=== PATIENT | male | born 1955 | race Caucasian/White ===

== ENCOUNTER 2021-04-20 12:21 | Inpatient (IN) | payer BC, SELFPAY ==
[2021-04-20] VITALS (11 sets, daily range): BP systolic 114–136; BP diastolic 67–78; PULSE 78–98; RESP 16–24; TEMP 36–37.7; O2SAT 80–95; BMI 28.8; BMI 28.3
--- NOTE | 2021-04-20 13:21 | RAD_ITS ---
STUDY: X-RAY CHEST REASON FOR EXAM: Male, 66 years old. Cough TECHNIQUE: Single frontal view of the chest. COMPARISON: None. FINDINGS: There are bilateral patchy opacities within the mid and lower lungs, more pronounced on the left. Normal size heart. Normal mediastinum and rah. Normal visualized pulmonary arteries. There is atherosclerotic calcification of the aortic arch with tortuosity. Normal visualized thoracic spine. Normal visualized ribs, clavicles, and shoulders. There is no demonstrated abnormality of the visualized soft tissue structures of the upper abdomen. RAD/Chest 1 View (Portable) IMPRESSION: Bilateral patchy opacities concerning for multifocal pneumonia. Electronically Signed: Mckayla Farris MD at 14:01 EST Tel , Service support ,
[2021-04-20 13:25] LABS: Absolute Lymphocyte Count 0.46 X10^3/uL (0.83-4.51); Absolute Neutrophil Count 3.9 X10^3/uL (2.0-7.7); Hematocrit 46.4 % (40-54); Hemoglobin 15.8 g/dL (13.0-16.5); Lymphocyte # 0.46 X10^3/ul (0.83-4.51); Lymphocyte % 9.8 % (19-41); Mean Corp Hgb Conc 34.1 g/dL (32-36); Mean Corpuscular Hgb 31.5 pg (27.0-32.0); Mean Corpuscular Volume 92.6 fL (80-94); Mean Platelet Vol. 9.6 fl (6.2-12.0); Monocyte# 0.36 X10^3/uL; Monocyte% 7.7 % (0-10); NRBC Flagged by Analyzer 0 % (0-5); Neutrophil # 3.85 X10^3/uL (2.7-7.7); Neutrophil % 82.1 % (47-70); POSITIVE DIFFERENTIAL YES; Platelet Count 167 K/mm3 (150-450); RBC Distribution Width CV 13.3 % (11.6-14.6); RBC Distribution Width SD 45.5 fl (35.1-43.9); Red Blood Count 5.01 M/mm3 (4.6-6.2); White Blood Count 4.7 K/mm3 (4.4-11.0)
[2021-04-20 13:27] LABS: Differential Indicated SCAN CRITERIA MET
[2021-04-20 13:39] LABS: Fibrinogen 606 mg/dl (203-444)
[2021-04-20 13:44] LABS: ALB/GLOB Ratio 0.8 RATIO (0.9-2.4); AST(SGOT) 41 U/L (15-37); Alanine Aminotransfer ALT/SGPT 32 U/L (16-61); Albumin, Serum 3.2 g/dL (3.2-5.0); Alkaline Phosphatase 80 U/L (45-117); Anion Gap 9 (5-15); BUN 16 mg/dL (7-18); CPK Total, Creatine Kinase 121 U/L (39-308); Calcium,Total 8.3 mg/dL (8.5-10.1); Chloride 101 mmol/L (98-107); Creatinine, Serum 0.89 mg/dL (0.70-1.30); EST Glomerular Filtration Rate 91 mL/min (>60); Est Glom Filt Rate - Afr Amer 110 mL/min (>60); Estimated Creatinine Clearance 80.06 ml/min; Glucose 104 mg/dL (74-106); LDH 428 U/L (87-241); Potassium 3.5 mmol/L (3.5-5.1); Protein, Total 7.2 g/dL (6.4-8.2); Sodium Level 136 mmol/L (136-145); Troponin-I HS 14 pg/mL (3.0-78.0)
[2021-04-20 13:47] LABS: Differential Comment SCANNED
[2021-04-20 13:51] LABS: Lactic Acid 0.9 mmol/L (0.4-1.9)
[2021-04-20 13:56] LABS: D-Dimer Quantitative (DVT/PE) 0.98 FEU/ug/m (0.27-0.49)
--- NOTE | 2021-04-20 13:56 | CT_ITS ---
STUDY: CTA CHEST REASON FOR EXAM: Male, 66 years old. Hypoxia, elevated dimer RADIATION DOSAGE (If Supplied By Facility): CTDIvol = ( 16.56 ) mGy, DLP = ( 396.34 ) mGycm TECHNIQUE: The examination was performed with the intravenous administration of IV 100mL Isovue-370. Post-processing of the angiographic images was performed, with multiplanar reformation and 3D reconstruction. Individualized dose optimization techniques were used for this CT. COMPARISON: None. FINDINGS: There are bilateral groundglass opacities throughout the lungs with a predominantly peripheral distribution. There are a few patchy opacities within the lower lobes. There are mild emphysematous changes. Normal enhancement of the main pulmonary artery and right and left pulmonary arteries. Normal enhancement of the bilateral peripheral pulmonary arteries. There is no demonstrated pulmonary embolism. There is atherosclerotic calcification of the aortic arch and descending thoracic aorta. There is no demonstrated aortic dissection. There are calcifications of the coronary arteries. Within the anterior mediastinum there is a peripherally calcified low-attenuation 3.0 x 3.0 x 2.8 cm peripherally calcified focus. Normal hilar regions. Normal visualized trachea and bronchi. Normal osseous structures. Normal visualized upper abdomen. CT/CTA Chest W/WO Contrast IMPRESSION: No demonstrated pulmonary embolism or arterial dissection. Bilateral groundglass opacities with an appearance which may be consistent with COVID 19 pneumonia. 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 Atherosclerosis. Electronically Signed: Mckayla Farris MD at 14:59 EST Tel , Service support ,
[2021-04-20 14:05] LABS: Procalcitonin 0.12 ng/mL (0.00-0.09)
--- NOTE | 2021-04-20 14:08 | ED.VIS.DYS ---
HPI History of Present Illness Chief Complaint: Shortness of Breath Informant: patient Narrative Narrative: Patient is a 66-year-old male that denies any past medical history but reports that he does not see a doctor, presenting with shortness of breath and cold-like symptoms. He started having symptoms 4 days ago (04/17/2021). He is presenting with his he was actually having the same symptoms but her symptoms started 10 days ago. states his symptoms started the same time as hers but patient is insistent that they started 4 days ago. He is complaining of loss of smell and taste, body aches, productive cough, dyspnea on exertion and shortness of breath. He is also had fever. Has not had his Covid vaccine. Denies any GI or symptoms. No other complaints at this time. Denies any tobacco use. 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 PFSH [facility] Home Medications NK 04/20/21 [History Last Taken Unknown] Allergy/AdvReac Type Severity Reaction Status Date / Time No Known Allergies Allergy Verified 04/20/21 12:24 Family History (Updated 04/20/21 @ 16:[address] Arturo Camacho MD) Mother No problems noted. Father CAD (coronary artery disease) Social History Smoking Status: Never smoker ROS ROS ED Constitutional Constitutional ED: Reports chills and fever(s) Eyes Eyes: Denies blurry vision or change in vision ENT ENT ED: Denies ear pain, rhinorrhea or sore throat Cardiovascular Cardiovascular: Denies chest pain or palpitations Respiratory/Chest Respiratory/Chest: Reports cough, dyspnea, dyspnea on exertion and sputum Gastrointestinal Gastrointestinal: Denies abdominal pain, diarrhea or vomiting Genitourinary Genitourinary ED: Denies dysuria or hematuria Musculoskeletal Musculoskeletal: Reports myalgias; Denies arthralgias or neck pain Integumentary Denies rash Neurologic Neurologic: Denies headache(s) or weakness EXAM Physical Exam Const Vital Signs: 04/20/21 12:24 04/20/21 12:26 04/20/21 13:00 Temperature 100 F H Temperature Source Temporal Pulse Rate 98 Respiratory Rate 24 H Respiratory Effort Short of Breath Respiratory Pattern Tachypnea Blood Pressure 136/67 H Blood Pressure Mean 90 Pulse Ox 80 90 Oxygen Delivery Method Room Air Nasal Cannula Nasal Cannula Oxygen Flow Rate (L/min) 4 04/20/21 14:34 04/20/21 15:16 04/20/21 15:20 Temperature 99.0 F Temperature Source Temporal Pulse Rate 90 79 Respiratory Rate Respiratory Effort Respiratory Pattern Blood Pressure 121/73 H Blood Pressure Mean 89 Pulse Ox 94 92 91 Oxygen Delivery Method Nasal Cannula Nasal Cannula Oxygen Flow Rate (L/min) 2 2 4 04/20/21 16:06 04/20/21 16:42 04/20/21 17:04 Temperature 99.1 F 96.8 F L Temperature Source Temporal Temporal Pulse Rate 78 85 Respiratory Rate 21 H 24 H Respiratory Effort Respiratory Pattern Blood Pressure 114/78 118/71 Blood Pressure Mean 90 86 Pulse Ox 95 93 Oxygen Delivery Method Nasal Cannula Nasal Cannula Oxygen Flow Rate (L/min) 4 4 Positive well nourished and well developed General Appearance ED: well developed HEENT Reports TM's clear and moist mucous membranes atraumatic Tympanic Membrane ED: Yes TM's clear Eyes PERRL and EOMs intact bilaterally Neck no lymphadenopathy, supple and no meningeal signs Resp Resp Narrative: Tachypneic, diminished breath sounds at the bases, diffuse scattered crackles appreciated Auscultation: Negative for rales or rhonchi Cardio regular rate, regular rhythm and no murmurs GI non-tender and non-distended Auscultation: normoactive bowel sounds Palpation: soft Back/Spine normal to inspection Extremity normal to inspection General Extremety ED: Negative for edema or tenderness General Extremity: Negative for edema Neuro oriented x3 Sensorium / Orientation: alert Motor Exam: Negative for general weakness Psych mental status grossly normal Skin no wounds Lesions: no lesions Rashes: no rashes MDM MDM MDM Narrative Medical decision making narrative: Patient evaluated for worsening of respiratory symptoms. Upon arrival he is 80% on room air. He is placed on 2 to 3 L of oxygen in the ER. He notes he feels better with supplemental oxygen. Does test positive for Covid. Chest x-ray is consistent with multifocal infiltrate. Elevated inflammatory markers. D-dimer is elevated so CTA is ordered. Patient is given Decadron and Tylenol in the ER. CTA does not show any acute PE. Is consistent with a multifocal pneumonia likely from COVID-19. I do not suspect a secondary bacterial pneumonia given no leukocytosis and procalcitonin of 1.2. Will defer antibiotics at this time. Patient is agreeable with admission. He remains hemodynamically stable in the emergency room. Lab Data Labs: Laboratory Results - last 24 hr 04/20/21 04/20/21 04/20/21 13:10 13:10 13:10 WBC 4.7 RBC 5.01 Hgb 15.8 Hct 46.4 MCV 92.6 MCH 31.5 MCHC 34.1 RDW Std Deviation 45.5 H RDW Coeff of Alyson 13.3 Plt Count 167 MPV 9.6 Immature Gran % (Auto) 0.400 Neut % (Auto) 82.1 H Lymph % (Auto) 9.8 L [place] % (Auto) 7.7 Eos % (Auto) 0.0 Baso % (Auto) 0.0 Absolute Neuts (auto) 3.9 Absolute Lymphs (auto) 0.46 L Nucleated RBC % 0 Differential Comment SCANNED Fibrinogen 606 H D-Dimer Quant (PE/DVT) 0.98 H* Sodium 136 Potassium 3.5 Chloride 101 Carbon Dioxide 26.0 Anion Gap 9 BUN 16 Creatinine 0.89 Estim Creat Clear Calc 80.06 Est GFR (MDRD) Af Amer 110 Est GFR (MDRD) Non-Af 91 BUN/Creatinine Ratio 18.0 Glucose 104 Lactic Acid Calcium 8.3 L Total Bilirubin 0.90 AST 41 H ALT 32 Alkaline Phosphatase 80 Lactate Dehydrogenase 428 H Total Creatine Kinase 121 Troponin I High Sens 14 C-React Prot Ext Range 56.40 H Total Protein 7.2 Albumin 3.2 Globulin 4.0 Albumin/Globulin Ratio 0.8 L Procalcitonin 04/20/21 04/20/21 04/20/21 13:10 13:10 13:10 WBC RBC Hgb Hct MCV MCH MCHC RDW Std Deviation RDW Coeff of Alyson Plt Count MPV Immature Gran % (Auto) Neut % (Auto) Lymph % (Auto) [place] % (Auto) Eos % (Auto) Baso % (Auto) Absolute Neuts (auto) Absolute Lymphs (auto) Nucleated RBC % Differential Comment Fibrinogen D-Dimer Quant (PE/DVT) Sodium Potassium Chloride Carbon Dioxide Anion Gap BUN Creatinine Estim Creat Clear Calc Est GFR (MDRD) Af Amer Est GFR (MDRD) Non-Af BUN/Creatinine Ratio Glucose Lactic Acid 0.9 Calcium Total Bilirubin AST ALT Alkaline Phosphatase Cancelled Lactate Dehydrogenase Total Creatine Kinase Troponin I High Sens C-React Prot Ext Range Total Protein Albumin Globulin Albumin/Globulin Ratio Procalcitonin 0.12 H Radiography Chest X-Ray - ED: 1 View, Read by ED Physician, Read by Radiologist, Right Infiltrate and Left Infiltrate Diagnostic Testing: Clinical Impression(s) from Imaging Studies Chest X-Ray 04/20/21 13:21 IMPRESSION: Bilateral patchy opacities concerning for multifocal pneumonia. Electronically Signed: Mckayla Farris MD at 14:01 EST Tel , Service support , Chest CTA 04/20/21 13:56 IMPRESSION: No demonstrated pulmonary embolism or arterial dissection. Bilateral groundglass opacities with an appearance which may be consistent with COVID 19 pneumonia. 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 Atherosclerosis. Electronically Signed: Mckayla Farris MD at 14:59 EST Tel , Service support , Discharge Plan Dx/Rx/DC Orders Clinical Impression: COVID-19, Acute respiratory failure with hypoxia, Pneumonia due to COVID-19 virus Disposition Disposition: Acute Care [facility] Discharge Date/Time: 04/20/21 17:20
[2021-04-20] MEDS: Acetaminophen 325 MG Tablet 650 MG PO (14:25)
[2021-04-20] MEDS: dexAMETHasone 4 MG Tablet 6 MG PO (14:25)
--- NOTE | 2021-04-20 15:54 | PCM.HP.STD ---
HPI - General HPI Narrative KATY WILSON, is a 66 M relatively healthy on no chronic medications, unvaccinated against COVID-19 who presented with shortness of breath. Per patient symptoms started 4 days prior to his admission. He did experience loss of taste as well as smell. He later developed shortness of breath which has since progressed. He also did experience cough. He presented to the emergency department due to worsening symptoms. An assessment of COVID-19 pneumonia made admitted to regular nursing floor for further management. [facility] Home Medications NK 04/20/21 [History Last Taken Unknown] Allergy/AdvReac Type Severity Reaction Status Date / Time No Known Allergies Allergy Verified 04/20/21 12:24 Family History (Updated 04/20/21 @ 16:[address] Arturo Camacho MD) Mother No problems noted. Father CAD (coronary artery disease) Social History Smoking Status: Never smoker ROS ROS Narrative GENERAL: denies fever, chills, HEENT: Loss of taste and smell RESPIRATORY: cough, shortness of breath, dyspnea on exertion CARDIAC: denies chest pain, palpitations, orthopnea, GASTROINTESTINAL: denies abdominal pain, nausea, GENITOURINARY: denies dysuria, urgency, frequency, EXTREMITY: denies swelling MUSCULOSKELETAL: denies current joint pain or tenderness NEUROLOGIC: denies focal numbness, weakness, tingling HEMATOLOGIC: denies easy bruising and/or hemorrhage INTEGUMENT: denies rashes PSYCHIATRIC: denies suicidal or homicidal ideation Vital Signs Vital Signs Vital Signs: 04/20/21 12:24 04/20/21 12:26 04/20/21 13:00 Temperature 100 F H Temperature Source Temporal Pulse Rate 98 Respiratory Rate 24 H Respiratory Effort Short of Breath Respiratory Pattern Tachypnea Blood Pressure 136/67 H Blood Pressure Mean 90 Pulse Ox 80 90 Oxygen Delivery Method Room Air Nasal Cannula Nasal Cannula Oxygen Flow Rate (L/min) 4 04/20/21 14:34 04/20/21 15:16 04/20/21 15:20 Temperature 99.0 F Temperature Source Temporal Pulse Rate 90 79 Respiratory Rate Respiratory Effort Respiratory Pattern Blood Pressure 121/73 H Blood Pressure Mean 89 Pulse Ox 94 92 91 Oxygen Delivery Method Nasal Cannula Nasal Cannula Oxygen Flow Rate (L/min) 2 2 4 Weight Weight: 86.183 kg Body Mass Index (BMI) 28.8 Physical Exam Narrative GENERAL: cooperative HEENT: Atraumatic; EYES; Anicteric, Normal Conjunctiva NECK; supple, normal thyroid, RESPIRATORY: Diminished to auscultation CARDIOVASCULAR: Regular S1 S2, GI: soft, normoactive bowel sounds, : No Renal angle tenderness; EXTREMITIES: No edema, no clubbing, MUSCULOSKELETAL: no muscle waisting NEURO: Awake; no lateralizing signs. SKIN: No Rash PSYCH; Flat affect Results Lab / Micro Data Result Diagrams: 04/20/21 13:10 04/20/21 13:10 Labs: Laboratory Results - last 24 hr 04/20/21 13:10: WBC 4.7, RBC 5.01, Hgb 15.8, Hct 46.4, MCV 92.6, MCH 31.5, MCHC 34.1, RDW Std Deviation 45.5 H, RDW Coeff of Alyson 13.3, Plt Count 167, MPV 9.6, Immature Gran % (Auto) 0.400, Neut % (Auto) 82.1 H, Lymph % (Auto) 9.8 L, [place] % (Auto) 7.7, Eos % (Auto) 0.0, Baso % (Auto) 0.0, Absolute Neuts (auto) 3.9, Absolute Lymphs (auto) 0.46 L, Nucleated RBC % 0, Differential Comment SCANNED 04/20/21 13:10: Fibrinogen 606 H, D-Dimer Quant (PE/DVT) 0.98 H* 04/20/21 13:10: Sodium 136, Potassium 3.5, Chloride 101, Carbon Dioxide 26.0, Anion Gap 9, BUN 16, Creatinine 0.89, Estim Creat Clear Calc 80.06, Est GFR (MDRD) Af Amer 110, Est GFR (MDRD) Non-Af 91, BUN/Creatinine Ratio 18.0, Glucose 104, Calcium 8.3 L, Total Bilirubin 0.90, AST 41 H, ALT 32, Alkaline Phosphatase 80, Lactate Dehydrogenase 428 H, Total Creatine Kinase 121, Troponin I High Sens 14, C-React Prot Ext Range 56.40 H, Total Protein 7.2, Albumin 3.2, Globulin 4.0, Albumin/Globulin Ratio 0.8 L 04/20/21 13:10: Lactic Acid 0.9 04/20/21 13:10: Procalcitonin 0.12 H Micro: Microbiology 04/20/21 12:10 Nasal Secretion SARS-CoV-2 Antigen (Rapid) - Final SARS-CoV-2 (COVID 19) Radiology Impression Chest X-Ray 04/20/21 13:21 IMPRESSION: Bilateral patchy opacities concerning for multifocal pneumonia. Electronically Signed: Mckayla Farris MD at 14:01 EST Tel , Service support , Chest CTA 04/20/21 13:56 IMPRESSION: No demonstrated pulmonary embolism or arterial dissection. Bilateral groundglass opacities with an appearance which may be consistent with COVID 19 pneumonia. 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 Atherosclerosis. Electronically Signed: Mckayla Farris MD at 14:59 EST Tel , Service support , Assessment & Plan Assessment/Plan (1) COVID-19: PLAN: Patient is a 66-year-old unvaccinated against COVID-19 gentleman presented with progressive shortness of breath 1. Acute hypoxic respiratory failure ?Secondary to COVID-19. Patient admitted to regular nursing floor placed on supplemental oxygen with treatment of underlying condition 2. COVID-19 pneumonia ?CT a obtained demonstrated bilateral ground glass opacities with predominantly peripheral distribution consistent with COVID-19 pneumonia. Admitted to regular nursing floor placed on supplemental oxygen Decadron as well as use of remdesivir 3. Elevated D-dimer ?Secondary to COVID-19 CTA was negative for PE 4. 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 Patient to undergo subsequent evaluation as outpatient once he recovers from his COVID-19 pneumonia 5. DVT prophylaxis ?Lovenox Advance planning; did discuss with the patient regarding advanced directives as well as CODE STATUS. Did explain the various scenarios involved ( FULL CODE, DNR CCA, DNR CCA with no intubation, and DNR CC and what each meant) patient elected to full code with CPR and intubation if warranted. Order was placed. Time spent on discussion 18 minutes. Charges/Coding Visit Charges Inpatient E&M: 71443 Init Hosp L3 Procedures Hospitalists Procedures: 58422 Advncd Care Plan 30 Min
--- NOTE | 2021-04-20 17:59 | PCS.PANDOC ---
PANDEMIC DOCUMENTATION INITIATED: Date: 04/20/2021 Time: 3832
[2021-04-20] MEDS: Enoxaparin 40 MG/0.4 ML Syringe SC (20:24)
[2021-04-21] VITALS (12 sets, daily range): BP systolic 105–128; BP diastolic 66–82; PULSE 68–98; RESP 16–34; TEMP 36.7–37.3; O2SAT 86–93
[2021-04-21 07:30] LABS: Absolute Lymphocyte Count 0.87 X10^3/uL (0.83-4.51); Absolute Neutrophil Count 4.8 X10^3/uL (2.0-7.7); Basophil# 0.01 X10^3/uL; Basophil% 0.2 % (0-1); Hematocrit 43.1 % (40-54); Hemoglobin 14.8 g/dL (13.0-16.5); Lymphocyte # 0.87 X10^3/ul (0.83-4.51); Lymphocyte % 14.1 % (19-41); Mean Corp Hgb Conc 34.3 g/dL (32-36); Mean Corpuscular Hgb 31.8 pg (27.0-32.0); Mean Corpuscular Volume 92.7 fL (80-94); Mean Platelet Vol. 9.9 fl (6.2-12.0); Monocyte# 0.46 X10^3/uL; Monocyte% 7.4 % (0-10); NRBC Flagged by Analyzer 0 % (0-5); Neutrophil # 4.81 X10^3/uL (2.7-7.7); Neutrophil % 77.7 % (47-70); Platelet Count 193 K/mm3 (150-450); RBC Distribution Width CV 13.2 % (11.6-14.6); RBC Distribution Width SD 45.4 fl (35.1-43.9); Red Blood Count 4.65 M/mm3 (4.6-6.2); White Blood Count 6.2 K/mm3 (4.4-11.0)
[2021-04-21 08:04] LABS: ALB/GLOB Ratio 0.7 RATIO (0.9-2.4); AST(SGOT) 37 U/L (15-37); Alanine Aminotransfer ALT/SGPT 32 U/L (16-61); Albumin, Serum 2.7 g/dL (3.2-5.0); Alkaline Phosphatase 69 U/L (45-117); Anion Gap 10 (5-15); BUN 18 mg/dL (7-18); BUN/Creat Ratio 22.9 RATIO (10-20); Bilirubin, Direct 0.24 mg/dL (0.00-0.30); Calcium,Total 8.1 mg/dL (8.5-10.1); Chloride 103 mmol/L (98-107); Creatinine, Serum 0.79 mg/dL (0.70-1.30); EST Glomerular Filtration Rate 105 mL/min (>60); Est Glom Filt Rate - Afr Amer 127 mL/min (>60); Estimated Creatinine Clearance 90.19 ml/min; Glucose 113 mg/dL (74-106); Magnesium 2.6 mg/dL (1.6-2.6); Phosphorus 3.2 mg/dL (2.5-4.9); Potassium 3.6 mmol/L (3.5-5.1); Protein, Total 6.7 g/dL (6.4-8.2); Sodium Level 137 mmol/L (136-145)
[2021-04-21] MEDS: dexAMETHasone 4 MG Tablet 6 MG PO (10:39)
[2021-04-21] MEDS: Enoxaparin 40 MG/0.4 ML Syringe SC ×2 (10:40→19:35)
--- NOTE | 2021-04-21 15:10 | CASEMGMT ---
SHELBIE JOHNSTON assessment: Initial transition planning/care coordination assessment. SHELBIE JOHNSTON introduced self and role at [facility], pt voices understanding and consents to assessment. Pt is on 10L nc and speaks in full sentences. Pt is A/Ox4 and answers all questions appropriately. Pt states is 'feeling a lot better.' Pt states is not vaccinated and states no concerns getting resources once home. Care providers, pharmacy, and demographics verified/updated. Presentation: COVID sx's since , SOB, cough, fever, lost of taste/smell-80% on room air Admitting dx: COVID PCP: Pt states does not have PCP but would like local PCP list. List provided. Specialists: Pt states no current specialists. Preferred Pharmacy: [facility] [place] Insurance: [place] Pres[place] Living Will/HPOA: Pt has LW/HPOA and is aware that they are not on file at [facility]. Pt states his , Armida Christensen, is HPOA. LNOK: Armida Christensen, Living Arrangements: Pt lives with in 1 story home with a flight of steps and states no concerns at home. Pt is independent with ADL's. Transportation: Pt drives self and states no transportation concerns. DME/HHC: Pt states no current DME or need for any further DME. Pt states no preference for DME company, if pt qualifies for home oxygen. Pt states no hx of HHC or SNF in the past. Pt states no concerns with going home at time of discharge. 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 Pt states does not smoke cigarettes or drink ETOH. Pt states no further concerns/needs. CM to follow for any further discharge planning/needs. Advised pt to ask for CM if any further questions/concerns/needs arise, voices understanding. Pt Goal: Home Plan[place] SHELBIE JOHNSTON
--- NOTE | 2021-04-21 15:55 | PN.HOSP_ITS ---
Subjective Subjective Follow-up on acute hypoxic respiratory failure/acute COVID-19 pneumonia: Patient was seen and examined. He feels improved. Denied any new complaints Objective Data Objective Data Vital Signs: Vital Signs Temp Pulse Resp BP Pulse Ox 99.1 F 98 20 H 127/82 H 86 04/21/21 10:00 04/21/21 13:07 04/21/21 10:00 04/21/21 10:00 04/21/21 10:00 Oxygen Flow Rate (L/min) 4 Oxygen Delivery Method Nasal Cannula Weight: 84.7 kg Body Mass Index (BMI) 28.3 Intake & Output: Intake and Output for Last 24 Hours 04/19/21 04/20/21 04/21/21 23:59 23:59 23:59 Intake Total 240 / 240 360 / 360 Output Total 800 / 800 Balance 240 / 40 -440 / -440 Medical Nutrition Assessment Dietitian: Malnutrition Criteria Met Start: 04/21/21 12:38 Freq: Status: Active Protocol: Document 04/21/21 12:43 AG (Rec: 04/21/21 12:43 AG [id number]) Nutrition Malnutrition Evidence of Malnutrition Exists Yes Malnutrition (severe): Acute Illness/Injury Evidenced By Suboptimal Energy Intake ( Moderate),Weight Loss (Severe) Clinical Problem Acute Disease or Injury Related Malnutrition Etiology severe, acute malnutrition r/t inadequate energy intake w/ COVID illness Signs/Symptoms as evidenced by reported decreased appetite, estimated PO intake meeting <50% of estimated nutritional needs x 4-5 days, unintentional wt loss of 8.3#/4% <1 week Status Active Problem Recommendation Dietitian Recommendations/Changes continue regular diet; will add 4oz ensure compact w/ meals d/t acute malnutrition. Lab / Micro Data Result Diagrams: 04/21/21 07:08 04/21/21 07:08 Labs: Laboratory Results - last 24 hr 04/20/21 13:10: Alkaline Phosphatase Cancelled 04/21/21 07:08: WBC 6.2, RBC 4.65, Hgb 14.8, Hct 43.1, MCV 92.7, MCH 31.8, MCHC 34.3, RDW Std Deviation 45.4 H, RDW Coeff of Alyson 13.2, Plt Count 193, MPV 9.9, Immature Gran % (Auto) 0.600, Neut % (Auto) 77.7 H, Lymph % (Auto) 14.1 L, [place] % (Auto) 7.4, Eos % (Auto) 0.0, Baso % (Auto) 0.2, Absolute Neuts (auto) 4.8, Absolute Lymphs (auto) 0.87, Nucleated RBC % 0 04/21/21 07:08: Sodium 137, Potassium 3.6, Chloride 103, Carbon Dioxide 24.0, Anion Gap 10, BUN 18, Creatinine 0.79, Estim Creat Clear Calc 90.19, Est GFR (MDRD) Af Amer 127, Est GFR (MDRD) Non-Af 105, BUN/Creatinine Ratio 22.9 H, Glucose 113 H, Calcium 8.1 L, Phosphorus 3.2, Magnesium 2.6, Total Bilirubin 0.60, Direct Bilirubin 0.24, AST 37, ALT 32, Alkaline Phosphatase 69, Total Protein 6.7, Albumin 2.7 L, Globulin 4.0, Albumin/Globulin Ratio 0.7 L Micro: Microbiology 04/20/21 12:10 Nasal Secretion SARS-CoV-2 Antigen (Rapid) - Final SARS-CoV-2 (COVID 19) Physical Exam Narrative Physical exam: General: Alert, Oriented x3, Cooperative, No apparent distress, Well developed HEENT: Atraumatic Oral: Moist Mucosa Neck: Supple Lungs: Clear to auscultation Cardiovascular: HS I+II, regular, no murmurs Abdomen: Bowel Sounds Present, Soft, Non Tender Extremities: No edema Assessment & Plan Assessment/Plan (1) Acute respiratory failure with hypoxia: (2) Pneumonia due to COVID-19 virus: PLAN: 1. Acute hypoxic respiratory failure secondary to acute COVID-19 pneumonia Continue remdesivir and Decadron Continue on breathing treatments Encourage use of incentive spirometer 2. Elevated D-dimer, acute PE ruled out Charges/Coding Visit Charges Inpatient E&M: 90414 Subs Hosp L2
[2021-04-21] MEDS: Furosemide 40 MG/4 ML Vial IV (17:30)
[2021-04-21] MEDS: 0.9% Saline Lock 10 ML Syringe IV (19:52)
[2021-04-22] VITALS (21 sets, daily range): BP systolic 102–117; BP diastolic 61–73; PULSE 69–88; RESP 14–32; TEMP 36.2–38.2; O2SAT 79–99
[2021-04-22] MEDS: Acetaminophen 325 MG Tablet 650 MG PO (05:24)
[2021-04-22] MEDS: dexAMETHasone 4 MG Tablet 6 MG PO (08:12)
[2021-04-22] MEDS: Enoxaparin 40 MG/0.4 ML Syringe SC ×2 (08:12→19:51)
[2021-04-22] MEDS: 0.9% Saline Lock 10 ML Syringe IV (08:14)
--- NOTE | 2021-04-22 08:16 | NURSING ---
Addendum entered by Fatoumata See 04/22/21 14:53: RT in room placing pt on AirVo. Addendum entered by Fatoumata See 04/22/21 14:36: Pt assisted to sitting in bed from prone. Spo2 80% 15L NC. 1441-Respiratory called, pt maintaining 81% on 15 L. Original Note: Pt sat forward in bed for this RN to assess lung sounds. Pt became SOB, PSO2 83% on 14L. In creased to 15L NC and proned pt. Spo2 92% 15L NC after a few minutes laying prone.
--- NOTE | 2021-04-22 10:00 | PCM.PN.HOSP ---
Subjective Subjective Follow-up on acute hypoxic respiratory failure/acute COVID-19 pneumonia: Patient was seen and examined. He is on 15 L of oxygen. He has been lying prone. Objective Data Objective Data Vital Signs: Vital Signs Temp Pulse Resp BP Pulse Ox 97.1 F L 70 18 116/67 94 04/22/21 08:00 04/22/21 08:00 04/22/21 08:00 04/22/21 08:00 04/22/21 08:27 Oxygen Flow Rate (L/min) 15 Oxygen Delivery Method High Flow Weight: 84.7 kg Body Mass Index (BMI) 28.3 Intake & Output: Intake and Output for Last 24 Hours 04/20/21 04/21/21 04/22/21 23:59 23:59 23:59 Intake Total 240 / 240 610 / 610 Output Total 800 / 800 350 / 350 Balance 240 / 40 -190 / -190 -350 / -350 Medical Nutrition Assessment Dietitian: Malnutrition Criteria Met Start: 04/21/21 12:38 Freq: Status: Active Protocol: Document 04/21/21 12:43 AG (Rec: 04/21/21 12:43 AG [id number]) Nutrition Malnutrition Evidence of Malnutrition Exists Yes Malnutrition (severe): Acute Illness/Injury Evidenced By Suboptimal Energy Intake ( Moderate),Weight Loss (Severe) Clinical Problem Acute Disease or Injury Related Malnutrition Etiology severe, acute malnutrition r/t inadequate energy intake w/ COVID illness Signs/Symptoms as evidenced by reported decreased appetite, estimated PO intake meeting <50% of estimated nutritional needs x 4-5 days, unintentional wt loss of 8.3#/4% <1 week Status Active Problem Recommendation Dietitian Recommendations/Changes continue regular diet; will add 4oz ensure compact w/ meals d/t acute malnutrition. Lab / Micro Data Result Diagrams: 04/21/21 07:08 04/21/21 07:08 Micro: Microbiology 04/21/21 17:07 Urine, Clean Catch Legionella Antigen - Final 04/21/21 17:07 Urine, Clean Catch Streptococcus pneumoniae Antigen (M - Final 04/20/21 12:10 Nasal Secretion SARS-CoV-2 Antigen (Rapid) - Final SARS-CoV-2 (COVID 19) Physical Exam Narrative Physical exam: General: Alert, Oriented x3, Cooperative, No apparent distress, Well developed HEENT: Atraumatic Oral: Moist Mucosa Neck: Supple Lungs: Clear to auscultation Cardiovascular: HS I+II, regular, no murmurs Abdomen: Bowel Sounds Present, Soft, Non Tender Extremities: No edema Assessment & Plan Assessment/Plan (1) Acute respiratory failure with hypoxia: (2) Pneumonia due to COVID-19 virus: PLAN: 1. Acute hypoxic respiratory failure secondary to acute COVID-19 pneumonia Continue remdesivir and Decadron Continue on breathing treatments Encourage use of incentive spirometer 2. Elevated D-dimer, acute PE ruled out Charges/Coding Visit Charges Inpatient E&M: 03295 Subs Hosp L2
[2021-04-23] VITALS (15 sets, daily range): BP systolic 112–128; BP diastolic 66–77; PULSE 64–72; RESP 14–31; TEMP 36–36.9; O2SAT 84–97
[2021-04-23] MEDS: Enoxaparin 40 MG/0.4 ML Syringe SC ×2 (08:39→20:34)
[2021-04-23] MEDS: dexAMETHasone 4 MG Tablet 6 MG PO (08:39)
[2021-04-23] MEDS: Furosemide 40 MG/4 ML Vial IV (12:01)
--- NOTE | 2021-04-23 12:33 | PCM.PN.HOSP ---
Subjective Subjective Follow-up on acute hypoxic respiratory failure/acute COVID-19 pneumonia: Patient was seen and examined. Patient is currently on BiPAP. He was Airvo overnight. Objective Data Objective Data Vital Signs: Vital Signs Temp Pulse Resp BP Pulse Ox 97.8 F 67 24 H 112/66 96 04/23/21 12:02 04/23/21 12:02 04/23/21 12:02 04/23/21 12:02 04/23/21 12:02 Oxygen Flow Rate (L/min) 60 Oxygen Delivery Method Bi-pap Weight: 84.7 kg Body Mass Index (BMI) 28.3 Intake & Output: Intake and Output for Last 24 Hours 04/21/21 04/22/21 04/23/21 23:59 23:59 23:59 Intake Total 610 / 610 850 / 850 60 / 60 Output Total 800 / 800 350 / 550 900 / 900 Balance -190 / -190 500 / 300 -840 / -840 Medical Nutrition Assessment Dietitian: Malnutrition Criteria Met Start: 04/21/21 12:38 Freq: Status: Active Protocol: Document 04/21/21 12:43 AG (Rec: 04/21/21 12:43 AG [id number]) Nutrition Malnutrition Evidence of Malnutrition Exists Yes Malnutrition (severe): Acute Illness/Injury Evidenced By Suboptimal Energy Intake ( Moderate),Weight Loss (Severe) Clinical Problem Acute Disease or Injury Related Malnutrition Etiology severe, acute malnutrition r/t inadequate energy intake w/ COVID illness Signs/Symptoms as evidenced by reported decreased appetite, estimated PO intake meeting <50% of estimated nutritional needs x 4-5 days, unintentional wt loss of 8.3#/4% <1 week Status Active Problem Recommendation Dietitian Recommendations/Changes continue regular diet; will add 4oz ensure compact w/ meals d/t acute malnutrition. Lab / Micro Data Result Diagrams: 04/21/21 07:08 04/21/21 07:08 Micro: Microbiology 04/20/21 15:10 Blood Culture (Wb) - Left Hand Blood Culture - Preliminary No growth in 48 hours. 04/20/21 13:10 Blood Culture (Wb) - Anticubital Right Blood Culture - Preliminary No growth in 48 hours. 04/21/21 17:07 Urine, Clean Catch Legionella Antigen - Final 04/21/21 17:07 Urine, Clean Catch Streptococcus pneumoniae Antigen (M - Final 04/20/21 12:10 Nasal Secretion SARS-CoV-2 Antigen (Rapid) - Final SARS-CoV-2 (COVID 19) Physical Exam Narrative Physical exam: General: Alert, Oriented x3, Cooperative, No apparent distress, currently on Bipap HEENT: Atraumatic Oral: Moist Mucosa Neck: Supple Lungs: Diminished to auscultation Cardiovascular: HS I+II, regular, no murmurs Abdomen: Bowel Sounds Present, Soft, Non Tender Extremities: No edema Assessment & Plan Assessment/Plan (1) COVID-19: (2) Acute respiratory failure with hypoxia: (3) Pneumonia due to COVID-19 virus: PLAN: 1. Acute hypoxic respiratory failure secondary to acute COVID-19 pneumonia, worsening Currently on BiPAP/Airvo Patient is unvaccinated; has symptoms 4 days prior to admission Continue Remdesivir and Decadron Continue on breathing treatments Pulmonology and ID consult 2. Elevated D-dimer, acute PE ruled out Clarified CODE STATUS: Patient wants to be full code Charges/Coding Visit Charges Inpatient E&M: 61242 Subs Hosp L2
[2021-04-23 13:39] LABS: Absolute Lymphocyte Count 0.62 X10^3/uL (0.83-4.51); Absolute Neutrophil Count 9.2 X10^3/uL (2.0-7.7); Basophil# 0.01 X10^3/uL; Basophil% 0.1 % (0-1); Hematocrit 43.9 % (40-54); Hemoglobin 15.1 g/dL (13.0-16.5); Lymphocyte # 0.62 X10^3/ul (0.83-4.51); Lymphocyte % 6.1 % (19-41); Mean Corp Hgb Conc 34.4 g/dL (32-36); Mean Corpuscular Hgb 31.5 pg (27.0-32.0); Mean Corpuscular Volume 91.5 fL (80-94); Mean Platelet Vol. 9.9 fl (6.2-12.0); Monocyte# 0.31 X10^3/uL; NRBC Flagged by Analyzer 0 % (0-5); Neutrophil # 9.19 X10^3/uL (2.7-7.7); Neutrophil % 90.1 % (47-70); POSITIVE MORPHOLOGY YES; Platelet Count 269 K/mm3 (150-450); RBC Distribution Width CV 13.1 % (11.6-14.6); White Blood Count 10.2 K/mm3 (4.4-11.0)
[2021-04-23 13:40] LABS: Differential Indicated SCAN CRITERIA MET
[2021-04-23 13:56] LABS: D-Dimer Quantitative (DVT/PE) 0.68 FEU/ug/m (0.27-0.49)
[2021-04-23 14:04] LABS: BNP,B-Type NATRIURETIC PEPTIDE 41.7 pg/mL (0-100)
[2021-04-23 14:12] LABS: ALB/GLOB Ratio 0.6 RATIO (0.9-2.4); AST(SGOT) 34 U/L (15-37); Alanine Aminotransfer ALT/SGPT 47 U/L (16-61); Albumin, Serum 2.5 g/dL (3.2-5.0); Alkaline Phosphatase 74 U/L (45-117); Anion Gap 11 (5-15); BUN 19 mg/dL (7-18); BUN/Creat Ratio 23.9 RATIO (10-20); Calcium,Total 8.5 mg/dL (8.5-10.1); Chloride 101 mmol/L (98-107); EST Glomerular Filtration Rate 104 mL/min (>60); Est Glom Filt Rate - Afr Amer 126 mL/min (>60); Estimated Creatinine Clearance 89.06 ml/min; Glucose 128 mg/dL (74-106); Potassium 3.6 mmol/L (3.5-5.1); Protein, Total 6.5 g/dL (6.4-8.2); Sodium Level 139 mmol/L (136-145)
[2021-04-23 14:19] LABS: Procalcitonin 0.07 ng/mL (0.00-0.09)
--- NOTE | 2021-04-23 15:55 | EX.PCM.CONCC ---
Assessment & Plan Assessment/Plan (1) Acute respiratory failure with hypoxia: (2) Pneumonia due to COVID-19 virus: PLAN: RECOMMENDATIONS: 1. Continue baricitinib (05/06/2021), Decadron (05/01/2021) and Remdesivir (04/24/2021) 2. Encourage prone positioning, Acapella and incentive spirometer as tolerated 3. Diuretics as needed to remain euvolemic 4. Transition to Mucinex for pulmonary toileting 5. Add vitamin C and zinc 6. BiPAP breaks as tolerated. Add BiPAP with sleep 7. Continue surveillance labs for complications of therapy IMPRESSIONS: 1. Acute hypoxic respiratory failure secondary to COVID-19 Continue with baricitinib, Decadron and Remdesivir with recommended courses. Patient will need to continue to have daily labs to monitor for complications of therapy. Patient does report a remote smoking history, so COPD cannot be excluded. This will have to be evaluated as an outpatient. Patient has been able to make it down to 70% FiO2 on BiPAP, so potentially could attempt Airvo during the day. Would continue to use BiPAP with sleep. We will continue to diurese as necessary to maintain euvolemia. Add vitamin C and zinc. Low clinical suspicion for secondary bacterial infection given normal procalcitonin. 2. Advanced age/nonvaccinated status/history of smoking Complicates care, management, recovery and prognosis. We will need to monitor for complications such as hyperglycemia and hypertension related to Decadron therapy. May schedule bronchodilators in the future if patient is found to have wheezing. We will transition to Mucinex for better pulmonary toileting. HPI Consult Data Date of Consult: 04/23/21 HPI Narrative HPI Narrative: KATY WILSON is a 66 M, with past medical history listed below, who presents to [facility] on 04/20/2021 secondary to progressive shortness of breath and cold symptoms. Patient reportedly had reported loss of taste and smell on the Wednesday after Thanksgiving. Patient had also reported the progression of body aches, productive cough, shortness of breath initially with exertion and then at rest. Patient had reported some fever. Patient reported some loose bowel movements, but not sal diarrhea. Patient is unvaccinated against COVID-19. In the ER, patient was noted to have a temperature of 100 ?F. Patient was tachypneic at 24 breaths/min and saturating 80% on room air. The patient eventually required 4 L nasal cannula to maintain saturations. Laboratory work-up was relatively unremarkable except for an elevated D-dimer of 0.98, CRP of 56.4 and an LDH of 428. Chest x-ray showed bilateral patchy infiltrates and a CTA of the chest showed no PE, but a calcified cystic anterior mediastinal mass. Patient was admitted to the floor on supplemental oxygen and initiated on Remdesivir and Decadron. However, over the course of the hospitalization, patient has progressively gotten more hypoxic. Patient is currently requiring BiPAP therapy to maintain saturations. Patient appears to be tolerating this well, but was as high as 85% FiO2 to maintain saturations. Patient does have an Airvo in the room, but states he is yet to use it today. Patient overall feels okay. Patient does report a periodic cough. Patient does report a history of smoking in the past. Patient states that he quit over 20 years ago and does not use any inhalers at baseline. Patient has not seen a lotus notes administrator or had a PFT previously. Patient denies a history of recurrent pneumonia or a need for supplemental oxygen previously. Patient denies any exposure to asbestos or TB. 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 Review of systems otherwise negative from a constitutional, HEENT, respiratory, cardiovascular, GI, genitourinary, musculoskeletal, skin, neurologic, psychiatric and hematologic system unless stated above. [facility] Medical History Former smoker Home Medications NK 04/20/21 [History Last Taken Unknown] Allergy/AdvReac Type Severity Reaction Status Date / Time No Known Allergies Allergy Verified 04/20/21 12:24 Family History Mother No problems noted. Father CAD (coronary artery disease) Social History (Updated 04/23/21 @ 16:[address] Rome Aviles MD) Smoking Status: Former smoker quit date: 02/14/01 Electronic Cigarette Use: not used ROS ROS Narrative See HPI Physical Exam Const alert and oriented x3 General Appearance: cooperative, well developed and on BiPAP HEENT normocephalic, head/scalp atraumatic and moist oral mucous membranes Eyes PERRL and EOMs intact bilaterally Neck full ROM and no lymphadenopathy Chest inspection of chest normal Chest: symmetrical chest wall rise; Negative for crepitus Resp no use of accessory muscles Effort and Inspection: Negative for paradoxical thoraco-abdominal movements Auscultation: diminished lung sounds; Negative for rales, rhonchi or wheezes Percussion: Negative for dullness Cardio regular rate, regular rhythm, S1 normal heart sound, S2 normal heart sound, no murmurs, no rub and no gallops GI normal to inspection, nondistended, normoactive bowel sounds no CVA tenderness Extremity no clubbing, cyanosis or edema Skin no rashes or lesions noted Neuro oriented x3, CN's II-XII intact bilaterally, moves all extremities and no focal motor deficits Psych cooperative and affect normal Medical Records Data Medical Nutrition Assessment Dietitian: Malnutrition Criteria Met Start: 04/21/21 12:38 Freq: Status: Active Protocol: Document 04/21/21 12:43 AG (Rec: 04/21/21 12:43 [id number]) Nutrition Malnutrition Evidence of Malnutrition Exists Yes Malnutrition (severe): Acute Illness/Injury Evidenced By Suboptimal Energy Intake ( Moderate),Weight Loss (Severe) Clinical Problem Acute Disease or Injury Related Malnutrition Etiology severe, acute malnutrition r/t inadequate energy intake w/ COVID illness Signs/Symptoms as evidenced by reported decreased appetite, estimated PO intake meeting <50% of estimated nutritional needs x 4-5 days, unintentional wt loss of 8.3#/4% <1 week Status Active Problem Recommendation Dietitian Recommendations/Changes continue regular diet; will add 4oz ensure compact w/ meals d/t acute malnutrition. Lab / Micro Data Result Diagrams: 04/23/21 13:20 04/23/21 13:20 Labs: Laboratory Results - last 24 hr 04/23/21 13:20: D-Dimer Quant (PE/DVT) 0.68 H* 04/23/21 13:20: Sodium 139, Potassium 3.6, Chloride 101, Carbon Dioxide 27.0, Anion Gap 11, BUN 19 H, Creatinine 0.80, Estim Creat Clear Calc 89.06, Est GFR (MDRD) Af Amer 126, Est GFR (MDRD) Non-Af 104, BUN/Creatinine Ratio 23.9 H, Glucose 128 H, Calcium 8.5, Total Bilirubin 1.10 H, AST 34, ALT 47, Alkaline Phosphatase 74, C-React Prot Ext Range 32.90 H, Total Protein 6.5, Albumin 2.5 L, Globulin 4.0, Albumin/Globulin Ratio 0.6 L 04/23/21 13:20: B-Natriuretic Peptide 41.7 04/23/21 13:20: Procalcitonin 0.07 04/23/21 13:20: WBC 10.2, RBC 4.80, Hgb 15.1, Hct 43.9, MCV 91.5, MCH 31.5, MCHC 34.4, RDW Std Deviation 44.0 H, RDW Coeff of Alyson 13.1, Plt Count 269, MPV 9.9, Immature Gran % (Auto) 0.700, Neut % (Auto) 90.1 H, Lymph % (Auto) 6.1 L, [place] % (Auto) 3.0, Eos % (Auto) 0.0, Baso % (Auto) 0.1, Absolute Neuts (auto) 9.2 H, Absolute Lymphs (auto) 0.62 L, Nucleated RBC % 0 Micro: Microbiology 04/20/21 15:10 Blood Culture (Wb) - Left Hand Blood Culture - Preliminary No growth in 48 hours. 04/20/21 13:10 Blood Culture (Wb) - Anticubital Right Blood Culture - Preliminary No growth in 48 hours. Charges/Coding Visit Charges Inpatient E&M: 19831 Init Hosp L3
[2021-04-23] MEDS: Ascorbic Acid 500 MG Tablet 1000 MG PO (18:34)
--- NOTE | 2021-04-23 19:14 | CON.PCM.ID_ITS ---
Assessment & Plan Assessment/Plan (1) COVID-19: PLAN: Sx started around 04/13. Isolated until 05/02. Unvaccinated. R diamond BENNETT, risks/benefits, we agree to start baricitinib. On dex, remdesivir. Will follow, thank you (2) Acute respiratory failure with hypoxia: HPI Consult Data Date of Consult: 04/23/21 HPI Narrative HPI Narrative: KATY WILSON, is a 66 M who presented 04/20 with sx since around 04/13, c/o fever, chills, aches, cough, fatigue, change in taste/smell. also sick, improving. Unvaccinated. Came to ED, admitted on dex, remdesivir. Now on bipap. Full ROS performed and neg except as noted above. PFSH Medical History Former smoker Home Medications NK 04/20/21 [History Last Taken Unknown] Allergy/AdvReac Type Severity Reaction Status Date / Time No Known Allergies Allergy Verified 04/20/21 12:24 Family History Mother No problems noted. Father CAD (coronary artery disease) Social History (Updated 04/23/21 @ 16:[address] Rome Aviles MD) Smoking Status: Former smoker quit date: 02/14/01 Electronic Cigarette Use: not used Physical Exam Const alert, oriented x3 and no apparent distress General Appearance: cooperative Exam Limitations: no limitations HEENT normocephalic and head/scalp atraumatic Eyes PERRL and EOMs intact bilaterally Neck supple and No nodes Resp Auscultation: diminished lung sounds Cardio regular rate and regular rhythm GI normal to inspection, nondistended, normoactive bowel sounds Extremity no clubbing, cyanosis or edema Skin no rashes or lesions noted Neuro CN's II-XII intact bilaterally Medical Records Data Medical Nutrition Assessment Dietitian: Malnutrition Criteria Met Start: 04/21/21 12:38 Freq: Status: Active Protocol: Document 04/21/21 12:43 AG (Rec: 04/21/21 12:43 [id number]) Nutrition Malnutrition Evidence of Malnutrition Exists Yes Malnutrition (severe): Acute Illness/Injury Evidenced By Suboptimal Energy Intake ( Moderate),Weight Loss (Severe) Clinical Problem Acute Disease or Injury Related Malnutrition Etiology severe, acute malnutrition r/t inadequate energy intake w/ COVID illness Signs/Symptoms as evidenced by reported decreased appetite, estimated PO intake meeting <50% of estimated nutritional needs x 4-5 days, unintentional wt loss of 8.3#/4% <1 week Status Active Problem Recommendation Dietitian Recommendations/Changes continue regular diet; will add 4oz ensure compact w/ meals d/t acute malnutrition. Lab / Micro Data Result Diagrams: 04/23/21 13:20 04/23/21 13:20 Labs: Laboratory Results - last 24 hr 04/23/21 13:20: D-Dimer Quant (PE/DVT) 0.68 H* 04/23/21 13:20: Sodium 139, Potassium 3.6, Chloride 101, Carbon Dioxide 27.0, Anion Gap 11, BUN 19 H, Creatinine 0.80, Estim Creat Clear Calc 89.06, Est GFR (MDRD) Af Amer 126, Est GFR (MDRD) Non-Af 104, BUN/Creatinine Ratio 23.9 H, Glucose 128 H, Calcium 8.5, Total Bilirubin 1.10 H, AST 34, ALT 47, Alkaline Phosphatase 74, C-React Prot Ext Range 32.90 H, Total Protein 6.5, Albumin 2.5 L , Globulin 4.0, Albumin/Globulin Ratio 0.6 L 04/23/21 13:20: B-Natriuretic Peptide 41.7 04/23/21 13:20: Procalcitonin 0.07 04/23/21 13:20: WBC 10.2, RBC 4.80, Hgb 15.1, Hct 43.9, MCV 91.5, MCH 31.5, MCHC 34.4, RDW Std Deviation 44.0 H, RDW Coeff of Alyson 13.1, Plt Count 269, MPV 9.9, Immature Gran % (Auto) 0.700, Neut % (Auto) 90.1 H, Lymph % (Auto) 6.1 L, [place] % (Auto) 3.0, Eos % (Auto) 0.0, Baso % (Auto) 0.1, Absolute Neuts (auto) 9.2 H, Absolute Lymphs (auto) 0.62 L, Nucleated RBC % 0 Micro: Microbiology 04/20/21 15:10 Blood Culture (Wb) - Left Hand Blood Culture - Preliminary No growth in 48 hours. 04/20/21 13:10 Blood Culture (Wb) - Anticubital Right Blood Culture - Preliminary No growth in 48 hours.
[2021-04-23] MEDS: 0.9% Saline Lock 10 ML Syringe IV (20:35)
[2021-04-23] MEDS: guaiFENesin 1,200 MG Tablet 1200 MG PO (20:35)
[2021-04-24] VITALS (15 sets, daily range): BP systolic 113–131; BP diastolic 72–85; PULSE 58–78; RESP 14–24; TEMP 36.1–36.4; O2SAT 93–98
[2021-04-24 06:40] LABS: Absolute Lymphocyte Count 0.99 X10^3/uL (0.83-4.51); Basophil# 0.05 X10^3/uL; Basophil% 0.5 % (0-1); Hematocrit 46.6 % (40-54); Hemoglobin 15.2 g/dL (13.0-16.5); Lymphocyte # 0.99 X10^3/ul (0.83-4.51); Lymphocyte % 10.3 % (19-41); Mean Corp Hgb Conc 32.6 g/dL (32-36); Mean Corpuscular Hgb 31.2 pg (27.0-32.0); Mean Corpuscular Volume 95.7 fL (80-94); Mean Platelet Vol. 10.1 fl (6.2-12.0); Monocyte# 0.47 X10^3/uL; Monocyte% 4.9 % (0-10); NRBC Flagged by Analyzer 0 % (0-5); Neutrophil % 83.6 % (47-70); POSITIVE MORPHOLOGY YES; Platelet Count 277 K/mm3 (150-450); RBC Distribution Width CV 13.2 % (11.6-14.6); RBC Distribution Width SD 46.9 fl (35.1-43.9); Red Blood Count 4.87 M/mm3 (4.6-6.2); White Blood Count 9.6 K/mm3 (4.4-11.0)
[2021-04-24 06:44] LABS: Differential Indicated SCAN CRITERIA MET
[2021-04-24 06:54] LABS: Differential Comment SCANNED
[2021-04-24 07:17] LABS: ALB/GLOB Ratio 0.4 RATIO (0.9-2.4); AST(SGOT) 25 U/L (15-37); Alanine Aminotransfer ALT/SGPT 35 U/L (16-61); Albumin, Serum 1.7 g/dL (3.2-5.0); Alkaline Phosphatase 69 U/L (45-117); Anion Gap 9 (5-15); BUN 28 mg/dL (7-18); BUN/Creat Ratio 43.4 RATIO (10-20); Chloride 107 mmol/L (98-107); Creatinine, Serum 0.64 mg/dL (0.70-1.30); EST Glomerular Filtration Rate 132 mL/min (>60); Est Glom Filt Rate - Afr Amer 160 mL/min (>60); Estimated Creatinine Clearance 111.33 ml/min; Globulin 4.6 g/dL (2.2-4.2); Glucose 107 mg/dL (74-106); Potassium 3.7 mmol/L (3.5-5.1); Protein, Total 6.3 g/dL (6.4-8.2); Sodium Level 135 mmol/L (136-145)
[2021-04-24] MEDS: Ascorbic Acid 500 MG Tablet 1000 MG PO ×2 (09:37→17:28)
[2021-04-24] MEDS: Enoxaparin 40 MG/0.4 ML Syringe SC ×2 (09:37→21:32)
[2021-04-24] MEDS: dexAMETHasone 4 MG Tablet 6 MG PO (09:38)
[2021-04-24] MEDS: guaiFENesin 1,200 MG Tablet 1200 MG PO ×2 (09:38→21:32)
--- NOTE | 2021-04-24 10:21 | PCM.PN.INT ---
Assessment & Plan Assessment/Plan (1) Acute respiratory failure with hypoxia: (2) Pneumonia due to COVID-19 virus: PLAN: RECOMMENDATIONS: 1. Continue baricitinib (05/06/2021), Decadron (05/01/2021) and Remdesivir (04/24/2021) 2. Encourage prone positioning, Acapella and incentive spirometer as tolerated 3. Diuretics as needed to remain euvolemic 4. Continue Mucinex, vitamin C and zinc 5. Potential intubation in the next 24 hours if unable to take significant breaks off BiPAP 6. BiPAP breaks as tolerated. Add BiPAP with sleep 7. Continue surveillance labs for complications of therapy IMPRESSIONS: 1. Acute hypoxic respiratory failure secondary to COVID-19 Continue with baricitinib, Decadron and Remdesivir with recommended courses. Patient will need to continue to have daily labs to monitor for complications of therapy. Patient does report a remote smoking history, so COPD cannot be excluded. This will have to be evaluated as an outpatient. Patient with worsening in oxygenation overnight. Currently requiring 90% oxygen to maintain saturations. Patient should continue BiPAP with sleep at a minimum, but would like to see Airvo breaks for nutrition in the next 24 hours. If patient is not improving, may need to proceed with intubation. Patient will be challenged with diuretics. 2. Advanced age/nonvaccinated status/history of smoking Complicates care, management, recovery and prognosis. We will need to monitor for complications such as hyperglycemia and hypertension related to Decadron therapy. May schedule bronchodilators in the future if patient is found to have wheezing. We will transition to Mucinex for better pulmonary toileting. Subjective Subjective Patient did okay overnight. No acute issues were reported. Patient overall feels subjectively unchanged compared to previous. Patient was able to take only very brief breaks off of BiPAP therapy. Objective Data Objective Data Vital Signs: Vital Signs Temp Pulse Resp BP Pulse Ox 36.3 C L 78 20 H 130/79 H 95 04/24/21 09:44 04/24/21 09:44 04/24/21 09:44 04/24/21 09:44 04/24/21 09:44 Oxygen Flow Rate (L/min) 60 Oxygen Delivery Method Bi-pap Weight: 84.7 kg Body Mass Index (BMI) 28.3 Intake & Output: Intake and Output for Last 24 Hours 04/22/21 04/23/21 04/24/21 23:59 23:59 23:59 Intake Total 850 / 850 490 / 490 60 / 60 Output Total 350 / 550 1700 / 1700 250 / 250 Balance 500 / 300 -1210 / -1210 -190 / -190 Medical Nutrition Assessment Dietitian: Malnutrition Criteria Met Start: 04/21/21 12:38 Freq: Status: Active Protocol: Document 04/21/21 12:43 AG (Rec: 04/21/21 12:43 AG [id number]) Nutrition Malnutrition Evidence of Malnutrition Exists Yes Malnutrition (severe): Acute Illness/Injury Evidenced By Suboptimal Energy Intake ( Moderate),Weight Loss (Severe) Clinical Problem Acute Disease or Injury Related Malnutrition Etiology severe, acute malnutrition r/t inadequate energy intake w/ COVID illness Signs/Symptoms as evidenced by reported decreased appetite, estimated PO intake meeting <50% of estimated nutritional needs x 4-5 days, unintentional wt loss of 8.3#/4% <1 week Status Active Problem Recommendation Dietitian Recommendations/Changes continue regular diet; will add 4oz ensure compact w/ meals d/t acute malnutrition. Lab / Micro Data Result Diagrams: 04/24/21 06:22 04/24/21 06:22 Labs: Laboratory Results - last 24 hr 04/23/21 13:20: D-Dimer Quant (PE/DVT) 0.68 H* 04/23/21 13:20: Sodium 139, Potassium 3.6, Chloride 101, Carbon Dioxide 27.0, Anion Gap 11, BUN 19 H, Creatinine 0.80, Estim Creat Clear Calc 89.06, Est GFR (MDRD) Af Amer 126, Est GFR (MDRD) Non-Af 104, BUN/Creatinine Ratio 23.9 H, Glucose 128 H, Calcium 8.5, Total Bilirubin 1.10 H, AST 34, ALT 47, Alkaline Phosphatase 74, C-React Prot Ext Range 32.90 H, Total Protein 6.5, Albumin 2.5 L, Globulin 4.0, Albumin/Globulin Ratio 0.6 L 04/23/21 13:20: B-Natriuretic Peptide 41.7 04/23/21 13:20: Procalcitonin 0.07 04/23/21 13:20: WBC 10.2, RBC 4.80, Hgb 15.1, Hct 43.9, MCV 91.5, MCH 31.5, MCHC 34.4, RDW Std Deviation 44.0 H, RDW Coeff of Alyson 13.1, Plt Count 269, MPV 9.9, Immature Gran % (Auto) 0.700, Neut % (Auto) 90.1 H, Lymph % (Auto) 6.1 L, [place] % (Auto) 3.0, Eos % (Auto) 0.0, Baso % (Auto) 0.1, Absolute Neuts (auto) 9.2 H, Absolute Lymphs (auto) 0.62 L, Nucleated RBC % 0 04/24/21 06:22: WBC 9.6, RBC 4.87, Hgb 15.2, Hct 46.6, MCV 95.7 H, MCH 31.2, MCHC 32.6 D, RDW Std Deviation 46.9 H, RDW Coeff of Alyson 13.2, Plt Count 277, MPV 10.1, Immature Gran % (Auto) 0.700, Neut % (Auto) 83.6 H, Lymph % (Auto) 10.3 L, [place] % (Auto) 4.9, Eos % (Auto) 0.0, Baso % (Auto) 0.5, Absolute Neuts (auto) 8.0 H, Absolute Lymphs (auto) 0.99, Nucleated RBC % 0, Differential Comment SCANNED 04/24/21 06:22: Sodium 135 L, Potassium 3.7, Chloride 107, Carbon Dioxide 19.0 L, Anion Gap 9, BUN 28 H, Creatinine 0.64 L, Estim Creat Clear Calc 111.33, Est GFR (MDRD) Af Amer 160, Est GFR (MDRD) Non-Af 132, BUN/Creatinine Ratio 43.4 H, Glucose 107 H, Calcium 8.0 L, Total Bilirubin 1.00, AST 25, ALT 35, Alkaline Phosphatase 69, Total Protein 6.3 L, Albumin 1.7 L, Globulin 4.6 H, Albumin/Globulin Ratio 0.4 L Micro: Microbiology 04/20/21 15:10 Blood Culture (Wb) - Left Hand Blood Culture - Preliminary No growth in 48 hours. 04/20/21 13:10 Blood Culture (Wb) - Anticubital Right Blood Culture - Preliminary No growth in 48 hours. 04/21/21 17:07 Urine, Clean Catch Legionella Antigen - Final 04/21/21 17:07 Urine, Clean Catch Streptococcus pneumoniae Antigen (M - Final 04/20/21 12:10 Nasal Secretion SARS-CoV-2 Antigen (Rapid) - Final SARS-CoV-2 (COVID 19) Physical Exam Const alert and oriented x3 General Appearance: cooperative, well developed and on BiPAP HEENT normocephalic, head/scalp atraumatic and moist oral mucous membranes Eyes PERRL and EOMs intact bilaterally Neck full ROM and no lymphadenopathy Chest inspection of chest normal Chest: symmetrical chest wall rise; Negative for crepitus Resp no use of accessory muscles Effort and Inspection: Negative for paradoxical thoraco-abdominal movements Auscultation: diminished lung sounds; Negative for rales, rhonchi or wheezes Percussion: Negative for dullness Cardio regular rate, regular rhythm, S1 normal heart sound, S2 normal heart sound, no murmurs, no rub and no gallops GI normal to inspection, nondistended, normoactive bowel sounds no CVA tenderness Extremity no clubbing, cyanosis or edema Skin no rashes or lesions noted Neuro oriented x3, CN's II-XII intact bilaterally, moves all extremities and no focal motor deficits Psych cooperative and affect normal Charges/Coding Visit Charges Inpatient E&M: 24717 Subs Hosp L3
[2021-04-24] MEDS: Potassium Chloride Oral Tablet 20 MEQ 40 MEQ PO (10:52)
[2021-04-24] MEDS: Furosemide 40 MG/4 ML Vial IV (10:52)
[2021-04-24] MEDS: 0.9% Saline Lock 10 ML Syringe IV ×2 (10:53→21:37)
--- NOTE | 2021-04-24 15:45 | PN.HOSP_ITS ---
Subjective Subjective Follow-up on acute hypoxic respiratory failure/acute COVID-19 pneumonia: Patient was seen and examined. Patient remains on Bipap. No new complains. Objective Data Objective Data Vital Signs: Vital Signs Temp Pulse Resp BP Pulse Ox 97.5 F L 75 20 H 119/82 H 98 04/24/21 14:29 04/24/21 14:29 04/24/21 14:29 04/24/21 14:29 04/24/21 14:29 Oxygen Flow Rate (L/min) 60 Oxygen Delivery Method Bi-pap Weight: 84.7 kg Body Mass Index (BMI) 28.3 Intake & Output: Intake and Output for Last 24 Hours 04/22/21 04/23/21 04/24/21 23:59 23:59 23:59 Intake Total 850 / 850 490 / 490 110 / 110 Output Total 350 / 550 1700 / 1700 1450 / 1450 Balance 500 / 300 -1210 / -1210 -1340 / -1340 Medical Nutrition Assessment Dietitian: Malnutrition Criteria Met Start: 04/21/21 12:38 Freq: Status: Active Protocol: Document 04/21/21 12:43 AG (Rec: 04/21/21 12:43 AG [id number]) Nutrition Malnutrition Evidence of Malnutrition Exists Yes Malnutrition (severe): Acute Illness/Injury Evidenced By Suboptimal Energy Intake ( Moderate),Weight Loss (Severe) Clinical Problem Acute Disease or Injury Related Malnutrition Etiology severe, acute malnutrition r/t inadequate energy intake w/ COVID illness Signs/Symptoms as evidenced by reported decreased appetite, estimated PO intake meeting <50% of estimated nutritional needs x 4-5 days, unintentional wt loss of 8.3#/4% <1 week Status Active Problem Recommendation Dietitian Recommendations/Changes continue regular diet; will add 4oz ensure compact w/ meals d/t acute malnutrition. Lab / Micro Data Result Diagrams: 04/24/21 06:22 04/24/21 06:22 Labs: Laboratory Results - last 24 hr 04/24/21 06:22: WBC 9.6, RBC 4.87, Hgb 15.2, Hct 46.6, MCV 95.7 H, MCH 31.2, MCHC 32.6 D, RDW Std Deviation 46.9 H, RDW Coeff of Alyson 13.2, Plt Count 277, MPV 10.1, Immature Gran % (Auto) 0.700, Neut % (Auto) 83.6 H, Lymph % (Auto) 10.3 L, [place] % (Auto) 4.9, Eos % (Auto) 0.0, Baso % (Auto) 0.5, Absolute Neuts (auto) 8.0 H, Absolute Lymphs (auto) 0.99, Nucleated RBC % 0, Differential Comment SCANNED 04/24/21 06:22: Sodium 135 L, Potassium 3.7, Chloride 107, Carbon Dioxide 19.0 L , Anion Gap 9, BUN 28 H, Creatinine 0.64 L, Estim Creat Clear Calc 111.33, Est GFR (MDRD) Af Amer 160, Est GFR (MDRD) Non-Af 132, BUN/Creatinine Ratio 43.4 H, Glucose 107 H, Calcium 8.0 L, Total Bilirubin 1.00, AST 25, ALT 35, Alkaline Phosphatase 69, Total Protein 6.3 L, Albumin 1.7 L, Globulin 4.6 H, Albumin/Globulin Ratio 0.4 L Micro: Microbiology 04/20/21 15:10 Blood Culture (Wb) - Left Hand Blood Culture - Preliminary No growth in 48 hours. 04/20/21 13:10 Blood Culture (Wb) - Anticubital Right Blood Culture - Preliminary No growth in 48 hours. 04/21/21 17:07 Urine, Clean Catch Legionella Antigen - Final 04/21/21 17:07 Urine, Clean Catch Streptococcus pneumoniae Antigen (M - Final 04/20/21 12:10 Nasal Secretion SARS-CoV-2 Antigen (Rapid) - Final SARS-CoV-2 (COVID 19) Physical Exam Narrative Physical exam: General: Alert, Oriented x3, Cooperative, No apparent distress, on Bipap HEENT: Atraumatic Oral: Moist Mucosa Neck: Supple Lungs: Diminished to auscultation Cardiovascular: HS I+II, regular, no murmurs Abdomen: Bowel Sounds Present, Soft, Non Tender Extremities: No edema Assessment & Plan Assessment/Plan (1) COVID-19: (2) Acute respiratory failure with hypoxia: (3) Pneumonia due to COVID-19 virus: PLAN: 1. Acute hypoxic respiratory failure secondary to acute COVID-19 pneumonia, worsening Currently on BiPAP/Airvo Patient is unvaccinated; has symptoms 4 days prior to admission Continue Remdesivir and Decadron Continue on breathing treatments Pulmonology and ID consult 2. Elevated D-dimer, acute PE ruled out Clarified CODE STATUS: Patient wants to be full code Charges/Coding Visit Charges Inpatient E&M: 40873 Subs Hosp L2
[2021-04-25] VITALS (16 sets, daily range): BP systolic 105–128; BP diastolic 57–77; PULSE 58–92; RESP 12–22; TEMP 36.2–37.2; O2SAT 91–96
[2021-04-25] MEDS: 0.9% Saline Lock 10 ML Syringe IV (01:30)
[2021-04-25 07:17] LABS: Absolute Lymphocyte Count 0.97 X10^3/uL (0.83-4.51); Absolute Neutrophil Count 10.3 X10^3/uL (2.0-7.7); Basophil# 0.02 X10^3/uL; Basophil% 0.2 % (0-1); Eosinophil# 0.02 X10^3/uL; Eosinophils% 0.2 % (0-5); Hematocrit 45.4 % (40-54); Hemoglobin 15.3 g/dL (13.0-16.5); Lymphocyte # 0.97 X10^3/ul (0.83-4.51); Lymphocyte % 8.1 % (19-41); Mean Corp Hgb Conc 33.7 g/dL (32-36); Mean Corpuscular Hgb 31.9 pg (27.0-32.0); Mean Corpuscular Volume 94.8 fL (80-94); Mean Platelet Vol. 10.3 fl (6.2-12.0); Monocyte# 0.57 X10^3/uL; Monocyte% 4.8 % (0-10); NRBC Flagged by Analyzer 0 % (0-5); Neutrophil # 10.27 X10^3/uL (2.7-7.7); Neutrophil % 85.9 % (47-70); Platelet Count 343 K/mm3 (150-450); RBC Distribution Width SD 45.7 fl (35.1-43.9); Red Blood Count 4.79 M/mm3 (4.6-6.2); White Blood Count 11.9 K/mm3 (4.4-11.0)
[2021-04-25 07:45] LABS: ALB/GLOB Ratio 0.6 RATIO (0.9-2.4); AST(SGOT) 23 U/L (15-37); Alanine Aminotransfer ALT/SGPT 36 U/L (16-61); Albumin, Serum 2.4 g/dL (3.2-5.0); Alkaline Phosphatase 74 U/L (45-117); Anion Gap 7 (5-15); BUN 31 mg/dL (7-18); BUN/Creat Ratio 40.8 RATIO (10-20); Calcium,Total 8.4 mg/dL (8.5-10.1); Chloride 106 mmol/L (98-107); Creatinine, Serum 0.76 mg/dL (0.70-1.30); EST Glomerular Filtration Rate 109 mL/min (>60); Est Glom Filt Rate - Afr Amer 132 mL/min (>60); Estimated Creatinine Clearance 93.75 ml/min; Glucose 97 mg/dL (74-106); Potassium 3.7 mmol/L (3.5-5.1); Protein, Total 6.4 g/dL (6.4-8.2); Sodium Level 140 mmol/L (136-145)
[2021-04-25] MEDS: Ascorbic Acid 500 MG Tablet 1000 MG PO ×2 (09:17→16:49)
[2021-04-25] MEDS: Enoxaparin 40 MG/0.4 ML Syringe SC ×2 (09:17→20:28)
[2021-04-25] MEDS: dexAMETHasone 4 MG Tablet 6 MG PO (09:17)
[2021-04-25] MEDS: guaiFENesin 1,200 MG Tablet 1200 MG PO ×2 (09:17→20:29)
--- NOTE | 2021-04-25 15:30 | PN.HOSP_ITS ---
Subjective Subjective Follow-up on acute hypoxic respiratory failure/acute COVID-19 pneumonia: Patient was seen and examined. Patient remains on Bipap/Airvo. No new complains. Objective Data Objective Data Vital Signs: Vital Signs Temp Pulse Resp BP Pulse Ox 99.0 F 73 21 H 115/74 96 04/25/21 14:00 04/25/21 15:00 04/25/21 14:00 04/25/21 14:00 04/25/21 14:00 Oxygen Flow Rate (L/min) 60 Oxygen Delivery Method Bi-pap Weight: 84.7 kg Body Mass Index (BMI) 28.3 Intake & Output: Intake and Output for Last 24 Hours 04/23/21 04/24/21 04/25/21 23:59 23:59 23:59 Intake Total 490 / 490 435 / 435 740 / 740 Output Total 1700 / 1700 1450 / 1450 525 / 525 Balance -1210 / -1210 -1015 / -1015 215 / 215 Medical Nutrition Assessment Dietitian: Malnutrition Criteria Met Start: 04/21/21 12:38 Freq: Status: Active Protocol: Document 04/21/21 12:43 AG (Rec: 04/21/21 12:43 AG [id number]) Nutrition Malnutrition Evidence of Malnutrition Exists Yes Malnutrition (severe): Acute Illness/Injury Evidenced By Suboptimal Energy Intake ( Moderate),Weight Loss (Severe) Clinical Problem Acute Disease or Injury Related Malnutrition Etiology severe, acute malnutrition r/t inadequate energy intake w/ COVID illness Signs/Symptoms as evidenced by reported decreased appetite, estimated PO intake meeting <50% of estimated nutritional needs x 4-5 days, unintentional wt loss of 8.3#/4% <1 week Status Active Problem Recommendation Dietitian Recommendations/Changes continue regular diet; will add 4oz ensure compact w/ meals d/t acute malnutrition. Lab / Micro Data Result Diagrams: 04/25/21 06:45 04/25/21 06:45 Labs: Laboratory Results - last 24 hr 04/25/21 06:45: WBC 11.9 H, RBC 4.79, Hgb 15.3, Hct 45.4, MCV 94.8 H, MCH 31.9, MCHC 33.7, RDW Std Deviation 45.7 H, RDW Coeff of Alyson 13.0, Plt Count 343, MPV 10.3, Immature Gran % (Auto) 0.800, Neut % (Auto) 85.9 H, Lymph % (Auto) 8.1 L, [place] % (Auto) 4.8, Eos % (Auto) 0.2, Baso % (Auto) 0.2, Absolute Neuts (auto) 10.3 H, Absolute Lymphs (auto) 0.97, Nucleated RBC % 0 04/25/21 06:45: Sodium 140, Potassium 3.7, Chloride 106, Carbon Dioxide 27.0, Anion Gap 7, BUN 31 H, Creatinine 0.76, Estim Creat Clear Calc 93.75, Est GFR (MDRD) Af Amer 132, Est GFR (MDRD) Non-Af 109, BUN/Creatinine Ratio 40.8 H, Glucose 97, Calcium 8.4 L, Total Bilirubin 1.30 H, AST 23, ALT 36, Alkaline Phosphatase 74, Total Protein 6.4, Albumin 2.4 L, Globulin 4.0, Albumin/Globulin Ratio 0.6 L Micro: Microbiology 04/20/21 13:10 Blood Culture (Wb) - Anticubital Right Blood Culture - Final No growth in 5 days. 04/20/21 15:10 Blood Culture (Wb) - Left Hand Blood Culture - Preliminary No growth in 48 hours. 04/21/21 17:07 Urine, Clean Catch Legionella Antigen - Final 04/21/21 17:07 Urine, Clean Catch Streptococcus pneumoniae Antigen (M - Final 04/20/21 12:10 Nasal Secretion SARS-CoV-2 Antigen (Rapid) - Final SARS-CoV-2 (COVID 19) Physical Exam Narrative Physical exam: General: Alert, Oriented x3, Cooperative, No apparent distress, on Bipap HEENT: Atraumatic Oral: Moist Mucosa Neck: Supple Lungs: Diminished to auscultation Cardiovascular: HS I+II, regular, no murmurs Abdomen: Bowel Sounds Present, Soft, Non Tender Extremities: No edema Assessment & Plan Assessment/Plan (1) COVID-19: (2) Acute respiratory failure with hypoxia: (3) Pneumonia due to COVID-19 virus: PLAN: 1. Acute hypoxic respiratory failure secondary to acute COVID-19 pne umonia, worsening Remains on BiPAP/Airvo Patient is unvaccinated; has symptoms 4 days prior to admission Continue Remdesivir and Decadron Continue on breathing treatments Pulmonology and ID consult 2. Elevated D-dimer, acute PE ruled out Clarified CODE STATUS: Patient wants to be full code Charges/Coding Visit Charges Inpatient E&M: 52632 Subs Hosp L3
--- NOTE | 2021-04-25 16:16 | PN.CC_ITS ---
Assessment & Plan Assessment/Plan (1) Acute respiratory failure with hypoxia: (2) Pneumonia due to COVID-19 virus: PLAN: RECOMMENDATIONS: 1. Continue baricitinib (05/06/2021) and Decadron (05/01/2021). Completed Remdesivir 2. Encourage prone positioning, Acapella and incentive spirometer as tolerated 3. Diuretics as needed to remain euvolemic 4. Continue Mucinex, vitamin C and zinc 5. Potential intubation in the next 24 hours if unable to take significant breaks off BiPAP 6. Attempt Airvo during the day as tolerated. Add BiPAP with sleep 7. Continue surveillance labs for complications of therapy IMPRESSIONS: 1. Acute hypoxic respiratory failure secondary to COVID-19 Continue with baricitinib and Decadron. Completed Remdesivir. Patient will need to continue to have daily labs to monitor for complications of therapy. Patient does report a remote smoking history, so COPD cannot be excluded. This will have to be evaluated as an outpatient. Patient's oxygenation is slightly improved. Patient has been tolerating some breaks off of BiPAP. Patient understands that intubation may still be necessary, but given some improvement we will hold on intubation for now 2. Advanced age/nonvaccinated status/history of smoking Complicates care, management, recovery and prognosis. We will need to monitor for complications such as hyperglycemia and hypertension related to Decadron therapy. May schedule bronchodilators in the future if patient is found to have wheezing. We will transition to Mucinex for better pulmonary toileting. Subjective Subjective Patient subjectively feels much improved compared to yesterday. Patient reportedly was able to be on Airvo for about 3 hours earlier today. However, during lunch patient had a coughing episode leading to desaturation into the 60s. Patient did improve with BiPAP therapy. Patient is stating he does not feel he needs intubated unless it is absolutely necessary. Objective Data Objective Data Vital Signs: Vital Signs Temp Pulse Resp BP Pulse Ox 37.1 C 74 19 H 120/75 93 04/25/21 16:00 04/25/21 16:00 04/25/21 16:00 04/25/21 16:00 04/25/21 16:00 Oxygen Flow Rate (L/min) 60 Oxygen Delivery Method Bi-pap Weight: 84.7 kg Body Mass Index (BMI) 28.3 Intake & Output: Intake and Output for Last 24 Hours 04/23/21 04/24/21 04/25/21 23:59 23:59 23:59 Intake Total 490 / 490 435 / 435 740 / 740 Output Total 1700 / 1700 1450 / 1450 525 / 525 Balance -1210 / -1210 -1015 / -1015 215 / 215 Medical Nutrition Assessment Dietitian: Malnutrition Criteria Met Start: 04/21/21 12:38 Freq: Status: Active Protocol: Document 04/21/21 12:43 AG (Rec: 04/21/21 12:43 AG [id number]) Nutrition Malnutrition Evidence of Malnutrition Exists Yes Malnutrition (severe): Acute Illness/Injury Evidenced By Suboptimal Energy Intake ( Moderate),Weight Loss (Severe) Clinical Problem Acute Disease or Injury Related Malnutrition Etiology severe, acute malnutrition r/t inadequate energy intake w/ COVID illness Signs/Symptoms as evidenced by reported decreased appetite, estimated PO intake meeting <50% of estimated nutritional needs x 4-5 days, unintentional wt loss of 8.3#/4% <1 week Status Active Problem Recommendation Dietitian Recommendations/Changes continue regular diet; will add 4oz ensure compact w/ meals d/t acute malnutrition. Lab / Micro Data Result Diagrams: 04/25/21 06:45 04/25/21 06:45 Labs: Laboratory Results - last 24 hr 04/25/21 06:45: WBC 11.9 H, RBC 4.79, Hgb 15.3, Hct 45.4, MCV 94.8 H, MCH 31.9, MCHC 33.7, RDW Std Deviation 45.7 H, RDW Coeff of Alyson 13.0, Plt Count 343, MPV 10.3, Immature Gran % (Auto) 0.800, Neut % (Auto) 85.9 H, Lymph % (Auto) 8.1 L, [place] % (Auto) 4.8, Eos % (Auto) 0.2, Baso % (Auto) 0.2, Absolute Neuts (auto) 10.3 H, Absolute Lymphs (auto) 0.97, Nucleated RBC % 0 04/25/21 06:45: Sodium 140, Potassium 3.7, Chloride 106, Carbon Dioxide 27.0, Anion Gap 7, BUN 31 H, Creatinine 0.76, Estim Creat Clear Calc 93.75, Est GFR (MDRD) Af Amer 132, Est GFR (MDRD) Non-Af 109, BUN/Creatinine Ratio 40.8 H, Glucose 97, Calcium 8.4 L, Total Bilirubin 1.30 H, AST 23, ALT 36, Alkaline Phosphatase 74, Total Protein 6.4, Albumin 2.4 L, Globulin 4.0, Albumin/Globulin Ratio 0.6 L Micro: Microbiology 04/20/21 13:10 Blood Culture (Wb) - Anticubital Right Blood Culture - Final No growth in 5 days. 04/20/21 15:10 Blood Culture (Wb) - Left Hand Blood Culture - Preliminary No growth in 48 hours. 04/21/21 17:07 Urine, Clean Catch Legionella Antigen - Final 04/21/21 17:07 Urine, Clean Catch Streptococcus pneumoniae Antigen (M - Final 04/20/21 12:10 Nasal Secretion SARS-CoV-2 Antigen (Rapid) - Final SARS-CoV-2 (COVID 19) Physical Exam Const alert and oriented x3 General Appearance: cooperative, well developed and on BiPAP HEENT normocephalic, head/scalp atraumatic and moist oral mucous membranes Eyes PERRL and EOMs intact bilaterally Neck full ROM and no lymphadenopathy Chest inspection of chest normal Chest: symmetrical chest wall rise; Negative for crepitus Resp no use of accessory muscles Effort and Inspection: Negative for paradoxical thoraco-abdominal movements Auscultation: diminished lung sounds; Negative for rales, rhonchi or wheezes Percussion: Negative for dullness Cardio regular rate, regular rhythm, S1 normal heart sound, S2 normal heart sound, no murmurs, no rub and no gallops GI normal to inspection, nondistended, normoactive bowel sounds no CVA tenderness Extremity no clubbing, cyanosis or edema Skin no rashes or lesions noted Neuro oriented x3, CN's II-XII intact bilaterally, moves all extremities and no focal motor deficits Psych cooperative and affect normal Charges/Coding Visit Charges Inpatient E&M: 86355 Subs Hosp L3
[2021-04-26] VITALS (25 sets, daily range): BP systolic 103–128; BP diastolic 64–77; PULSE 68–104; RESP 14–26; TEMP 36.2–37; O2SAT 76–96
[2021-04-26 07:37] LABS: Absolute Lymphocyte Count 0.62 X10^3/uL (0.83-4.51); Absolute Neutrophil Count 11.2 X10^3/uL (2.0-7.7); Basophil# 0.02 X10^3/uL; Basophil% 0.2 % (0-1); Eosinophil# 0.06 X10^3/uL; Eosinophils% 0.5 % (0-5); Hematocrit 45.4 % (40-54); Hemoglobin 15.1 g/dL (13.0-16.5); Lymphocyte # 0.62 X10^3/ul (0.83-4.51); Mean Corp Hgb Conc 33.3 g/dL (32-36); Mean Corpuscular Hgb 31.2 pg (27.0-32.0); Mean Corpuscular Volume 93.8 fL (80-94); Mean Platelet Vol. 10.1 fl (6.2-12.0); Monocyte# 0.45 X10^3/uL; Monocyte% 3.6 % (0-10); NRBC Flagged by Analyzer 0 % (0-5); Neutrophil # 11.22 X10^3/uL (2.7-7.7); Neutrophil % 89.6 % (47-70); Platelet Count 392 K/mm3 (150-450); RBC Distribution Width CV 12.8 % (11.6-14.6); RBC Distribution Width SD 44.4 fl (35.1-43.9); Red Blood Count 4.84 M/mm3 (4.6-6.2); White Blood Count 12.5 K/mm3 (4.4-11.0)
--- NOTE | 2021-04-26 08:06 | CPS ---
pt was placed on Airvo this am in an attempt to waen form Bipap. Pt's saturation is 88% currently on Aivo at 93% and 60lpm.
[2021-04-26 08:15] LABS: ALB/GLOB Ratio 0.6 RATIO (0.9-2.4); AST(SGOT) 23 U/L (15-37); Alanine Aminotransfer ALT/SGPT 39 U/L (16-61); Albumin, Serum 2.3 g/dL (3.2-5.0); Alkaline Phosphatase 71 U/L (45-117); Anion Gap 9 (5-15); BUN 23 mg/dL (7-18); Chloride 103 mmol/L (98-107); EST Glomerular Filtration Rate 121 mL/min (>60); Est Glom Filt Rate - Afr Amer 146 mL/min (>60); Estimated Creatinine Clearance 101.79 ml/min; Glucose 102 mg/dL (74-106); Potassium 3.7 mmol/L (3.5-5.1); Protein, Total 6.3 g/dL (6.4-8.2); Sodium Level 138 mmol/L (136-145)
--- NOTE | 2021-04-26 08:19 | CPS ---
At 0800 pt was placed on airvo at 60lpm 93%. Pt saturation ws 88% and pt stated he felt ok while on airvo.
--- NOTE | 2021-04-26 08:21 | CPS ---
0819 pt was placed back on Bipap for a decrease in saturation to 85% on Airvo. Pt is brendon Bipap well and saturation is up to 90%
[2021-04-26] MEDS: Ascorbic Acid 500 MG Tablet 1000 MG PO ×2 (09:43→18:38)
[2021-04-26] MEDS: 0.9% Saline Lock 10 ML Syringe IV (09:44)
[2021-04-26] MEDS: Furosemide 40 MG/4 ML Vial IV (09:44)
[2021-04-26] MEDS: Potassium Chloride Oral Tablet 20 MEQ 40 MEQ PO (09:44)
[2021-04-26] MEDS: guaiFENesin 1,200 MG Tablet 1200 MG PO ×2 (09:45→21:29)
[2021-04-26] MEDS: Enoxaparin 40 MG/0.4 ML Syringe SC ×2 (09:45→21:29)
[2021-04-26] MEDS: dexAMETHasone 4 MG Tablet 6 MG PO (09:45)
--- NOTE | 2021-04-26 10:36 | PN.CC_ITS ---
Assessment & Plan Assessment/Plan (1) Acute respiratory failure with hypoxia: (2) Pneumonia due to COVID-19 virus: PLAN: RECOMMENDATIONS: 1. Continue baricitinib (05/06/2021) and Decadron (05/01/2021). Completed Remdesivir 2. Encourage prone positioning, Acapella and incentive spirometer as tolerated 3. Diuretics as needed to remain euvolemic. Challenge today 4. Continue Mucinex, vitamin C and zinc 5. Potential intubation in the next 24 hours if unable to take significant breaks off BiPAP 6. Attempt Airvo during the day as tolerated. Add BiPAP with sleep 7. Continue surveillance labs for complications of therapy IMPRESSIONS: 1. Acute hypoxic respiratory failure secondary to COVID-19 Continue with baricitinib and Decadron. Completed Remdesivir. Patient will need to continue to have daily labs to monitor for complications of therapy. Patient does report a remote smoking history, so COPD cannot be exclud ed. This will have to be evaluated as an outpatient. Patient's oxygen status remains marginal. Will attempt BiPAP breaks for pulmonary toileting. Patient is not able to tolerate breaks, anticipate intubation tomorrow. Patient is aware of the plan. Will challenge with diuretics today. 2. Advanced age/nonvaccinated status/history of smoking Complicates care, management, recovery and prognosis. We will need to monitor for complications such as hyperglycemia and hypertension related to Decadron therapy. Add bronchodilators. We will transition to Mucinex for better pulmonary toileting. Subjective Subjective Patient did okay yesterday. Patient was able to tolerate Airvo in the afternoon yesterday. However, this morning, patient has been having issues with coming off of BiPAP therapy. Patient subjectively does not feel much different compared to yesterday. Patient does report cough Objective Data Objective Data Vital Signs: Vital Signs Temp Pulse Resp BP Pulse Ox 36.2 C L 97 21 H 118/64 90 04/26/21 09:39 04/26/21 09:39 04/26/21 09:39 04/26/21 09:39 04/26/21 09:39 Oxygen Flow Rate (L/min) 60 Oxygen Delivery Method Bi-pap Weight: 84.7 kg Body Mass Index (BMI) 28.3 Intake & Output: Intake and Output for Last 24 Hours 04/24/21 04/25/21 04/26/21 23:59 23:59 23:59 Intake Total 435 / 435 980 / 1280 500 / 500 Output Total 1450 / 1450 675 / 1075 700 / 700 Balance -1015 / -1015 305 / 205 -200 / -200 Medical Nutrition Assessment Dietitian: Malnutrition Criteria Met Start: 04/21/21 12:38 Freq: Status: Active Protocol: Document 04/21/21 12:43 AG (Rec: 04/21/21 12:43 AG [id number]) Nutrition Malnutrition Evidence of Malnutrition Exists Yes Malnutrition (severe): Acute Illness/Injury Evidenced By Suboptimal Energy Intake ( Moderate),Weight Loss (Severe) Clinical Problem Acute Disease or Injury Related Malnutrition Etiology severe, acute malnutrition r/t inadequate energy intake w/ COVID illness Signs/Symptoms as evidenced by reported decreased appetite, estimated PO intake meeting <50% of estimated nutritional needs x 4-5 days, unintentional wt loss of 8.3#/4% <1 week Status Active Problem Recommendation Dietitian Recommendations/Changes continue regular diet; will add 4oz ensure compact w/ meals d/t acute malnutrition. Lab / Micro Data Result Diagrams: 04/26/21 06:58 04/26/21 06:58 Labs: Laboratory Results - last 24 hr 04/26/21 06:58: WBC 12.5 H, RBC 4.84, Hgb 15.1, Hct 45.4, MCV 93.8, MCH 31.2, MCHC 33.3, RDW Std Deviation 44.4 H, RDW Coeff of Alyson 12.8, Plt Count 392, MPV 10.1, Immature Gran % (Auto) 1.100 H, Neut % (Auto) 89.6 H, Lymph % (Auto) 5.0 L , [place] % (Auto) 3.6, Eos % (Auto) 0.5, Baso % (Auto) 0.2, Absolute Neuts (auto) 11.2 H, Absolute Lymphs (auto) 0.62 L, Nucleated RBC % 0 04/26/21 06:58: Sodium 138, Potassium 3.7, Chloride 103, Carbon Dioxide 26.0, Anion Gap 9, BUN 23 H, Creatinine 0.70, Estim Creat Clear Calc 101.79, Est GFR (MDRD) Af Amer 146, Est GFR (MDRD) Non-Af 121, BUN/Creatinine Ratio 33.0 H, Glucose 102, Calcium 8.0 L, Total Bilirubin 1.40 H, AST 23, ALT 39, Alkaline Phosphatase 71, Total Protein 6.3 L, Albumin 2.3 L, Globulin 4.0, Albumin/Globulin Ratio 0.6 L Micro: Microbiology 04/20/21 15:10 Blood Culture (Wb) - Left Hand Blood Culture - Final No growth in 5 days. 04/20/21 13:10 Blood Culture (Wb) - Anticubital Right Blood Culture - Final No growth in 5 days. 04/21/21 17:07 Urine, Clean Catch Legionella Antigen - Final 04/21/21 17:07 Urine, Clean Catch Streptococcus pneumoniae Antigen (M - F inal 04/20/21 12:10 Nasal Secretion SARS-CoV-2 Antigen (Rapid) - Final SARS-CoV-2 (COVID 19) Physical Exam Const alert and oriented x3 General Appearance: cooperative, well developed and on BiPAP HEENT normocephalic, head/scalp atraumatic and moist oral mucous membranes Eyes PERRL and EOMs intact bilaterally Neck full ROM and no lymphadenopathy Chest inspection of chest normal Chest: symmetrical chest wall rise; Negative for crepitus Resp no use of accessory muscles Effort and Inspection: Negative for paradoxical thoraco-abdominal movements Auscultation: diminished lung sounds; Negative for rales, rhonchi or wheezes Percussion: Negative for dullness Cardio regular rate, regular rhythm, S1 normal heart sound, S2 normal heart sound, no murmurs, no rub and no gallops GI normal to inspection, nondistended, normoactive bowel sounds no CVA tenderness Extremity no clubbing, cyanosis or edema Skin no rashes or lesions noted Neuro oriented x3, CN's II-XII intact bilaterally, moves all extremities and no focal motor deficits Psych cooperative and affect normal Charges/Coding Visit Charges Inpatient E&M: 97444 Subs Hosp L3
--- NOTE | 2021-04-26 11:28 | CPS ---
Pt removed from Bipap and placed on Airvo. 60 lpm 93%. Pt was given pep to work on. Pt did 10 breaths on pep device.. Pt saturation dipped down to 84% . Pep therapy was held and Pt was then instructed to keep mouth closed and saturation came up to 89%. With saturation at 89% pt was given SMI to use. Pt gave 3 breaths on SMI and saturation down to 84%. SMI was held and Pt was once again asked to close mouth and was able to get saturation up to 89%. Pt remained on Airvo post SMI with a saturation 88-89% for aproximately 5 min. Pt resting quietly and saturation 92% on Airvo. Pt has been on Airvo for 23 minutes and saturation at this time is 93%. Pt at 25 minutes on Airvo with saturation 92-93%. Will leave pt on Airvo at this time.
--- NOTE | 2021-04-26 12:24 | CPS ---
1200 Pt's nurse was made aware that pt remains on Airvo at 60lpm and 93% FIO2.
[2021-04-26] MEDS: Ipratropium/Albuterol Sulfate 3 ML AMPUL.NEB INHALATION ×2 (13:52→20:20)
--- NOTE | 2021-04-26 15:10 | PCM.PN.HOSP ---
Subjective Subjective Follow-up on acute hypoxic respiratory failure/acute COVID-19 pneumonia: Patient was seen and examined. Patient remains on Bipap/Airvo. No new complains. Objective Data Objective Data Vital Signs: Vital Signs Temp Pulse Resp BP Pulse Ox 98.6 F 100 22 H 103/65 89 04/26/21 14:30 04/26/21 14:30 04/26/21 14:30 04/26/21 14:30 04/26/21 14:30 Oxygen Flow Rate (L/min) 60 Oxygen Delivery Method Airvo Weight: 84.7 kg Body Mass Index (BMI) 28.3 Intake & Output: Intake and Output for Last 24 Hours 04/24/21 04/25/21 04/26/21 23:59 23:59 23:59 Intake Total 435 / 435 980 / 1280 1180 / 1180 Output Total 1450 / 1450 675 / 1075 1550 / 1550 Balance -1015 / -1015 305 / 205 -370 / -370 Medical Nutrition Assessment Dietitian: Malnutrition Criteria Met Start: 04/21/21 12:38 Freq: Status: Active Protocol: Document 04/21/21 12:43 AG (Rec: 04/21/21 12:43 AG [id number]) Nutrition Malnutrition Evidence of Malnutrition Exists Yes Malnutrition (severe): Acute Illness/Injury Evidenced By Suboptimal Energy Intake ( Moderate),Weight Loss (Severe) Clinical Problem Acute Disease or Injury Related Malnutrition Etiology severe, acute malnutrition r/t inadequate energy intake w/ COVID illness Signs/Symptoms as evidenced by reported decreased appetite, estimated PO intake meeting <50% of estimated nutritional needs x 4-5 days, unintentional wt loss of 8.3#/4% <1 week Status Active Problem Recommendation Dietitian Recommendations/Changes continue regular diet; will add 4oz ensure compact w/ meals d/t acute malnutrition. Lab / Micro Data Result Diagrams: 04/26/21 06:58 04/26/21 06:58 Labs: Laboratory Results - last 24 hr 04/26/21 06:58: WBC 12.5 H, RBC 4.84, Hgb 15.1, Hct 45.4, MCV 93.8, MCH 31.2, MCHC 33.3, RDW Std Deviation 44.4 H, RDW Coeff of Alyson 12.8, Plt Count 392, MPV 10.1, Immature Gran % (Auto) 1.100 H, Neut % (Auto) 89.6 H, Lymph % (Auto) 5.0 L, [place] % (Auto) 3.6, Eos % (Auto) 0.5, Baso % (Auto) 0.2, Absolute Neuts (auto) 11.2 H, Absolute Lymphs (auto) 0.62 L, Nucleated RBC % 0 04/26/21 06:58: Sodium 138, Potassium 3.7, Chloride 103, Carbon Dioxide 26.0, Anion Gap 9, BUN 23 H, Creatinine 0.70, Estim Creat Clear Calc 101.79, Est GFR (MDRD) Af Amer 146, Est GFR (MDRD) Non-Af 121, BUN/Creatinine Ratio 33.0 H, Glucose 102, Calcium 8.0 L, Total Bilirubin 1.40 H, AST 23, ALT 39, Alkaline Phosphatase 71, Total Protein 6.3 L, Albumin 2.3 L, Globulin 4.0, Albumin/Globulin Ratio 0.6 L Micro: Microbiology 04/20/21 15:10 Blood Culture (Wb) - Left Hand Blood Culture - Final No growth in 5 days. 04/20/21 13:10 Blood Culture (Wb) - Anticubital Right Blood Culture - Final No growth in 5 days. 04/21/21 17:07 Urine, Clean Catch Legionella Antigen - Final 04/21/21 17:07 Urine, Clean Catch Streptococcus pneumoniae Antigen (M - Final 04/20/21 12:10 Nasal Secretion SARS-CoV-2 Antigen (Rapid) - Final SARS-CoV-2 (COVID 19) Physical Exam Narrative Physical exam: General: Alert, Oriented x3, Cooperative, No apparent distress, on Bipap HEENT: Atraumatic Oral: Moist Mucosa Neck: Supple Lungs: Diminished to auscultation Cardiovascular: HS I+II, regular, no murmurs Abdomen: Bowel Sounds Present, Soft, Non Tender Extremities: No edema Assessment & Plan Assessment/Plan (1) COVID-19: (2) Acute respiratory failure with hypoxia: (3) Pneumonia due to COVID-19 virus: PLAN: 1. Acute hypoxic respiratory failure secondary to acute COVID-19 pneumonia, worsening Remains on BiPAP/Airvo Patient is unvaccinated; has symptoms 4 days prior to admission Continue Remdesivir and Decadron Continue on breathing treatments Pulmonology and ID consult 2. Elevated D-dimer, acute PE ruled out 3. 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
--- NOTE | 2021-04-26 15:13 | CPS ---
3500= SPOKE WITH PT'S NURSE IN REGARDS TO PT'S STATUS. NURSE STATED SHE HAD JUST WALKED OUT OF ROOM AND THAT PT WAS 96% ON AIRVO AND ANTONINO IT WELL. NURSE IS AWARE TO CALL THIS THERAPIST IF PT IS UNABLE TO REMAIN ON AIRVO. THIS THERAPIST AND NURSE AGREE TO KEEP PT ON AIRVO AT THIS TIME.
--- NOTE | 2021-04-26 18:49 | NURSING ---
PT PLACED BACK ON BIPAP AT PREVIOUS SETTINGS
[2021-04-27] VITALS (24 sets, daily range): BP systolic 96–115; BP diastolic 54–70; PULSE 76–105; RESP 14–24; TEMP 36.1–37.1; O2SAT 90–96
--- NOTE | 2021-04-27 02:40 | CPS ---
pt did not tolerate AIRVO, tried for 5-10 minutes. Pt became tachypneic and tachycardic. Bipap re-applied 01/03 80% Sats only 90-91%. Night RN informed me the pt had been on bipap since 5pm. RT came in room to do aerosol tx pieced together that his o2 sats dropped drasticly on AIRVO so pt was placed back on bipap.
[2021-04-27 07:14] LABS: Absolute Lymphocyte Count 0.87 X10^3/uL (0.83-4.51); Absolute Neutrophil Count 14.1 X10^3/uL (2.0-7.7); Basophil# 0.01 X10^3/uL; Basophil% 0.1 % (0-1); Eosinophils% 0.6 % (0-5); Lymphocyte # 0.87 X10^3/ul (0.83-4.51); Lymphocyte % 5.5 % (19-41); Mean Corp Hgb Conc 34.9 g/dL (32-36); Mean Corpuscular Hgb 31.8 pg (27.0-32.0); Mean Corpuscular Volume 91.3 fL (80-94); Mean Platelet Vol. 9.8 fl (6.2-12.0); Monocyte# 0.48 X10^3/uL; Monocyte% 3.1 % (0-10); NRBC Flagged by Analyzer 0 % (0-5); Neutrophil # 14.05 X10^3/uL (2.7-7.7); Neutrophil % 89.3 % (47-70); Platelet Count 451 K/mm3 (150-450); RBC Distribution Width SD 43.9 fl (35.1-43.9); Red Blood Count 4.71 M/mm3 (4.6-6.2); White Blood Count 15.7 K/mm3 (4.4-11.0)
[2021-04-27 07:44] LABS: ALB/GLOB Ratio 0.5 RATIO (0.9-2.4); AST(SGOT) 15 U/L (15-37); Alanine Aminotransfer ALT/SGPT 33 U/L (16-61); Albumin, Serum 2.3 g/dL (3.2-5.0); Alkaline Phosphatase 71 U/L (45-117); Anion Gap 9 (5-15); BUN 20 mg/dL (7-18); BUN/Creat Ratio 31.2 RATIO (10-20); Calcium,Total 8.2 mg/dL (8.5-10.1); Chloride 101 mmol/L (98-107); Creatinine, Serum 0.64 mg/dL (0.70-1.30); EST Glomerular Filtration Rate 133 mL/min (>60); Est Glom Filt Rate - Afr Amer 161 mL/min (>60); Estimated Creatinine Clearance 111.33 ml/min; Globulin 4.2 g/dL (2.2-4.2); Glucose 112 mg/dL (74-106); Potassium 3.9 mmol/L (3.5-5.1); Protein, Total 6.5 g/dL (6.4-8.2); Sodium Level 135 mmol/L (136-145)
[2021-04-27] MEDS: Ipratropium/Albuterol Sulfate 3 ML AMPUL.NEB INHALATION ×3 (07:55→20:57)
[2021-04-27] MEDS: Enoxaparin 40 MG/0.4 ML Syringe SC ×2 (08:17→21:33)
--- NOTE | 2021-04-27 08:27 | PN.CC_ITS ---
Assessment & Plan Assessment/Plan (1) Acute respiratory failure with hypoxia: (2) Pneumonia due to COVID-19 virus: PLAN: RECOMMENDATIONS: 1. Continue baricitinib (05/06/2021) and Decadron (05/01/2021). Completed Remdesivir 2. Encourage prone positioning, Acapella and incentive spirometer as tolerated 3. Diuretics as needed to remain euvolemic. Challenge today 4. Continue Mucinex, vitamin C and zinc 5. Potential intubation in the next 24 hours if unable to take significant breaks off BiPAP 6. Attempt Airvo during the day as tolerated. Should use BiPAP with sleep 7. Continue surveillance labs for complications of therapy IMPRESSIONS: 1. Acute hypoxic respiratory failure secondary to COVID-19 Continue with baricitinib and Decadron. Completed Remdesivir. Patient will need to continue to have daily labs to monitor for complications of therapy. Patient does report a remote smoking history, so COPD cannot be excluded. This will have to be evaluated as an outpatient. Patient's oxygen status remains marginal. Will attempt BiPAP breaks for pulmonary toileting. If patient is not able to tolerate breaks, anticipate intubation tomorrow. Patient is aware of the plan. Despite Lasix yesterday, patient was even. We will dose twice daily today 2. Advanced age/nonvaccinated status/history of smoking Complicates care, management, recovery and prognosis. We will need to mon itor for complications such as hyperglycemia and hypertension related to Decadron therapy. Continue bronchodilators. We will transition to Mucinex for better pulmonary toileting. Subjective Subjective Patient continues to have difficulty with coming off of BiPAP resting in the morning. However, patient was able to stay off of BiPAP with almost 8 hours yesterday afternoon. Patient subjectively feels unchanged compared to previous. Respiratory reports patient has not been able to use Acapella secondary to BiPAP. Patient does report a productive cough Objective Data Objective Data Vital Signs: Vital Signs Temp Pulse Resp BP Pulse Ox 36.8 C 105 H 20 H 115/68 92 04/27/21 06:30 04/27/21 07:55 04/27/21 07:55 04/27/21 06:30 04/27/21 07:55 Oxygen Flow Rate (L/min) 88 Oxygen Delivery Method Bi-pap Weight: 84.7 kg Body Mass Index (BMI) 28.3 Intake & Output: Intake and Output for Last 24 Hours 04/25/21 04/26/21 04/27/21 23:59 23:59 23:59 Intake Total 980 / 1280 1800 / 1800 Output Total 675 / 1075 1800 / 1900 300 / 300 Balance 305 / 205 0 / -100 -300 / -300 Medical Nutrition Assessment Dietitian: Malnutrition Criteria Met Start: 04/21/21 12:38 Freq: Status: Active Protocol: Document 04/21/21 12:43 AG (Rec: 04/21/21 12:43 AG [id number]) Nutrition Malnutrition Evidence of Malnutrition Exists Yes Malnutrition (severe): Acute Illness/Injury Evidenced By Suboptimal Energy Intake ( Moderate),Weight Loss (Severe) Clinical Problem Acute Disease or Injury Related Malnutrition Etiology severe, acute malnutrition r/t inadequate energy intake w/ COVID illness Signs/Symptoms as evidenced by reported decreased appetite, estimated PO intake meeting <50% of estimated nutritional needs x 4-5 days, unintentional wt loss of 8.3#/4% <1 week Status Active Problem Recommendation Dietitian Recommendations/Changes continue regular diet; will add 4oz ensure compact w/ meals d/t acute malnutrition. Lab / Micro Data Result Diagrams: 04/27/21 06:50 04/27/21 06:50 Labs: Laboratory Results - last 24 hr 04/27/21 06:50: WBC 15.7 H, RBC 4.71, Hgb 15.0, Hct 43.0, MCV 91.3, MCH 31.8, MCHC 34.9, RDW Std Deviation 43.9, RDW Coeff of Alyson 13.0, Plt Count 451 H, MPV 9.8, Immature Gran % (Auto) 1.400 H, Neut % (Auto) 89.3 H, Lymph % (Auto) 5.5 L, [place] % (Auto) 3.1, Eos % (Auto) 0.6, Baso % (Auto) 0.1, Absolute Neuts (auto) 14.1 H, Absolute Lymphs (auto) 0.87, Nucleated RBC % 0 04/27/21 06:50: Sodium 135 L, Potassium 3.9, Chloride 101, Carbon Dioxide 25.0, Anion Gap 9, BUN 20 H, Creatinine 0.64 L, Estim Creat Clear Calc 111.33, Est GFR (MDRD) Af Amer 161, Est GFR (MDRD) Non-Af 133, BUN/Creatinine Ratio 31.2 H, Glucose 112 H, Calcium 8.2 L, Total Bilirubin 1.10 H, AST 15, ALT 33, Alkaline Phosphatase 71, Total Protein 6.5, Albumin 2.3 L, Globulin 4.2, Albumin/Globulin Ratio 0.5 L Micro: Microbiology 04/20/21 15:10 Blood Culture (Wb) - Left Hand Blood Culture - Final No growth in 5 days. 04/20/21 13:10 Blood Culture (Wb) - Anticubital Right Blood Culture - Final No growth in 5 days. 04/21/21 17:07 Urine, Clean Catch Legionella Antigen - Final 04/21/21 17:07 Urine, Clean Catch Streptococcus pneumoniae Antigen (M - Final 04/20/21 12:10 Nasal Secretion SARS-CoV-2 Antigen (Rapid) - Final SARS-CoV-2 (COVID 19) Physical Exam Const alert and oriented x3 General Appearance: cooperative, well developed and on BiPAP HEENT normocephalic, head/scalp atraumatic and moist oral mucous membranes Eyes PERRL and EOMs intact bilaterally Neck full ROM and no lymphadenopathy Chest inspection of chest normal Chest: symmetrical chest wall rise; Negative for crepitus Resp no use of accessory muscles Effort and Inspection: Negative for paradoxical thoraco-abdominal movements Auscultation: diminished lung sounds; Negative for rales, rhonchi or wheezes Percussion: Negative for dullness Cardio regular rate, regular rhythm, S1 normal heart sound, S2 normal heart sound, no murmurs, no rub and no gallops GI normal to inspection, nondistended, normoactive bowel sounds no CVA tenderness Extremity no clubbing, cyanosis or edema Skin no rashes or lesions noted Neuro oriented x3, CN's II-XII intact bilaterally, moves all extremities and no focal motor deficits Psych cooperative and affect normal Charges/Coding Visit Charges Inpatient E&M: 12454 Subs Hosp L3
--- NOTE | 2021-04-27 09:08 | CPS ---
0755 Pt was removed from Bipap and placed on Airvo for aerosol rx. Airvo setings 60lpm and 93%. Aerosol rx was also ran on oxygen at 8lpm. At end of aerosol rx pt had dropped to 85%. Pt was placed back on Bipap at previous settings and saturation came back up to 90-91%. Dr Aviles at bedside post placing pt back on Bipap. Per Dr Aviles pt was removed from Bipap and placed back on Airvo so Pt could use pep and SMI. Pt was helped to bedside and performed proper use of breathing exercises. Pt desated to 77% on Airvo and was placed back on Bipap. Pt recovered quickly on Bipap with saturation up to 90-92%. Pt was helped to chair while on Bipap and rbendon transfer well and continues to brendon Bipap.
[2021-04-27] MEDS: Potassium Chloride Oral Tablet 20 MEQ 40 MEQ PO (10:27)
[2021-04-27] MEDS: Ascorbic Acid 500 MG Tablet 1000 MG PO ×2 (10:27→17:50)
[2021-04-27] MEDS: dexAMETHasone 4 MG Tablet 6 MG PO (10:28)
[2021-04-27] MEDS: 0.9% Saline Lock 10 ML Syringe IV ×2 (10:28→17:50)
[2021-04-27] MEDS: Furosemide 40 MG/4 ML Vial IV ×2 (10:28→17:50)
[2021-04-27] MEDS: guaiFENesin 1,200 MG Tablet 1200 MG PO ×2 (10:28→21:33)
--- NOTE | 2021-04-27 10:57 | NURSING ---
Removed bipap for morning medications, placed on airvo, 60L 89%. pt off for 25 minutes. SpO2 82-84 % on airvo. RT in room, increased to 100% FiO2 on airvo. RT doing PEP & IS in room with patient, placed back on bipap afterwards.
--- NOTE | 2021-04-27 11:02 | CPS ---
1050 Came to pt's room for saturation of 83% while on Airvo 60 lpm and at 89% x 25 minutes per nurse. Fio2 increased to 94% on Airvo Saturation Came up to 86%. Pt did pep therapy x 10 breaths . Saturation dropped to 84%. Pt stated he wanted to go back to bed. Pt was placed back on Bipap at previous settings and helped to by by nurse and this therapist. Pt remains on Bipap at this time.
--- NOTE | 2021-04-27 12:18 | PCM.PN.HOSP ---
Subjective Subjective Follow-up on acute hypoxic respiratory failure acute COVID-19 pneumonia: Patient was seen and examined. He remains on Airvo/BiPAP. No acute events overnight Objective Data Objective Data Vital Signs: Vital Signs Temp Pulse Resp BP Pulse Ox 97.0 F L 103 H 24 H 101/57 L 95 04/27/21 10:32 04/27/21 11:09 04/27/21 11:09 04/27/21 10:32 04/27/21 11:09 Oxygen Flow Rate (L/min) 88 Oxygen Delivery Method Bi-pap Weight: 84.7 kg Body Mass Index (BMI) 28.3 Intake & Output: Intake and Output for Last 24 Hours 04/25/21 04/26/21 04/27/21 23:59 23:59 23:59 Intake Total 980 / 1280 1800 / 1800 Output Total 675 / 1075 1800 / 1900 300 / 300 Balance 305 / 205 0 / -100 -300 / -300 Medical Nutrition Assessment Dietitian: Malnutrition Criteria Met Start: 04/21/21 12:38 Freq: Status: Active Protocol: Document 04/21/21 12:43 AG (Rec: 04/21/21 12:43 AG [id number]) Nutrition Malnutrition Evidence of Malnutrition Exists Yes Malnutrition (severe): Acute Illness/Injury Evidenced By Suboptimal Energy Intake ( Moderate),Weight Loss (Severe) Clinical Problem Acute Disease or Injury Related Malnutrition Etiology severe, acute malnutrition r/t inadequate energy intake w/ COVID illness Signs/Symptoms as evidenced by reported decreased appetite, estimated PO intake meeting <50% of estimated nutritional needs x 4-5 days, unintentional wt loss of 8.3#/4% <1 week Status Active Problem Recommendation Dietitian Recommendations/Changes continue regular diet; will add 4oz ensure compact w/ meals d/t acute malnutrition. Lab / Micro Data Result Diagrams: 04/27/21 06:50 04/27/21 06:50 Labs: Laboratory Results - last 24 hr 04/27/21 06:50: WBC 15.7 H, RBC 4.71, Hgb 15.0, Hct 43.0, MCV 91.3, MCH 31.8, MCHC 34.9, RDW Std Deviation 43.9, RDW Coeff of Alyson 13.0, Plt Count 451 H, MPV 9.8, Immature Gran % (Auto) 1.400 H, Neut % (Auto) 89.3 H, Lymph % (Auto) 5.5 L, [place] % (Auto) 3.1, Eos % (Auto) 0.6, Baso % (Auto) 0.1, Absolute Neuts (auto) 14.1 H, Absolute Lymphs (auto) 0.87, Nucleated RBC % 0 04/27/21 06:50: Sodium 135 L, Potassium 3.9, Chloride 101, Carbon Dioxide 25.0, Anion Gap 9, BUN 20 H, Creatinine 0.64 L, Estim Creat Clear Calc 111.33, Est GFR (MDRD) Af Amer 161, Est GFR (MDRD) Non-Af 133, BUN/Creatinine Ratio 31.2 H, Glucose 112 H, Calcium 8.2 L, Total Bilirubin 1.10 H, AST 15, ALT 33, Alkaline Phosphatase 71, Total Protein 6.5, Albumin 2.3 L, Globulin 4.2, Albumin/Globulin Ratio 0.5 L Micro: Microbiology 04/20/21 15:10 Blood Culture (Wb) - Left Hand Blood Culture - Final No growth in 5 days. 04/20/21 13:10 Blood Culture (Wb) - Anticubital Right Blood Culture - Final No growth in 5 days. 04/21/21 17:07 Urine, Clean Catch Legionella Antigen - Final 04/21/21 17:07 Urine, Clean Catch Streptococcus pneumoniae Antigen (M - Final 04/20/21 12:10 Nasal Secretion SARS-CoV-2 Antigen (Rapid) - Final SARS-CoV-2 (COVID 19) Physical Exam Narrative Physical exam: General: Alert, Oriented x3, Cooperative, No apparent distress, on Bipap HEENT: Atraumatic Oral: Moist Mucosa Neck: Supple Lungs: Diminished to auscultation Cardiovascular: HS I+II, regular, no murmurs Abdomen: Bowel Sounds Present, Soft, Non Tender Extremities: No edema Assessment & Plan Assessment/Plan (1) COVID-19: (2) Acute respiratory failure with hypoxia: (3) Pneumonia due to COVID-19 virus: PLAN: Summary: 66-year-old male, unvaccinated who was admitted with acute COVID-19 infection and managed as respiratory failure secondary to COVID-19 pneumonia. 1. Acute hypoxic respiratory failure secondary to acute COVID-19 pneumonia, worsening Remains on BiPAP/Airvo Patient is unvaccinated; has symptoms 4 days prior to admission Completed Remdesivir Continue on Decadron and baricitinib Continue on breathing treatments Pulmonology and ID following 2. Elevated D-dimer, acute PE ruled out 3. Severe malnutrition, rehab services aide consulted, on supplements Charges/Coding Visit Charges Inpatient E&M: 79254 Subs Hosp L2
--- NOTE | 2021-04-27 14:12 | CPS ---
pt was placed on Airvo prior to aerosol rx given. Aerosol at 8 lpm oxygen with Airvo on, saturation 92%.
--- NOTE | 2021-04-27 14:31 | CPS ---
pt was placed back on Bipap after being on airvo for 25min. While pt was on Airvo pt worked on his pep and SMI. Nurse also gave oral med. Pt desated to 84% while on Airvo 60 lpm 94%
[2021-04-27] MEDS: Oxymetazoline 0.05% 1 SPRAY SPRAY.BTL 2 SPRAY NASAL (21:33)
--- NOTE | 2021-04-27 22:00 | CPS ---
Had pt off bipap for approx 30 minutes. We did aerosol treatment, worked on I.S. and PEP x10 breaths each. Pt did well. Placed pt back on bipap after meds were passed and was able to turn fio2 to 75. Pt holding sats at or above 92%
[2021-04-28] VITALS (18 sets, daily range): BP systolic 113–125; BP diastolic 57–84; PULSE 69–96; RESP 14–24; TEMP 36.4–37.1; O2SAT 85–96
[2021-04-28 06:27] LABS: Absolute Lymphocyte Count 0.75 X10^3/uL (0.83-4.51); Absolute Neutrophil Count 13.1 X10^3/uL (2.0-7.7); Basophil# 0.02 X10^3/uL; Basophil% 0.1 % (0-1); Eosinophil# 0.14 X10^3/uL; Hematocrit 45.5 % (40-54); Hemoglobin 15.4 g/dL (13.0-16.5); Lymphocyte # 0.75 X10^3/ul (0.83-4.51); Lymphocyte % 5.1 % (19-41); Mean Corp Hgb Conc 33.8 g/dL (32-36); Mean Corpuscular Hgb 31.8 pg (27.0-32.0); Mean Corpuscular Volume 93.8 fL (80-94); Mean Platelet Vol. 10.5 fl (6.2-12.0); Monocyte% 2.7 % (0-10); NRBC Flagged by Analyzer 0 % (0-5); Neutrophil # 13.09 X10^3/uL (2.7-7.7); Neutrophil % 88.9 % (47-70); Platelet Count 423 K/mm3 (150-450); RBC Distribution Width CV 13.1 % (11.6-14.6); RBC Distribution Width SD 44.8 fl (35.1-43.9); Red Blood Count 4.85 M/mm3 (4.6-6.2); White Blood Count 14.7 K/mm3 (4.4-11.0)
[2021-04-28 06:57] LABS: ALB/GLOB Ratio 0.4 RATIO (0.9-2.4); AST(SGOT) 13 U/L (15-37); Alanine Aminotransfer ALT/SGPT 29 U/L (16-61); Alkaline Phosphatase 72 U/L (45-117); Anion Gap 9 (5-15); BUN 28 mg/dL (7-18); Calcium,Total 8.6 mg/dL (8.5-10.1); Chloride 102 mmol/L (98-107); EST Glomerular Filtration Rate 120 mL/min (>60); Est Glom Filt Rate - Afr Amer 146 mL/min (>60); Estimated Creatinine Clearance 101.79 ml/min; Globulin 4.7 g/dL (2.2-4.2); Glucose 119 mg/dL (74-106); Protein, Total 6.7 g/dL (6.4-8.2); Sodium Level 135 mmol/L (136-145)
[2021-04-28] MEDS: Ipratropium/Albuterol Sulfate 3 ML AMPUL.NEB INHALATION ×3 (07:44→20:52)
--- NOTE | 2021-04-28 07:53 | CPS ---
Changed from bipap to airvo times 15 minutes during aerosol treatment.Spo2 decreased to 70%.Placed back on bipap on previous settings.Recovery time about 4 to 5 minutes. Spo2 recovered to 96%
[2021-04-28] MEDS: Oxymetazoline 0.05% 1 SPRAY SPRAY.BTL 2 SPRAY NASAL ×2 (10:23→20:52)
[2021-04-28] MEDS: guaiFENesin 1,200 MG Tablet 1200 MG PO ×2 (10:24→20:54)
[2021-04-28] MEDS: Enoxaparin 40 MG/0.4 ML Syringe SC ×2 (10:24→20:53)
[2021-04-28] MEDS: Ascorbic Acid 500 MG Tablet 1000 MG PO ×2 (10:24→17:40)
--- NOTE | 2021-04-28 10:30 | NURSING ---
Pt taken off bipap and placed on AirVo 2 60L/90% to get drink, take medications, and preform PEP/IS x10. Pt desat to 79-82%. Off bipap approximately 10 mins. Placed back on bipap and took approximately 5 minutes to recover to 91%.
[2021-04-28] MEDS: dexAMETHasone 4 MG Tablet 6 MG PO (11:56)
--- NOTE | 2021-04-28 14:35 | PN.HOSP_ITS ---
Subjective Subjective Patient is 66-year-old male unvaccinated against COVID-19 presented with cough shortness of breath fever and loss of taste. Patient was found to be significantly hypoxic on admission. Admitted to monitored bed for further man Objective Data Objective Data Vital Signs: Vital Signs Temp Pulse Resp BP Pulse Ox 97.5 F L 88 20 H 125/75 H 95 04/28/21 10:15 04/28/21 13:45 04/28/21 13:45 04/28/21 10:15 04/28/21 10:15 Oxygen Flow Rate (L/min) 88 Oxygen Delivery Method Bi-pap Weight: 84.7 kg Body Mass Index (BMI) 28.3 Intake & Output: Intake and Output for Last 24 Hours 04/26/21 04/27/21 04/28/21 23:59 23:59 23:59 Intake Total 1800 / 1800 120 / 120 240 / 240 Output Total 1800 / 1900 1150 / 1650 500 / 500 Balance 0 / -100 -1030 / -1530 -260 / -260 Medical Nutrition Assessment Dietitian: Malnutrition Criteria Met Start: 04/21/21 12:38 Freq: Status: Active Protocol: Document 04/21/21 12:43 AG (Rec: 04/21/21 12:43 [id number]) Nutrition Malnutrition Evidence of Malnutrition Exists Yes Malnutrition (severe): Acute Illness/Injury Evidenced By Suboptimal Energy Intake ( Moderate),Weight Loss (Severe) Clinical Problem Acute Disease or Injury Related Malnutrition Etiology severe, acute malnutrition r/t inadequate energy intake w/ COVID illness Signs/Symptoms as evidenced by reported decreased appetite, estimated PO intake meeting <50% of estimated nutritional needs x 4-5 days, unintentional wt loss of 8.3#/4% <1 week Status Active Problem Recommendation Dietitian Recommendations/Changes continue regular diet; will add 4oz ensure compact w/ meals d/t acute malnutrition. Lab / Micro Data Result Diagrams: 04/28/21 06:06 04/28/21 06:06 Labs: Laboratory Results - last 24 hr 04/28/21 06:06: WBC 14.7 H, RBC 4.85, Hgb 15.4, Hct 45.5, MCV 93.8, MCH 31.8, MCHC 33.8, RDW Std Deviation 44.8 H, RDW Coeff of Alyson 13.1, Plt Count 423, MPV 10.5, Immature Gran % (Auto) 2.200 H, Neut % (Auto) 88.9 H, Lymph % (Auto) 5.1 L , [place] % (Auto) 2.7, Eos % (Auto) 1.0, Baso % (Auto) 0.1, Absolute Neuts (auto) 13.1 H, Absolute Lymphs (auto) 0.75 L, Nucleated RBC % 0 04/28/21 06:06: Sodium 135 L, Potassium 4.0, Chloride 102, Carbon Dioxide 24.0, Anion Gap 9, BUN 28 H, Creatinine 0.70, Estim Creat Clear Calc 101.79, Est GFR (MDRD) Af Amer 146, Est GFR (MDRD) Non-Af 120, BUN/Creatinine Ratio 40.0 H, Glucose 119 H, Calcium 8.6, Total Bilirubin 0.90, AST 13 L, ALT 29, Alkaline Phosphatase 72, Total Protein 6.7, Albumin 2.0 L, Globulin 4.7 H, Albumin/Globulin Ratio 0.4 L Micro: Microbiology 04/20/21 15:10 Blood Culture (Wb) - Left Hand Blood Culture - Final No growth in 5 days. 04/20/21 13:10 Blood Culture (Wb) - Anticubital Right Blood Culture - Final No growth in 5 days. 04/21/21 17:07 Urine, Clean Catch Legionella Antigen - Final 04/21/21 17:07 Urine, Clean Catch Streptococcus pneumoniae Antigen (M - Final 04/20/21 12:10 Nasal Secretion SARS-CoV-2 Antigen (Rapid) - Final SARS-CoV-2 (COVID 19) Physical Exam Narrative GENERAL: Dyspneic at rest on BiPAP HEENT: Atraumatic; EYES; Anicteric, Normal Conjunctiva NECK; supple, normal thyroid, RESPIRATORY: Diminished to auscultation CARDIOVASCULAR: Regular S1 S2, GI: soft, normoactive bowel sounds, : No Renal angle tenderness; EXTREMITIES: No edema, no clubbing, MUSCULOSKELETAL: no muscle waisting NEURO: Awake; no lateralizing signs. SKIN: No Rash PSYCH; Flat affect Assessment & Plan Assessment/Plan (1) COVID-19: (2) Acute respiratory failure with hypoxia: (3) Pneumonia due to COVID-19 virus: PLAN: Patient is 66-year-old male unvaccinated against COVID-19 presented with cough shortness of breath fever and loss of taste. Patient was found to be significantly hypoxic on admission. Admitted to monitored bed for further management 1. Acute hypoxic respiratory failure ?Secondary to SARS-CoV-2 pneumonia patient currently being managed with noninvasive ventilation via BiPAP/able 2. COVID-19 pneumonia ?Admitted to monitored bed. Supplemental oxygen as described above. Patient was also placed on Decadron as well as baricitinib apparently completed treatment with remdesivir. Both ID and pulmonary following 3. Severe protein calorie malnutrition ?Secondary to patient COVID 19 pneumonia as evidenced by reported decreased appetite, less than 50% intake of estimated nutritional needs in addition to weight loss recommendation is to continue with nutritional supplementation via Ensure 4. DVT prophylaxis ?Enoxaparin Charges/Coding Visit Charges Inpatient E&M: 58185 Subs Hosp L3
--- NOTE | 2021-04-28 21:48 | NURSING ---
patient requesting medications early when taken off bipap and on airvo for short period.
--- NOTE | 2021-04-28 23:22 | NURSING ---
called with update. informed about current respiratory settings on airvo and bipap per request.
[2021-04-29] VITALS (36 sets, daily range): BP systolic 89–127; BP diastolic 57–87; PULSE 68–106; RESP 14–27; TEMP 36.1–37.6; O2SAT 83–98
[2021-04-29] MEDS: Ipratropium/Albuterol Sulfate 3 ML AMPUL.NEB INHALATION ×4 (02:43→19:08)
[2021-04-29] MEDS: guaiFENesin 1,200 MG Tablet 1200 MG PO ×2 (08:08→20:15)
[2021-04-29] MEDS: Enoxaparin 40 MG/0.4 ML Syringe SC ×2 (08:08→20:05)
[2021-04-29] MEDS: Oxymetazoline 0.05% 1 SPRAY SPRAY.BTL 2 SPRAY NASAL ×2 (08:08→20:04)
[2021-04-29] MEDS: dexAMETHasone 4 MG Tablet 6 MG PO (08:08)
[2021-04-29] MEDS: Ascorbic Acid 500 MG Tablet 1000 MG PO ×2 (08:08→16:30)
[2021-04-29] MEDS: 0.9% Saline Lock 10 ML Syringe IV ×2 (08:13→13:54)
[2021-04-29 08:46] LABS: Absolute Lymphocyte Count 0.76 X10^3/uL (0.83-4.51); Absolute Neutrophil Count 14.3 X10^3/uL (2.0-7.7); Basophil# 0.04 X10^3/uL; Basophil% 0.2 % (0-1); Eosinophil# 0.13 X10^3/uL; Eosinophils% 0.8 % (0-5); Hematocrit 45.6 % (40-54); Lymphocyte # 0.76 X10^3/ul (0.83-4.51); Lymphocyte % 4.7 % (19-41); Mean Corp Hgb Conc 32.9 g/dL (32-36); Mean Corpuscular Hgb 31.1 pg (27.0-32.0); Mean Corpuscular Volume 94.4 fL (80-94); Mean Platelet Vol. 10.7 fl (6.2-12.0); Monocyte# 0.48 X10^3/uL; NRBC Flagged by Analyzer 0 % (0-5); Neutrophil # 14.27 X10^3/uL (2.7-7.7); Neutrophil % 89.2 % (47-70); Platelet Count 469 K/mm3 (150-450); RBC Distribution Width SD 45.1 fl (35.1-43.9); Red Blood Count 4.83 M/mm3 (4.6-6.2)
[2021-04-29 09:34] LABS: ALB/GLOB Ratio 0.4 RATIO (0.9-2.4); AST(SGOT) 17 U/L (15-37); Alanine Aminotransfer ALT/SGPT 34 U/L (16-61); Alkaline Phosphatase 75 U/L (45-117); Anion Gap 7 (5-15); BUN 23 mg/dL (7-18); BUN/Creat Ratio 34.6 RATIO (10-20); Calcium,Total 8.4 mg/dL (8.5-10.1); Chloride 103 mmol/L (98-107); Creatinine, Serum 0.66 mg/dL (0.70-1.30); EST Glomerular Filtration Rate 128 mL/min (>60); Est Glom Filt Rate - Afr Amer 154 mL/min (>60); Estimated Creatinine Clearance 107.95 ml/min; Globulin 4.5 g/dL (2.2-4.2); Glucose 94 mg/dL (74-106); Potassium 4.5 mmol/L (3.5-5.1); Protein, Total 6.5 g/dL (6.4-8.2); Sodium Level 136 mmol/L (136-145)
--- NOTE | 2021-04-29 10:02 | PN.CC_ITS ---
Assessment & Plan Assessment/Plan (1) Acute respiratory failure with hypoxia: (2) Pneumonia due to COVID-19 virus: PLAN: RECOMMENDATIONS: 1. Transition to ICU level of care given inability to wean from BiPAP. 2. The patient should remain n.p.o. for now. 3. If the patient is unable to be transitioned to Airvo by tomorrow, would proceed with intubation. 4. Continue prophylactic Lovenox as ordered. 5. Continue Decadron to complete 10 days of therapy. 6. Continue baricitinib to complete treatment course. 7. Diuretics to maintain euvolemic state. IMPRESSIONS: 1. Acute hypoxic respiratory failure secondary to COVID-19 The patient was initially admitted to the hospital with COVID-19 pneumonia in the setting of progressive dyspnea on April 20. The patient was treated initially with remdesivir. He remains on scheduled Decadron, prophylactic Lovenox and baricitinib. Despite the aforementioned, the patient's respiratory status still remains quite tenuous. He has essentially been BiPAP dependent for the last 48 to 72 hours. If the patient is unable to be weaned to heated high flow for any amount of time by tomorrow, we will proceed with intubation. The patient should remain n.p.o. for now. Will administer dose of Lasix today. 2. Advanced age/nonvaccinated status/history of smoking Complicates care, management, recovery and prognosis. Continue supportive measures as noted above. The patient is at high risk for intubation in the next 24 hours. TIME: 32 minutes of critical care time, independent of procedures, was spent addressing the patient's acute hypoxemic respiratory failure secondary to COVID- 19 pneumonia, review of all data and collaboration with the care team. Subjective Subjective The patient was seen and examined at the bedside this morning. Events from the last 24 hours have been reviewed. The patient is currently afebrile, hemodynamically stable and maintaining appropriate oxygen saturations on BiPAP with an FiO2 requirement of 70%. The patient is currently documented to be overall net -2.2 L for the hospitalization. The patient remains on prophylactic Lovenox, Decadron, baricitinib and bronchodilators. White count is elevated at 16,000. Platelet count is elevated at 469,000. Creatinine is within normal limits. Liver function is stable. The patient has essentially been BiPAP dependent now for the last 72 hours. Yesterday, the patient was placed on heated high flow but readily desaturated and had to be put back on BiPAP. This morning, the patient was once again trialed on Airvo with an FiO2 of 93%, but was saturating in the mid to upper 80s. Objective Data Objective Data The patient's most recent lab work, culture data and imaging studies have all been personally reviewed. Rapid coronavirus antigen testing was positive on April 20. Vital Signs: Vital Signs Temp Pulse Resp BP Pulse Ox 99.1 F 80 22 H 123/79 H 83 04/29/21 08:05 04/29/21 08:05 04/29/21 08:05 04/29/21 08:05 04/29/21 08:10 Oxygen Flow Rate (L/min) 60 Oxygen Delivery Method Airvo Weight: 84.7 kg Body Mass Index (BMI) 28.3 Intake & Output: Intake and Output for Last 24 Hours 04/27/21 04/28/21 04/29/21 23:59 23:59 23:59 Intake Total 120 / 120 720 / 720 100 / 100 Output Total 1150 / 1650 500 / 700 200 / 200 Balance -1030 / -1530 220 / 20 -100 / -100 Medical Nutrition Assessment Dietitian: Malnutrition Criteria Met Start: 04/21/21 12:38 Freq: Status: Active Protocol: Document 04/21/21 12:43 AG (Rec: 04/21/21 12:43 [id number]) Nutrition Malnutrition Evidence of Malnutrition Exists Yes Malnutrition (severe): Acute Illness/Injury Evidenced By Suboptimal Energy Intake ( Moderate),Weight Loss (Severe) Clinical Problem Acute Disease or Injury Related Malnutrition Etiology severe, acute malnutrition r/t inadequate energy intake w/ COVID illness Signs/Symptoms as evidenced by reported decreased appetite, estimated PO intake meeting <50% of estimated nutritional needs x 4-5 days, unintentional wt loss of 8.3#/4% <1 week Status Active Problem Recommendation Dietitian Recommendations/Changes continue regular diet; will add 4oz ensure compact w/ meals d/t acute malnutrition. Lab / Micro Data Result Diagrams: 04/29/21 07:10 04/29/21 07:10 Labs: Laboratory Results - last 24 hr 04/29/21 07:10: WBC 16.0 H, RBC 4.83, Hgb 15.0, Hct 45.6, MCV 94.4 H, MCH 31.1, MCHC 32.9, RDW Std Deviation 45.1 H, RDW Coeff of Alyson 13.0, Plt Count 469 H, MPV 10.7, Immature Gran % (Auto) 2.100 H, Neut % (Auto) 89.2 H, Lymph % (Auto) 4.7 L , [place] % (Auto) 3.0, Eos % (Auto) 0.8, Baso % (Auto) 0.2, Absolute Neuts (auto) 14.3 H, Absolute Lymphs (auto) 0.76 L, Nucleated RBC % 0 04/29/21 07:10: Sodium 136, Potassium 4.5, Chloride 103, Carbon Dioxide 26.0, Anion Gap 7, BUN 23 H, Creatinine 0.66 L, Estim Creat Clear Calc 107.95, Est GFR (MDRD) Af Amer 154, Est GFR (MDRD) Non-Af 128, BUN/Creatinine Ratio 34.6 H, Glucose 94, Calcium 8.4 L, Total Bilirubin 0.80, AST 17, ALT 34, Alkaline Melecio sphatase 75, Total Protein 6.5, Albumin 2.0 L, Globulin 4.5 H, Albumin/Globulin Ratio 0.4 L Micro: Microbiology 04/20/21 15:10 Blood Culture (Wb) - Left Hand Blood Culture - Final No growth in 5 days. 04/20/21 13:10 Blood Culture (Wb) - Anticubital Right Blood Culture - Final No growth in 5 days. 04/21/21 17:07 Urine, Clean Catch Legionella Antigen - Final 04/21/21 17:07 Urine, Clean Catch Streptococcus pneumoniae Antigen (M - Final 04/20/21 12:10 Nasal Secretion SARS-CoV-2 Antigen (Rapid) - Final SARS-CoV-2 (COVID 19) Physical Exam Const alert General Appearance: cooperative and on BiPAP HEENT normocephalic and head/scalp atraumatic Eyes PERRL, EOMs intact bilaterally and conjunctivae normal Neck supple General: trachea midline Chest inspection of chest normal Resp Effort and Inspection: tachypneic Auscultation: diminished lung sounds Cardio regular rate and regular rhythm GI normal to inspection, nondistended, normoactive bowel sounds Extremity no clubbing, cyanosis or edema Skin no rashes or lesions noted Neuro moves all extremities and no focal motor deficits Psych cooperative and affect normal Charges/Coding Procedures Hospitalists Procedures: 92534 Critial Care 1st Hr
--- NOTE | 2021-04-29 10:04 | RAD_ITS ---
STUDY: X-RAY CHEST REASON FOR EXAM: Male, 66 years old. COVID TECHNIQUE: Single AP portable view of the chest. COMPARISON: Comparison is made with prior study dated 04/20/2021. FINDINGS: EKG electrodes are seen. Since prior study, there has been progressive infiltrates in the right lung. Stable patchy infiltrate in the left lower lobe. Normal size heart. Normal mediastinum and rah. Normal visualized pulmonary arteries. There is atherosclerotic calcification of the aortic arch with tortuosity. Normal visualized thoracic spine. Normal visualized ribs, clavicles, and shoulders. There is no demonstrated abnormality of the visualized soft tissue structures of the upper abdomen. RAD/Chest 1 View (Portable) IMPRESSION: Progressive infiltrates in the right hemithorax. Stable left lower lobe infiltrate. Electronically Signed: Matt Rodriguez MD at 12:52 EST , Service support ,
--- NOTE | 2021-04-29 11:02 | CPS ---
Placed back on bipap at previous settings. Spo2 down to 80% from the time the airvo was changed back over to bipap.Increased fio2 to 100%. Spo2 96%.
--- NOTE | 2021-04-29 11:15 | PN.HOSP_ITS ---
Subjective Subjective Patient seen still remains ill looking and requiring BiPAP to maintain adequate oxygen saturation. Objective Data Objective Data Vital Signs: Vital Signs Temp Pulse Resp BP Pulse Ox 99.1 F 89 24 H 123/79 H 96 04/29/21 08:05 04/29/21 11:02 04/29/21 11:02 04/29/21 08:05 04/29/21 11:02 Oxygen Flow Rate (L/min) 60 Oxygen Delivery Method Bi-pap Weight: 84.7 kg Body Mass Index (BMI) 28.3 Intake & Output: Intake and Output for Last 24 Hours 04/27/21 04/28/21 04/29/21 23:59 23:59 23:59 Intake Total 120 / 120 720 / 720 100 / 100 Output Total 1150 / 1650 500 / 700 200 / 200 Balance -1030 / -1530 220 / 20 -100 / -100 Medical Nutrition Assessment Dietitian: Malnutrition Criteria Met Start: 04/21/21 12:38 Freq: Status: Active Protocol: Document 04/21/21 12:43 AG (Rec: 04/21/21 12:43 [id number]) Nutrition Malnutrition Evidence of Malnutrition Exists Yes Malnutrition (severe): Acute Illness/Injury Evidenced By Suboptimal Energy Intake ( Moderate),Weight Loss (Severe) Clinical Problem Acute Disease or Injury Related Malnutrition Etiology severe, acute malnutrition r/t inadequate energy intake w/ COVID illness Signs/Symptoms as evidenced by reported decreased appetite, estimated PO intake meeting <50% of estimated nutritional needs x 4-5 days, unintentional wt loss of 8.3#/4% <1 week Status Active Problem Recommendation Dietitian Recommendations/Changes continue regular diet; will add 4oz ensure compact w/ meals d/t acute malnutrition. Lab / Micro Data Result Diagrams: 04/29/21 07:10 04/29/21 07:10 Labs: Laboratory Results - last 24 hr 04/29/21 07:10: WBC 16.0 H, RBC 4.83, Hgb 15.0, Hct 45.6, MCV 94.4 H, MCH 31.1, MCHC 32.9, RDW Std Deviation 45.1 H, RDW Coeff of Alyson 13.0, Plt Count 469 H, MPV 10.7, Immature Gran % (Auto) 2.100 H, Neut % (Auto) 89.2 H, Lymph % (Auto) 4.7 L , [place] % (Auto) 3.0, Eos % (Auto) 0.8, Baso % (Auto) 0.2, Absolute Neuts (auto) 14.3 H, Absolute Lymphs (auto) 0.76 L, Nucleated RBC % 0 04/29/21 07:10: Sodium 136, Potassium 4.5, Chloride 103, Carbon Dioxide 26.0, Anion Gap 7, BUN 23 H, Creatinine 0.66 L, Estim Creat Clear Calc 107.95, Est GFR (MDRD) Af Amer 154, Est GFR (MDRD) Non-Af 128, BUN/Creatinine Ratio 34.6 H, Glucose 94, Calcium 8.4 L, Total Bilirubin 0.80, AST 17, ALT 34, Alkaline Phosphatase 75, Total Protein 6.5, Albumin 2.0 L, Globulin 4.5 H, Albumin/Globulin Ratio 0.4 L Micro: Microbiology 04/20/21 15:10 Blood Culture (Wb) - Left Hand Blood Culture - Final No growth in 5 days. 04/20/21 13:10 Blood Culture (Wb) - Anticubital Right Blood Culture - Final No growth in 5 days. 04/21/21 17:07 Urine, Clean Catch Legionella Antigen - Final 04/21/21 17:07 Urine, Clean Catch Streptococcus pneumoniae Antigen (M - Final 04/20/21 12:10 Nasal Secretion SARS-CoV-2 Antigen (Rapid) - Final SARS-CoV-2 (COVID 19) Physical Exam Narrative GENERAL: Dyspneic at rest on BiPAP HEENT: Atraumatic; EYES; Anicteric, Normal Conjunctiva NECK; supple, normal thyroid, RESPIRATORY: Diminished to auscultation CARDIOVASCULAR: Regular S1 S2, GI: soft, normoactive bowel sounds, : No Renal angle tenderness; EXTREMITIES: No edema, no clubbing, MUSCULOSKELETAL: no muscle waisting NEURO: Awake; no lateralizing signs. SKIN: No Rash PSYCH; Flat affect Assessment & Plan Assessment/Plan (1) COVID-19: (2) Acute respiratory failure with hypoxia: (3) Pneumonia due to COVID-19 virus: PLAN: Patient is 66-year-old male unvaccinated against COVID-19 presented with cough shortness of breath fever and loss of taste. Patient was found to be significantly hypoxic on admission. Admitted to monitored bed for further management 1. Acute hypoxic respiratory failure ?Secondary to SARS-CoV-2 pneumonia patient currently being managed with noninvasive ventilation via BiPAP/arrival ?04/29/2021; patient seen still remains ill looking and requiring BiPAP to maintain adequate oxygen saturation. Previous sputum cultures are growing Streptococcus mitis. We will continue with monitoring and oxygen via BiPAP. Also seen by pulmonary medicine notes and recommendations reviewed. 2. COVID-19 pneumonia ?Admitted to monitored bed. Supplemental oxygen as described above. Patient was also placed on Decadron as well as baricitinib apparently completed treatment with remdesivir. Both ID and pulmonary following 3. Severe protein calorie malnutrition ?Secondary to patient COVID 19 pneumonia as evidenced by reported decreased appetite, less than 50% intake of estimated nutritional needs in addition to weight loss recommendation is to continue with nutritional supplementation via Ensure 4. 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 Patient to undergo subsequent evaluation as outpatient once he recovers from his COVID-19 pneumonia 5. DVT prophylaxis ?Lovenox Charges/Coding Visit Charges Inpatient E&M: 14366 Subs Hosp L3
[2021-04-29 11:22] LABS: Procalcitonin 0.06 ng/mL (0.00-0.09)
--- NOTE | 2021-04-29 11:30 | NURSING ---
Addendum entered by Fatoumata See 04/29/21 12:03: 1150 Pt transported to ICU by this RN and RT on bipap. Original Note: 1124 report given to [facility] ICU. 1126 called and updated on transfer to ICU.
[2021-04-29] MEDS: Furosemide 40 MG/4 ML Vial IV (13:54)
[2021-04-29 14:25] LABS: D-Dimer Quantitative (DVT/PE) 0.72 FEU/ug/m (0.27-0.49)
[2021-04-29] MEDS: MELATONIN 3 MG TABLET PO (20:05)
[2021-04-29] MEDS: Acetaminophen 325 MG Tablet 650 MG PO (20:06)
[2021-04-30] VITALS (31 sets, daily range): BP systolic 90–144; BP diastolic 59–94; PULSE 71–125; RESP 14–91; TEMP 36.3–38.1; O2SAT 19–96
[2021-04-30] MEDS: Ipratropium/Albuterol Sulfate 3 ML AMPUL.NEB INHALATION ×4 (01:54→21:01)
[2021-04-30] MEDS: 0.9% Saline Lock 10 ML Syringe IV (03:56)
[2021-04-30 04:06] LABS: Absolute Lymphocyte Count 0.85 X10^3/uL (0.83-4.51); Absolute Neutrophil Count 15.3 X10^3/uL (2.0-7.7); Basophil# 0.04 X10^3/uL; Basophil% 0.2 % (0-1); Eosinophils% 1.2 % (0-5); Hematocrit 47.7 % (40-54); Hemoglobin 15.6 g/dL (13.0-16.5); Lymphocyte # 0.85 X10^3/ul (0.83-4.51); Lymphocyte % 4.9 % (19-41); Mean Corp Hgb Conc 32.7 g/dL (32-36); Mean Corpuscular Volume 94.8 fL (80-94); Mean Platelet Vol. 10.1 fl (6.2-12.0); Monocyte# 0.63 X10^3/uL; Monocyte% 3.6 % (0-10); NRBC Flagged by Analyzer 0 % (0-5); Neutrophil # 15.31 X10^3/uL (2.7-7.7); Neutrophil % 88.1 % (47-70); Platelet Count 482 K/mm3 (150-450); RBC Distribution Width CV 12.9 % (11.6-14.6); RBC Distribution Width SD 45.3 fl (35.1-43.9); Red Blood Count 5.03 M/mm3 (4.6-6.2); White Blood Count 17.4 K/mm3 (4.4-11.0)
[2021-04-30 04:25] LABS: ALB/GLOB Ratio 0.5 RATIO (0.9-2.4); AST(SGOT) 12 U/L (15-37); Alanine Aminotransfer ALT/SGPT 35 U/L (16-61); Albumin, Serum 2.3 g/dL (3.2-5.0); Alkaline Phosphatase 70 U/L (45-117); Anion Gap 9 (5-15); BUN 33 mg/dL (7-18); BUN/Creat Ratio 43.1 RATIO (10-20); Calcium,Total 8.3 mg/dL (8.5-10.1); Chloride 100 mmol/L (98-107); Creatinine, Serum 0.77 mg/dL (0.70-1.30); EST Glomerular Filtration Rate 108 mL/min (>60); Est Glom Filt Rate - Afr Amer 131 mL/min (>60); Estimated Creatinine Clearance 92.53 ml/min; Globulin 4.4 g/dL (2.2-4.2); Glucose 108 mg/dL (74-106); Potassium 3.9 mmol/L (3.5-5.1); Protein, Total 6.7 g/dL (6.4-8.2); Sodium Level 137 mmol/L (136-145)
[2021-04-30] MEDS: Acetaminophen 325 MG Tablet 650 MG PO (05:35)
--- NOTE | 2021-04-30 06:13 | PN.CC_ITS ---
Assessment & Plan Assessment/Plan (1) Acute respiratory failure with hypoxia: (2) Pneumonia due to COVID-19 virus: PLAN: RECOMMENDATIONS: 1. Continue noninvasive positive pressure ventilatory support and reattempt a transition to Airvo, if feasible. 2. The patient should remain n.p.o. for now. 3. If the patient is unable to be maintained on heated high flow this morning, will proceed with intubation. 4. Continue prophylactic Lovenox as ordered. 5. Continue Decadron to complete 10 days of therapy. 6. Continue baricitinib to complete treatment course. 7. Diuretics to maintain euvolemic state. Will start scheduled twice daily dosing today. IMPRESSIONS: 1. Acute hypoxic respiratory failure secondary to COVID-19 The patient was initially admitted to the hospital with COVID-19 pneumonia in the setting of progressive dyspnea on April 20. The patient was treated initially with remdesivir. He remains on scheduled Decadron, prophylactic Lovenox and baricitinib. Despite the aforementioned, the patient's respiratory status still remains quite tenuous. He has essentially been BiPAP dependent for multiple days. We will attempt once again to wean to heated high flow as tolerated. If unsuccessful, will proceed with intubation. The patient should remain n.p.o. for now. Initiate diuretics as tolerated by hemodynamics and renal function. 2. Advanced age/nonvaccinated status/history of smoking Complicates care, management, recovery and prognosis. Continue supportive measures as noted above. The patient is at high risk for possible intubation. TIME: 34 minutes of critical care time, independent of procedures, was spent addressing the patient's acute hypoxemic respiratory failure secondary to COVID- 19 pneumonia, review of all data and collaboration with the care team. Subjective Subjective The patient was seen and examined at the bedside this morning. Events from the last 24 hours have been reviewed. The patient was transferred to the ICU yesterday afternoon, primarily due to a failure to be weaned from continuous BiPAP support for several days. The patient is currently being maintained on BiPAP with an FiO2 requirement of 70%. According to nursing staff, the patient was able to be weaned to Airvo heated high flow for several hours yesterday with an FiO2 of 93%. The patient is currently documented to be overall net -3.3 L for the hospitalization. White count remains elevated at 17,000. Creatinine is stable. The patient remains on Decadron, baricitinib, therapeutic Lovenox and bronchodilators. He did receive a one-time dose of IV Lasix yesterday. Objective Data Objective Data The patient's most recent lab work, culture data and imaging studies have all been personally reviewed. Rapid coronavirus antigen testing was positive on April 20. Vital Signs: Vital Signs Temp Pulse Resp BP Pulse Ox 100.4 F H 81 20 H 108/75 94 04/30/21 06:00 04/30/21 06:00 04/30/21 06:00 04/30/21 06:00 04/30/21 06:00 Oxygen Flow Rate (L/min) 60 Oxygen Delivery Method Bi-pap Weight: 77.819 kg Body Mass Index (BMI) 28.3 Intake & Output: Intake and Output for Last 24 Hours 04/28/21 04/29/21 04/30/21 23:59 23:59 23:59 Intake Total 720 / 720 340 / 340 120 / 120 Output Total 500 / 700 1500 / 1500 150 / 150 Balance 220 / 20 -1160 / -1160 -30 / -30 Medical Nutrition Assessment Dietitian: Malnutrition Criteria Met Start: 04/21/21 12:3 8 Freq: Status: Active Protocol: Document 04/21/21 12:43 AG (Rec: 04/21/21 12:43 [id number]) Nutrition Malnutrition Evidence of Malnutrition Exists Yes Malnutrition (severe): Acute Illness/Injury Evidenced By Suboptimal Energy Intake ( Moderate),Weight Loss (Severe) Clinical Problem Acute Disease or Injury Related Malnutrition Etiology severe, acute malnutrition r/t inadequate energy intake w/ COVID illness Signs/Symptoms as evidenced by reported decreased appetite, estimated PO intake meeting <50% of estimated nutritional needs x 4-5 days, unintentional wt loss of 8.3#/4% <1 week Status Active Problem Recommendation Dietitian Recommendations/Changes continue regular diet; will add 4oz ensure compact w/ meals d/t acute malnutrition. Lab / Micro Data Attestation: I reviewed the patient's lab results. Result Diagrams: 04/30/21 03:55 04/30/21 03:55 Labs: Laboratory Results - last 24 hr 04/29/21 07:10: WBC 16.0 H, RBC 4.83, Hgb 15.0, Hct 45.6, MCV 94.4 H, MCH 31.1, MCHC 32.9, RDW Std Deviation 45.1 H, RDW Coeff of Alyson 13.0, Plt Count 469 H, MPV 10.7, Immature Gran % (Auto) 2.100 H, Neut % (Auto) 89.2 H, Lymph % (Auto) 4.7 L , [place] % (Auto) 3.0, Eos % (Auto) 0.8, Baso % (Auto) 0.2, Absolute Neuts (auto) 14.3 H, Absolute Lymphs (auto) 0.76 L, Nucleated RBC % 0 04/29/21 07:10: Sodium 136, Potassium 4.5, Chloride 103, Carbon Dioxide 26.0, Anion Gap 7, BUN 23 H, Creatinine 0.66 L, Estim Creat Clear Calc 107.95, Est GFR (MDRD) Af Amer 154, Est GFR (MDRD) Non-Af 128, BUN/Creatinine Ratio 34.6 H, Glucose 94, Calcium 8.4 L, Total Bilirubin 0.80, AST 17, ALT 34, Alkaline Phosphatase 75, Total Protein 6.5, Albumin 2.0 L, Globulin 4.5 H, Albumin/Globulin Ratio 0.4 L 04/29/21 07:10: B-Natriuretic Peptide 13.0 04/29/21 07:10: Procalcitonin 0.06 04/29/21 11:05: D-Dimer Quant (PE/DVT) 0.72 H* 04/30/21 03:55: WBC 17.4 H, RBC 5.03, Hgb 15.6, Hct 47.7, MCV 94.8 H, MCH 31.0, MCHC 32.7, RDW Std Deviation 45.3 H, RDW Coeff of Alyson 12.9, Plt Count 482 H, MPV 10.1, Immature Gran % (Auto) 2.000 H, Neut % (Auto) 88.1 H, Lymph % (Auto) 4.9 L , [place] % (Auto) 3.6, Eos % (Auto) 1.2, Baso % (Auto) 0.2, Absolute Neuts (auto) 15.3 H, Absolute Lymphs (auto) 0.85, Nucleated RBC % 0 04/30/21 03:55: Sodium 137, Potassium 3.9, Chloride 100, Carbon Dioxide 28.0, Anion Gap 9, BUN 33 H, Creatinine 0.77, Estim Creat Clear Calc 92.53, Est GFR (MDRD) Af Amer 131, Est GFR (MDRD) Non-Af 108, BUN/Creatinine Ratio 43.1 H, Glucose 108 H, Calcium 8.3 L, Total Bilirubin 1.00, AST 12 L, ALT 35, Alkaline Phosphatase 70, Total Protein 6.7, Albumin 2.3 L, Globulin 4.4 H, Albumin/Globulin Ratio 0.5 L Micro: Microbiology 04/20/21 15:10 Blood Culture (Wb) - Left Hand Blood Culture - Final No growth in 5 days. 04/20/21 13:10 Blood Culture (Wb) - Anticubital Right Blood Culture - Final No growth in 5 days. 04/21/21 17:07 Urine, Clean Catch Legionella Antigen - Final 04/21/21 17:07 Urine, Clean Catch Streptococcus pneumoniae Antigen (M - Final 04/20/21 12:10 Nasal Secretion SARS-CoV-2 Antigen (Rapid) - Final SARS-CoV-2 (COVID 19) Radiography Diagnostic Testing: Radiology Impression Chest X-Ray 04/29/21 10:04 IMPRESSION: Progressive infiltrates in the right hemithorax. Stable left lower lobe infiltrate. Electronically Signed: Matt Rodriguez MD at 12:52 EST , Service support , Physical Exam Const alert General Appearance: cooperative and on BiPAP HEENT normocephalic and head/scalp atraumatic Eyes PERRL, EOMs intact bilaterally and conjunctivae normal Neck supple General: trachea midline Chest inspection of chest normal Resp Effort and Inspection: tachypneic Auscultation: diminished lung sounds Cardio regular rate and regular rhythm GI normal to inspection, nondistended, normoactive bowel sounds Extremity no clubbing, cyanosis or edema Skin no rashes or lesions noted Neuro moves all extremities and no focal motor deficits Psych cooperative and affect normal Charges/Coding Procedures Hospitalists Procedures: [id number] Critial Care 1st Hr
--- NOTE | 2021-04-30 07:17 | PCM.PN.HOSP ---
Subjective Subjective Patient was transferred to the intensive care unit following patient being stuck on BiPAP. Seen this a.m. currently remains on Airvo with FiO2 of 93% and flow of 60 L/min with oxygen saturation at 88 Objective Data Objective Data Vital Signs: Vital Signs Temp Pulse Resp BP Pulse Ox 99.9 F H 103 H 17 105/74 93 04/30/21 06:59 04/30/21 06:59 04/30/21 06:59 04/30/21 06:59 04/30/21 06:59 Oxygen Flow Rate (L/min) 60 Oxygen Delivery Method Bi-pap Weight: 77.819 kg Body Mass Index (BMI) 28.3 Intake & Output: Intake and Output for Last 24 Hours 04/28/21 04/29/21 04/30/21 23:59 23:59 23:59 Intake Total 720 / 720 340 / 340 120 / 120 Output Total 500 / 700 1500 / 1500 150 / 150 Balance 220 / 20 -1160 / -1160 -30 / -30 Medical Nutrition Assessment Dietitian: Malnutrition Criteria Met Start: 04/21/21 12:38 Freq: Status: Active Protocol: Document 04/21/21 12:43 AG (Rec: 04/21/21 12:43 AG [id number]) Nutrition Malnutrition Evidence of Malnutrition Exists Yes Malnutrition (severe): Acute Illness/Injury Evidenced By Suboptimal Energy Intake ( Moderate),Weight Loss (Severe) Clinical Problem Acute Disease or Injury Related Malnutrition Etiology severe, acute malnutrition r/t inadequate energy intake w/ COVID illness Signs/Symptoms as evidenced by reported decreased appetite, estimated PO intake meeting <50% of estimated nutritional needs x 4-5 days, unintentional wt loss of 8.3#/4% <1 week Status Active Problem Recommendation Dietitian Recommendations/Changes continue regular diet; will add 4oz ensure compact w/ meals d/t acute malnutrition. Lab / Micro Data Result Diagrams: 04/30/21 03:55 04/30/21 03:55 Labs: Laboratory Results - last 24 hr 04/29/21 07:10: WBC 16.0 H, RBC 4.83, Hgb 15.0, Hct 45.6, MCV 94.4 H, MCH 31.1, MCHC 32.9, RDW Std Deviation 45.1 H, RDW Coeff of Alyson 13.0, Plt Count 469 H, MPV 10.7, Immature Gran % (Auto) 2.100 H, Neut % (Auto) 89.2 H, Lymph % (Auto) 4.7 L, [place] % (Auto) 3.0, Eos % (Auto) 0.8, Baso % (Auto) 0.2, Absolute Neuts (auto) 14.3 H, Absolute Lymphs (auto) 0.76 L, Nucleated RBC % 0 04/29/21 07:10: Sodium 136, Potassium 4.5, Chloride 103, Carbon Dioxide 26.0, Anion Gap 7, BUN 23 H, Creatinine 0.66 L, Estim Creat Clear Calc 107.95, Est GFR (MDRD) Af Amer 154, Est GFR (MDRD) Non-Af 128, BUN/Creatinine Ratio 34.6 H, Glucose 94, Calcium 8.4 L, Total Bilirubin 0.80, AST 17, ALT 34, Alkaline Phosphatase 75, Total Protein 6.5, Albumin 2.0 L, Globulin 4.5 H, Albumin/Globulin Ratio 0.4 L 04/29/21 07:10: B-Natriuretic Peptide 13.0 04/29/21 07:10: Procalcitonin 0.06 04/29/21 11:05: D-Dimer Quant (PE/DVT) 0.72 H* 04/30/21 03:55: WBC 17.4 H, RBC 5.03, Hgb 15.6, Hct 47.7, MCV 94.8 H, MCH 31.0, MCHC 32.7, RDW Std Deviation 45.3 H, RDW Coeff of [place]lyson 12.9, Plt Count 482 H, MPV 10.1, Immature Gran % (Auto) 2.000 H, Neut % (Auto) 88.1 H, Lymph % (Auto) 4.9 L, [place] % (Auto) 3.6, Eos % (Auto) 1.2, Baso % (Auto) 0.2, Absolute Neuts (auto) 15.3 H, Absolute Lymphs (auto) 0.85, Nucleated RBC % 0 04/30/21 03:55: Sodium 137, Potassium 3.9, Chloride 100, Carbon Dioxide 28.0, Anion Gap 9, BUN 33 H, Creatinine 0.77, Estim Creat Clear Calc 92.53, Est GFR (MDRD) Af Amer 131, Est GFR (MDRD) Non-Af 108, BUN/Creatinine Ratio 43.1 H, Glucose 108 H, Calcium 8.3 L, Total Bilirubin 1.00, AST 12 L, ALT 35, Alkaline Phosphatase 70, Total Protein 6.7, Albumin 2.3 L, Globulin 4.4 H, Albumin/Globulin Ratio 0.5 L Micro: Microbiology 04/20/21 15:10 Blood Culture (Wb) - Left Hand Blood Culture - Final No growth in 5 days. 04/20/21 13:10 Blood Culture (Wb) - Anticubital Right Blood Culture - Final No growth in 5 days. 04/21/21 17:07 Urine, Clean Catch Legionella Antigen - Final 04/21/21 17:07 Urine, Clean Catch Streptococcus pneumoniae Antigen (M - Final 04/20/21 12:10 Nasal Secretion SARS-CoV-2 Antigen (Rapid) - Final SARS-CoV-2 (COVID 19) Radiography Diagnostic Testing: Radiology Impression Chest X-Ray 04/29/21 10:04 IMPRESSION: Progressive infiltrates in the right hemithorax. Stable left lower lobe infiltrate. Electronically Signed: Matt Rodriguez MD at 12:52 EST , Service support , Physical Exam Narrative GENERAL: Dyspneic at rest on Airvo HEENT: Atraumatic; EYES; Anicteric, Normal Conjunctiva NECK; supple, normal thyroid, RESPIRATORY: Diminished to auscultation CARDIOVASCULAR: Regular S1 S2, GI: soft, normoactive bowel sounds, : No Renal angle tenderness; EXTREMITIES: No edema, no clubbing, MUSCULOSKELETAL: no muscle waisting NEURO: Awake; no lateralizing signs. SKIN: No Rash PSYCH; Flat affect Assessment & Plan Assessment/Plan (1) COVID-19: (2) Acute respiratory failure with hypoxia: (3) Pneumonia due to COVID-19 virus: PLAN: Patient is 66-year-old male unvaccinated against COVID-19 presented with cough shortness of breath fever and loss of taste. Patient was found to be significantly hypoxic on admission. Admitted to monitored bed for further management 1. Acute hypoxic respiratory failure ?Secondary to SARS-CoV-2 pneumonia patient currently being managed with noninvasive ventilation via BiPAP/arrival ?04/29/2021; patient seen still remains ill looking and requiring BiPAP to maintain adequate oxygen saturation. Previous sputum cultures are growing Streptococcus mitis. We will continue with monitoring and oxygen via BiPAP. Also seen by pulmonary medicine notes and recommendations reviewed. 04/30/2021;Patient was transferred to the intensive care unit following patient being stuck on BiPAP. Seen this a.m. currently remains on Airvo with FiO2 of 93% and flow of 60 L/min with oxygen saturation at 88 2. COVID-19 pneumonia ?Admitted to monitored bed. Supplemental oxygen as described above. Patient was also placed on Decadron as well as baricitinib apparently completed treatment with remdesivir. Both ID and pulmonary following 3. Severe protein calorie malnutrition ?Secondary to patient COVID 19 pneumonia as evidenced by reported decreased appetite, less than 50% intake of estimated nutritional needs in addition to weight loss recommendation is to continue with nutritional supplementation via Ensure 4. 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 Patient to undergo subsequent evaluation as outpatient once he recovers from his COVID-19 pneumonia 5. DVT prophylaxis ?Lovenox Charges/Coding Visit Charges Inpatient E&M: 06754 Subs Hosp L3
[2021-04-30] MEDS: guaiFENesin 1,200 MG Tablet 1200 MG PO (07:48)
[2021-04-30] MEDS: Oxymetazoline 0.05% 1 SPRAY SPRAY.BTL 2 SPRAY NASAL ×2 (07:49→20:52)
[2021-04-30] MEDS: Enoxaparin 40 MG/0.4 ML Syringe SC ×2 (07:49→20:54)
[2021-04-30] MEDS: Furosemide 40 MG/4 ML Vial IV ×2 (07:49→16:28)
[2021-04-30] MEDS: Ascorbic Acid 500 MG Tablet 1000 MG PO ×2 (07:49→16:22)
[2021-04-30] MEDS: dexAMETHasone 4 MG Tablet 6 MG PO (07:49)
[2021-04-30] MEDS: Calcium Carbonate 500 MG Tablet 1000 MG PO (10:46)
[2021-04-30] MEDS: Pantoprazole Sodium 40 MG Tablet PO (10:46)
[2021-05-01] VITALS (17 sets, daily range): BP systolic 99–115; BP diastolic 58–74; PULSE 82–118; RESP 18–30; TEMP 36.6–37.3; O2SAT 90–97
[2021-05-01] MEDS: Ipratropium/Albuterol Sulfate 3 ML AMPUL.NEB INHALATION ×3 (07:43→20:27)
--- NOTE | 2021-05-01 07:53 | PN.HOSP_ITS ---
Subjective Subjective Patient was transferred from the ICU back to PCU. He however remains on high flow oxygen via Airvo with FiO2 of 93% and flow of 60 L/min. Oxygen saturation 90 Objective Data Objective Data Vital Signs: Vital Signs Temp Pulse Resp BP Pulse Ox 99.2 F H 85 28 H 115/69 92 05/01/21 05:35 05/01/21 07:42 05/01/21 07:42 05/01/21 05:35 05/01/21 07:42 Oxygen Flow Rate (L/min) 60 Oxygen Delivery Method Airvo Weight: 77.819 kg Body Mass Index (BMI) 28.3 Intake & Output: Intake and Output for Last 24 Hours 04/29/21 04/30/21 05/01/21 23:59 23:59 23:59 Intake Total 340 / 340 600 / 600 240 / 240 Output Total 1500 / 1500 1425 / 1425 300 / 300 Balance -1160 / -1160 -825 / -825 -60 / -60 Medical Nutrition Assessment Dietitian: Malnutrition Criteria Met Start: 04/21/21 12:38 Freq: Status: Active Protocol: Document 04/30/21 09:47 AG (Rec: 04/30/21 09:48 AG [id number]) Nutrition Malnutrition Evidence of Malnutrition Exists Yes Malnutrition (severe): Acute Illness/Injury Evidenced By Suboptimal Energy Intake ( Moderate),Weight Loss (Severe) Clinical Problem Acute Disease or Injury Related Malnutrition Etiology severe, acute malnutrition r/t inadequate energy intake w/ COVID illness Signs/Symptoms as evidenced by reported decreased appetite, estimated PO intake meeting <50% of estimated nutritional needs >1 week, unintentional wt loss of 10.6kg/12% <1 month Status Active Problem Recommendation Dietitian Recommendations/Changes continue regular diet and 4oz ensure compact w/ meals d/t acute malnutrition. Lab / Micro Data Result Diagrams: 04/30/21 03:55 04/30/21 03:55 Micro: Microbiology 04/20/21 15:10 Blood Culture (Wb) - Left Hand Blood Culture - Final No growth in 5 days. 04/20/21 13:10 Blood Culture (Wb) - Anticubital Right Blood Culture - Final No growth in 5 days. 04/21/21 17:07 Urine, Clean Catch Legionella Antigen - Final 04/21/21 17:07 Urine, Clean Catch Streptococcus pneumoniae Antigen (M - Final 04/20/21 12:10 Nasal Secretion SARS-CoV-2 Antigen (Rapid) - Final SARS-CoV-2 (COVID 19) Physical Exam Narrative GENERAL: Dyspneic at rest on Airvo HEENT: Atraumatic; EYES; Anicteric, Normal Conjunctiva NECK; supple, normal thyroid, RESPIRATORY: Diminished to auscultation CARDIOVASCULAR: Regular S1 S2, GI: soft, normoactive bowel sounds, : No Renal angle tenderness; EXTREMITIES: No edema, no clubbing, MUSCULOSKELETAL: no muscle waisting NEURO: Awake; no lateralizing signs. SKIN: No Rash PSYCH; Flat affect Assessment & Plan Assessment/Plan (1) COVID-19: (2) Acute respiratory failure with hypoxia: (3) Pneumonia due to COVID-19 virus: PLAN: Patient is 66-year-old male unvaccinated against COVID-19 presented with cough shortness of breath fever and loss of taste. Patient was found to be significantly hypoxic on admission. Admitted to monitored bed for further management 1. Acute hypoxic respiratory failure ?Secondary to SARS-CoV-2 pneumonia patient currently being managed with noninvasive ventilation via BiPAP/arrival ?04/29/2021; patient seen still remains ill looking and requiring BiPAP to maintain adequate oxygen saturation. Previous sputum cultures are growing Strep tococcus mitis. We will continue with monitoring and oxygen via BiPAP. Also seen by pulmonary medicine notes and recommendations reviewed. 04/30/2021;Patient was transferred to the intensive care unit following patient being stuck on BiPAP. Seen this a.m. currently remains on Airvo with FiO2 of 9 3% and flow of 60 L/min with oxygen saturation at 88 ?05/01/2021;Patient was transferred from the ICU back to PCU. He however remains on high flow oxygen via Airvo with FiO2 of 93% and flow of 60 L/min. Oxygen saturation 90 2. COVID-19 pneumonia ?Admitted to monitored bed. Supplemental oxygen as described above. Patient was also placed on Decadron as well as baricitinib apparently completed treatment with remdesivir. Both ID and pulmonary following 3. Severe protein calorie malnutrition ?Secondary to patient COVID 19 pneumonia as evidenced by reported decreased appetite, less than 50% intake of estimated nutritional needs in addition to weight loss recommendation is to continue with nutritional supplementation via Ensure 4. 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 Patient to undergo subsequent evaluation as outpatient once he recovers from his COVID-19 pneumonia 5. DVT prophylaxis ?Lovenox Charges/Coding Visit Charges Inpatient E&M: 87868 Subs Hosp L3
[2021-05-01] MEDS: Pantoprazole Sodium 40 MG Tablet PO (10:01)
[2021-05-01] MEDS: Ascorbic Acid 500 MG Tablet 1000 MG PO ×2 (10:01→17:00)
[2021-05-01] MEDS: Enoxaparin 40 MG/0.4 ML Syringe SC ×2 (10:01→20:23)
[2021-05-01] MEDS: guaiFENesin 1,200 MG Tablet 1200 MG PO ×2 (10:02→20:25)
[2021-05-01] MEDS: 0.9% Saline Lock 10 ML Syringe IV ×2 (10:04→17:01)
[2021-05-01] MEDS: Furosemide 40 MG/4 ML Vial IV ×2 (10:04→17:01)
[2021-05-01] MEDS: Acetaminophen 325 MG Tablet 650 MG PO (10:04)
[2021-05-01] MEDS: Oxymetazoline 0.05% 1 SPRAY SPRAY.BTL 2 SPRAY NASAL ×2 (10:05→20:23)
[2021-05-02] VITALS (27 sets, daily range): BP systolic 91–116; BP diastolic 59–81; PULSE 75–116; RESP 12–24; TEMP 36.1–36.6; O2SAT 77–99
--- NOTE | 2021-05-02 07:13 | PCM.PN.INT ---
Assessment & Plan Assessment/Plan (1) Acute respiratory failure with hypoxia: (2) Pneumonia due to COVID-19 virus: PLAN: RECOMMENDATIONS: 1. Continue to wean FiO2 to maintain oxygen saturations at or above 90%. 2. Continue prophylactic Lovenox as ordered. 3. Continue Decadron to complete 10 days of therapy. 4. Continue baricitinib to complete treatment course. 5. Diuretics to maintain euvolemic state. IMPRESSIONS: 1. Acute hypoxic respiratory failure secondary to COVID-19 The patient was initially admitted to the hospital with COVID-19 pneumonia in the setting of progressive dyspnea on April 20. The patient was treated initially with remdesivir. He remains on scheduled Decadron, prophylactic Lovenox and baricitinib. Despite the aforementioned, the patient's respiratory status still remains quite tenuous. Plan to continue heated high flow oxygen and wean FiO2 to maintain saturations at or above 90%. Continue diuretics as ordered, as tolerated by hemodynamics and renal function. 2. Advanced age/nonvaccinated status/history of smoking Complicates care, management, recovery and prognosis. Continue supportive measures as noted above. This note was generated with [facility] dictation software. It may contain incorrect words, spelling, and punctuation that were not noted in checking the note before signing. Subjective Subjective The patient was seen and examined at the bedside this morning. Events from the last 24 hours have been reviewed. The patient is currently afebrile, hemodynamically stable and maintaining appropriate oxygen saturations on Airvo heated high flow with an FiO2 requirement of 92%. The patient is currently documented to be overall net -4 L for the hospitalization. The patient remains on prophylactic Lovenox, baricitinib and Lasix. Objective Data Objective Data The patient's most recent lab work, culture data and imaging studies have all been personally reviewed. Rapid coronavirus antigen testing was positive on April 20. Vital Signs: Vital Signs Temp Pulse Resp BP Pulse Ox 97.9 F 94 20 H 104/68 92 05/02/21 03:31 05/02/21 05:40 05/02/21 05:40 05/02/21 03:31 05/02/21 05:40 Oxygen Flow Rate (L/min) 60 Oxygen Delivery Method Airvo Weight: 77.5 kg Body Mass Index (BMI) 28.3 Intake & Output: Intake and Output for Last 24 Hours 04/30/21 05/01/21 05/02/21 23:59 23:59 23:59 Intake Total 600 / 600 1490 / 1810 440 / 440 Output Total 1425 / 1425 1050 / 1500 700 / 700 Balance -825 / -825 440 / 310 -260 / -260 Medical Nutrition Assessment Dietitian: Malnutrition Criteria Met Start: 04/21/21 12:38 Freq: Status: Active Protocol: Document 04/30/21 09:47 AG (Rec: 04/30/21 09:48 AG [id number]) Nutrition Malnutrition Evidence of Malnutrition Exists Yes Malnutrition (severe): Acute Illness/Injury Evidenced By Suboptimal Energy Intake ( Moderate),Weight Loss (Severe) Clinical Problem Acute Disease or Injury Related Malnutrition Etiology severe, acute malnutrition r/t inadequate energy intake w/ COVID illness Signs/Symptoms as evidenced by reported decreased appetite, estimated PO intake meeting <50% of estimated nutritional needs >1 week, unintentional wt loss of 10.6kg/12% <1 month Status Active Problem Recommendation Dietitian Recommendations/Changes continue regular diet and 4oz ensure compact w/ meals d/t acute malnutrition. Lab / Micro Data Attestation: I reviewed the patient's lab results. Result Diagrams: 05/02/21 08:25 05/02/21 08:25 Micro: Microbiology 04/20/21 15:10 Blood Culture (Wb) - Left Hand Blood Culture - Final No growth in 5 days. 04/20/21 13:10 Blood Culture (Wb) - Anticubital Right Blood Culture - Final No growth in 5 days. 04/21/21 17:07 Urine, Clean Catch Legionella Antigen - Final 04/21/21 17:07 Urine, Clean Catch Streptococcus pneumoniae Antigen (M - Final 04/20/21 12:10 Nasal Secretion SARS-CoV-2 Antigen (Rapid) - Final SARS-CoV-2 (COVID 19) Physical Exam Const alert and no apparent distress General Appearance: cooperative HEENT normocephalic and head/scalp atraumatic Eyes PERRL, EOMs intact bilaterally and conjunctivae normal Neck supple General: trachea midline Chest inspection of chest normal Resp Effort and Inspection: tachypneic Auscultation: diminished lung sounds Cardio S1 normal heart sound and S2 normal heart sound Rate: tachycardic GI normal to inspection, nondistended, normoactive bowel sounds Extremity no clubbing, cyanosis or edema Skin no rashes or lesions noted Neuro moves all extremities and no focal motor deficits Psych cooperative and affect normal Charges/Coding Visit Charges Inpatient E&M: 50747 Subs Hosp L3
--- NOTE | 2021-05-02 07:16 | NURSING ---
This RN taking over care of pt at this time.
[2021-05-02] MEDS: Ipratropium/Albuterol Sulfate 3 ML AMPUL.NEB INHALATION ×3 (07:19→20:07)
--- NOTE | 2021-05-02 08:00 | PCM.PN.HOSP ---
Subjective Subjective Patient seen still remains on Airvo 60 L flow per minute with 92%. Also complains of easy fatigability. Did discuss with case management about possible LTAC referral Objective Data Objective Data Vital Signs: Vital Signs Temp Pulse Resp BP Pulse Ox 97.9 F 92 22 H 104/68 92 05/02/21 03:31 05/02/21 07:22 05/02/21 07:22 05/02/21 03:31 05/02/21 07:22 Oxygen Flow Rate (L/min) 60 Oxygen Delivery Method Airvo Weight: 77.5 kg Body Mass Index (BMI) 28.3 Intake & Output: Intake and Output for Last 24 Hours 04/30/21 05/01/21 05/02/21 23:59 23:59 23:59 Intake Total 600 / 600 1490 / 1810 440 / 440 Output Total 1425 / 1425 1050 / 1500 700 / 700 Balance -825 / -825 440 / 310 -260 / -260 Medical Nutrition Assessment Dietitian: Malnutrition Criteria Met Start: 04/21/21 12:38 Freq: Status: Active Protocol: Document 04/30/21 09:47 AG (Rec: 04/30/21 09:48 [id number]) Nutrition Malnutrition Evidence of Malnutrition Exists Yes Malnutrition (severe): Acute Illness/Injury Evidenced By Suboptimal Energy Intake ( Moderate),Weight Loss (Severe) Clinical Problem Acute Disease or Injury Related Malnutrition Etiology severe, acute malnutrition r/t inadequate energy intake w/ COVID illness Signs/Symptoms as evidenced by reported decreased appetite, estimated PO intake meeting <50% of estimated nutritional needs >1 week, unintentional wt loss of 10.6kg/12% <1 month Status Active Problem Recommendation Dietitian Recommendations/Changes continue regular diet and 4oz ensure compact w/ meals d/t acute malnutrition. Lab / Micro Data Result Diagrams: 05/02/21 08:25 05/02/21 08:25 Micro: Microbiology 04/20/21 15:10 Blood Culture (Wb) - Left Hand Blood Culture - Final No growth in 5 days. 04/20/21 13:10 Blood Culture (Wb) - Anticubital Right Blood Culture - Final No growth in 5 days. 04/21/21 17:07 Urine, Clean Catch Legionella Antigen - Final 04/21/21 17:07 Urine, Clean Catch Streptococcus pneumoniae Antigen (M - Final 04/20/21 12:10 Nasal Secretion SARS-CoV-2 Antigen (Rapid) - Final SARS-CoV-2 (COVID 19) Physical Exam Narrative GENERAL: Dyspneic at rest on Airvo HEENT: Atraumatic; EYES; Anicteric, Normal Conjunctiva NECK; supple, normal thyroid, RESPIRATORY: Diminished to auscultation CARDIOVASCULAR: Regular S1 S2, GI: soft, normoactive bowel sounds, : No Renal angle tenderness; EXTREMITIES: No edema, no clubbing, MUSCULOSKELETAL: no muscle waisting NEURO: Awake; no lateralizing signs. SKIN: No Rash PSYCH; Flat affect Assessment & Plan Assessment/Plan (1) COVID-19: (2) Acute respiratory failure with hypoxia: (3) Pneumonia due to COVID-19 virus: PLAN: Patient is 66-year-old male unvaccinated against COVID-19 presented with cough shortness of breath fever and loss of taste. Patient was found to be significantly hypoxic on admission. Admitted to monitored bed for further management 1. Acute hypoxic respiratory failure ?Secondary to SARS-CoV-2 pneumonia patient currently being managed with noninvasive ventilation via BiPAP/arrival ?04/29/2021; patient seen still remains ill looking and requiring BiPAP to maintain adequate oxygen saturation. Previous sputum cultures are growing Streptococcus mitis. We will continue with monitoring and oxygen via BiPAP. Also seen by pulmonary medicine notes and recommendations reviewed. 04/30/2021;Patient was transferred to the intensive care unit following patient being stuck on BiPAP. Seen this a.m. currently remains on Airvo with FiO2 of 93% and flow of 60 L/min with oxygen saturation at 88 ?05/01/2021;Patient was transferred from the ICU back to PCU. He however remains on high flow oxygen via Airvo with FiO2 of 93% and flow of 60 L/min. Oxygen saturation 90 -05/02/2021; patient seen still remains on Airvo 60 L flow per minute with 92%. Also complains of easy fatigability. Did discuss with case management about possible LTAC refe 2. COVID-19 pneumonia ?Admitted to monitored bed. Supplemental oxygen as described above. Patient was also placed on Decadron as well as baricitinib apparently completed treatment with remdesivir. Both ID and pulmonary following 3. Severe protein calorie malnutrition ?Secondary to patient COVID 19 pneumonia as evidenced by reported decreased appetite, less than 50% intake of estimated nutritional needs in addition to weight loss recommendation is to continue with nutritional supplementation via Ensure 4. 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 Patient to undergo subsequent evaluation as outpatient once he recovers from his COVID-19 pneumonia 5. DVT prophylaxis ?Riki Charges/Coding Visit Charges Inpatient E&M: 48558 Subs Hosp L2
[2021-05-02 08:38] LABS: Absolute Lymphocyte Count 1.05 X10^3/uL (0.83-4.51); Absolute Neutrophil Count 14.8 X10^3/uL (2.0-7.7); Basophil# 0.04 X10^3/uL; Basophil% 0.2 % (0-1); Eosinophil# 0.24 X10^3/uL; Eosinophils% 1.4 % (0-5); Hematocrit 43.6 % (40-54); Hemoglobin 14.7 g/dL (13.0-16.5); Lymphocyte # 1.05 X10^3/ul (0.83-4.51); Lymphocyte % 6.2 % (19-41); Mean Corp Hgb Conc 33.7 g/dL (32-36); Mean Corpuscular Hgb 31.4 pg (27.0-32.0); Mean Corpuscular Volume 93.2 fL (80-94); Monocyte# 0.67 X10^3/uL; Monocyte% 3.9 % (0-10); NRBC Flagged by Analyzer 0 % (0-5); Neutrophil # 14.78 X10^3/uL (2.7-7.7); Neutrophil % 86.8 % (47-70); Platelet Count 397 K/mm3 (150-450); RBC Distribution Width CV 12.8 % (11.6-14.6); Red Blood Count 4.68 M/mm3 (4.6-6.2)
[2021-05-02] MEDS: Ascorbic Acid 500 MG Tablet 1000 MG PO ×2 (08:47→16:49)
[2021-05-02] MEDS: 0.9% Saline Lock 10 ML Syringe IV ×2 (08:47→18:33)
[2021-05-02] MEDS: guaiFENesin 1,200 MG Tablet 1200 MG PO ×2 (08:48→21:21)
[2021-05-02] MEDS: Furosemide 40 MG/4 ML Vial IV ×2 (08:48→18:33)
[2021-05-02] MEDS: Oxymetazoline 0.05% 1 SPRAY SPRAY.BTL 2 SPRAY NASAL ×2 (08:48→21:22)
[2021-05-02] MEDS: Enoxaparin 40 MG/0.4 ML Syringe SC ×2 (08:48→21:21)
[2021-05-02] MEDS: Pantoprazole Sodium 40 MG Tablet PO (08:48)
[2021-05-02 09:04] LABS: Anion Gap 7 (5-15); BUN 29 mg/dL (7-18); BUN/Creat Ratio 40.5 RATIO (10-20); Calcium,Total 8.5 mg/dL (8.5-10.1); Chloride 95 mmol/L (98-107); Creatinine, Serum 0.72 mg/dL (0.70-1.30); EST Glomerular Filtration Rate 117 mL/min (>60); Est Glom Filt Rate - Afr Amer 142 mL/min (>60); Estimated Creatinine Clearance 98.96 ml/min; Glucose 111 mg/dL (74-106); Potassium 3.6 mmol/L (3.5-5.1); Sodium Level 133 mmol/L (136-145)
[2021-05-02] MEDS: Acetaminophen 325 MG Tablet 650 MG PO (14:14)
[2021-05-03] VITALS (22 sets, daily range): BP systolic 96–112; BP diastolic 67–79; PULSE 59–124; RESP 18–26; TEMP 36.1–36.8; O2SAT 85–98
[2021-05-03] MEDS: Ipratropium/Albuterol Sulfate 3 ML AMPUL.NEB INHALATION ×3 (06:50→18:49)
--- NOTE | 2021-05-03 07:58 | PCM.PN.HOSP ---
Subjective Subjective Patient out of Covid isolation. He still however requires high flow oxygen and is currently on Airvo. Did discuss with patient about possible discharge to LTAC. He did express interest. Case management subsequently consulted Objective Data Objective Data Vital Signs: Vital Signs Temp Pulse Resp BP Pulse Ox 97.9 F 94 20 H 107/78 93 05/03/21 05:57 05/03/21 07:00 05/03/21 05:57 05/03/21 05:57 05/03/21 05:57 Oxygen Flow Rate (L/min) 60 Oxygen Delivery Method Airvo Weight: 77.8 kg Body Mass Index (BMI) 28.3 Intake & Output: Intake and Output for Last 24 Hours 05/01/21 05/02/21 05/03/21 23:59 23:59 23:59 Intake Total 1490 / 1810 1520 / 1520 Output Total 1050 / 1500 1900 / 2800 1250 / 1250 Balance 440 / 310 -380 / -1280 -1250 / -1250 Medical Nutrition Assessment Dietitian: Malnutrition Criteria Met Start: 04/21/21 12:38 Freq: Status: Active Protocol: Document 04/30/21 09:47 AG (Rec: 04/30/21 09:48 [id number]) Nutrition Malnutrition Evidence of Malnutrition Exists Yes Malnutrition (severe): Acute Illness/Injury Evidenced By Suboptimal Energy Intake ( Moderate),Weight Loss (Severe) Clinical Problem Acute Disease or Injury Related Malnutrition Etiology severe, acute malnutrition r/t inadequate energy intake w/ COVID illness Signs/Symptoms as evidenced by reported decreased appetite, estimated PO intake meeting <50% of estimated nutritional needs >1 week, unintentional wt loss of 10.6kg/12% <1 month Status Active Problem Recommendation Dietitian Recommendations/Changes continue regular diet and 4oz ensure compact w/ meals d/t acute malnutrition. Lab / Micro Data Result Diagrams: 05/02/21 08:25 05/02/21 08:25 Labs: Laboratory Results - last 24 hr 05/02/21 08:25: WBC 17.0 H, RBC 4.68, Hgb 14.7, Hct 43.6, MCV 93.2, MCH 31.4, MCHC 33.7, RDW Std Deviation 44.0 H, RDW Coeff of Alyson 12.8, Plt Count 397, MPV 10.0, Immature Gran % (Auto) 1.500 H, Neut % (Auto) 86.8 H, Lymph % (Auto) 6.2 L, [place] % (Auto) 3.9, Eos % (Auto) 1.4, Baso % (Auto) 0.2, Absolute Neuts (auto) 14.8 H, Absolute Lymphs (auto) 1.05, Nucleated RBC % 0 05/02/21 08:25: Sodium 133 L, Potassium 3.6, Chloride 95 L, Carbon Dioxide 31.0, Anion Gap 7, BUN 29 H, Creatinine 0.72, Estim Creat Clear Calc 98.96, Est GFR (MDRD) Af Amer 142, Est GFR (MDRD) Non-Af 117, BUN/Creatinine Ratio 40.5 H, Glucose 111 H, Calcium 8.5 Micro: Microbiology 04/20/21 15:10 Blood Culture (Wb) - Left Hand Blood Culture - Final No growth in 5 days. 04/20/21 13:10 Blood Culture (Wb) - Anticubital Right Blood Culture - Final No growth in 5 days. 04/21/21 17:07 Urine, Clean Catch Legionella Antigen - Final 04/21/21 17:07 Urine, Clean Catch Streptococcus pneumoniae Antigen (M - Final 04/20/21 12:10 Nasal Secretion SARS-CoV-2 Antigen (Rapid) - Final SARS-CoV-2 (COVID 19) Physical Exam Narrative GENERAL: Dyspneic at rest on Airvo HEENT: Atraumatic; EYES; Anicteric, Normal Conjunctiva NECK; supple, normal thyroid, RESPIRATORY: Diminished to auscultation CARDIOVASCULAR: Regular S1 S2, GI: soft, normoactive bowel sounds, : No Renal angle tenderness; EXTREMITIES: No edema, no clubbing, MUSCULOSKELETAL: no muscle waisting NEURO: Awake; no lateralizing signs. SKIN: No Rash PSYCH; Flat affect Assessment & Plan Assessment/Plan (1) COVID-19: (2) Acute respiratory failure with hypoxia: (3) Pneumonia due to COVID-19 virus: PLAN: Patient is 66-year-old male unvaccinated against COVID-19 presented with cough shortness of breath fever and loss of taste. Patient was found to be significantly hypoxic on admission. Admitted to monitored bed for further management 1. Acute hypoxic respiratory failure ?Secondary to SARS-CoV-2 pneumonia patient currently being managed with noninvasive ventilation via BiPAP/arrival ?04/29/2021; patient seen still remains ill looking and requiring BiPAP to maintain adequate oxygen saturation. Previous sputum cultures are growing Streptococcus mitis. We will continue with monitoring and oxygen via BiPAP. Also seen by pulmonary medicine notes and recommendations reviewed. 04/30/2021;Patient was transferred to the intensive care unit following patient being stuck on BiPAP. Seen this a.m. currently remains on Airvo with FiO2 of 93% and flow of 60 L/min with oxygen saturation at 88 ?05/01/2021;Patient was transferred from the ICU back to PCU. He however remains on high flow oxygen via Airvo with FiO2 of 93% and flow of 60 L/min. Oxygen saturation 90 -05/02/2021; patient seen still remains on Airvo 60 L flow per minute with 92%. Also complains of easy fatigability. Did discuss with case management about possible LTAC referral ?05/03/2021; Patient out of Covid isolation. He still however requires high flow oxygen and is currently on Airvo. Did discuss with patient about possible discharge to LTAC. He did express interest. 2. COVID-19 pneumonia ?Admitted to monitored bed. Supplemental oxygen as described above. Patient was also placed on Decadron as well as baricitinib apparently completed treatment with remdesivir. Both ID and pulmonary following 3. Severe protein calorie malnutrition ?Secondary to patient COVID 19 pneumonia as evidenced by reported decreased appetite, less than 50% intake of estimated nutritional needs in addition to weight loss recommendation is to continue with nutritional supplementation via Ensure 4. 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 Patient to undergo subsequent evaluation as outpatient once he recovers from his COVID-19 pneumonia 5. DVT prophylaxis ?Lovenox Charges/Coding Visit Charges Inpatient E&M: 34954 Subs Hosp L2
[2021-05-03] MEDS: Ascorbic Acid 500 MG Tablet 1000 MG PO ×2 (08:17→16:22)
[2021-05-03] MEDS: guaiFENesin 1,200 MG Tablet 1200 MG PO ×2 (09:50→21:55)
[2021-05-03] MEDS: Pantoprazole Sodium 40 MG Tablet PO (09:50)
[2021-05-03] MEDS: 0.9% Saline Lock 10 ML Syringe IV ×3 (09:50→20:24)
[2021-05-03] MEDS: Furosemide 40 MG/4 ML Vial IV ×2 (09:50→17:58)
[2021-05-03] MEDS: Oxymetazoline 0.05% 1 SPRAY SPRAY.BTL 2 SPRAY NASAL (09:51)
[2021-05-03] MEDS: Enoxaparin 40 MG/0.4 ML Syringe SC ×2 (09:51→21:55)
--- NOTE | 2021-05-03 13:00 | CASEMGMT ---
Dr. Camacho states pt is agreeable to LTACH and would like referral faxed. This RN CM to fax referral on Wednesday05/05/21. CM to follow. Radha MORFIN CM
--- NOTE | 2021-05-03 18:32 | NURSING ---
pt prefers to go to the TCU upon discharge
[2021-05-04] VITALS (21 sets, daily range): BP systolic 88–114; BP diastolic 52–91; PULSE 85–116; RESP 12–26; TEMP 36.2–37.6; O2SAT 93–100
[2021-05-04] MEDS: Ipratropium/Albuterol Sulfate 3 ML AMPUL.NEB INHALATION ×2 (06:57→18:59)
--- NOTE | 2021-05-04 07:39 | PN.HOSP_ITS ---
Subjective Subjective Patient seen still remains on high flow oxygen via AVAPS FiO2 of 75%. Patient agreeable to going to an LTAC. Case management already consulted Objective Data Objective Data Vital Signs: Vital Signs Temp Pulse Resp BP Pulse Ox 97.2 F L 95 22 H 113/91 H 96 05/04/21 02:45 05/04/21 07:00 05/04/21 05:32 05/04/21 02:45 05/04/21 05:32 Oxygen Flow Rate (L/min) 60 Oxygen Delivery Method Airvo Weight: 77.3 kg Body Mass Index (BMI) 28.3 Intake & Output: Intake and Output for Last 24 Hours 05/02/21 05/03/21 05/04/21 23:59 23:59 23:59 Intake Total 1520 / 1520 640 / 700 280 / 280 Output Total 1900 / 2800 3100 / 4250 1600 / 1600 Balance -380 / -1280 -2460 / -3550 -1320 / -1320 Medical Nutrition Assessment Dietitian: Malnutrition Criteria Met Start: 04/21/21 12:38 Freq: Status: Active Protocol: Document 04/30/21 09:47 AG (Rec: 04/30/21 09:48 AG [id number]) Nutrition Malnutrition Evidence of Malnutrition Exists Yes Malnutrition (severe): Acute Illness/Injury Evidenced By Suboptimal Energy Intake ( Moderate),Weight Loss (Severe) Clinical Problem Acute Disease or Injury Related Malnutrition Etiology severe, acute malnutrition r/t inadequate energy intake w/ COVID illness Signs/Symptoms as evidenced by reported decreased appetite, estimated PO intake meeting <50% of estimated nutritional needs >1 week, unintentional wt loss of 10.6kg/12% <1 month Status Active Problem Recommendation Dietitian Recommendations/Changes continue regular diet and 4oz ensure compact w/ meals d/t acute malnutrition. Lab / Micro Data Result Diagrams: 05/02/21 08:25 05/02/21 08:25 Micro: Microbiology 04/20/21 15:10 Blood Culture (Wb) - Left Hand Blood Culture - Final No growth in 5 days. 04/20/21 13:10 Blood Culture (Wb) - Anticubital Right Blood Culture - Final No growth in 5 days. 04/21/21 17:07 Urine, Clean Catch Legionella Antigen - Final 04/21/21 17:07 Urine, Clean Catch Streptococcus pneumoniae Antigen (M - Final 04/20/21 12:10 Nasal Secretion SARS-CoV-2 Antigen (Rapid) - Final SARS-CoV-2 (COVID 19) Physical Exam Narrative GENERAL: Dyspneic at rest on Airvo HEENT: Atraumatic; EYES; Anicteric, Normal Conjunctiva NECK; supple, normal thyroid, RESPIRATORY: Diminished to auscultation CARDIOVASCULAR: Regular S1 S2, GI: soft, normoactive bowel sounds, : No Renal angle tenderness; EXTREMITIES: No edema, no clubbing, MUSCULOSKELETAL: no muscle waisting NEURO: Awake; no lateralizing signs. SKIN: No Rash PSYCH; Flat affect Assessment & Plan Assessment/Plan (1) COVID-19: (2) Acute respiratory failure with hypoxia: (3) Pneumonia due to COVID-19 virus: PLAN: Patient is 66-year-old male unvaccinated against COVID-19 presented with cough shortness of breath fever and loss of taste. Patient was found to be significantly hypoxic on admission. Admitted to monitored bed for further management 1. Acute hypoxic respiratory failure ?Secondary to SARS-CoV-2 pneumonia patient currently being managed with elton nvasive ventilation via BiPAP/arrival ?04/29/2021; patient seen still remains ill looking and requiring BiPAP to maintain adequate oxygen saturation. Previous sputum cultures are growing Streptococcus mitis. We will continue with monitoring and oxygen via BiPAP. Also seen by pulmonary medicine notes and recommendations reviewed. 04/30/2021;Patient was transferred to the intensive care unit following patient being stuck on BiPAP. Seen this a.m. currently remains on Airvo with FiO2 of 93% and flow of 60 L/min with oxygen saturation at 88 ?05/01/2021;Patient was transferred from the ICU back to PCU. He however remains on high flow oxygen via Airvo with FiO2 of 93% and flow of 60 L/min. Ox ygen saturation 90 -05/02/2021; patient seen still remains on Airvo 60 L flow per minute with 92%. Also complains of easy fatigability. Did discuss with case management about possible LTAC referral ?05/03/2021; Patient out of Covid isolation. He still however requires high flow oxygen and is currently on Airvo. Did discuss with patient about possible discharge to LTAC. He did express interest. -05/04/2021;Patient seen still remains on high flow oxygen via AVAPS FiO2 of 75% 2. COVID-19 pneumonia ?Admitted to monitored bed. Supplemental oxygen as described above. Patient was also placed on Decadron as well as baricitinib apparently completed treatment with remdesivir. Both ID and pulmonary following 3. Severe protein calorie malnutrition ?Secondary to patient COVID 19 pneumonia as evidenced by reported decreased appetite, less than 50% intake of estimated nutritional needs in addition to weight loss recommendation is to continue with nutritional supplementation via Ensure 4. 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 Patient to undergo subsequent evaluation as outpatient once he recovers from his COVID-19 pneumonia 5. DVT prophylaxis ?Lovenox Charges/Coding Visit Charges Inpatient E&M: 83423 Subs Hosp L2
[2021-05-04] MEDS: Enoxaparin 40 MG/0.4 ML Syringe SC ×2 (08:11→22:37)
[2021-05-04] MEDS: Pantoprazole Sodium 40 MG Tablet PO (08:12)
[2021-05-04] MEDS: Furosemide 40 MG/4 ML Vial IV (08:12)
[2021-05-04] MEDS: Ascorbic Acid 500 MG Tablet 1000 MG PO ×2 (08:12→16:36)
[2021-05-04] MEDS: guaiFENesin 1,200 MG Tablet 1200 MG PO ×2 (08:12→22:37)
--- NOTE | 2021-05-04 10:15 | PN.CC_ITS ---
Assessment & Plan Assessment/Plan (1) Acute respiratory failure with hypoxia: (2) Pneumonia due to COVID-19 virus: PLAN: RECOMMENDATIONS: 1. Continue to wean FiO2 to maintain oxygen saturations at or above 90%. 2. Continue prophylactic Lovenox as ordered. 3. Continue Decadron to complete 10 days of therapy. 4. Continue baricitinib to complete treatment course. 5. Diuretics to maintain euvolemic state. IMPRESSIONS: 1. Acute hypoxic respiratory failure secondary to COVID-19 The patient was initially admitted to the hospital with COVID-19 pneumonia in the setting of progressive dyspnea on April 20. The patient was treated in itially with remdesivir. He remains on scheduled Decadron, prophylactic Lovenox and baricitinib. Despite the aforementioned, the patient's respiratory status still remains quite tenuous. Plan to continue heated high flow oxygen and wean FiO2 to maintain saturations at or above 90%. Continue diuretics as ordered, as tolerated by hemodynamics and renal function. 2. Advanced age/nonvaccinated status/history of smoking Complicates care, management, recovery and prognosis. Continue supportive measures as noted above. This note was generated with [employer] dictation software. It may contain incorrect words, spelling, and punctuation that were not noted in checking the note before signing. Subjective Subjective The patient was seen and examined at the bedside this morning. Events from the last 24 hours have been reviewed. The patient is currently afebrile, hemodynamically stable and maintaining appropriate oxygen saturations on Airvo heated high flow with an FiO2 requirement of 92%. The patient is currently documented to be overall net -7.8 L for the hospitalization. The patient remains on prophylactic Lovenox, baricitinib and Lasix. Renal function remains stable. Objective Data Objective Data The patient's most recent lab work, culture data and imaging studies have all been personally reviewed. Rapid coronavirus antigen testing was positive on April 20. Vital Signs: Vital Signs Temp Pulse Resp BP Pulse Ox 97.1 F L 116 H 24 H 114/71 95 05/04/21 08:45 05/04/21 09:08 05/04/21 09:08 05/04/21 08:45 05/04/21 09:08 Oxygen Flow Rate (L/min) 60 Oxygen Delivery Method Bi-pap Weight: 77.3 kg Body Mass Index (BMI) 28.3 Intake & Output: Intake and Output for Last 24 Hours 05/02/21 05/03/21 05/04/21 23:59 23:59 23:59 Intake Total 1520 / 1520 640 / 700 280 / 280 Output Total 1900 / 2800 3100 / 4250 1600 / 1600 Balance -380 / -1280 -2460 / -3550 -1320 / -1320 Medical Nutrition Assessment Dietitian: Malnutrition Criteria Met Start: 04/21/21 12:38 Freq: Status: Active Protocol: Document 04/30/21 09:47 AG (Rec: 04/30/21 09:48 [id number]) Nutrition Malnutrition Evidence of Malnutrition Exists Yes Malnutrition (severe): Acute Illness/Injury Evidenced By Suboptimal Energy Intake ( Moderate),Weight Loss (Severe) Clinical Problem Acute Disease or Injury Related Malnutrition Etiology severe, acute malnutrition r/t inadequate energy intake w/ COVID illness Signs/Symptoms as evidenced by reported decreased appetite, estimated PO intake meeting <50% of estimated nutritional needs >1 week, unintentional wt loss of 10.6kg/12% <1 month Status Active Problem Recommendation Dietitian Recommendations/Changes continue regular diet and 4oz ensure compact w/ meals d/t acute malnutrition. Lab / Micro Data Attestation: I reviewed the patient's lab results. Result Diagrams: 05/02/21 08:25 05/02/21 08:25 Micro: Microbiology 04/20/21 15:10 Blood Culture (Wb) - Left Hand Blood Culture - Final No growth in 5 days. 04/20/21 13:10 Blood Culture (Wb) - Anticubital Right Blood Culture - Final No growth in 5 days. 04/21/21 17:07 Urine, Clean Catch Legionella Antigen - Final 04/21/21 17:07 Urine, Clean Catch Streptococcus pneumoniae Antigen (M - Final 04/20/21 12:10 Nasal Secretion SARS-CoV-2 Antigen (Rapid) - Final SARS-CoV-2 (COVID 19) Physical Exam Const alert and no apparent distress General Appearance: cooperative HEENT normocephalic and head/scalp atraumatic Eyes PERRL, EOMs intact bilaterally and conjunctivae normal Neck supple General: trachea midline Chest inspection of chest normal Resp Auscultation: diminished lung sounds; Negative for rales, rhonchi or wheezes Cardio regular rate and regular rhythm GI normal to inspection, nondistended, normoactive bowel sounds Extremity no clubbing, cyanosis or edema Skin no rashes or lesions noted Neuro moves all extremities and no focal motor deficits Psych cooperative and affect normal Charges/Coding Visit Charges Inpatient E&M: 55115 Subs Hosp L2
[2021-05-04] MEDS: Oxymetazoline 0.05% 1 SPRAY SPRAY.BTL 2 SPRAY NASAL (22:36)
[2021-05-04] MEDS: 0.9% Saline Lock 10 ML Syringe IV (23:28)
[2021-05-05] VITALS (25 sets, daily range): BP systolic 102–110; BP diastolic 74–78; PULSE 86–111; RESP 14–26; TEMP 36.1–37.1; O2SAT 87–99
[2021-05-05] MEDS: Ipratropium/Albuterol Sulfate 3 ML AMPUL.NEB INHALATION ×3 (07:16→19:38)
[2021-05-05 07:38] LABS: Absolute Lymphocyte Count 1.14 X10^3/uL (0.83-4.51); Absolute Neutrophil Count 12.4 X10^3/uL (2.0-7.7); Basophil# 0.04 X10^3/uL; Basophil% 0.3 % (0-1); Eosinophil# 0.17 X10^3/uL; Eosinophils% 1.1 % (0-5); Hematocrit 44.1 % (40-54); Hemoglobin 14.8 g/dL (13.0-16.5); Lymphocyte # 1.14 X10^3/ul (0.83-4.51); Lymphocyte % 7.7 % (19-41); Mean Corp Hgb Conc 33.6 g/dL (32-36); Mean Corpuscular Hgb 30.9 pg (27.0-32.0); Mean Corpuscular Volume 92.1 fL (80-94); Monocyte# 0.92 X10^3/uL; Monocyte% 6.2 % (0-10); NRBC Flagged by Analyzer 0 % (0-5); Neutrophil # 12.37 X10^3/uL (2.7-7.7); Platelet Count 369 K/mm3 (150-450); RBC Distribution Width CV 12.8 % (11.6-14.6); RBC Distribution Width SD 43.5 fl (35.1-43.9); Red Blood Count 4.79 M/mm3 (4.6-6.2); White Blood Count 14.9 K/mm3 (4.4-11.0)
[2021-05-05 08:14] LABS: ALB/GLOB Ratio 0.4 RATIO (0.9-2.4); AST(SGOT) 16 U/L (15-37); Alanine Aminotransfer ALT/SGPT 49 U/L (16-61); Alkaline Phosphatase 94 U/L (45-117); Anion Gap 7 (5-15); BUN 24 mg/dL (7-18); BUN/Creat Ratio 37.6 RATIO (10-20); Calcium,Total 8.8 mg/dL (8.5-10.1); Chloride 89 mmol/L (98-107); Creatinine, Serum 0.64 mg/dL (0.70-1.30); EST Glomerular Filtration Rate 134 mL/min (>60); Est Glom Filt Rate - Afr Amer 162 mL/min (>60); Estimated Creatinine Clearance 111.33 ml/min; Globulin 4.9 g/dL (2.2-4.2); Glucose 112 mg/dL (74-106); Potassium 3.6 mmol/L (3.5-5.1); Protein, Total 6.9 g/dL (6.4-8.2); Sodium Level 128 mmol/L (136-145)
[2021-05-05] MEDS: Pantoprazole Sodium 40 MG Tablet PO (08:23)
[2021-05-05] MEDS: Enoxaparin 40 MG/0.4 ML Syringe SC ×2 (08:23→20:58)
[2021-05-05] MEDS: Ascorbic Acid 500 MG Tablet 1000 MG PO ×2 (08:23→17:27)
[2021-05-05] MEDS: guaiFENesin 1,200 MG Tablet 1200 MG PO ×2 (08:24→20:58)
[2021-05-05] MEDS: 0.9% Saline Lock 10 ML Syringe IV (10:24)
[2021-05-05] MEDS: Furosemide 40 MG/4 ML Vial IV (10:24)
--- NOTE | 2021-05-05 11:49 | PN.CC_ITS ---
Assessment & Plan Assessment/Plan (1) Acute respiratory failure with hypoxia: (2) Pneumonia due to COVID-19 virus: PLAN: RECOMMENDATIONS: 1. Continue to wean FiO2 to maintain oxygen saturations at or above 90%. 2. Continue prophylactic Lovenox as ordered. 3. Completed Decadron. Baricitinib through 03/06/2021 4. Continue BiPAP with sleep 5. Diuretics to maintain euvolemic state. IMPRESSIONS: 1. Acute hypoxic respiratory failure secondary to COVID-19 The patient was initially admitted to the hospital with COVID-19 pneumonia in the setting of progressive dyspnea on April 20. The patient was treated initially with remdesivir. He completed Decadron, but remains on prophylactic Lovenox and baricitinib. Despite the aforementioned, the patient's respiratory status still remains quite tenuous. Plan to continue heated high flow oxygen and wean FiO2 to maintain saturations at or above 90%. Continue diuretics as ordered, as tolerated by hemodynamics and renal function. Patient appears to be tolerating daily Lasix well. Potassium will be added. 2. Advanced age/nonvaccinated status/history of smoking Complicates care, management, recovery and prognosis. Continue supportive measures as noted above. This note was generated with [employer] dictation software. It may contain incorrect words, spelling, and punctuation that were not noted in checking the note before signing. Subjective Subjective Patient did okay overnight. Patient was able to tolerate Airvo this morning, but was seen shortly after physical therapy and patient was on BiPAP recovering. Patient reports no subjective change compared to yesterday. Patient still having shortness of breath with sitting at the bedside. No chest pain is reported. Objective Data Objective Data Vital Signs: Vital Signs Temp Pulse Resp BP Pulse Ox 36.5 C L 92 26 H 105/74 91 05/05/21 09:30 05/05/21 11:12 05/05/21 11:12 05/05/21 09:30 05/05/21 11:12 Oxygen Flow Rate (L/min) 60 Oxygen Delivery Method Bi-pap Weight: 77.4 kg Body Mass Index (BMI) 28.3 Intake & Output: Intake and Output for Last 24 Hours 05/03/21 05/04/21 05/05/21 23:59 23:59 23:59 Intake Total 640 / 700 980 / 1040 100 / 100 Output Total 3100 / 4250 2700 / 3150 550 / 550 Balance -2460 / -3550 -1720 / -2110 -450 / -450 Medical Nutrition Assessment Dietitian: Malnutrition Criteria Met Start: 04/21/21 12:38 Freq: Status: Active Protocol: Document 04/30/21 09:47 AG (Rec: 04/30/21 09:48 AG [id number]) Nutrition Malnutrition Evidence of Malnutrition Exists Yes Malnutrition (severe): Acute Illness/Injury Evidenced By Suboptimal Energy Intake ( Moderate),Weight Loss (Severe) Clinical Problem Acute Disease or Injury Related Malnutrition Etiology severe, acute malnutrition r/t inadequate energy intake w/ COVID illness Signs/Symptoms as evidenced by reported decreased appetite, estimated PO intake meeting <50% of estimated nutritional needs >1 week, unintentional wt loss of 10.6kg/12% <1 month Status Active Problem Recommendation Dietitian Recommendations/Changes continue regular diet and 4oz ensure compact w/ meals d/t acute malnutrition. Lab / Micro Data Result Diagrams: 05/05/21 07:27 05/05/21 07:27 Labs: Laboratory Results - last 24 hr 05/05/21 07:27: WBC 14.9 H, RBC 4.79, Hgb 14.8, Hct 44.1, MCV 92.1, MCH 30.9, MCHC 33.6, RDW Std Deviation 43.5, RDW Coeff of Alyson 12.8, Plt Count 369, MPV 10.0, Immature Gran % (Auto) 1.700 H, Neut % (Auto) 83.0 H, Lymph % (Auto) 7.7 L , [place] % (Auto) 6.2, Eos % (Auto) 1.1, Baso % (Auto) 0.3, Absolute Neuts (auto) 12.4 H, Absolute Lymphs (auto) 1.14, Nucleated RBC % 0 05/05/21 07:27: Sodium 128 L, Potassium 3.6, Chloride 89 L, Carbon Dioxide 32.0, Anion Gap 7, BUN 24 H, Creatinine 0.64 L, Estim Creat Clear Calc 111.33, Est GFR (MDRD) Af Amer 162, Est GFR (MDRD) Non-Af 134, BUN/Creatinine Ratio 37.6 H, Glucose 112 H, Calcium 8.8, Total Bilirubin 0.80, AST 16, ALT 49, Alkaline Phosphatase 94, Total Protein 6.9, Albumin 2.0 L, Globulin 4.9 H, Albumin/Globulin Ratio 0.4 L Micro: Microbiology 04/20/21 15:10 Blood Culture (Wb) - Left Hand Blood Culture - Final No growth in 5 days. 04/20/21 13:10 Blood Culture (Wb) - Anticubital Right Blood Culture - Final No growth in 5 days. 04/21/21 17:07 Urine, Clean Catch Legionella Antigen - Final 04/21/21 17:07 Urine, Clean Catch Streptococcus pneumoniae Antigen (M - F inal 04/20/21 12:10 Nasal Secretion SARS-CoV-2 Antigen (Rapid) - Final SARS-CoV-2 (COVID 19) Physical Exam Const alert and no apparent distress General Appearance: cooperative HEENT normocephalic and head/scalp atraumatic Eyes PERRL, EOMs intact bilaterally and conjunctivae normal Neck supple General: trachea midline Chest inspection of chest normal Chest: symmetrical chest wall rise; Negative for crepitus Resp Auscultation: diminished lung sounds; Negative for rales, rhonchi or wheezes Cardio regular rate, regular rhythm, no murmurs and no rub GI normal to inspection, nondistended, normoactive bowel sounds Extremity no clubbing, cyanosis or edema Skin no rashes or lesions noted Neuro moves all extremities and no focal motor deficits Psych cooperative and affect normal Charges/Coding Visit Charges Inpatient E&M: 67614 Subs Hosp L3
[2021-05-05] MEDS: Potassium Chloride Oral Tablet 20 MEQ 40 MEQ PO (12:18)
--- NOTE | 2021-05-05 14:15 | CASEMGMT ---
Addendum entered by Anabel Ignacio 05/05/21 14:39: Call from Dea at [facility] and she states she will keep pt on their list but he needs to be 60L and 60% or less for 48hours before they could take pt. Dea is aware that referral was faxed to [facility] as well. CM to follow. Radha MORFIN CM Original Note: Dr. Sanderson also agreeable to LTACH referral. Referral faxed to [facility](only [facility]'s) at this time. Pt has been on bipap vs airvo today. CM to follow. Radha MORFIN CM
--- NOTE | 2021-05-05 17:07 | PN.HOSP_ITS ---
Subjective Subjective Tolerating Airvo Objective Data Objective Data Vital Signs: Vital Signs Temp Pulse Resp BP Pulse Ox 36.1 C L 95 23 H 110/74 92 05/05/21 15:30 05/05/21 16:07 05/05/21 16:07 05/05/21 15:30 05/05/21 16:07 Oxygen Flow Rate (L/min) 60 Oxygen Delivery Method Airvo Weight: 77.4 kg Body Mass Index (BMI) 28.3 Intake & Output: Intake and Output for Last 24 Hours 05/03/21 05/04/21 05/05/21 23:59 23:59 23:59 Intake Total 640 / 700 980 / 1040 340 / 340 Output Total 3100 / 4250 2700 / 3150 1075 / 1075 Balance -2460 / -3550 -1720 / -2110 -735 / -735 Medical Nutrition Assessment Dietitian: Malnutrition Criteria Met Start: 04/21/21 12:38 Freq: Status: Active Protocol: Document 04/30/21 09:47 AG (Rec: 04/30/21 09:48 AG [id number]) Nutrition Malnutrition Evidence of Malnutrition Exists Yes Malnutrition (severe): Acute Illness/Injury Evidenced By Suboptimal Energy Intake ( Moderate),Weight Loss (Severe) Clinical Problem Acute Disease or Injury Related Malnutrition Etiology severe, acute malnutrition r/t inadequate energy intake w/ COVID illness Signs/Symptoms as evidenced by reported decreased appetite, estimated PO intake meeting <50% of estimated nutritional needs >1 week, unintentional wt loss of 10.6kg/12% <1 month Status Active Problem Recommendation Dietitian Recommendations/Changes continue regular diet and 4oz ensure compact w/ meals d/t acute malnutrition. Lab / Micro Data Result Diagrams: 05/05/21 07:27 05/05/21 07:27 Labs: Laboratory Results - last 24 hr 05/05/21 07:27: WBC 14.9 H, RBC 4.79, Hgb 14.8, Hct 44.1, MCV 92.1, MCH 30.9, MCHC 33.6, RDW Std Deviation 43.5, RDW Coeff of Alyson 12.8, Plt Count 369, MPV 10.0, Immature Gran % (Auto) 1.700 H, Neut % (Auto) 83.0 H, Lymph % (Auto) 7.7 L , [place] % (Auto) 6.2, Eos % (Auto) 1.1, Baso % (Auto) 0.3, Absolute Neuts (auto) 12.4 H, Absolute Lymphs (auto) 1.14, Nucleated RBC % 0 05/05/21 07:27: Sodium 128 L, Potassium 3.6, Chloride 89 L, Carbon Dioxide 32.0, Anion Gap 7, BUN 24 H, Creatinine 0.64 L, Estim Creat Clear Calc 111.33, Est GFR (MDRD) Af Amer 162, Est GFR (MDRD) Non-Af 134, BUN/Creatinine Ratio 37.6 H, Glucose 112 H, Calcium 8.8, Total Bilirubin 0.80, AST 16, ALT 49, Alkaline Phosphatase 94, Total Protein 6.9, Albumin 2.0 L, Globulin 4.9 H, Albumin/Globulin Ratio 0.4 L Micro: Microbiology 04/20/21 15:10 Blood Culture (Wb) - Left Hand Blood Culture - Final No growth in 5 days. 04/20/21 13:10 Blood Culture (Wb) - Anticubital Right Blood Culture - Final No growth in 5 days. 04/21/21 17:07 Urine, Clean Catch Legionella Antigen - Final 04/21/21 17:07 Urine, Clean Catch Streptococcus pneumoniae Antigen (M - Final 04/20/21 12:10 Nasal Secretion SARS-CoV-2 Antigen (Rapid) - Final SARS-CoV-2 (COVID 19) Physical Exam Const alert and no apparent distress Constitutional Narrative: on Airvo Resp normal respiratory effort and no retractions Resp Narrative: coarse BS Cardio regular rate, regular rhythm, S1 normal heart sound and S2 normal heart sound GI normal to inspection, nondistended, normoactive bowel sounds, soft to palpation, non-tender and non-distended Extremity normal to inspection Assessment & Plan Assessment/Plan (1) Acute respiratory failure with hypoxia: (2) Pneumonia due to COVID-19 virus: PLAN: 1. Acute hypoxic respiratory failure 2/2 COVID 19 infectious work up negative on the , will recheck given his lack of significant improvement. on IV furosemide 2. Acute COVID 19 pneumonia unvaccinated ongoing on baricitinib through the completed remdesivir and dexamethasone 3. Severe protein calorie malnutrition supplements 4. Mediastinal mass outpt work up 5. VTE prophylaxis: LMWH. Charges/Coding Visit Charges Inpatient E&M: 89144 Subs Hosp L2
--- NOTE | 2021-05-05 19:47 | NURSING ---
This RN spoke with patient's , Catherine, who requested to have CM call her with updates regarding potential placement on discharge.
[2021-05-05] MEDS: Oxymetazoline 0.05% 1 SPRAY SPRAY.BTL 2 SPRAY NASAL (20:58)
[2021-05-06] VITALS (17 sets, daily range): BP systolic 99–111; BP diastolic 71–83; PULSE 84–111; RESP 14–26; TEMP 36.2–37.1; O2SAT 91–98
[2021-05-06 06:46] LABS: Absolute Neutrophil Count 9.8 X10^3/uL (2.0-7.7); Basophil# 0.04 X10^3/uL; Basophil% 0.3 % (0-1); Eosinophil# 0.26 X10^3/uL; Eosinophils% 2.1 % (0-5); Hematocrit 44.6 % (40-54); Hemoglobin 14.8 g/dL (13.0-16.5); Lymphocyte % 11.8 % (19-41); Mean Corp Hgb Conc 33.2 g/dL (32-36); Mean Corpuscular Hgb 31.1 pg (27.0-32.0); Mean Corpuscular Volume 93.7 fL (80-94); Mean Platelet Vol. 10.2 fl (6.2-12.0); Monocyte# 0.78 X10^3/uL; Monocyte% 6.2 % (0-10); NRBC Flagged by Analyzer 0 % (0-5); Neutrophil # 9.83 X10^3/uL (2.7-7.7); Neutrophil % 77.6 % (47-70); Platelet Count 365 K/mm3 (150-450); RBC Distribution Width CV 12.8 % (11.6-14.6); RBC Distribution Width SD 44.3 fl (35.1-43.9); Red Blood Count 4.76 M/mm3 (4.6-6.2); White Blood Count 12.7 K/mm3 (4.4-11.0)
[2021-05-06 07:00] LABS: ALB/GLOB Ratio 0.4 RATIO (0.9-2.4); AST(SGOT) 15 U/L (15-37); Alanine Aminotransfer ALT/SGPT 49 U/L (16-61); Albumin, Serum 2.1 g/dL (3.2-5.0); Alkaline Phosphatase 98 U/L (45-117); Anion Gap 8 (5-15); BUN 22 mg/dL (7-18); BUN/Creat Ratio 30.1 RATIO (10-20); Calcium,Total 8.7 mg/dL (8.5-10.1); Chloride 86 mmol/L (98-107); Creatinine, Serum 0.73 mg/dL (0.70-1.30); EST Glomerular Filtration Rate 115 mL/min (>60); Est Glom Filt Rate - Afr Amer 139 mL/min (>60); Globulin 4.9 g/dL (2.2-4.2); Glucose 97 mg/dL (74-106); Sodium Level 130 mmol/L (136-145)
[2021-05-06] MEDS: Ipratropium/Albuterol Sulfate 3 ML AMPUL.NEB INHALATION ×3 (07:26→19:20)
--- NOTE | 2021-05-06 09:04 | CASEMGMT ---
Addendum entered by Anabel Ignacio 05/06/21 14:14: Per Happy at [facility] [phone] and Dea at [facility] [phone], pt on their list but pt is not medically ready at this time. Happy states they do not have bed available at this time. CM to follow. Radha MORFIN CM Addendum entered by Anabel Ignacio 05/06/21 09:32: Per Iván RN, pt would like this RN CM to call , Catherine, to update on plan of care and difference between LTACH and SNF. Call to Catherine, , and she is updated on all, voices understanding. Emotional support provided and questions answered. Catherine states they would prefer that pt could go to TCU at discharge but is agreeable to appropriate plan of care. Iván MORFIN updated, voices understanding. CM to follow. Radha MORFIN CM Original Note: This RN VICKIE received message back from both LTACH's that pt will have to be more stable from respiratory standpoint before they will consider, but both LTACHs will keep pt on list. Allison is requesting clinical updates today so this RN VICKIE will fax to both. Radha MORFIN CM
[2021-05-06] MEDS: Enoxaparin 40 MG/0.4 ML Syringe SC ×2 (10:07→21:56)
[2021-05-06] MEDS: Potassium Chloride Oral Tablet 20 MEQ 40 MEQ PO (10:07)
[2021-05-06] MEDS: Ascorbic Acid 500 MG Tablet 1000 MG PO ×2 (10:07→16:33)
[2021-05-06] MEDS: Pantoprazole Sodium 40 MG Tablet PO (10:08)
[2021-05-06] MEDS: guaiFENesin 1,200 MG Tablet 1200 MG PO ×2 (10:08→21:56)
[2021-05-06] MEDS: Furosemide 40 MG/4 ML Vial IV (10:08)
--- NOTE | 2021-05-06 10:46 | PCM.PN.INT ---
Assessment & Plan Assessment/Plan (1) Acute respiratory failure with hypoxia: (2) Pneumonia due to COVID-19 virus: PLAN: RECOMMENDATIONS: 1. Continue to wean FiO2 to maintain oxygen saturations at or above 90%. 2. Continue prophylactic Lovenox as ordered. 3. Completed Decadron. Baricitinib through 03/06/2021 4. Continue BiPAP with sleep 5. Diuretics to maintain euvolemic state. Agree with challenge today IMPRESSIONS: 1. Acute hypoxic respiratory failure secondary to COVID-19 The patient was initially admitted to the hospital with COVID-19 pneumonia in the setting of progressive dyspnea on April 20. The patient was treated initially with remdesivir. He completed Decadron, but remains on prophylactic Lovenox and baricitinib. Despite the aforementioned, the patient's respiratory status still remains quite tenuous. Plan to continue heated high flow oxygen and wean FiO2 to maintain saturations at or above 90%. Continue diuretics as ordered, as tolerated by hemodynamics and renal function. Patient appears to be tolerating daily Lasix well. Some concern patient may have developed a fibrotic state given lack of improvement. If not improving in the next 24 to 48 hours, may obtain a CT scan of the chest for evaluation of fibrotic changes. 2. Advanced age/nonvaccinated status/history of smoking Complicates care, management, recovery and prognosis. Continue supportive measures as noted above. This note was generated with [employer] dictation software. It may contain incorrect words, spelling, and punctuation that were not noted in checking the note before signing. Subjective Subjective Patient much improved compared to yesterday, but still required some BiPAP rescue this morning. Patient subjectively feels improved. Patient did get a dose of Lasix this morning and FiO2 on Airvo has been decreased slightly. Patient is not reporting any chest pain. Objective Data Objective Data Vital Signs: Vital Signs Temp Pulse Resp BP Pulse Ox 36.6 C 93 20 H 110/76 98 05/06/21 09:00 05/06/21 09:00 05/06/21 09:00 05/06/21 09:00 05/06/21 09:00 Oxygen Flow Rate (L/min) 60 Oxygen Delivery Method Bi-pap Weight: 76.1 kg Body Mass Index (BMI) 28.3 Intake & Output: Intake and Output for Last 24 Hours 05/04/21 05/05/21 05/06/21 23:59 23:59 23:59 Intake Total 980 / 1040 580 / 580 0 / 0 Output Total 2700 / 3150 1650 / 1650 400 / 400 Balance -1720 / -2110 -1070 / -1070 -400 / -400 Medical Nutrition Assessment Dietitian: Malnutrition Criteria Met Start: 04/21/21 12:38 Freq: Status: Active Protocol: Document 04/30/21 09:47 AG (Rec: 04/30/21 09:48 AG [id number]) Nutrition Malnutrition Evidence of Malnutrition Exists Yes Malnutrition (severe): Acute Illness/Injury Evidenced By Suboptimal Energy Intake ( Moderate),Weight Loss (Severe) Clinical Problem Acute Disease or Injury Related Malnutrition Etiology severe, acute malnutrition r/t inadequate energy intake w/ COVID illness Signs/Symptoms as evidenced by reported decreased appetite, estimated PO intake meeting <50% of estimated nutritional needs >1 week, unintentional wt loss of 10.6kg/12% <1 month Status Active Problem Recommendation Dietitian Recommendations/Changes continue regular diet and 4oz ensure compact w/ meals d/t acute malnutrition. Lab / Micro Data Result Diagrams: 05/06/21 05:40 05/06/21 05:40 Labs: Laboratory Results - last 24 hr 05/06/21 05:40: WBC 12.7 H, RBC 4.76, Hgb 14.8, Hct 44.6, MCV 93.7, MCH 31.1, MCHC 33.2, RDW Std Deviation 44.3 H, RDW Coeff of Alyson 12.8, Plt Count 365, MPV 10.2, Immature Gran % (Auto) 2.000 H, Neut % (Auto) 77.6 H, Lymph % (Auto) 11.8 L, [place] % (Auto) 6.2, Eos % (Auto) 2.1, Baso % (Auto) 0.3, Absolute Neuts (auto) 9.8 H, Absolute Lymphs (auto) 1.50, Nucleated RBC % 0 05/06/21 05:40: Sodium 130 L, Potassium 4.0, Chloride 86 L, Carbon Dioxide 36.0 H, Anion Gap 8, BUN 22 H, Creatinine 0.73, Estim Creat Clear Calc 97.60, Est GFR (MDRD) Af Amer 139, Est GFR (MDRD) Non-Af 115, BUN/Creatinine Ratio 30.1 H, Glucose 97, Calcium 8.7, Total Bilirubin 0.80, AST 15, ALT 49, Alkaline Phosphatase 98, Total Protein 7.0, Albumin 2.1 L, Globulin 4.9 H, Albumin/Globulin Ratio 0.4 L Micro: Microbiology 05/06/21 01:48 Urine Catheter - Murphy Legionella Antigen - Final 05/06/21 01:48 Urine Catheter - Murphy Streptococcus pneumoniae Antigen (M - Final 04/20/21 15:10 Blood Culture (Wb) - Left Hand Blood Culture - Final No growth in 5 days. 04/20/21 13:10 Blood Culture (Wb) - Anticubital Right Blood Culture - Final No growth in 5 days. 04/21/21 17:07 Urine, Clean Catch Legionella Antigen - Final 04/21/21 17:07 Urine, Clean Catch Streptococcus pneumoniae Antigen (M - Final 04/20/21 12:10 Nasal Secretion SARS-CoV-2 Antigen (Rapid) - Final SARS-CoV-2 (COVID 19) Physical Exam Const alert and no apparent distress Constitutional Narrative: On Airvo General Appearance: cooperative HEENT normocephalic and head/scalp atraumatic Eyes PERRL, EOMs intact bilaterally and conjunctivae normal Neck supple General: trachea midline Chest inspection of chest normal Chest: symmetrical chest wall rise; Negative for crepitus Resp Auscultation: diminished lung sounds; Negative for rales, rhonchi or wheezes Cardio regular rate, regular rhythm, no murmurs and no rub GI normal to inspection, nondistended, normoactive bowel sounds Extremity no clubbing, cyanosis or edema Skin no rashes or lesions noted Neuro moves all extremities and no focal motor deficits Psych cooperative and affect normal Charges/Coding Visit Charges Inpatient E&M: 34922 Subs Hosp L3
--- NOTE | 2021-05-06 15:23 | PCM.PN.HOSP ---
Subjective Subjective Back on BiPAP. Objective Data Objective Data Vital Signs: Vital Signs Temp Pulse Resp BP Pulse Ox 36.6 C 107 H 18 110/76 94 05/06/21 09:00 05/06/21 13:34 05/06/21 13:34 05/06/21 09:00 05/06/21 13:34 Oxygen Flow Rate (L/min) 60 Oxygen Delivery Method Airvo Weight: 76.1 kg Body Mass Index (BMI) 28.3 Intake & Output: Intake and Output for Last 24 Hours 05/04/21 05/05/21 05/06/21 23:59 23:59 23:59 Intake Total 980 / 1040 580 / 580 240 / 240 Output Total 2700 / 3150 1650 / 1650 1050 / 1050 Balance -1720 / -2110 -1070 / -1070 -810 / -810 Medical Nutrition Assessment Dietitian: Malnutrition Criteria Met Start: 04/21/21 12:38 Freq: Status: Active Protocol: Document 04/30/21 09:47 AG (Rec: 04/30/21 09:48 AG [id number]) Nutrition Malnutrition Evidence of Malnutrition Exists Yes Malnutrition (severe): Acute Illness/Injury Evidenced By Suboptimal Energy Intake ( Moderate),Weight Loss (Severe) Clinical Problem Acute Disease or Injury Related Malnutrition Etiology severe, acute malnutrition r/t inadequate energy intake w/ COVID illness Signs/Symptoms as evidenced by reported decreased appetite, estimated PO intake meeting <50% of estimated nutritional needs >1 week, unintentional wt loss of 10.6kg/12% <1 month Status Active Problem Recommendation Dietitian Recommendations/Changes continue regular diet and 4oz ensure compact w/ meals d/t acute malnutrition. Lab / Micro Data Result Diagrams: 05/06/21 05:40 05/06/21 05:40 Labs: Laboratory Results - last 24 hr 05/06/21 05:40: WBC 12.7 H, RBC 4.76, Hgb 14.8, Hct 44.6, MCV 93.7, MCH 31.1, MCHC 33.2, RDW Std Deviation 44.3 H, RDW Coeff of Alyson 12.8, Plt Count 365, MPV 10.2, Immature Gran % (Auto) 2.000 H, Neut % (Auto) 77.6 H, Lymph % (Auto) 11.8 L, [place] % (Auto) 6.2, Eos % (Auto) 2.1, Baso % (Auto) 0.3, Absolute Neuts (auto) 9.8 H, Absolute Lymphs (auto) 1.50, Nucleated RBC % 0 05/06/21 05:40: Sodium 130 L, Potassium 4.0, Chloride 86 L, Carbon Dioxide 36.0 H, Anion Gap 8, BUN 22 H, Creatinine 0.73, Estim Creat Clear Calc 97.60, Est GFR (MDRD) Af Amer 139, Est GFR (MDRD) Non-Af 115, BUN/Creatinine Ratio 30.1 H, Glucose 97, Calcium 8.7, Total Bilirubin 0.80, AST 15, ALT 49, Alkaline Phosphatase 98, Total Protein 7.0, Albumin 2.1 L, Globulin 4.9 H, Albumin/Globulin Ratio 0.4 L Micro: Microbiology 05/06/21 01:48 Urine Catheter - Murphy Legionella Antigen - Final 05/06/21 01:48 Urine Catheter - Murphy Streptococcus pneumoniae Antigen (M - Final 04/20/21 15:10 Blood Culture (Wb) - Left Hand Blood Culture - Final No growth in 5 days. 04/20/21 13:10 Blood Culture (Wb) - Anticubital Right Blood Culture - Final No growth in 5 days. 04/21/21 17:07 Urine, Clean Catch Legionella Antigen - Final 04/21/21 17:07 Urine, Clean Catch Streptococcus pneumoniae Antigen (M - Final 04/20/21 12:10 Nasal Secretion SARS-CoV-2 Antigen (Rapid) - Final SARS-CoV-2 (COVID 19) Physical Exam Const alert and no apparent distress Cardio regular rate, regular rhythm, S1 normal heart sound and S2 normal heart sound GI normal to inspection, nondistended, normoactive bowel sounds, soft to palpation, non-tender and non-distended Extremity normal to inspection Assessment & Plan Assessment/Plan (1) Acute respiratory failure with hypoxia: (2) Pneumonia due to COVID-19 virus: PLAN: 1. Acute hypoxic respiratory failure worse 2/2 COVID 19 infectious work up negative on the , repeat antigens negative. SCx not available. on IV furosemide 2. Acute COVID 19 pneumonia unvaccinated ongoing on baricitinib through the completed remdesivir and dexamethasone 3. Severe protein calorie malnutrition supplements 4. Mediastinal mass outpt work up 5. VTE prophylaxis: LMWH. Charges/Coding Visit Charges Inpatient E&M: 42957 Subs Hosp L2
[2021-05-06] MEDS: 0.9% Saline Lock 10 ML Syringe IV (20:21)
[2021-05-06] MEDS: Oxymetazoline 0.05% 1 SPRAY SPRAY.BTL 2 SPRAY NASAL (21:55)
[2021-05-07] VITALS (20 sets, daily range): BP systolic 100–112; BP diastolic 58–83; PULSE 81–121; RESP 14–26; TEMP 36.3–37; O2SAT 91–99
[2021-05-07] MEDS: Ipratropium/Albuterol Sulfate 3 ML AMPUL.NEB INHALATION ×4 (01:44→19:45)
[2021-05-07 06:08] LABS: Absolute Lymphocyte Count 1.77 X10^3/uL (0.83-4.51); Absolute Neutrophil Count 9.4 X10^3/uL (2.0-7.7); Basophil# 0.04 X10^3/uL; Basophil% 0.3 % (0-1); Eosinophil# 0.33 X10^3/uL; Eosinophils% 2.6 % (0-5); Hematocrit 43.4 % (40-54); Hemoglobin 14.6 g/dL (13.0-16.5); Lymphocyte # 1.77 X10^3/ul (0.83-4.51); Lymphocyte % 14.1 % (19-41); Mean Corp Hgb Conc 33.6 g/dL (32-36); Mean Corpuscular Hgb 31.1 pg (27.0-32.0); Mean Corpuscular Volume 92.5 fL (80-94); Mean Platelet Vol. 10.2 fl (6.2-12.0); Monocyte% 6.4 % (0-10); NRBC Flagged by Analyzer 0 % (0-5); Neutrophil # 9.38 X10^3/uL (2.7-7.7); Platelet Count 360 K/mm3 (150-450); RBC Distribution Width CV 13.1 % (11.6-14.6); Red Blood Count 4.69 M/mm3 (4.6-6.2); White Blood Count 12.5 K/mm3 (4.4-11.0)
[2021-05-07 06:37] LABS: Anion Gap 9 (5-15); BUN 20 mg/dL (7-18); BUN/Creat Ratio 28.3 RATIO (10-20); Calcium,Total 8.8 mg/dL (8.5-10.1); Chloride 89 mmol/L (98-107); Creatinine, Serum 0.71 mg/dL (0.70-1.30); EST Glomerular Filtration Rate 119 mL/min (>60); Est Glom Filt Rate - Afr Amer 144 mL/min (>60); Estimated Creatinine Clearance 100.35 ml/min; Glucose 104 mg/dL (74-106); Sodium Level 131 mmol/L (136-145)
[2021-05-07] MEDS: Enoxaparin 40 MG/0.4 ML Syringe SC ×2 (08:10→21:24)
[2021-05-07] MEDS: Pantoprazole Sodium 40 MG Tablet PO (08:11)
[2021-05-07] MEDS: Ascorbic Acid 500 MG Tablet 1000 MG PO ×2 (08:11→17:26)
[2021-05-07] MEDS: guaiFENesin 1,200 MG Tablet 1200 MG PO ×2 (08:11→21:23)
[2021-05-07] MEDS: Potassium Chloride Oral Tablet 20 MEQ 40 MEQ PO (08:13)
[2021-05-07] MEDS: Furosemide 40 MG/4 ML Vial IV (08:13)
[2021-05-07] MEDS: Oxymetazoline 0.05% 1 SPRAY SPRAY.BTL 2 SPRAY NASAL ×2 (08:14→21:23)
[2021-05-07] MEDS: 0.9% Saline Lock 10 ML Syringe IV (08:20)
--- NOTE | 2021-05-07 11:21 | PCM.PN.INT ---
Assessment & Plan Assessment/Plan (1) Acute respiratory failure with hypoxia: (2) Pneumonia due to COVID-19 virus: PLAN: RECOMMENDATIONS: 1. Continue to wean FiO2 to maintain oxygen saturations at or above 90%. 2. Continue prophylactic Lovenox as ordered. 3. Completed Decadron and baricitinib 4. Continue BiPAP with sleep 5. Diuretics to maintain euvolemic state. Continue daily Lasix for now IMPRESSIONS: 1. Acute hypoxic respiratory failure secondary to COVID-19 The patient was initially admitted to the hospital with COVID-19 pneumonia in the setting of progressive dyspnea on April 20. The patient was treated initially with remdesivir. He completed Decadron, but remains on prophylactic Lovenox and baricitinib. Despite the aforementioned, the patient's respiratory status still remains quite tenuous. Plan to continue heated high flow oxygen and wean FiO2 to maintain saturations at or above 90%. Continue diuretics as ordered, as tolerated by hemodynamics and renal function. Patient appears to be tolerating daily Lasix well with appropriate output for negative fluid balance. Some concern patient may have developed a fibrotic state given lack of improvement. Patient has had but no improvement over the last [address] scan to evaluate for fibrotic transformation. Would not be unreasonable to evaluate for LTAC placement in the near future if continues to improve. 2. Advanced age/nonvaccinated status/history of smoking Complicates care, management, recovery and prognosis. Continue supportive measures as noted above. This note was generated with [employer] dictation software. It may contain incorrect words, spelling, and punctuation that were not noted in checking the note before signing. Subjective Subjective Patient did well overnight. No acute issues were reported. Patient overall feels subjectively significantly improved compared to yesterday. Patient is having a cough that is nonproductive. Patient does not have any particular reason for feeling better, but feels that his therapy went much better today compared to yesterday. Patient did report a better appetite today. Objective Data Objective Data Vital Signs: Vital Signs Temp Pulse Resp BP Pulse Ox 36.8 C 103 H 20 H 109/83 H 99 05/07/21 08:15 05/07/21 08:15 05/07/21 08:15 05/07/21 08:15 05/07/21 08:15 Oxygen Flow Rate (L/min) 60 Oxygen Delivery Method Bi-pap Weight: 76.1 kg Body Mass Index (BMI) 28.3 Intake & Output: Intake and Output for Last 24 Hours 05/05/21 05/06/21 05/07/21 23:59 23:59 23:59 Intake Total 580 / 580 720 / 720 Output Total 1650 / 1650 1475 / 2200 1075 / 1075 Balance -1070 / -1070 -755 / -1480 -1075 / -1075 Medical Nutrition Assessment Dietitian: Malnutrition Criteria Met Start: 04/21/21 12:38 Freq: Status: Active Protocol: Document 04/30/21 09:47 AG (Rec: 04/30/21 09:48 AG [id number]) Nutrition Malnutrition Evidence of Malnutrition Exists Yes Malnutrition (severe): Acute Illness/Injury Evidenced By Suboptimal Energy Intake ( Moderate),Weight Loss (Severe) Clinical Problem Acute Disease or Injury Related Malnutrition Etiology severe, acute malnutrition r/t inadequate energy intake w/ COVID illness Signs/Symptoms as evidenced by reported decreased appetite, estimated PO intake meeting <50% of estimated nutritional needs >1 week, unintentional wt loss of 10.6kg/12% <1 month Status Active Problem Recommendation Dietitian Recommendations/Changes continue regular diet and 4oz ensure compact w/ meals d/t acute malnutrition. Lab / Micro Data Result Diagrams: 05/07/21 05:44 05/07/21 05:44 Labs: Laboratory Results - last 24 hr 05/07/21 05:44: WBC 12.5 H, RBC 4.69, Hgb 14.6, Hct 43.4, MCV 92.5, MCH 31.1, MCHC 33.6, RDW Std Deviation 44.0 H, RDW Coeff of Alyson 13.1, Plt Count 360, MPV 10.2, Immature Gran % (Auto) 1.600 H, Neut % (Auto) 75.0 H, Lymph % (Auto) 14.1 L, [place] % (Auto) 6.4, Eos % (Auto) 2.6, Baso % (Auto) 0.3, Absolute Neuts (auto) 9.4 H, Absolute Lymphs (auto) 1.77, Nucleated RBC % 0 05/07/21 05:44: Sodium 131 L, Potassium 4.0, Chloride 89 L, Carbon Dioxide 33.0 H, Anion Gap 9, BUN 20 H, Creatinine 0.71, Estim Creat Clear Calc 100.35, Est GFR (MDRD) Af Amer 144, Est GFR (MDRD) Non-Af 119, BUN/Creatinine Ratio 28.3 H, Glucose 104, Calcium 8.8 Micro: Microbiology 05/06/21 01:48 Urine Catheter - Murphy Legionella Antigen - Final 05/06/21 01:48 Urine Catheter - Murphy Streptococcus pneumoniae Antigen (M - Final 04/20/21 15:10 Blood Culture (Wb) - Left Hand Blood Culture - Final No growth in 5 days. 04/20/21 13:10 Blood Culture (Wb) - Anticubital Right Blood Culture - Final No growth in 5 days. 04/21/21 17:07 Urine, Clean Catch Legionella Antigen - Final 04/21/21 17:07 Urine, Clean Catch Streptococcus pneumoniae Antigen (M - Final 04/20/21 12:10 Nasal Secretion SARS-CoV-2 Antigen (Rapid) - Final SARS-CoV-2 (COVID 19) Physical Exam Const alert and no apparent distress Constitutional Narrative: On Airvo General Appearance: cooperative HEENT normocephalic and head/scalp atraumatic Eyes PERRL, EOMs intact bilaterally and conjunctivae normal Neck supple General: trachea midline Chest inspection of chest normal Chest: symmetrical chest wall rise; Negative for crepitus Resp Auscultation: diminished lung sounds; Negative for rales, rhonchi or wheezes Cardio regular rate, regular rhythm, no murmurs and no rub GI normal to inspection, nondistended, normoactive bowel sounds Extremity no clubbing, cyanosis or edema Skin no rashes or lesions noted Neuro moves all extremities and no focal motor deficits Psych cooperative and affect normal Charges/Coding Visit Charges Inpatient E&M: 44963 Subs Hosp L3
--- NOTE | 2021-05-07 14:56 | PN.HOSP_ITS ---
Subjective Subjective Feels better. On airvo. Objective Data Objective Data Vital Signs: Vital Signs Temp Pulse Resp BP Pulse Ox 36.8 C 112 H 24 H 109/83 H 92 05/07/21 08:15 05/07/21 13:07 05/07/21 13:07 05/07/21 08:15 05/07/21 13:40 Oxygen Flow Rate (L/min) 60 Oxygen Delivery Method Airvo Weight: 76.1 kg Body Mass Index (BMI) 28.3 Intake & Output: Intake and Output for Last 24 Hours 05/05/21 05/06/21 05/07/21 23:59 23:59 23:59 Intake Total 580 / 580 720 / 720 360 / 360 Output Total 1650 / 1650 1475 / 2200 1425 / 1425 Balance -1070 / -1070 -755 / -1480 -1065 / -1065 Medical Nutrition Assessment Dietitian: Malnutrition Criteria Met Start: 04/21/21 12:38 Freq: Status: Active Protocol: Document 04/30/21 09:47 AG (Rec: 04/30/21 09:48 [id number]) Nutrition Malnutrition Evidence of Malnutrition Exists Yes Malnutrition (severe): Acute Illness/Injury Evidenced By Suboptimal Energy Intake ( Moderate),Weight Loss (Severe) Clinical Problem Acute Disease or Injury Related Malnutrition Etiology severe, acute malnutrition r/t inadequate energy intake w/ COVID illness Signs/Symptoms as evidenced by reported decreased appetite, estimated PO intake meeting <50% of estimated nutritional needs >1 week, unintentional wt loss of 10.6kg/12% <1 month Status Active Problem Recommendation Dietitian Recommendations/Changes continue regular diet and 4oz ensure compact w/ meals d/t acute malnutrition. Lab / Micro Data Result Diagrams: 05/07/21 05:44 05/07/21 05:44 Labs: Laboratory Results - last 24 hr 05/07/21 05:44: WBC 12.5 H, RBC 4.69, Hgb 14.6, Hct 43.4, MCV 92.5, MCH 31.1, MCHC 33.6, RDW Std Deviation 44.0 H, RDW Coeff of Alyson 13.1, Plt Count 360, MPV 1 0.2, Immature Gran % (Auto) 1.600 H, Neut % (Auto) 75.0 H, Lymph % (Auto) 14.1 L , [place] % (Auto) 6.4, Eos % (Auto) 2.6, Baso % (Auto) 0.3, Absolute Neuts (auto) 9.4 H, Absolute Lymphs (auto) 1.77, Nucleated RBC % 0 05/07/21 05:44: Sodium 131 L, Potassium 4.0, Chloride 89 L, Carbon Dioxide 33.0 H, Anion Gap 9, BUN 20 H, Creatinine 0.71, Estim Creat Clear Calc 100.35, Est GFR (MDRD) Af Amer 144, Est GFR (MDRD) Non-Af 119, BUN/Creatinine Ratio 28.3 H, Glucose 104, Calcium 8.8 Micro: Microbiology 05/06/21 01:48 Urine Catheter - Murphy Legionella Antigen - Final 05/06/21 01:48 Urine Catheter - Murphy Streptococcus pneumoniae Antigen (M - Final 04/20/21 15:10 Blood Culture (Wb) - Left Hand Blood Culture - Final No growth in 5 days. 04/20/21 13:10 Blood Culture (Wb) - Anticubital Right Blood Culture - Final No growth in 5 days. 04/21/21 17:07 Urine, Clean Catch Legionella Antigen - Final 04/21/21 17:07 Urine, Clean Catch Streptococcus pneumoniae Antigen (M - Final 04/20/21 12:10 Nasal Secretion SARS-CoV-2 Antigen (Rapid) - Final SARS-CoV-2 (COVID 19) Physical Exam Const alert Resp normal respiratory effort, no retractions, no use of accessory muscles and clear to auscultation bilaterally Cardio regular rate, regular rhythm, S1 normal heart sound and S2 normal heart sound GI normal to inspection, nondistended, normoactive bowel sounds, soft to palpation, non-tender and non-distended Extremity normal to inspection and full ROM Assessment & Plan Assessment/Plan (1) Acute respiratory failure with hypoxia: (2) Pneumonia due to COVID-19 virus: PLAN: 1. Acute hypoxic respiratory failure improved slightly 2/2 COVID 19 infectious work up negative on the , repeat antigens negative. SCx not available. on IV furosemide 2. Acute COVID 19 pneumonia unvaccinated ongoing baricitinib completed completed remdesivir and dexamethasone 3. Severe protein calorie malnutrition supplements 4. Mediastinal mass outpt work up 5. VTE prophylaxis: LMWH. Charges/Coding Visit Charges Inpatient E&M: 51612 Subs Hosp L2
[2021-05-07] MEDS: Sodium Chloride 0.65% 1 SPRAY SPRAY.BTL 2 SPRAY NASAL (17:26)
[2021-05-08] VITALS (18 sets, daily range): BP systolic 99–124; BP diastolic 68–80; PULSE 86–120; RESP 14–28; TEMP 36.7–37; O2SAT 88–97
[2021-05-08] MEDS: Ipratropium/Albuterol Sulfate 3 ML AMPUL.NEB INHALATION ×4 (00:40→20:56)
[2021-05-08 06:57] LABS: Absolute Lymphocyte Count 1.41 X10^3/uL (0.83-4.51); Absolute Neutrophil Count 9.4 X10^3/uL (2.0-7.7); Basophil# 0.04 X10^3/uL; Basophil% 0.3 % (0-1); Eosinophil# 0.35 X10^3/uL; Eosinophils% 2.9 % (0-5); Hematocrit 43.5 % (40-54); Hemoglobin 14.9 g/dL (13.0-16.5); Lymphocyte # 1.41 X10^3/ul (0.83-4.51); Lymphocyte % 11.5 % (19-41); Mean Corp Hgb Conc 34.3 g/dL (32-36); Mean Corpuscular Hgb 31.6 pg (27.0-32.0); Mean Corpuscular Volume 92.4 fL (80-94); Mean Platelet Vol. 10.1 fl (6.2-12.0); Monocyte# 0.85 X10^3/uL; Monocyte% 6.9 % (0-10); NRBC Flagged by Analyzer 0 % (0-5); Neutrophil # 9.44 X10^3/uL (2.7-7.7); Neutrophil % 76.9 % (47-70); Platelet Count 359 K/mm3 (150-450); RBC Distribution Width SD 44.2 fl (35.1-43.9); Red Blood Count 4.71 M/mm3 (4.6-6.2); White Blood Count 12.3 K/mm3 (4.4-11.0)
[2021-05-08 07:24] LABS: ALB/GLOB Ratio 0.4 RATIO (0.9-2.4); AST(SGOT) 15 U/L (15-37); Alanine Aminotransfer ALT/SGPT 46 U/L (16-61); Albumin, Serum 2.1 g/dL (3.2-5.0); Alkaline Phosphatase 106 U/L (45-117); Anion Gap 6 (5-15); BUN 21 mg/dL (7-18); BUN/Creat Ratio 30.6 RATIO (10-20); Calcium,Total 8.9 mg/dL (8.5-10.1); Chloride 91 mmol/L (98-107); Creatinine, Serum 0.69 mg/dL (0.70-1.30); EST Glomerular Filtration Rate 123 mL/min (>60); Est Glom Filt Rate - Afr Amer 149 mL/min (>60); Estimated Creatinine Clearance 96.32 ml/min; Globulin 4.7 g/dL (2.2-4.2); Glucose 105 mg/dL (74-106); Potassium 4.5 mmol/L (3.5-5.1); Protein, Total 6.8 g/dL (6.4-8.2); Sodium Level 131 mmol/L (136-145)
[2021-05-08] MEDS: Pantoprazole Sodium 40 MG Tablet PO (08:13)
[2021-05-08] MEDS: Furosemide 40 MG/4 ML Vial IV (08:13)
[2021-05-08] MEDS: Enoxaparin 40 MG/0.4 ML Syringe SC ×2 (08:13→20:51)
[2021-05-08] MEDS: Potassium Chloride Oral Tablet 20 MEQ 40 MEQ PO (08:13)
[2021-05-08] MEDS: guaiFENesin 1,200 MG Tablet 1200 MG PO ×2 (08:13→20:51)
[2021-05-08] MEDS: Ascorbic Acid 500 MG Tablet 1000 MG PO ×2 (08:13→16:54)
--- NOTE | 2021-05-08 14:37 | PN.CC_ITS ---
Assessment & Plan Assessment/Plan (1) Acute respiratory failure with hypoxia: (2) Pneumonia due to COVID-19 virus: PLAN: RECOMMENDATIONS: 1. Continue to wean FiO2 to maintain oxygen saturations at or above 90%. 2. Continue prophylactic Lovenox as ordered. 3. Completed Decadron and baricitinib 4. Can attempt to go without BiPAP tonight 5. Diuretics to maintain euvolemic state. Continue daily Lasix for now IMPRESSIONS: 1. Acute hypoxic respiratory failure secondary to COVID-19 The patient was initially admitted to the hospital with COVID-19 pneumonia in the setting of progressive dyspnea on April 20. The patient was treated initially with remdesivir. He completed Decadron, but remains on prophylactic Lovenox and baricitinib. Despite the aforementioned, the patient's respiratory status still remains quite tenuous. Plan to continue heated high flow oxygen and wean FiO2 to maintain saturations at or above 90%. Continue diuretics as ordered, as tolerated by hemodynamics and renal function. Patient appears to be tolerating daily Lasix well with appropriate output for negative fluid balance. Some concern patient may have developed a fibrotic state given lack of improvement. Patient continues to improve with diuresis. Okay to try without BiPAP overnight as long as patient does not have significant FiO2 requirements. Would not be unreasonable to evaluate for LTAC placement in the near future if continues to improve. 2. Advanced age/nonvaccinated status/history of smoking Complicates care, management, recovery and prognosis. Continue supportive measures as noted above. This note was generated with [employer] dictation software. It may contain incorrect words, spelling, and punctuation that were not noted in checking the note before signing. Subjective Subjective Patient did much better overnight. Patient's oxygen saturations continue to improve. Patient denies any current chest pain or abdominal pain. Patient reports better tolerance of lying flat Objective Data Objective Data Vital Signs: Vital Signs Temp Pulse Resp BP Pulse Ox 36.8 C 109 H 18 102/68 94 05/08/21 14:00 05/08/21 14:00 05/08/21 14:00 05/08/21 14:00 05/08/21 14:00 Oxygen Flow Rate (L/min) 55 Oxygen Delivery Method Airvo Weight: 63.8 kg Body Mass Index (BMI) 28.3 Intake & Output: Intake and Output for Last 24 Hours 05/06/21 05/07/21 05/08/21 23:59 23:59 23:59 Intake Total 720 / 720 1230 / 1230 725 / 725 Output Total 1475 / 2200 2250 / 2250 925 / 925 Balance -755 / -1480 -1020 / -1020 -200 / -200 Medical Nutrition Assessment Dietitian: Malnutrition Criteria Met Start: 04/21/21 1 2:38 Freq: Status: Active Protocol: Document 04/30/21 09:47 AG (Rec: 04/30/21 09:48 AG [id number]) Nutrition Malnutrition Evidence of Malnutrition Exists Yes Malnutrition (severe): Acute Illness/Injury Evidenced By Suboptimal Energy Intake ( Moderate),Weight Loss (Severe) Clinical Problem Acute Disease or Injury Related Malnutrition Etiology severe, acute malnutrition r/t inadequate energy intake w/ COVID illness Signs/Symptoms as evidenced by reported decreased appetite, estimated PO intake meeting <50% of estimated nutritional needs >1 week, unintentional wt loss of 10.6kg/12% <1 month Status Active Problem Recommendation Dietitian Recommendations/Changes continue regular diet and 4oz ensure compact w/ meals d/t acute malnutrition. Lab / Micro Data Result Diagrams: 05/08/21 06:10 05/08/21 06:10 Labs: Laboratory Results - last 24 hr 05/08/21 06:10: WBC 12.3 H, RBC 4.71, Hgb 14.9, Hct 43.5, MCV 92.4, MCH 31.6, MCHC 34.3, RDW Std Deviation 44.2 H, RDW Coeff of Alyson 13.0, Plt Count 359, MPV 10.1, Immature Gran % (Auto) 1.500 H, Neut % (Auto) 76.9 H, Lymph % (Auto) 11.5 L, Deuel % (Auto) 6.9, Eos % (Auto) 2.9, Baso % (Auto) 0.3, Absolute Neuts (auto) 9.4 H, Absolute Lymphs (auto) 1.41, Nucleated RBC % 0 05/08/21 06:10: Sodium 131 L, Potassium 4.5, Chloride 91 L, Carbon Dioxide 34.0 H, Anion Gap 6, BUN 21 H, Creatinine 0.69 L, Estim Creat Clear Calc 96.32, Est GFR (MDRD) Af Amer 149, Est GFR (MDRD) Non-Af 123, BUN/Creatinine Ratio 30.6 H, Glucose 105, Calcium 8.9, Total Bilirubin 0.70, AST 15, ALT 46, Alkaline Phosphatase 106, Total Protein 6.8, Albumin 2.1 L, Globulin 4.7 H, Albumin/Globulin Ratio 0.4 L Micro: Microbiology 05/06/21 01:48 Urine Catheter - Murphy Legionella Antigen - Final 05/06/21 01:48 Urine Catheter - Murphy Streptococcus pneumoniae Antigen (M - Final 04/20/21 15:10 Blood Culture (Wb) - Left Hand Blood Culture - Final No growth in 5 days. 04/20/21 13:10 Blood Culture (Wb) - Anticubital Right Blood Culture - Final No growth in 5 days. 04/21/21 17:07 Urine, Clean Catch Legionella Antigen - Final 04/21/21 17:07 Urine, Clean Catch Streptococcus pneumoniae Antigen (M - Final 04/20/21 12:10 Nasal Secretion SARS-CoV-2 Antigen (Rapid) - Final SARS-CoV-2 (COVID 19) Physical Exam Const alert and no apparent distress Constitutional Narrative: On Airvo General Appearance: cooperative HEENT normocephalic and head/scalp atraumatic Eyes PERRL, EOMs intact bilaterally and conjunctivae normal Neck supple General: trachea midline Chest inspection of chest normal Chest: symmetrical chest wall rise; Negative for crepitus Resp Auscultation: diminished lung sounds; Negative for rales, rhonchi or wheezes Cardio regular rate, regular rhythm, no murmurs and no rub GI normal to inspection, nondistended, normoactive bowel sounds Extremity no clubbing, cyanosis or edema Skin no rashes or lesions noted Neuro moves all extremities and no focal motor deficits Psych cooperative and affect normal Charges/Coding Visit Charges Inpatient E&M: 56387 Subs Hosp L2
--- NOTE | 2021-05-08 14:50 | PN.HOSP_ITS ---
Subjective Subjective Tolerating Airvo. Objective Data Objective Data Vital Signs: Vital Signs Temp Pulse Resp BP Pulse Ox 36.8 C 109 H 18 102/68 94 05/08/21 14:00 05/08/21 14:00 05/08/21 14:00 05/08/21 14:00 05/08/21 14:00 Oxygen Flow Rate (L/min) 55 Oxygen Delivery Method Airvo Weight: 63.8 kg Body Mass Index (BMI) 28.3 Intake & Output: Intake and Output for Last 24 Hours 05/06/21 05/07/21 05/08/21 23:59 23:59 23:59 Intake Total 720 / 720 1230 / 1230 725 / 725 Output Total 1475 / 2200 2250 / 2250 925 / 925 Balance -755 / -1480 -1020 / -1020 -200 / -200 Medical Nutrition Assessment Dietitian: Malnutrition Criteria Met Start: 04/21/21 12:38 Freq: Status: Active Protocol: Document 04/30/21 09:47 AG (Rec: 04/30/21 09:48 [id number]) Nutrition Malnutrition Evidence of Malnutrition Exists Yes Malnutrition (severe): Acute Illness/Injury Evidenced By Suboptimal Energy Intake ( Moderate),Weight Loss (Severe) Clinical Problem Acute Disease or Injury Related Malnutrition Etiology severe, acute malnutrition r/t inadequate energy intake w/ COVID illness Signs/Symptoms as evidenced by reported decreased appetite, estimated PO intake meeting <50% of estimated nutritional needs >1 week, unintentional wt loss of 10.6kg/12% <1 month Status Active Problem Recommendation Dietitian Recommendations/Changes continue regular diet and 4oz ensure compact w/ meals d/t acute malnutrition. Lab / Micro Data Result Diagrams: 05/08/21 06:10 05/08/21 06:10 Labs: Laboratory Results - last 24 hr 05/08/21 06:10: WBC 12.3 H, RBC 4.71, Hgb 14.9, Hct 43.5, MCV 92.4, MCH 31.6, MCHC 34.3, RDW Std Deviation 44.2 H, RDW Coeff of Alyson 13.0, Plt Count 359, MPV 10.1, Immature Gran % (Auto) 1.500 H, Neut % (Auto) 76.9 H, Lymph % (Auto) 11.5 L, Cory[place] % (Auto) 6.9, Eos % (Auto) 2.9, Baso % (Auto) 0.3, Absolute Neuts (auto) 9.4 H, Absolute Lymphs (auto) 1.41, Nucleated RBC % 0 05/08/21 06:10: Sodium 131 L, Potassium 4.5, Chloride 91 L, Carbon Dioxide 34.0 H, Anion Gap 6, BUN 21 H, Creatinine 0.69 L, Estim Creat Clear Calc 96.32, Est GFR (MDRD) Af Amer 149, Est GFR (MDRD) Non-Af 123, BUN/Creatinine Ratio 30.6 H, Glucose 105, Calcium 8.9, Total Bilirubin 0.70, AST 15, ALT 46, Alkaline Phosphatase 106, Total Protein 6.8, Albumin 2.1 L, Globulin 4.7 H, Album in/Globulin Ratio 0.4 L Micro: Microbiology 05/06/21 01:48 Urine Catheter - Murphy Legionella Antigen - Final 05/06/21 01:48 Urine Catheter - Murphy Streptococcus pneumoniae Antigen (M - Final 04/20/21 15:10 Blood Culture (Wb) - Left Hand Blood Culture - Final No growth in 5 days. 04/20/21 13:10 Blood Culture (Wb) - Anticubital Right Blood Culture - Final No growth in 5 days. 04/21/21 17:07 Urine, Clean Catch Legionella Antigen - Final 04/21/21 17:07 Urine, Clean Catch Streptococcus pneumoniae Antigen (M - Final 04/20/21 12:10 Nasal Secretion SARS-CoV-2 Antigen (Rapid) - Final SARS-CoV-2 (COVID 19) Physical Exam Const alert and no apparent distress Resp normal respiratory effort, no retractions, no use of accessory muscles and clear to auscultation bilaterally Cardio regular rate, regular rhythm, S1 normal heart sound and S2 normal heart sound GI normal to inspection, nondistended, normoactive bowel sounds, soft to palpation, non-tender and non-distended Extremity normal to inspection Assessment & Plan Assessment/Plan (1) Acute respiratory failure with hypoxia: (2) Pneumonia due to COVID-19 virus: PLAN: 1. Acute hypoxic respiratory failure improved slightly 2/2 COVID 19 infectious work up negative on the 6th, repeat antigens negative. SCx not janel ilable. on IV furosemide 2. Acute COVID 19 pneumonia unvaccinated ongoing baricitinib completed completed remdesivir and dexamethasone 3. Severe protein calorie malnutrition supplements 4. Mediastinal mass outpt work up 5. VTE prophylaxis: LMWH. 6. Dispo: TBD. LTAC if oxygenation does not improve, SNF if he can managed on NC. Charges/Coding Visit Charges Inpatient E&M: 29061 Subs Hosp L2
--- NOTE | 2021-05-08 14:55 | CASEMGMT ---
SHELBIE JOHNSTON NOTE: TC to Dea @ [facility] in [place]. She was notified that pt has been down to 55 L/M O2 and 55% FIO2 since 0800 this AM. She states they are not able to take any admissions until at least Wednesday. She states they can review again on Wednesday for bed availability/acceptance. Amanda SILVEIRA RN, CM
[2021-05-08] MEDS: Sodium Chloride 0.65% 1 SPRAY SPRAY.BTL 2 SPRAY NASAL (20:48)
[2021-05-08] MEDS: 0.9% Saline Lock 10 ML Syringe IV (20:50)
[2021-05-09] VITALS (23 sets, daily range): BP systolic 93–109; BP diastolic 64–79; PULSE 87–132; RESP 14–31; TEMP 36.6–36.8; O2SAT 90–98
[2021-05-09] MEDS: Ipratropium/Albuterol Sulfate 3 ML AMPUL.NEB INHALATION ×2 (07:15→20:16)
[2021-05-09 07:32] LABS: Anion Gap 8 (5-15); BUN 19 mg/dL (7-18); BUN/Creat Ratio 29.5 RATIO (10-20); Calcium,Total 8.8 mg/dL (8.5-10.1); Chloride 91 mmol/L (98-107); Creatinine, Serum 0.64 mg/dL (0.70-1.30); EST Glomerular Filtration Rate 132 mL/min (>60); Est Glom Filt Rate - Afr Amer 160 mL/min (>60); Estimated Creatinine Clearance 104.17 ml/min; Glucose 105 mg/dL (74-106); Potassium 3.9 mmol/L (3.5-5.1); Sodium Level 132 mmol/L (136-145)
[2021-05-09 07:50] LABS: Magnesium 2.4 mg/dL (1.6-2.6); Phosphorus 3.5 mg/dL (2.5-4.9)
[2021-05-09] MEDS: guaiFENesin 1,200 MG Tablet 1200 MG PO ×2 (09:09→21:24)
[2021-05-09] MEDS: Potassium Chloride Oral Tablet 20 MEQ 40 MEQ PO (09:10)
[2021-05-09] MEDS: Furosemide 40 MG/4 ML Vial IV (09:10)
[2021-05-09] MEDS: Ascorbic Acid 500 MG Tablet 1000 MG PO ×2 (09:10→17:08)
[2021-05-09] MEDS: Pantoprazole Sodium 40 MG Tablet PO (09:10)
[2021-05-09] MEDS: Enoxaparin 40 MG/0.4 ML Syringe SC ×2 (09:10→21:24)
--- NOTE | 2021-05-09 09:47 | CPS ---
Called to pt's room per charge nurse. Upon entering room pt was on Bipap at 100%. Saturation was 96% and HR 132, RR 31. This therapist was informed that nursing care was being administered when he apparently per nurse dropped to 66% on Airvo. Charge nurse stated she placed Bipap on pt and increased FIO2 to 100%. Charge nurse and pt's nurse were informed that we can wean O2 down when nursing care is completed and pt has fully recovered.
--- NOTE | 2021-05-09 10:33 | CPS ---
FIO2 slowly weaned to 70%. Saturation 99%. Pt nurse aware of change.
--- NOTE | 2021-05-09 11:19 | PCM.PN.INT ---
Assessment & Plan Assessment/Plan (1) Acute respiratory failure with hypoxia: (2) Pneumonia due to COVID-19 virus: PLAN: RECOMMENDATIONS: 1. Continue to wean FiO2 to maintain oxygen saturations at or above 90%. 2. Continue prophylactic Lovenox as ordered. 3. Completed Decadron and baricitinib 4. Can still attempt to go without BiPAP tonight 5. Diuretics to maintain euvolemic state. Hold Lasix for 36 hours 6. Consider initiation of Flomax IMPRESSIONS: 1. Acute hypoxic respiratory failure secondary to COVID-19 The patient was initially admitted to the hospital with COVID-19 pneumonia in the setting of progressive dyspnea on April 20. The patient was treated initially with remdesivir. He completed Decadron, but remains on prophylactic Lovenox and baricitinib. Despite the aforementioned, the patient's respiratory status still remains quite tenuous. Plan to continue heated high flow oxygen and wean FiO2 to maintain saturations at or above 90%. Continue diuretics as ordered, as tolerated by hemodynamics and renal function. We will hold on Lasix for 36 hours. Some concern patient may have developed a fibrotic state given lack of improvement. Patient continues to improve with diuresis. Okay to try without BiPAP overnight as long as patient does not have significant FiO2 requirements. Would not be unreasonable to evaluate for LTAC placement in the near future if continues to improve. 2. Advanced age/nonvaccinated status/history of smoking Complicates care, management, recovery and prognosis. Continue supportive measures as noted above. Consider initiation of medication to help with urination such as Flomax. Defer to hospitalist. This note was generated with [employer] dictation software. It may contain incorrect words, spelling, and punctuation that were not noted in checking the note before signing. Subjective Subjective Patient did okay overnight. However, this morning patient was able to urinate leading to significant desaturation and respiratory distress. Patient does report that he was able to urinate last night after the Murphy was removed initially. Patient has been on BiPAP for an hour and feels back to normal. Patient did not report any hematuria and did receive a straight cath. Objective Data Objective Data Vital Signs: Vital Signs Temp Pulse Resp BP Pulse Ox 36.8 C 112 H 25 H 106/77 98 05/09/21 08:55 05/09/21 10:32 05/09/21 10:32 05/09/21 08:55 05/09/21 10:44 Oxygen Flow Rate (L/min) 50 Oxygen Delivery Method Bi-pap Weight: 64 kg Body Mass Index (BMI) 28.3 Intake & Output: Intake and Output for Last 24 Hours 05/07/21 05/08/21 05/09/21 23:59 23:59 23:59 Intake Total 1230 / 1230 1325 / 1325 200 / 200 Output Total 2250 / 2250 1250 / 1250 350 / 350 Balance -1020 / -1020 75 / 75 -150 / -150 Medical Nutrition Assessment Dietitian: Malnutrition Criteria Met Start: 04/21/21 12:38 Freq: Status: Active Protocol: Document 04/30/21 09:47 AG (Rec: 04/30/21 09:48 AG [id number]) Nutrition Malnutrition Evidence of Malnutrition Exists Yes Malnutrition (severe): Acute Illness/Injury Evidenced By Suboptimal Energy Intake ( Moderate),Weight Loss (Severe) Clinical Problem Acute Disease or Injury Related Malnutrition Etiology severe, acute malnutrition r/t inadequate energy intake w/ COVID illness Signs/Symptoms as evidenced by reported decreased appetite, estimated PO intake meeting <50% of estimated nutritional needs >1 week, unintentional wt loss of 10.6kg/12% <1 month Status Active Problem Recommendation Dietitian Recommendations/Changes continue regular diet and 4oz ensure compact w/ meals d/t acute malnutrition. Lab / Micro Data Result Diagrams: 05/08/21 06:10 05/09/21 06:40 Labs: Laboratory Results - last 24 hr 05/09/21 06:40: Sodium 132 L, Potassium 3.9, Chloride 91 L, Carbon Dioxide 33.0 H, Anion Gap 8, BUN 19 H, Creatinine 0.64 L, Estim Creat Clear Calc 104.17, Est GFR (MDRD) Af Amer 160, Est GFR (MDRD) Non-Af 132, BUN/Creatinine Ratio 29.5 H, Glucose 105, Calcium 8.8 05/09/21 06:40: Phosphorus 3.5, Magnesium 2.4 Micro: Microbiology 05/06/21 01:48 Urine Catheter - Murphy Legionella Antigen - Final 05/06/21 01:48 Urine Catheter - Murphy Streptococcus pneumoniae Antigen (M - Final 04/20/21 15:10 Blood Culture (Wb) - Left Hand Blood Culture - Final No growth in 5 days. 04/20/21 13:10 Blood Culture (Wb) - Anticubital Right Blood Culture - Final No growth in 5 days. 04/21/21 17:07 Urine, Clean Catch Legionella Antigen - Final 04/21/21 17:07 Urine, Clean Catch Streptococcus pneumoniae Antigen (M - Final 04/20/21 12:10 Nasal Secretion SARS-CoV-2 Antigen (Rapid) - Final SARS-CoV-2 (COVID 19) Physical Exam Const alert and no apparent distress Constitutional Narrative: On BiPAP General Appearance: cooperative HEENT normocephalic and head/scalp atraumatic Eyes PERRL, EOMs intact bilaterally and conjunctivae normal Neck supple General: trachea midline Chest inspection of chest normal Chest: symmetrical chest wall rise; Negative for crepitus Resp Auscultation: diminished lung sounds; Negative for rales, rhonchi or wheezes Cardio regular rate, regular rhythm, no murmurs and no rub GI normal to inspection, nondistended, normoactive bowel sounds Extremity no clubbing, cyanosis or edema Skin no rashes or lesions noted Neuro moves all extremities and no focal motor deficits Psych cooperative and affect normal Charges/Coding Visit Charges Inpatient E&M: 45177 Subs Hosp L2
--- NOTE | 2021-05-09 13:31 | PCM.PN.HOSP ---
Subjective Subjective Urinary retention. Had difficulty with straight catheterization. Objective Data Objective Data Vital Signs: Vital Signs Temp Pulse Resp BP Pulse Ox 36.7 C 102 H 18 93/73 98 05/09/21 10:55 05/09/21 10:55 05/09/21 10:55 05/09/21 10:55 05/09/21 10:55 Oxygen Flow Rate (L/min) 50 Oxygen Delivery Method Bi-pap Weight: 64 kg Body Mass Index (BMI) 28.3 Intake & Output: Intake and Output for Last 24 Hours 05/07/21 05/08/21 05/09/21 23:59 23:59 23:59 Intake Total 1230 / 1230 1325 / 1325 200 / 200 Output Total 2250 / 2250 1250 / 1250 350 / 350 Balance -1020 / -1020 75 / 75 -150 / -150 Medical Nutrition Assessment Dietitian: Malnutrition Criteria Met Start: 04/21/21 12:38 Freq: Status: Active Protocol: Document 04/30/21 09:47 AG (Rec: 04/30/21 09:48 [id number]) Nutrition Malnutrition Evidence of Malnutrition Exists Yes Malnutrition (severe): Acute Illness/Injury Evidenced By Suboptimal Energy Intake ( Moderate),Weight Loss (Severe) Clinical Problem Acute Disease or Injury Related Malnutrition Etiology severe, acute malnutrition r/t inadequate energy intake w/ COVID illness Signs/Symptoms as evidenced by reported decreased appetite, estimated PO intake meeting <50% of estimated nutritional needs >1 week, unintentional wt loss of 10.6kg/12% <1 month Status Active Problem Recommendation Dietitian Recommendations/Changes continue regular diet and 4oz ensure compact w/ meals d/t acute malnutrition. Lab / Micro Data Result Diagrams: 05/08/21 06:10 05/09/21 06:40 Labs: Laboratory Results - last 24 hr 05/09/21 06:40: Sodium 132 L, Potassium 3.9, Chloride 91 L, Carbon Dioxide 33.0 H, Anion Gap 8, BUN 19 H, Creatinine 0.64 L, Estim Creat Clear Calc 104.17, Est GFR (MDRD) Af Amer 160, Est GFR (MDRD) Non-Af 132, BUN/Creatinine Ratio 29.5 H, Glucose 105, Calcium 8.8 05/09/21 06:40: Phosphorus 3.5, Magnesium 2.4 Micro: Microbiology 05/06/21 01:48 Urine Catheter - Abreu Legionella Antigen - Final 05/06/21 01:48 Urine Catheter - Abreu Streptococcus pneumoniae Antigen (M - Final 04/20/21 15:10 Blood Culture (Wb) - Left Hand Blood Culture - Final No growth in 5 days. 04/20/21 13:10 Blood Culture (Wb) - Anticubital Right Blood Culture - Final No growth in 5 days. 04/21/21 17:07 Urine, Clean Catch Legionella Antigen - Final 04/21/21 17:07 Urine, Clean Catch Streptococcus pneumoniae Antigen (M - Final 04/20/21 12:10 Nasal Secretion SARS-CoV-2 Antigen (Rapid) - Final SARS-CoV-2 (COVID 19) Physical Exam Const alert and no apparent distress Resp normal respiratory effort, no retractions, no use of accessory muscles and clear to auscultation bilaterally Cardio regular rate, regular rhythm, S1 normal heart sound and S2 normal heart sound GI normal to inspection, nondistended, normoactive bowel sounds, soft to palpation, non-tender and non-distended Extremity normal to inspection Assessment & Plan Assessment/Plan (1) Acute respiratory failure with hypoxia: (2) Pneumonia due to COVID-19 virus: (3) Urinary retention: PLAN: 1. Acute hypoxic respiratory failure improved slightly 2/2 COVID 19 infectious work up negative on the 6th, repeat antigens negative. SCx not available. on IV furosemide 2. Acute COVID 19 pneumonia unvaccinated ongoing baricitinib completed completed remdesivir and dexamethasone 3. Severe protein calorie malnutrition supplements 4. Mediastinal mass outpt work up 5. Urinary retention abreu dc'd 05/08 05/09: continue straight cath PRN. add tamsulosin, phenazopyridine. Check UA and UCx. VTE prophylaxis: LMWH. 6. Dispo: TBD. LTAC if oxygenation does not improve, SNF if he can managed on NC. Charges/Coding Visit Charges Inpatient E&M: 20776 Subs Hosp L2
[2021-05-09 13:54] LABS: Mucous, Urine 0 SEEN /hpf (<or=2+); Squamous Epithelial Cells - UA 0 SEEN /hpf (0-5)
[2021-05-09 13:57] LABS: Color, Urine Yellow (Yellow); Glucose, Dipstick Normal (Normal); Ketone-Dipstick Negative (Negative); Leukocyte Esterase-Dipstick 500 /ul (Negative); Nitrite-Dipstick Negative (Negative); Occult Blood-Urine 25 /ul (Negative); Protein-Dipstick Negative (Negative); Urine Bilirubin Dipstick Negative (Negative); Urine Clarity Clear (Clear); Urine Urobilinogen 1 mg/dl (Normal)
[2021-05-09 14:20] LABS: Bacteria 2+ /hpf (None Seen); Red Blood Cells-Urine 0-5 SEEN /hpf (0-5); White Blood Cells 5-10 SEEN /hpf (0-5)
[2021-05-09] MEDS: Phenazopyridine 95 MG Tablet 190 MG PO ×2 (14:46→21:24)
[2021-05-09] MEDS: Tamsulosin HCl 0.4 MG Capsule PO (17:08)
[2021-05-10] VITALS (18 sets, daily range): BP systolic 94–112; BP diastolic 67–78; PULSE 85–121; RESP 14–36; TEMP 36.4–36.9; O2SAT 87–98
[2021-05-10] MEDS: Phenazopyridine 95 MG Tablet 190 MG PO ×3 (06:04→21:37)
[2021-05-10] MEDS: Ipratropium/Albuterol Sulfate 3 ML AMPUL.NEB INHALATION ×3 (06:57→18:45)
[2021-05-10 07:24] LABS: Anion Gap 5 (5-15); BUN 23 mg/dL (7-18); BUN/Creat Ratio 33.4 RATIO (10-20); Calcium,Total 8.9 mg/dL (8.5-10.1); Chloride 93 mmol/L (98-107); Creatinine, Serum 0.69 mg/dL (0.70-1.30); EST Glomerular Filtration Rate 123 mL/min (>60); Est Glom Filt Rate - Afr Amer 149 mL/min (>60); Estimated Creatinine Clearance 101.15 ml/min; Glucose 108 mg/dL (74-106); Potassium 4.4 mmol/L (3.5-5.1); Sodium Level 132 mmol/L (136-145)
[2021-05-10] MEDS: Enoxaparin 40 MG/0.4 ML Syringe SC ×2 (08:11→21:36)
[2021-05-10] MEDS: guaiFENesin 1,200 MG Tablet 1200 MG PO ×2 (08:11→21:37)
[2021-05-10] MEDS: Ascorbic Acid 500 MG Tablet 1000 MG PO ×2 (08:11→16:37)
[2021-05-10] MEDS: Oxymetazoline 0.05% 1 SPRAY SPRAY.BTL 2 SPRAY NASAL (08:12)
[2021-05-10] MEDS: Pantoprazole Sodium 40 MG Tablet PO (08:12)
[2021-05-10] MEDS: Potassium Chloride Oral Tablet 20 MEQ 40 MEQ PO (08:13)
--- NOTE | 2021-05-10 08:20 | PCM.PN.INT ---
Assessment & Plan Assessment/Plan (1) Acute respiratory failure with hypoxia: (2) Pneumonia due to COVID-19 virus: PLAN: RECOMMENDATIONS: 1. Continue to wean FiO2 to maintain oxygen saturations at or above 90%. 2. Continue prophylactic Lovenox as ordered. 3. Completed Decadron and baricitinib 4. Reinitiate BiPAP with sleep 5. Diuretics to maintain euvolemic state. Hold Lasix for 36 hours 6. Await response to interventions for urinary retention IMPRESSIONS: 1. Acute hypoxic respiratory failure secondary to COVID-19 The patient was initially admitted to the hospital with COVID-19 pneumonia in the setting of progressive dyspnea on April 20. The patient was treated initially with remdesivir. He completed Decadron, but remains on prophylactic Lovenox and baricitinib. Despite the aforementioned, the patient's respiratory status still remains quite tenuous. Plan to continue heated high flow oxygen and wean FiO2 to maintain saturations at or above 90%. Continue diuretics as ordered tomorrow, as tolerated by hemodynamics and renal function. We will hold on Lasix for 36 hours. Some concern patient may have developed a fibrotic state given lack of improvement. Will reinitiate BiPAP with sleep given worsening oxygenation in the morning. Would not be unreasonable to evaluate for LTAC placement in the near future if continues to improve. 2. Advanced age/nonvaccinated status/history of smoking Complicates care, management, recovery and prognosis. Continue supportive measures as noted above. Consider initiation of medication to help with urination such as Flomax. Defer to hospitalist. This note was generated with [employer] dictation software. It may contain incorrect words, spelling, and punctuation that were not noted in checking the note before signing. Subjective Subjective Patient continues to have some difficulty with urination. Patient was on increased Airvo to maintain saturations. Patient is not reporting any epistaxis, but is nervous about desaturating with urination. Objective Data Objective Data Vital Signs: Vital Signs Temp Pulse Resp BP Pulse Ox 36.6 C 106 H 18 108/76 94 05/10/21 06:03 05/10/21 06:55 05/10/21 06:03 05/10/21 06:03 05/10/21 06:03 Oxygen Flow Rate (L/min) 55 Oxygen Delivery Method Airvo Weight: 67 kg Body Mass Index (BMI) 28.3 Intake & Output: Intake and Output for Last 24 Hours 05/08/21 05/09/21 05/10/21 23:59 23:59 23:59 Intake Total 1325 / 1325 300 / 300 0 / 0 Output Total 1250 / 1250 1650 / 1650 Balance 75 / 75 -1350 / -1350 0 / 0 Medical Nutrition Assessment Dietitian: Malnutrition Criteria Met Start: 04/21/21 12:38 Freq: Status: Active Protocol: Document 04/30/21 09:47 AG (Rec: 04/30/21 09:48 AG [id number]) Nutrition Malnutrition Evidence of Malnutrition Exists Yes Malnutrition (severe): Acute Illness/Injury Evidenced By Suboptimal Energy Intake ( Moderate),Weight Loss (Severe) Clinical Problem Acute Disease or Injury Related Malnutrition Etiology severe, acute malnutrition r/t inadequate energy intake w/ COVID illness Signs/Symptoms as evidenced by reported decreased appetite, estimated PO intake meeting <50% of estimated nutritional needs >1 week, unintentional wt loss of 10.6kg/12% <1 month Status Active Problem Recommendation Dietitian Recommendations/Changes continue regular diet and 4oz ensure compact w/ meals d/t acute malnutrition. Lab / Micro Data Result Diagrams: 05/08/21 06:10 05/10/21 06:22 Labs: Laboratory Results - last 24 hr 05/09/21 13:40: Urine Color Yellow, Urine Clarity Clear, Urine pH 6.0, Ur Specific [place] 1.010, Urine Protein Negative, Urine Glucose (UA) Normal, Urine Ketones Negative, Urine Occult Blood 25 H, Urine Nitrite Negative, Urine Bilirubin Negative, Urine Urobilinogen 1 H, Ur Leukocyte Esterase 500 H, Urine RBC 0-5 SEEN, Urine WBC 5-10 SEEN, Ur Squamous Epith Cells 0 SEEN, Urine Bacteria 2+, Urine Mucus 0 SEEN 05/10/21 06:22: Sodium 132 L, Potassium 4.4, Chloride 93 L, Carbon Dioxide 34.0 H, Anion Gap 5, BUN 23 H, Creatinine 0.69 L, Estim Creat Clear Calc 101.15, Est GFR (MDRD) Af Amer 149, Est GFR (MDRD) Non-Af 123, BUN/Creatinine Ratio 33.4 H, Glucose 108 H, Calcium 8.9 Micro: Microbiology 05/06/21 01:48 Urine Catheter - Murphy Legionella Antigen - Final 05/06/21 01:48 Urine Catheter - Murphy Streptococcus pneumoniae Antigen (M - Final 04/20/21 15:10 Blood Culture (Wb) - Left Hand Blood Culture - Final No growth in 5 days. 04/20/21 13:10 Blood Culture (Wb) - Anticubital Right Blood Culture - Final No growth in 5 days. 04/21/21 17:07 Urine, Clean Catch Legionella Antigen - Final 04/21/21 17:07 Urine, Clean Catch Streptococcus pneumoniae Antigen (M - Final 04/20/21 12:10 Nasal Secretion SARS-CoV-2 Antigen (Rapid) - Final SARS-CoV-2 (COVID 19) Physical Exam Const alert and no apparent distress Constitutional Narrative: On Airvo General Appearance: cooperative HEENT normocephalic and head/scalp atraumatic Eyes PERRL, EOMs intact bilaterally and conjunctivae normal Neck supple General: trachea midline Chest inspection of chest normal Chest: symmetrical chest wall rise; Negative for crepitus Resp Auscultation: diminished lung sounds; Negative for rales, rhonchi or wheezes Cardio regular rate, regular rhythm, no murmurs and no rub GI normal to inspection, nondistended, normoactive bowel sounds Extremity no clubbing, cyanosis or edema Skin no rashes or lesions noted Neuro moves all extremities and no focal motor deficits Psych cooperative and affect normal Charges/Coding Visit Charges Inpatient E&M: 52395 Subs Hosp L3
--- NOTE | 2021-05-10 13:46 | PN.HOSP_ITS ---
Subjective Subjective Still with urinary retention. Pain with straight cath last night. Objective Data Objective Data Vital Signs: Vital Signs Temp Pulse Resp BP Pulse Ox 36.9 C 101 H 18 105/69 96 05/10/21 11:16 05/10/21 11:16 05/10/21 11:16 05/10/21 11:16 05/10/21 11:16 Oxygen Flow Rate (L/min) 55 Oxygen Delivery Method Airvo Weight: 67 kg Body Mass Index (BMI) 28.3 Intake & Output: Intake and Output for Last 24 Hours 05/08/21 05/09/21 05/10/21 23:59 23:59 23:59 Intake Total 1325 / 1325 300 / 300 240 / 240 Output Total 1250 / 1250 1650 / 1650 525 / 525 Balance 75 / 75 -1350 / -1350 -285 / -285 Medical Nutrition Assessment Dietitian: Malnutrition Criteria Met Start: 04/21/21 12:38 Freq: Status: Active Protocol: Document 04/30/21 09:47 AG (Rec: 04/30/21 09:48 [id number]) Nutrition Malnutrition Evidence of Malnutrition Exists Yes Malnutrition (severe): Acute Illness/Injury Evidenced By Suboptimal Energy Intake ( Moderate),Weight Loss (Severe) Clinical Problem Acute Disease or Injury Related Malnutrition Etiology severe, acute malnutrition r/t inadequate energy intake w/ COVID illness Signs/Symptoms as evidenced by reported decreased appetite, estimated PO intake meeting <50% of estimated nutritional needs >1 week, unintentional wt loss of 10.6kg/12% <1 month Status Active Problem Recommendation Dietitian Recommendations/Changes continue regular diet and 4oz ensure compact w/ meals d/t acute malnutrition. Lab / Micro Data Result Diagrams: 05/08/21 06:10 05/10/21 06:22 Labs: Laboratory Results - last 24 hr 05/09/21 13:40: Urine Color Yellow, Urine Clarity Clear, Urine pH 6.0, Ur Specific [place] 1.010, Urine Protein Negative, Urine Glucose (UA) Normal, Urine Ketones Negative, Urine Occult Blood 25 H, Urine Nitrite Negative, Urine Bilirubin Negative, Urine Urobilinogen 1 H, Ur Leukocyte Esterase 500 H, Urine RBC 0-5 SEEN, Urine WBC 5-10 SEEN, Ur Squamous Epith Cells 0 SEEN, Urine Bacteria 2+, Urine Mucus 0 SEEN 05/10/21 06:22: Sodium 132 L, Potassium 4.4, Chloride 93 L, Carbon Dioxide 34.0 H, Anion Gap 5, BUN 23 H, Creatinine 0.69 L, Estim Creat Clear Calc 101.15, Est GFR (MDRD) Af Amer 149, Est GFR (MDRD) Non-Af 123, BUN/Creatinine Ratio 33.4 H, Glucose 108 H, Calcium 8.9 Micro: Microbiology 05/09/21 13:40 Urine, Catheterized Urine Culture - Preliminary GPC Poss Enterococcus sp 05/06/21 01:48 Urine Catheter - Abreu Legionella Antigen - Final 05/06/21 01:48 Urine Catheter - Abreu Streptococcus pneumoniae Antigen (M - Final 04/20/21 15:10 Blood Culture (Wb) - Left Hand Blood Culture - Final No growth in 5 days. 04/20/21 13:10 Blood Culture (Wb) - Anticubital Right Blood Culture - Final No growth in 5 days. 04/21/21 17:07 Urine, Clean Catch Legionella Antigen - Final 04/21/21 17:07 Urine, Clean Catch Streptococcus pneumoniae Antigen (M - Final 04/20/21 12:10 Nasal Secretion SARS-CoV-2 Antigen (Rapid) - Final SARS-CoV-2 (COVID 19) Physical Exam Const no apparent distress Resp normal respiratory effort and no retractions Resp Narrative: coarse breath sounds Cardio regular rate, regular rhythm, S1 normal heart sound and S2 normal heart sound GI normal to inspection, nondistended, normoactive bowel sounds and soft to palpation GI Narrative: distended bladder Assessment & Plan Assessment/Plan (1) Acute respiratory failure with hypoxia: (2) Pneumonia due to COVID-19 virus: (3) Urinary retention: PLAN: 1. Acute hypoxic respiratory failure improved slightly 2/2 COVID 19 infectious work up negative on the 6th, repeat antigens negative. SCx not available. on IV furosemide 2. Acute COVID 19 pneumonia unvaccinated ongoing baricitinib completed completed remdesivir and dexamethasone 3. Severe protein calorie malnutrition supplements 4. Mediastinal mass outpt work up 5. Urinary retention abreu dc'd 05/08 05/09: continue straight cath PRN. add tamsulosin, phenazopyridine. Check UA and UCx. VTE prophylaxis: LMWH. 6. UTI catheter associated UCx showing greater than 100k Enterococcus sp, though UA was unremarkable start vancomycin Dispo: TBD. LTAC if oxygenation does not improve, SNF if he can managed on NC. Charges/Coding Visit Charges Inpatient E&M: 47003 Subs Hosp L2
--- NOTE | 2021-05-10 15:10 | PCM.RX.CS ---
Consult Pharmacy has been consulted to manage selected antiobiotic: Vancomycin Type of Consult: New start Suspected Infection: Other Labs: Sodium 132 mmol/L (136-145) L 05/10/21 06:22 Potassium 4.4 mmol/L (3.5-5.1) 05/10/21 06:22 Chloride 93 mmol/L (98-107) L 05/10/21 06:22 Carbon Dioxide 34.0 mmol/L (21.0-32.0) H 05/10/21 06:22 Anion Gap 5 (5-15) 05/10/21 06:22 BUN 23 mg/dL (7-18) H 05/10/21 06:22 Creatinine 0.69 mg/dL (0.70-1.30) L 05/10/21 06:22 Est GFR (MDRD) Af Amer 149 mL/min (>60) 05/10/21 06:22 Est GFR (MDRD) Non-Af 123 mL/min (>60) 05/10/21 06:22 BUN/Creatinine Ratio 33.4 RATIO (10-20) H 05/10/21 06:22 Glucose 108 mg/dL (74-106) H 05/10/21 06:22 Microbiology: Microbiology 05/09/21 13:40 Urine, Catheterized Urine Culture - Preliminary GPC Poss Enterococcus sp 05/06/21 01:48 Urine Catheter - Murphy Legionella Antigen - Final 05/06/21 01:48 Urine Catheter - Murphy Streptococcus pneumoniae Antigen (M - Final 04/20/21 15:10 Blood Culture (Wb) - Left Hand Blood Culture - Final No growth in 5 days. 04/20/21 13:10 Blood Culture (Wb) - Anticubital Right Blood Culture - Final No growth in 5 days. 04/21/21 17:07 Urine, Clean Catch Legionella Antigen - Final 04/21/21 17:07 Urine, Clean Catch Streptococcus pneumoniae Antigen (M - Final 04/20/21 12:10 Nasal Secretion SARS-CoV-2 Antigen (Rapid) - Final SARS-CoV-2 (COVID 19) Goal Trough: 15-20 mcg/mL Pharmacy Plan for Drug Dosing: NEW START IV VANCOMYCIN Consulting Physician: Dr. Sanderson Indication: Enterococcus UTI Goal Trough: 15-20 SrCr: 0.69 CrCl: 101 mL/min Comments: Loading dose of 1750mg IV x1 ordered and administered 12/25/21 @1447 Vancomcyin Dose: 750mg IV Q8h to start 05/10/21 @2300 Pending Level: 05/11/21 @1430, prior to 4th total dose per protocol Pharmacy Service will continue to monitor and adjust dosing as required.
[2021-05-10] MEDS: Tamsulosin HCl 0.4 MG Capsule PO (16:37)
[2021-05-10] MEDS: 0.9% Saline Lock 10 ML Syringe IV (23:51)
[2021-05-11] VITALS (17 sets, daily range): BP systolic 102–109; BP diastolic 65–77; PULSE 68–110; RESP 12–24; TEMP 36.6–36.9; O2SAT 90–97
--- NOTE | 2021-05-11 01:51 | NURSING ---
updated on patient daily report per phone call. states she will call in tomorrow for further details.
[2021-05-11] MEDS: Phenazopyridine 95 MG Tablet 190 MG PO (06:17)
[2021-05-11] MEDS: 0.9% Saline Lock 10 ML Syringe IV ×3 (06:39→14:20)
[2021-05-11] MEDS: Ipratropium/Albuterol Sulfate 3 ML AMPUL.NEB INHALATION ×3 (07:06→21:46)
--- NOTE | 2021-05-11 07:39 | PCM.PN.HOSP ---
Subjective Subjective Breathing ok on Airvo. Still with urinary retention. Objective Data Objective Data Vital Signs: Vital Signs Temp Pulse Resp BP Pulse Ox 36.6 C 93 20 H 102/65 97 05/11/21 04:45 05/11/21 07:07 05/11/21 05:30 05/11/21 04:45 05/11/21 05:30 Oxygen Flow Rate (L/min) 55 Oxygen Delivery Method Bi-pap Weight: 67 kg Body Mass Index (BMI) 28.3 Intake & Output: Intake and Output for Last 24 Hours 05/09/21 05/10/21 05/11/21 23:59 23:59 23:59 Intake Total 300 / 300 1561 / 1561 427.5 / 427.5 Output Total 1650 / 1650 1325 / 1325 780 / 780 Balance -1350 / -1350 236 / 236 -352.5 / -352.5 Medical Nutrition Assessment Dietitian: Malnutrition Criteria Met Start: 04/21/21 12:38 Freq: Status: Active Protocol: Document 04/30/21 09:47 AG (Rec: 04/30/21 09:48 [id number]) Nutrition Malnutrition Evidence of Malnutrition Exists Yes Malnutrition (severe): Acute Illness/Injury Evidenced By Suboptimal Energy Intake ( Moderate),Weight Loss (Severe) Clinical Problem Acute Disease or Injury Related Malnutrition Etiology severe, acute malnutrition r/t inadequate energy intake w/ COVID illness Signs/Symptoms as evidenced by reported decreased appetite, estimated PO intake meeting <50% of estimated nutritional needs >1 week, unintentional wt loss of 10.6kg/12% <1 month Status Active Problem Recommendation Dietitian Recommendations/Changes continue regular diet and 4oz ensure compact w/ meals d/t acute malnutrition. Lab / Micro Data Result Diagrams: 05/08/21 06:10 05/10/21 06:22 Labs: Laboratory Results - last 24 hr 05/09/21 13:40: Urine Color Yellow, Urine Clarity Clear, Urine pH 6.0, Ur Specific [place] 1.010, Urine Protein Negative, Urine Glucose (UA) Normal, Urine Ketones Negative, Urine Occult Blood 25 H, Urine Nitrite Negative, Urine Bilirubin Negative, Urine Urobilinogen 1 H, Ur Leukocyte Esterase 500 H, Urine RBC 0-5 SEEN, Urine WBC 5-10 SEEN, Ur Squamous Epith Cells 0 SEEN, Urine Bacteria 2+, Urine Mucus 0 SEEN Micro: Microbiology 05/09/21 13:40 Urine, Catheterized Urine Culture - Preliminary GPC Poss Enterococcus sp 05/06/21 01:48 Urine Catheter - Abreu Legionella Antigen - Final 05/06/21 01:48 Urine Catheter - Abreu Streptococcus pneumoniae Antigen (M - Final 04/20/21 15:10 Blood Culture (Wb) - Left Hand Blood Culture - Final No growth in 5 days. 04/20/21 13:10 Blood Culture (Wb) - Anticubital Right Blood Culture - Final No growth in 5 days. 04/21/21 17:07 Urine, Clean Catch Legionella Antigen - Final 04/21/21 17:07 Urine, Clean Catch Streptococcus pneumoniae Antigen (M - Final 04/20/21 12:10 Nasal Secretion SARS-CoV-2 Antigen (Rapid) - Final SARS-CoV-2 (COVID 19) Physical Exam Const alert and no apparent distress Cardio regular rate, regular rhythm, S1 normal heart sound and S2 normal heart sound GI normal to inspection, nondistended, normoactive bowel sounds, soft to palpation, non-tender and non-distended Extremity normal to inspection and full ROM Assessment & Plan Assessment/Plan (1) Acute respiratory failure with hypoxia: (2) Pneumonia due to COVID-19 virus: (3) Urinary retention: PLAN: 1. Acute hypoxic respiratory failure improved slightly 2/2 COVID 19 infectious work up negative on the , repeat antigens negative. SCx not available. Discussed with pt about possible development of fibrosis due to his severe COVID 19. Will defer any additional imaging to pulm. Pt will need to follow up with pulmonology in future. 2. Acute COVID 19 pneumonia unvaccinated ongoing baricitinib completed completed remdesivir and dexamethasone 3. Severe protein calorie malnutrition supplements 4. Mediastinal mass outpt work up 5. Urinary retention abreu dc'd 05/08 05/09: continue straight cath PRN. add tamsulosin, phenazopyridine. Check UA and UCx. 05/11: replace abreu catheter. Follow up with urology as outpt for removal. 6. VTE prophylaxis: LMWH. 7. UTI catheter associated UCx showing greater than 100k Enterococcus sp, though UA was unremarkable start vancomycin Dispo: TBD. LTAC if oxygenation does not improve, SNF if he can managed on NC. Charges/Coding Visit Charges Inpatient E&M: 18887 Subs Hosp L2
[2021-05-11 07:46] LABS: Anion Gap 6 (5-15); BUN 19 mg/dL (7-18); BUN/Creat Ratio 34.1 RATIO (10-20); Calcium,Total 8.4 mg/dL (8.5-10.1); Chloride 100 mmol/L (98-107); Creatinine, Serum 0.56 mg/dL (0.70-1.30); EST Glomerular Filtration Rate 157 mL/min (>60); Est Glom Filt Rate - Afr Amer 189 mL/min (>60); Estimated Creatinine Clearance 124.63 ml/min; Glucose 102 mg/dL (74-106); Potassium 4.5 mmol/L (3.5-5.1); Sodium Level 135 mmol/L (136-145)
[2021-05-11] MEDS: guaiFENesin 1,200 MG Tablet 1200 MG PO ×2 (07:57→21:42)
[2021-05-11] MEDS: Ascorbic Acid 500 MG Tablet 1000 MG PO ×2 (07:57→16:56)
[2021-05-11] MEDS: Pantoprazole Sodium 40 MG Tablet PO (07:58)
[2021-05-11] MEDS: Potassium Chloride Oral Tablet 20 MEQ 40 MEQ PO (07:59)
[2021-05-11] MEDS: Oxymetazoline 0.05% 1 SPRAY SPRAY.BTL 2 SPRAY NASAL (08:00)
--- NOTE | 2021-05-11 08:37 | PN.CC_ITS ---
Assessment & Plan Assessment/Plan (1) Acute respiratory failure with hypoxia: (2) Pneumonia due to COVID-19 virus: PLAN: RECOMMENDATIONS: 1. Continue to wean FiO2 to maintain oxygen saturations at or above 90%. 2. Continue prophylactic Lovenox as ordered. 3. Completed Decadron and baricitinib 4. Reinitiate BiPAP with sleep 5. Diuretics to maintain euvolemic state. 6. Antibiotics for UTI per hospitalist IMPRESSIONS: 1. Acute hypoxic respiratory failure secondary to COVID-19 The patient was initially admitted to the hospital with COVID-19 pneumonia in the setting of progressive dyspnea on April 20. The patient was treated initially with remdesivir. He completed Decadron, but remains on prophylactic Lovenox and baricitinib. Despite the aforementioned, the patient's respiratory status still remains quite tenuous. Plan to continue heated high flow oxygen and wean FiO2 to maintain saturations at or above 90%. Continue diuretics as ordered as tolerated by hemodynamics and renal function. Some concern patient may have developed a fibrotic state given lack of improvement. Will reinitiate BiPAP with sleep given worsening oxygenation in the morning. Would not be unreasonable to evaluate for LTAC placement at this time. 2. Advanced age/nonvaccinated status/history of smoking Complicates care, management, recovery and prognosis. Continue supportive measures as noted above. Consider initiation of medication to help with urination such as Flomax. Defer to hospitalist. This note was generated with [employer] dictation software. It may contain incorrect words, spelling, and punctuation that were not noted in checking the note before signing. Subjective Subjective Patient did okay overnight. Patient was placed on BiPAP and was able to tolerate well. Patient with significantly increased FiO2 requirements this morning. Patient is requesting placement of a Murphy catheter given inability to urinate. Patient is not reporting worsening cough or epistaxis. Objective Data Objective Data Vital Signs: Vital Signs Temp Pulse Resp BP Pulse Ox 36.6 C 88 16 102/65 95 05/11/21 04:45 05/11/21 07:07 05/11/21 07:07 05/11/21 04:45 05/11/21 07:07 Oxygen Flow Rate (L/min) 55 Oxygen Delivery Method Bi-pap Weight: 67 kg Body Mass Index (BMI) 28.3 Intake & Output: Intake and Output for Last 24 Hours 05/09/21 05/10/21 05/11/21 23:59 23:59 23:59 Intake Total 300 / 300 1561 / 1561 427.5 / 427.5 Output Total 1650 / 1650 1325 / 1325 780 / 780 Balance -1350 / -1350 236 / 236 -352.5 / -352.5 Medical Nutrition Assessment Dietitian: Malnutrition Criteria Met Start: 04/21/21 1 2:38 Freq: Status: Active Protocol: Document 04/30/21 09:47 AG (Rec: 04/30/21 09:48 [id number]) Nutrition Malnutrition Evidence of Malnutrition Exists Yes Malnutrition (severe): Acute Illness/Injury Evidenced By Suboptimal Energy Intake ( Moderate),Weight Loss (Severe) Clinical Problem Acute Disease or Injury Related Malnutrition Etiology severe, acute malnutrition r/t inadequate energy intake w/ COVID illness Signs/Symptoms as evidenced by reported decreased appetite, estimated PO intake meeting <50% of estimated nutritional needs >1 week, unintentional wt loss of 10.6kg/12% <1 month Status Active Problem Recommendation Dietitian Recommendations/Changes continue regular diet and 4oz ensure compact w/ meals d/t acute malnutrition. Lab / Micro Data Result Diagrams: 05/08/21 06:10 05/11/21 06:54 Labs: Laboratory Results - last 24 hr 05/09/21 13:40: Urine Color Yellow, Urine Clarity Clear, Urine pH 6.0, Ur Specific [place] 1.010, Urine Protein Negative, Urine Glucose (UA) Normal, Urine Ketones Negative, Urine Occult Blood 25 H, Urine Nitrite Negative, Urine Bilirubin Negative, Urine Urobilinogen 1 H, Ur Leukocyte Esterase 500 H, Urine RBC 0-5 SEEN, Urine WBC 5-10 SEEN, Ur Squamous Epith Cells 0 SEEN, Urine Bacteria 2+, Urine Mucus 0 SEEN 05/11/21 06:54: Sodium 135 L, Potassium 4.5, Chloride 100, Carbon Dioxide 29.0, Anion Gap 6, BUN 19 H, Creatinine 0.56 L, Estim Creat Clear Calc 124.63, Est GFR (MDRD) Af Amer 189, Est GFR (MDRD) Non-Af 157, BUN/Creatinine Ratio 34.1 H, Glucose 102, Calcium 8.4 L Micro: Microbiology 05/09/21 13:40 Urine, Catheterized Urine Culture - Final Enterococcus faecalis 05/06/21 01:48 Urine Catheter - Murphy Legionella Antigen - Final 05/06/21 01:48 Urine Catheter - Murphy Streptococcus pneumoniae Antigen (M - Final 04/20/21 15:10 Blood Culture (Wb) - Left Hand Blood Culture - Final No growth in 5 days. 04/20/21 13:10 Blood Culture (Wb) - Anticubital Right Blood Culture - Final No growth in 5 days. 04/21/21 17:07 Urine, Clean Catch Legionella Antigen - Final 04/21/21 17:07 Urine, Clean Catch Streptococcus pneumoniae Antigen (M - Final 04/20/21 12:10 Nasal Secretion SARS-CoV-2 Antigen (Rapid) - Final SARS-CoV-2 (COVID 19) Physical Exam Const alert and no apparent distress Constitutional Narrative: On Airvo General Appearance: cooperative HEENT normocephalic and head/scalp atraumatic Eyes PERRL, EOMs intact bilaterally and conjunctivae normal Neck supple General: trachea midline Chest inspection of chest normal Chest: symmetrical chest wall rise; Negative for crepitus Resp Auscultation: diminished lung sounds; Negative for rales, rhonchi or wheezes Cardio regular rate, regular rhythm, no murmurs and no rub GI normal to inspection, nondistended, normoactive bowel sounds Extremity no clubbing, cyanosis or edema Skin no rashes or lesions noted Neuro moves all extremities and no focal motor deficits Psych cooperative and affect normal Charges/Coding Visit Charges Inpatient E&M: 98640 [facility] Hosp L3
[2021-05-11] MEDS: Enoxaparin 40 MG/0.4 ML Syringe SC ×2 (08:56→21:49)
[2021-05-11] MEDS: Furosemide 40 MG/4 ML Vial IV (08:57)
[2021-05-11 15:28] LABS: Vancomycin, Trough Level 16.2 ug/mL (5.0-15.0)
[2021-05-11] MEDS: Tamsulosin HCl 0.4 MG Capsule PO (16:56)
[2021-05-11] MEDS: Bisacodyl 5 MG Tablet 10 MG PO (16:56)
--- NOTE | 2021-05-11 18:22 | PCM.RX.CS ---
Consult Pharmacy has been consulted to manage selected antiobiotic: Vancomycin Type of Consult: Follow-up Prior Doses of Antibiotics Received/Current Regimen: Medications Vancomycin HCl 750 mg/ Sodium (Chloride) 265 mls @ 250 mls/hr IV Q8H MAINOR Last Admin: 05/11/21 14:16 Dose: 250 mls/hr Documented by: Labs: Sodium 135 mmol/L (136-145) L 05/11/21 06:54 Potassium 4.5 mmol/L (3.5-5.1) 05/11/21 06:54 Chloride 100 mmol/L (98-107) 05/11/21 06:54 Carbon Dioxide 29.0 mmol/L (21.0-32.0) 05/11/21 06:54 Anion Gap 6 (5-15) 05/11/21 06:54 BUN 19 mg/dL (7-18) H 05/11/21 06:54 Creatinine 0.56 mg/dL (0.70-1.30) L 05/11/21 06:54 Est GFR (MDRD) Af Amer 189 mL/min (>60) 05/11/21 06:54 Est GFR (MDRD) Non-Af 157 mL/min (>60) 05/11/21 06:54 BUN/Creatinine Ratio 34.1 RATIO (10-20) H 05/11/21 06:54 Glucose 102 mg/dL (74-106) 05/11/21 06:54 Vancomycin Trough 16.2 ug/mL (5.0-15.0) H 05/11/21 14:30 Microbiology: Microbiology 05/09/21 13:40 Urine, Catheterized Urine Culture - Final Enterococcus faecalis 05/06/21 01:48 Urine Catheter - Murphy Legionella Antigen - Final 05/06/21 01:48 Urine Catheter - Murphy Streptococcus pneumoniae Antigen (M - Final 04/20/21 15:10 Blood Culture (Wb) - Left Hand Blood Culture - Final No growth in 5 days. 04/20/21 13:10 Blood Culture (Wb) - Anticubital Right Blood Culture - Final No growth in 5 days. 04/21/21 17:07 Urine, Clean Catch Legionella Antigen - Final 04/21/21 17:07 Urine, Clean Catch Streptococcus pneumoniae Antigen (M - Final 04/20/21 12:10 Nasal Secretion SARS-CoV-2 Antigen (Rapid) - Final SARS-CoV-2 (COVID 19) Goal Trough: 15-20 mcg/mL Pharmacy Plan for Drug Dosing: In goal range, recheck in 48 hours. Pharmacy Service will continue to monitor and adjust dosing as required. Follow-Up Labs: Trough Vancomycin - 05/13 @ 1430
[2021-05-12] VITALS (17 sets, daily range): BP systolic 91–118; BP diastolic 58–83; PULSE 100–115; RESP 14–22; TEMP 36.7–37.1; O2SAT 91–97
[2021-05-12] MEDS: Ipratropium/Albuterol Sulfate 3 ML AMPUL.NEB INHALATION ×2 (07:00→18:56)
[2021-05-12] MEDS: Pantoprazole Sodium 40 MG Tablet PO (08:24)
[2021-05-12] MEDS: Ascorbic Acid 500 MG Tablet 1000 MG PO ×2 (08:24→18:27)
[2021-05-12] MEDS: guaiFENesin 1,200 MG Tablet 1200 MG PO ×2 (08:25→22:34)
[2021-05-12] MEDS: Furosemide 40 MG/4 ML Vial IV (08:25)
[2021-05-12] MEDS: Potassium Chloride Oral Tablet 20 MEQ 40 MEQ PO (08:25)
[2021-05-12] MEDS: Enoxaparin 40 MG/0.4 ML Syringe SC ×2 (08:34→22:34)
[2021-05-12] MEDS: 0.9% Saline Lock 10 ML Syringe IV (08:34)
--- NOTE | 2021-05-12 11:08 | CASEMGMT ---
Clinicals faxed to Zara and Allison LUNDY. Radha MORFIN CM
[2021-05-12] MEDS: AMOXICILLIN 500 MG CAPSULE PO ×2 (12:54→22:34)
[2021-05-12] MEDS: Senna/Docusate Sodium 1 Tablet PO ×2 (14:46→22:35)
[2021-05-12] MEDS: Magnesium Hydroxide 30 ML UDC PO (14:46)
[2021-05-12] MEDS: Tamsulosin HCl 0.4 MG Capsule PO (18:27)
--- NOTE | 2021-05-12 20:05 | PN.HOSP_ITS ---
Subjective Subjective Patient was seen and examined today, he is currently out of isolation for COVID- 19. Patient is on 62% oxygen at this time, he is not suitable for transfer to an LTAC at this time. Patient does not appear to be in any distress at rest to this examiner. Objective Data Objective Data Vital Signs: Vital Signs Temp Pulse Resp BP Pulse Ox 98.8 F 111 H 18 114/66 95 05/12/21 18:28 05/12/21 19:00 05/12/21 18:28 05/12/21 18:28 05/12/21 18:28 Oxygen Flow Rate (L/min) 55 Oxygen Delivery Method Airvo Weight: 68.2 kg Body Mass Index (BMI) 28.3 Intake & Output: Intake and Output for Last 24 Hours 05/10/21 05/11/21 05/12/21 23:59 23:59 23:59 Intake Total 1561 / 1561 2095.0 / 2095.0 1685 / 1685 Output Total 1325 / 1325 2030 / 2430 2125 / 2125 Balance 236 / 236 65.0 / -335.0 -440 / -440 Medical Nutrition Assessment Dietitian: Malnutrition Criteria Met Start: 04/21/21 12:38 Freq: Status: Active Protocol: Document 04/30/21 09:47 AG (Rec: 04/30/21 09:48 AG [id number]) Nutrition Malnutrition Evidence of Malnutrition Exists Yes Malnutrition (severe): Acute Illness/Injury Evidenced By Suboptimal Energy Intake ( Moderate),Weight Loss (Severe) Clinical Problem Acute Disease or Injury Related Malnutrition Etiology severe, acute malnutrition r/t inadequate energy intake w/ COVID illness Signs/Symptoms as evidenced by reported decreased appetite, estimated PO intake meeting <50% of estimated nutritional needs >1 week, unintentional wt loss of 10.6kg/12% <1 month Status Active Problem Recommendation Dietitian Recommendations/Changes continue regular diet and 4oz ensure compact w/ meals d/t acute malnutrition. Lab / Micro Data Result Diagrams: 05/08/21 06:10 05/11/21 06:54 Micro: Microbiology 05/09/21 13:40 Urine, Catheterized Urine Culture - Final Enterococcus faecalis 05/06/21 01:48 Urine Catheter - Murphy Legionella Antigen - Final 05/06/21 01:48 Urine Catheter - Murphy Streptococcus pneumoniae Antigen (M - Final 04/20/21 15:10 Blood Culture (Wb) - Left Hand Blood Culture - Final No growth in 5 days. 04/20/21 13:10 Blood Culture (Wb) - Anticubital Right Blood Culture - Final No growth in 5 days. 04/21/21 17:07 Urine, Clean Catch Legionella Antigen - Final 04/21/21 17:07 Urine, Clean Catch Streptococcus pneumoniae Antigen (M - Final 04/20/21 12:10 Nasal Secretion SARS-CoV-2 Antigen (Rapid) - Final SARS-CoV-2 (COVID 19) Physical Exam Const alert, oriented x3, no apparent distress and healthy appearing General Appearance: cooperative, well kempt and well developed Orientation / Consciousness: awake, oriented to person, oriented to place and oriented to time HEENT normocephalic, head/scalp atraumatic and moist oral mucous membranes Head and Scalp: normocephalic Eyes PERRL, EOMs intact bilaterally and conjunctivae normal Neck nuchal rigidity, supple, no JVD, thyroid normal and no carotid bruits General: trachea midline Resp normal respiratory effort, no retractions, no use of accessory muscles and clear to auscultation bilaterally Auscultation: Negative for rales, rhonchi or wheezes Cardio regular rate, regular rhythm, no murmurs, no rub and no gallops GI normal to inspection, nondistended, normoactive bowel sounds, soft to palpation, non-tender and non-distended Extremity no clubbing, cyanosis or edema Skin no rashes or lesions noted General Skin Exam: no breakdown Neuro oriented x3, CN's II-XII intact bilaterally, no focal motor deficits and no sensory deficits noted Sensorium / Orientation: awake and alert Speech: speech normal Psych thought process normal and affect normal Assessment & Plan Assessment/Plan (1) COVID-19: PLAN: 1. COVID-19 pneumonia-patient finished baricitinib at this time on 05/06/2021, he has completed remdesivir and Decadron. Patient is on full anticoagulation with Lovenox at this time #2 acute hypoxic respiratory failure secondary to #1 #3 urinary retention-patient currently has a Murphy catheter, this will stay in place-it was discontinued on 05/08/2021 but had to be replaced on 05/11/2021. #4 acute cystitis with Enterococcus faecalis-patient is currently on amoxicillin Patient will most likely need placement in an LTAC when his oxygen requirement comes downward. Charges/Coding Visit Charges Inpatient E&M: 03376 Subs Hosp L2
[2021-05-13] VITALS (23 sets, daily range): BP systolic 91–106; BP diastolic 59–73; PULSE 100–128; RESP 14–32; TEMP 36.6–37.1; O2SAT 89–98
[2021-05-13] MEDS: Ipratropium/Albuterol Sulfate 3 ML AMPUL.NEB INHALATION ×2 (06:30→19:13)
[2021-05-13] MEDS: AMOXICILLIN 500 MG CAPSULE PO ×3 (06:53→22:07)
[2021-05-13] MEDS: guaiFENesin 1,200 MG Tablet 1200 MG PO ×2 (08:50→22:07)
[2021-05-13] MEDS: Potassium Chloride Oral Tablet 20 MEQ 40 MEQ PO (08:50)
[2021-05-13] MEDS: Enoxaparin 40 MG/0.4 ML Syringe SC ×2 (08:50→22:07)
[2021-05-13] MEDS: Pantoprazole Sodium 40 MG Tablet PO (08:51)
[2021-05-13] MEDS: 0.9% Saline Lock 10 ML Syringe IV (08:51)
[2021-05-13] MEDS: Senna/Docusate Sodium 1 Tablet PO ×2 (08:51→22:07)
[2021-05-13] MEDS: Ascorbic Acid 500 MG Tablet 1000 MG PO ×2 (08:51→17:14)
[2021-05-13] MEDS: Furosemide 40 MG/4 ML Vial IV (08:51)
[2021-05-13] MEDS: Sodium Chloride 0.65% 1 SPRAY SPRAY.BTL 2 SPRAY NASAL (08:52)
[2021-05-13] MEDS: LORazepam 0.5 MG Tablet PO ×2 (13:42→22:06)
--- NOTE | 2021-05-13 14:40 | CASEMGMT ---
Spoke with Dea at [facility] and updated her on pt oxygen needs, which are still too high for LTACH admission at this time. CM to follow. Radha MORFIN CM
[2021-05-13] MEDS: Tamsulosin HCl 0.4 MG Capsule 0.8 MG PO (17:14)
--- NOTE | 2021-05-13 20:49 | PCM.PN.HOSP ---
Subjective Subjective Patient was seen and examined today, he remains on high flow oxygen, patient becomes short of breath with any kind of exertion. I placed the patient on a small amount of Ativan for anxiety-pulmonary medicine is not opposed to this. Objective Data Objective Data Vital Signs: Vital Signs Temp Pulse Resp BP Pulse Ox 98.5 F 113 H 18 91/66 96 05/13/21 20:00 05/13/21 20:00 05/13/21 20:00 05/13/21 20:00 05/13/21 20:00 Oxygen Flow Rate (L/min) 55 Oxygen Delivery Method Airvo Weight: 68.9 kg Body Mass Index (BMI) 28.3 Intake & Output: Intake and Output for Last 24 Hours 05/11/21 05/12/21 05/13/21 23:59 23:59 23:59 Intake Total 2095.0 / 2095.0 1685 / 1685 1030 / 1030 Output Total 2030 / 2430 2125 / 2125 1900 / 1900 Balance 65.0 / -335.0 -440 / -440 -870 / -870 Medical Nutrition Assessment Dietitian: Malnutrition Criteria Met Start: 04/21/21 12:38 Freq: Status: Active Protocol: Document 04/30/21 09:47 AG (Rec: 04/30/21 09:48 AG [id number]) Nutrition Malnutrition Evidence of Malnutrition Exists Yes Malnutrition (severe): Acute Illness/Injury Evidenced By Suboptimal Energy Intake ( Moderate),Weight Loss (Severe) Clinical Problem Acute Disease or Injury Related Malnutrition Etiology severe, acute malnutrition r/t inadequate energy intake w/ COVID illness Signs/Symptoms as evidenced by reported decreased appetite, estimated PO intake meeting <50% of estimated nutritional needs >1 week, unintentional wt loss of 10.6kg/12% <1 month Status Active Problem Recommendation Dietitian Recommendations/Changes continue regular diet and 4oz ensure compact w/ meals d/t acute malnutrition. Lab / Micro Data Result Diagrams: 05/08/21 06:10 05/11/21 06:54 Micro: Microbiology 05/09/21 13:40 Urine, Catheterized Urine Culture - Final Enterococcus faecalis 05/06/21 01:48 Urine Catheter - Murphy Legionella Antigen - Final 05/06/21 01:48 Urine Catheter - Murphy Streptococcus pneumoniae Antigen (M - Final 04/20/21 15:10 Blood Culture (Wb) - Left Hand Blood Culture - Final No growth in 5 days. 04/20/21 13:10 Blood Culture (Wb) - Anticubital Right Blood Culture - Final No growth in 5 days. 04/21/21 17:07 Urine, Clean Catch Legionella Antigen - Final 04/21/21 17:07 Urine, Clean Catch Streptococcus pneumoniae Antigen (M - Final 04/20/21 12:10 Nasal Secretion SARS-CoV-2 Antigen (Rapid) - Final SARS-CoV-2 (COVID 19) Physical Exam Const alert, oriented x3, no apparent distress and healthy appearing General Appearance: cooperative, well kempt and well developed Orientation / Consciousness: awake, oriented to person, oriented to place and oriented to time HEENT normocephalic and moist oral mucous membranes Eyes PERRL, EOMs intact bilaterally and conjunctivae normal Neck nuchal rigidity, supple, no JVD and thyroid normal General: trachea midline Resp normal respiratory effort, no retractions, no use of accessory muscles and clear to auscultation bilaterally Auscultation: Negative for rales, rhonchi or wheezes Cardio regular rate, regular rhythm, S1 normal heart sound, S2 normal heart sound, no murmurs, no rub and no gallops GI normal to inspection, nondistended, normoactive bowel sounds, soft to palpation, non-tender and non-distended Extremity no clubbing, cyanosis or edema Skin no rashes or lesions noted General Skin Exam: no breakdown Neuro oriented x3, CN's II-XII intact bilaterally, no focal motor deficits and no sensory deficits noted Sensorium / Orientation: awake and alert Speech: speech normal Psych thought process normal and affect normal Assessment & Plan Assessment/Plan (1) COVID-19: PLAN: 1. COVID-19 pneumonia-patient finished baricitinib at this time on 05/06/2021, he has completed remdesivir and Decadron. Patient currently is on prophylactic Lovenox #2 acute hypoxic respiratory failure secondary to #1-pulse ox will be monitored, pulmonary medicine is following the patient #3 urinary retention-patient currently has a Murphy catheter, this will stay in place-it was discontinued on 05/08/2021 but had to be replaced on 05/11/2021. There are no plans for removal of his catheter at this time #4 acute cystitis with Enterococcus faecalis-patient is currently on amoxicillin Patient will most likely need placement in an LTAC when his oxygen requirement improves. Charges/Coding Visit Charges Inpatient E&M: 30786 Subs Hosp L2
[2021-05-14] VITALS (22 sets, daily range): BP systolic 96–113; BP diastolic 63–80; PULSE 94–132; RESP 12–36; TEMP 36.7–37.8; O2SAT 92–99
[2021-05-14] MEDS: LORazepam 0.5 MG Tablet PO (05:50)
[2021-05-14] MEDS: AMOXICILLIN 500 MG CAPSULE PO ×3 (05:50→20:42)
[2021-05-14] MEDS: Ipratropium/Albuterol Sulfate 3 ML AMPUL.NEB INHALATION ×3 (07:21→18:59)
[2021-05-14] MEDS: Ascorbic Acid 500 MG Tablet 1000 MG PO ×2 (08:49→16:19)
[2021-05-14] MEDS: Potassium Chloride Oral Tablet 20 MEQ 40 MEQ PO (08:49)
[2021-05-14] MEDS: Pantoprazole Sodium 40 MG Tablet PO (08:50)
[2021-05-14] MEDS: Enoxaparin 40 MG/0.4 ML Syringe SC ×2 (08:50→20:45)
[2021-05-14] MEDS: Furosemide 40 MG/4 ML Vial IV (08:50)
[2021-05-14] MEDS: 0.9% Saline Lock 10 ML Syringe IV (08:50)
[2021-05-14] MEDS: Senna/Docusate Sodium 1 Tablet PO ×2 (08:50→20:42)
[2021-05-14] MEDS: guaiFENesin 1,200 MG Tablet 1200 MG PO ×2 (08:50→20:42)
--- NOTE | 2021-05-14 14:45 | CT_ITS ---
STUDY: CTA CHEST REASON FOR EXAM: Male, 66 years old. rule out PE, hypoxia, COVID on bypap RADIATION DOSAGE (If Supplied By Facility): CTDIvol = ( 9.71 ) mGy, DLP = ( 330.88 ) mGycm TECHNIQUE: The examination was performed with the intravenous administration of IV 100mL Isovue-370. Post-processing of the angiographic images was performed, with multiplanar reformation and 3D reconstruction. Individualized dose optimization techniques were used for this CT. COMPARISON: 04/20/2021 FINDINGS: Normal enhancement of the main pulmonary artery and right and left pulmonary arteries. The interlobar segmental and proximal to mid subsegmental vessels well opacified without evidence for intraluminal clot. More distal subsegmental vessels are less well visualized due to artifact and overlying airspace disease.. Normal thoracic aorta and visualized great vessels. There is no demonstrated aortic dissection. Heart size is normal. There is mild coronary artery calcification. Rim calcified lesion in the anterior superior mediastinal fat of indeterminate etiology possibly calcified lymph node or calcified thymoma. Normal hilar regions. Normal visualized trachea and bronchi. The lungs are well expanded. There is interstitial thickening with emphysematous changes.. There are multifocal patchy and confluent areas of groundglass density in both upper and lower lobes more pronounced peripherally consistent with clinical history of Covid 19 pneumonia. There is questionable tiny effusion at the right base Normal chest wall structures. Dorsal spine demonstrates mild spondylosis Normal visualized upper abdomen. There has been interval progression of airspace disease since previous study. CT/CTA Chest W/WO Contrast IMPRESSION: Findings consistent with COPD and superimposed changes of Covid 19 pneumonia with slight interval progression since previous study. Question tiny right pleural effusion. No definitive evidence for pulmonary embolus given limited limited visualization of distal subsegmental vessels Would recommend DOPPLER scan of the deep venous system of lower extremities for further evaluation if clinically warranted Electronically Signed: Harinder Crespo MD at 16:14 EST , Service support ,
[2021-05-14] MEDS: Tamsulosin HCl 0.4 MG Capsule 0.8 MG PO (16:19)
--- NOTE | 2021-05-14 20:46 | PN.HOSP_ITS ---
Subjective Subjective Patient was seen and examined today, I had a lengthy conversation with his daughter about his medical condition, also talked with pulmonary medicine about his care. Pulmonary medicine suggested that we obtain a CTA of the chest which was done today and did not show any evidence of pulmonary emboli. There was noted to be evidence of COPD however. 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 I had a discussion with the patient concerning his respiratory status, he has been marginal on high supplemental FiO2, I asked the patient whether he would want to be intubated if it was necessary, I told him that it would be unlikely that we would be able to get him off the ventilator due to his protracted course from his COVID-19 infection. Patient states that he would be in favor of intubation, he knows that there could be complications from this however. Objective Data Objective Data Vital Signs: Vital Signs Temp Pulse Resp BP Pulse Ox 100.0 F H 121 H 36 H 102/75 96 05/14/21 20:00 05/14/21 20:00 05/14/21 20:00 05/14/21 20:00 05/14/21 20:00 Oxygen Flow Rate (L/min) 55 Oxygen Delivery Method Airvo Weight: 75.4 kg Body Mass Index (BMI) 28.3 Intake & Output: Intake and Output for Last 24 Hours 05/12/21 05/13/21 05/14/21 23:59 23:59 23:59 Intake Total 1685 / 1685 1030 / 1030 660 / 660 Output Total 2125 / 2125 1999 / 1999 2150 / 2150 Balance -440 / -440 -970 / -970 -1490 / -1490 Medical Nutrition Assessment Dietitian: Malnutrition Criteria Met Start: 04/21/21 12:38 Freq: Status: Active Protocol: Document 04/30/21 09:47 AG (Rec: 04/30/21 09:48 AG [id number]) Nutrition Malnutrition Evidence of Malnutrition Exists Yes Malnutrition (severe): Acute Illness/Injury Evidenced By Suboptimal Energy Intake ( Moderate),Weight Loss (Severe) Clinical Problem Acute Disease or Injury Related Malnutrition Etiology severe, acute malnutrition r/t inadequate energy intake w/ COVID illness Signs/Symptoms as evidenced by reported decreased appetite, estimated PO intake meeting <50% of estimated nutritional needs >1 week, unintentional wt loss of 10.6kg/12% <1 month Status Active Problem Recommendation Dietitian Recommendations/Changes continue regular diet and 4oz ensure compact w/ meals d/t acute malnutrition. Lab / Micro Data Result Diagrams: 05/08/21 06:10 05/11/21 06:54 Micro: Microbiology 05/09/21 13:40 Urine, Catheterized Urine Culture - Final Enterococcus faecalis 05/06/21 01:48 Urine Catheter - Murphy Legionella Antigen - Final 05/06/21 01:48 Urine Catheter - Murphy Streptococcus pneumoniae Antigen (M - Final 04/20/21 15:10 Blood Culture (Wb) - Left Hand Blood Culture - Final No growth in 5 days. 04/20/21 13:10 Blood Culture (Wb) - Anticubital Right Blood Culture - Final No growth in 5 days. 04/21/21 17:07 Urine, Clean Catch Legionella Antigen - Final 04/21/21 17:07 Urine, Clean Catch Streptococcus pneumoniae Antigen (M - Final 04/20/21 12:10 Nasal Secretion SARS-CoV-2 Antigen (Rapid) - Final SARS-CoV-2 (COVID 19) Radiography Diagnostic Testing: Radiology Impression Chest CTA 05/14/21 14:45 IMPRESSION: Findings consistent with COPD and superimposed changes of Covid 19 pneumonia with slight interval progression since previous study. Question tiny right pleural effusion. No definitive evidence for pulmonary embolus given limited limited visualization of distal subsegmental vessels Would recommend DOPPLER scan of the deep venous system of lower extremities for further evaluation if clinically warranted Electronically Signed: Harinder Crespo MD at 16:14 EST , Service support , Physical Exam Const alert and oriented x3 General Appearance: cooperative, well kempt and well developed Orientation / Consciousness: awake, oriented to person, oriented to place and oriented to time HEENT normocephalic, head/scalp atraumatic and moist oral mucous membranes Head and Scalp: normocephalic Eyes PERRL, EOMs intact bilaterally and conjunctivae normal Neck nuchal rigidity, supple, no JVD, thyroid normal and no carotid bruits General: trachea midline Resp normal respiratory effort, no retractions, no use of accessory muscles and clear to auscultation bilaterally Resp Narrative: Patient does not appear dyspneic at rest. Auscultation: Negative for rales, rhonchi or wheezes Cardio regular rate, regular rhythm, S1 normal heart sound, S2 normal heart sound, no murmurs, no rub and no gallops GI normal to inspection, nondistended, normoactive bowel sounds, soft to palpation, non-tender and non-distended Extremity normal to inspection and no clubbing, cyanosis or edema Skin no rashes or lesions noted and no wounds General Skin Exam: no breakdown Neuro oriented x3, CN's II-XII intact bilaterally, no focal motor deficits and no sensory deficits noted Sensorium / Orientation: awake and alert Speech: speech normal Psych thought process normal and affect normal Assessment & Plan Assessment/Plan (1) COVID-19: PLAN: 1. COVID-19 pneumonia-patient finished baricitinib at this time on 05/06/2021, he has completed remdesivir and Decadron. Patient currently is on prophylactic Lovenox, patient's family and patient understand that the patient is is in serious condition at this time and his respiratory status is tenuous. Again patient was to be placed on the vent if necessary. #2 acute hypoxic respiratory failure secondary to #1-pulse ox will be monitored, pulmonary medicine is following the patient, CTA of the chest today did not show any evidence of pulmonary emboli, there is evidence of COPD however. #3 urinary retention-patient currently has a Murphy catheter, this will stay in place-it was discontinued on 05/08/2021 but had to be replaced on 05/11/2021. There are no plans for removal of his catheter at this time #4 acute cystitis with Enterococcus faecalis-patient is currently on amoxicillin #5 chronic obstructive pulmonary disease-patient is currently on aerosol treatments, this complicates care and recovery of the patient Patient will most likely need placement in an LTAC when his oxygen requirement improves. Patient's overall status is serious, I feel that he will most likely require intubation in the near future if there is no improvement in his respiratory status soon Charges/Coding Visit Charges Inpatient E&M: 38470 Subs Hosp L2
[2021-05-15] VITALS (21 sets, daily range): BP systolic 94–108; BP diastolic 59–78; PULSE 105–136; RESP 12–34; TEMP 36.4–37.4; O2SAT 88–99
--- NOTE | 2021-05-15 02:36 | CPS ---
decreased fio2 to 65%
[2021-05-15] MEDS: AMOXICILLIN 500 MG CAPSULE PO ×3 (06:25→21:45)
[2021-05-15] MEDS: Ipratropium/Albuterol Sulfate 3 ML AMPUL.NEB INHALATION ×3 (07:29→20:20)
[2021-05-15] MEDS: guaiFENesin 1,200 MG Tablet 1200 MG PO ×2 (09:41→21:45)
[2021-05-15] MEDS: Senna/Docusate Sodium 1 Tablet PO ×2 (09:41→21:45)
[2021-05-15] MEDS: Ascorbic Acid 500 MG Tablet 1000 MG PO ×2 (09:41→17:05)
[2021-05-15] MEDS: Enoxaparin 40 MG/0.4 ML Syringe SC ×2 (09:41→21:45)
[2021-05-15] MEDS: Furosemide 40 MG/4 ML Vial IV (09:41)
[2021-05-15] MEDS: Potassium Chloride Oral Tablet 20 MEQ 40 MEQ PO (09:41)
[2021-05-15] MEDS: 0.9% Saline Lock 10 ML Syringe IV (09:42)
[2021-05-15] MEDS: Pantoprazole Sodium 40 MG Tablet PO (09:42)
[2021-05-15] MEDS: LORazepam 0.5 MG Tablet PO ×2 (09:43→22:47)
[2021-05-15] MEDS: Tamsulosin HCl 0.4 MG Capsule 0.8 MG PO (17:05)
--- NOTE | 2021-05-15 17:43 | PN.HOSP_ITS ---
Subjective Subjective The date of this dictation is 05/15/2021: Patient was seen and examined today, he remains on Airvo high flow oxygen. I had a long discussion with his today about his medical condition and basically told her there was nothing more that we could do for her of the did not support him with supplemental o xygen, aerosol treatments, and IV diuretics. Also told her that if he wound up on the ventilator there was can be a high possibility that he would never get off the ventilator. Objective Data Objective Data Vital Signs: Vital Signs Temp Pulse Resp BP Pulse Ox 97.3 F L 106 H 39 H 95/56 L 92 05/16/21 14:00 05/16/21 17:00 05/16/21 17:00 05/16/21 17:00 05/16/21 17:00 Oxygen Flow Rate (L/min) 55 Oxygen Delivery Method Bi-pap Weight: 76 kg Body Mass Index (BMI) 28.3 Intake & Output: Intake and Output for Last 24 Hours 05/14/21 05/15/21 05/16/21 23:59 23:59 23:59 Intake Total 660 / 810 1230 / 1230 640 / 640 Output Total 2150 / 2475 2024 / 2024 800 / 800 Balance -1490 / -1665 -795 / -795 -160 / -160 Medical Nutrition Assessment Dietitian: Malnutrition Criteria Met Start: 04/21/21 12:38 Freq: Status: Active Protocol: Document 05/15/21 15:10 AG (Rec: 05/15/21 15:10 [id number]) Nutrition Malnutrition Evidence of Malnutrition Exists Yes Malnutrition (severe): Acute Illness/Injury Evidenced By Suboptimal Energy Intake ( Moderate),Weight Loss (Severe) Clinical Problem Acute Disease or Injury Related Malnutrition Etiology severe, acute malnutrition r/t inadequate energy intake w/ COVID illness Signs/Symptoms as evidenced by reported decreased appetite, estimated PO intake meeting <50% of estimated nutritional needs >1 week, unintentional 8.8kg/10% wt loss since 04/20 admission Status Active Problem Recommendation Dietitian Recommendations/Changes continue regular diet, 8oz ensure enlive w/ meals d/t acute malnutrition. Lab / Micro Data Result Diagrams: 05/16/21 08:34 05/16/21 08:34 Labs: Laboratory Results - last 24 hr 05/16/21 08:34: WBC 10.2, RBC 4.09 L, Hgb 12.6 L, Hct 38.6 L, MCV 94.4 H, MCH 30.8, MCHC 32.6, RDW Std Deviation 47.0 H, RDW Coeff of Alyson 13.6, Plt Count 331, MPV 9.2, Immature Gran % (Auto) 2.200 H, Neut % (Auto) 75.7 H, Lymph % (Auto) 8.8 L, [place] % (Auto) 7.7, Eos % (Auto) 5.2 H, Baso % (Auto) 0.4, Absolute Neuts (auto) 7.7, Absolute Lymphs (auto) 0.89, Nucleated RBC % 0 05/16/21 08:34: Sodium 132 L, Potassium 4.6, Chloride 93 L, Carbon Dioxide 34.0 H, Anion Gap 5, BUN 14, Creatinine 0.65 L, Estim Creat Clear Calc 109.62, Est GFR (MDRD) Af Amer 157, Est GFR (MDRD) Non-Af 130, BUN/Creatinine Ratio 21.4 H, Glucose 124 H, Calcium 8.5, Total Bilirubin 0.70, AST 30, ALT 73 H, Alkaline Phosphatase 120 H, Troponin I High Sens 7, Total Protein 6.3 L, Albumin 2.0 L, Globulin 4.3 H, Albumin/Globulin Ratio 0.5 L 05/16/21 08:34: B-Natriuretic Peptide 20.1 05/16/21 08:34: Procalcitonin 0.26 H Micro: Microbiology 05/16/21 06:20 Sputum, Expectorated/Coughed Gram Stain - Final 05/16/21 06:20 Sputum, Expectorated/Coughed Respiratory Culture - Final 05/09/21 13:40 Urine, Catheterized Urine Culture - Final Enterococcus faecalis 05/06/21 01:48 Urine Catheter - Murphy Legionella Antigen - Final 05/06/21 01:48 Urine Catheter - Murphy Streptococcus pneumoniae Antigen (M - Final 04/20/21 15:10 Blood Culture (Wb) - Left Hand Blood Culture - Final No growth in 5 days. 04/20/21 13:10 Blood Culture (Wb) - Anticubital Right Blood Culture - Final No growth in 5 days. 04/21/21 17:07 Urine, Clean Catch Legionella Antigen - Final 04/21/21 17:07 Urine, Clean Catch Streptococcus pneumoniae Antigen (M - Final 04/20/21 12:10 Nasal Secretion SARS-CoV-2 Antigen (Rapid) - Final SARS-CoV-2 (COVID 19) Physical Exam Narrative GENERAL: Dyspneic at rest on Airvo HEENT: Atraumatic; EYES; Anicteric, Normal Conjunctiva NECK; supple, normal thyroid, RESPIRATORY: Diminished to auscultation CARDIOVASCULAR: Regular S1 S2, GI: soft, normoactive bowel sounds, : No Renal angle tenderness; EXTREMITIES: No edema, no clubbing, MUSCULOSKELETAL: no muscle waisting NEURO: Awake; no lateralizing signs. SKIN: No Rash PSYCH; Flat affect Const alert, oriented x3 and no apparent distress Constitutional Narrative: on Airvo General Appearance: cooperative, well kempt and well developed Orientation / Consciousness: awake, oriented to person, oriented to place and oriented to time HEENT normocephalic, head/scalp atraumatic and moist oral mucous membranes Head and Scalp: normocephalic Eyes PERRL, EOMs intact bilaterally and conjunctivae normal Neck nuchal rigidity, supple, no JVD, thyroid normal and no carotid bruits General: trachea midline Resp normal respiratory effort, no retractions, no use of accessory muscles and clear to auscultation bilaterally Resp Narrative: Patient does not appear dyspneic at rest. Auscultation: Negative for rales, rhonchi or wheezes Cardio regular rate, regular rhythm, S1 normal heart sound, S2 normal heart sound, no murmurs, no rub and no gallops GI normal to inspection, nondistended, normoactive bowel sounds, soft to palpation, non-tender and non-distended GI Narrative: distended bladder Extremity no clubbing, cyanosis or edema Skin no rashes or lesions noted General Skin Exam: no breakdown Neuro oriented x3, CN's II-XII intact bilaterally, no focal motor deficits and no sensory deficits noted Sensorium / Orientation: awake and alert Speech: speech normal Psych thought process normal and affect normal Assessment & Plan Assessment/Plan (1) COVID-19: PLAN: 1. COVID-19 pneumonia-patient finished baricitinib at this time on 05/06/2021, he has completed remdesivir and Decadron. Patient currently is on prophylactic Lovenox, patient's family and patient understand that the patient is is in serious condition at this time and his respiratory status is tenuous. Again patient wants to be placed on the vent if necessary. #2 acute hypoxic respiratory failure secondary to #1-pulse ox will be monitored, pulmonary medicine is following the patient, CTA of the chest yesterday did not show any evidence of pulmonary emboli, there is evidence of COPD however. #3 urinary retention-patient currently has a Murphy catheter, this will stay in place-it was discontinued on 05/08/2021 but had to be replaced on 05/11/2021. There are no plans for removal of his catheter at this time #4 acute cystitis with Enterococcus faecalis-patient is currently on amoxicillin #5 chronic obstructive pulmonary disease-patient is currently on aerosol treatments, this complicates care and recovery of the patient Patient's overall medical condition is serious at this time, it is most likely that he will wind up on the ventilator if he tires from an effort to oxygenate. Charges/Coding Visit Charges Inpatient E&M: 30932 Subs Hosp L2
[2021-05-15] MEDS: Acetaminophen 325 MG Tablet 650 MG PO (20:21)
[2021-05-15] MEDS: Sodium Chloride 0.65% 1 SPRAY SPRAY.BTL 2 SPRAY NASAL (20:21)
[2021-05-15] MEDS: DiphenhydrAMINE 50 MG/ML Syringe 12.5 MG IV (20:23)
[2021-05-15] MEDS: Oxymetazoline 0.05% 1 SPRAY SPRAY.BTL 2 SPRAY NASAL (21:45)
[2021-05-15] MEDS: MELATONIN 3 MG TABLET PO (22:47)
[2021-05-16] VITALS (28 sets, daily range): BP systolic 91–129; BP diastolic 49–85; PULSE 101–144; RESP 12–43; TEMP 36.3–37; O2SAT 88–96
[2021-05-16] MEDS: Acetaminophen 325 MG Tablet 650 MG PO (04:10)
[2021-05-16] MEDS: AMOXICILLIN 500 MG CAPSULE PO (06:14)
--- NOTE | 2021-05-16 07:49 | PCM.PN.INT ---
Assessment & Plan Assessment/Plan (1) Acute respiratory failure with hypoxia: (2) Pneumonia due to COVID-19 virus: PLAN: RECOMMENDATIONS: 1. Continue to wean FiO2 to maintain oxygen saturations at or above 90%. 2. Obtain repeat morning labs, troponin, BNP and procalcitonin. 3. Check MRSA screen. 4. Start empiric broad-spectrum antimicrobials. 5. Continue Lovenox as ordered. 6. Restart IV Decadron. 7. Continue diuretics as tolerated. 8. Recommend transfer to ICU if clinical state or oxygenation precipitously worsens. IMPRESSIONS: 1. Acute hypoxic respiratory failure secondary to COVID-19 The patient was initially admitted to the hospital with COVID-19 pneumonia in the setting of progressive dyspnea on April 20. The patient was treated initially with remdesivir. He completed Decadron and baricitinib. Despite the aforementioned, the patient's respiratory status still remains quite tenuous. Repeat CTA chest was completed on May 14 and again failed to demonstrate evidence of pulmonary embolism. There continues to be extensive bilateral airspace disease. The patient has been diuresed extensively over the course of his hospitalization. He remains on prophylactic Lovenox. Given the aforementioned, plan to restart him on broad-spectrum antimicrobials. In addition, he will be placed back on a second round of IV Decadron. 2. Advanced age/nonvaccinated status/history of smoking Complicates care, management, recovery and prognosis. Continue supportive measures as noted above. This note was generated with [employer] dictation software. It may contain incorrect words, spelling, and punctuation that were not noted in checking the note before signing. Subjective Subjective The patient was seen and examined at the bedside this morning. Events from the last 24 hours have been reviewed. The patient is currently afebrile, hemodynamically stable and maintaining appropriate oxygen saturations on Airvo heated high flow with an FiO2 requirement of 90% and flow rate of 55 L/min. The patient wore BiPAP for period of time last night. The patient is overall net -16 L for the hospitalization. He remains on prophylactic Lovenox, bronchodilators and IV Lasix. He does report ongoing dyspnea and a mild productive cough. Objective Data Objective Data The patient's most recent lab work, culture data and imaging studies have all been personally reviewed. Rapid coronavirus antigen testing was positive on April 20. Urine culture dated May 09 was positive for Enterococcus. Vital Signs: Vital Signs Temp Pulse Resp BP Pulse Ox 97.9 F 115 H 34 H 103/64 95 05/16/21 04:22 05/16/21 04:22 05/16/21 04:22 05/16/21 04:22 05/16/21 04:22 Oxygen Flow Rate (L/min) 55 Oxygen Delivery Method Bi-pap Weight: 76 kg Body Mass Index (BMI) 28.3 Intake & Output: Intake and Output for Last 24 Hours 05/14/21 05/15/21 05/16/21 23:59 23:59 23:59 Intake Total 660 / 810 1230 / 1230 Output Total 2150 / 2475 2024 / 2024 450 / 450 Balance -1490 / -1665 -795 / -795 -450 / -450 Medical Nutrition Assessment Dietitian: Malnutrition Criteria Met Start: 04/21/21 12:38 Freq: Status: Active Protocol: Document 05/15/21 15:10 AG (Rec: 05/15/21 15:10 [id number]) Nutrition Malnutrition Evidence of Malnutrition Exists Yes Malnutrition (severe): Acute Illness/Injury Evidenced By Suboptimal Energy Intake ( Moderate),Weight Loss (Severe) Clinical Problem Acute Disease or Injury Related Malnutrition Etiology severe, acute malnutrition r/t inadequate energy intake w/ COVID illness Signs/Symptoms as evidenced by reported decreased appetite, estimated PO intake meeting <50% of estimated nutritional needs >1 week, unintentional 8.8kg/10% wt loss since 04/20 admission Status Active Problem Recommendation Dietitian Recommendations/Changes continue regular diet, 8oz ensure enlive w/ meals d/t acute malnutrition. Lab / Micro Data Result Diagrams: 05/08/21 06:10 05/11/21 06:54 Micro: Microbiology 05/09/21 13:40 Urine, Catheterized Urine Culture - Final Enterococcus faecalis 05/06/21 01:48 Urine Catheter - Murphy Legionella Antigen - Final 05/06/21 01:48 Urine Catheter - Murphy Streptococcus pneumoniae Antigen (M - Final 04/20/21 15:10 Blood Culture (Wb) - Left Hand Blood Culture - Final No growth in 5 days. 04/20/21 13:10 Blood Culture (Wb) - Anticubital Right Blood Culture - Final No growth in 5 days. 04/21/21 17:07 Urine, Clean Catch Legionella Antigen - Final 04/21/21 17:07 Urine, Clean Catch Streptococcus pneumoniae Antigen (M - Final 04/20/21 12:10 Nasal Secretion SARS-CoV-2 Antigen (Rapid) - Final SARS-CoV-2 (COVID 19) Physical Exam Const alert and no apparent distress Constitutional Narrative: On Airvo General Appearance: cooperative HEENT normocephalic and head/scalp atraumatic Eyes PERRL, EOMs intact bilaterally and conjunctivae normal Neck supple General: trachea midline Chest inspection of chest normal Chest: symmetrical chest wall rise; Negative for crepitus Resp Effort and Inspection: tachypneic Auscultation: diminished lung sounds; Negative for rales, rhonchi or wheezes Cardio S1 normal heart sound, S2 normal heart sound, no murmurs and no rub Rate: tachycardic GI normal to inspection, nondistended, normoactive bowel sounds Extremity no clubbing, cyanosis or edema Skin no rashes or lesions noted Neuro moves all extremities and no focal motor deficits Psych Mood & Affect: anxious Charges/Coding Visit Charges Inpatient E&M: 26380 Subs Hosp L3
[2021-05-16] MEDS: Ipratropium/Albuterol Sulfate 3 ML AMPUL.NEB INHALATION ×2 (08:15→19:23)
[2021-05-16] MEDS: Ascorbic Acid 500 MG Tablet 1000 MG PO (08:31)
[2021-05-16] MEDS: Oxymetazoline 0.05% 1 SPRAY SPRAY.BTL 2 SPRAY NASAL ×2 (08:31→21:50)
[2021-05-16] MEDS: Potassium Chloride Oral Tablet 20 MEQ 40 MEQ PO (08:31)
[2021-05-16] MEDS: Furosemide 40 MG/4 ML Vial IV (08:32)
[2021-05-16] MEDS: Pantoprazole Sodium 40 MG Tablet PO (08:32)
[2021-05-16] MEDS: Senna/Docusate Sodium 1 Tablet PO ×2 (08:32→21:50)
[2021-05-16] MEDS: guaiFENesin 1,200 MG Tablet 1200 MG PO ×2 (08:32→21:50)
[2021-05-16] MEDS: Enoxaparin 40 MG/0.4 ML Syringe SC ×2 (08:32→21:49)
[2021-05-16] MEDS: 0.9% Saline Lock 10 ML Syringe IV ×2 (08:37→11:14)
[2021-05-16] MEDS: LORazepam 0.5 MG Tablet PO (08:43)
[2021-05-16] MEDS: dexAMETHasone 4 MG/ML Vial 6 MG IV (08:43)
[2021-05-16 08:51] LABS: Absolute Lymphocyte Count 0.89 X10^3/uL (0.83-4.51); Absolute Neutrophil Count 7.7 X10^3/uL (2.0-7.7); Basophil# 0.04 X10^3/uL; Basophil% 0.4 % (0-1); Eosinophil# 0.53 X10^3/uL; Eosinophils% 5.2 % (0-5); Hematocrit 38.6 % (40-54); Hemoglobin 12.6 g/dL (13.0-16.5); Lymphocyte # 0.89 X10^3/ul (0.83-4.51); Lymphocyte % 8.8 % (19-41); Mean Corp Hgb Conc 32.6 g/dL (32-36); Mean Corpuscular Hgb 30.8 pg (27.0-32.0); Mean Corpuscular Volume 94.4 fL (80-94); Mean Platelet Vol. 9.2 fl (6.2-12.0); Monocyte# 0.78 X10^3/uL; Monocyte% 7.7 % (0-10); NRBC Flagged by Analyzer 0 % (0-5); Neutrophil # 7.71 X10^3/uL (2.7-7.7); Neutrophil % 75.7 % (47-70); Platelet Count 331 K/mm3 (150-450); RBC Distribution Width CV 13.6 % (11.6-14.6); Red Blood Count 4.09 M/mm3 (4.6-6.2); White Blood Count 10.2 K/mm3 (4.4-11.0)
[2021-05-16 09:09] LABS: ALB/GLOB Ratio 0.5 RATIO (0.9-2.4); AST(SGOT) 30 U/L (15-37); Alanine Aminotransfer ALT/SGPT 73 U/L (16-61); Alkaline Phosphatase 120 U/L (45-117); Anion Gap 5 (5-15); BUN 14 mg/dL (7-18); BUN/Creat Ratio 21.4 RATIO (10-20); Calcium,Total 8.5 mg/dL (8.5-10.1); Chloride 93 mmol/L (98-107); Creatinine, Serum 0.65 mg/dL (0.70-1.30); EST Glomerular Filtration Rate 130 mL/min (>60); Est Glom Filt Rate - Afr Amer 157 mL/min (>60); Estimated Creatinine Clearance 109.62 ml/min; Globulin 4.3 g/dL (2.2-4.2); Glucose 124 mg/dL (74-106); Potassium 4.6 mmol/L (3.5-5.1); Protein, Total 6.3 g/dL (6.4-8.2); Sodium Level 132 mmol/L (136-145); Troponin-I HS 7 pg/mL (3.0-78.0)
[2021-05-16 09:12] LABS: BNP,B-Type NATRIURETIC PEPTIDE 20.1 pg/mL (0-100)
[2021-05-16 09:28] LABS: Procalcitonin 0.26 ng/mL (0.00-0.09)
--- NOTE | 2021-05-16 12:36 | PCM.RX.CS ---
Consult Pharmacy has been consulted to manage selected antiobiotic: Vancomycin Type of Consult: New start Suspected Infection: Pneumonia Labs: Sodium 132 mmol/L (136-145) L 05/16/21 08:34 Potassium 4.6 mmol/L (3.5-5.1) 05/16/21 08:34 Chloride 93 mmol/L (98-107) L 05/16/21 08:34 Carbon Dioxide 34.0 mmol/L (21.0-32.0) H 05/16/21 08:34 Anion Gap 5 (5-15) 05/16/21 08:34 BUN 14 mg/dL (7-18) 05/16/21 08:34 Creatinine 0.65 mg/dL (0.70-1.30) L 05/16/21 08:34 Est GFR (MDRD) Af Amer 157 mL/min (>60) 05/16/21 08:34 Est GFR (MDRD) Non-Af 130 mL/min (>60) 05/16/21 08:34 BUN/Creatinine Ratio 21.4 RATIO (10-20) H 05/16/21 08:34 Glucose 124 mg/dL (74-106) H 05/16/21 08:34 Vancomycin Trough 16.2 ug/mL (5.0-15.0) H 05/11/21 14:30 Microbiology: Microbiology 05/09/21 13:40 Urine, Catheterized Urine Culture - Final Enterococcus faecalis 05/06/21 01:48 Urine Catheter - Murphy Legionella Antigen - Final 05/06/21 01:48 Urine Catheter - Murphy Streptococcus pneumoniae Antigen (M - Final 04/20/21 15:10 Blood Culture (Wb) - Left Hand Blood Culture - Final No growth in 5 days. 04/20/21 13:10 Blood Culture (Wb) - Anticubital Right Blood Culture - Final No growth in 5 days. 04/21/21 17:07 Urine, Clean Catch Legionella Antigen - Final 04/21/21 17:07 Urine, Clean Catch Streptococcus pneumoniae Antigen (M - Final 04/20/21 12:10 Nasal Secretion SARS-CoV-2 Antigen (Rapid) - Final SARS-CoV-2 (COVID 19) Pharmacy Plan for Drug Dosing: NEW START IV VANCOMYCIN Consulting Physician: TREVOR Indication: PNEUMONIA Goal Trough: 15-20 MG/DL SrCr: 0.65 (05/16) CrCl: 109 ML/MIN Comments: LOADING DOSE OF 2000MG GIVEN 05/16 @ 1109 Vancomycin Dose: START 1000MG Q8 @ 1900 PER POLICY AND GET A TROUGH PRIOR TO 4TH TOTAL DOSE OF REGIMEN. Pending Level: 05/17/21 @ 1030 Pharmacy Service will continue to monitor and adjust dosing as required.
--- NOTE | 2021-05-16 17:48 | PCM.PN.HOSP ---
Subjective Subjective Patient was seen and examined today, he was moved at the advice of pulmonary medicine to the ICU., Talk to the patient today and told him to tell us if he was ready to go on the ventilator, he seemed understand this. At the present time, patient is still stable on BiPAP although his oxygen flow rate is high. Objective Data Objective Data Vital Signs: Vital Signs Temp Pulse Resp BP Pulse Ox 97.3 F L 106 H 39 H 95/56 L 92 05/16/21 14:00 05/16/21 17:00 05/16/21 17:00 05/16/21 17:00 05/16/21 17:00 Oxygen Flow Rate (L/min) 55 Oxygen Delivery Method Bi-pap Weight: 76 kg Body Mass Index (BMI) 28.3 Intake & Output: Intake and Output for Last 24 Hours 05/14/21 05/15/21 05/16/21 23:59 23:59 23:59 Intake Total 660 / 810 1230 / 1230 640 / 640 Output Total 2150 / 2475 2024 / 2024 800 / 800 Balance -1490 / -1665 -795 / -795 -160 / -160 Medical Nutrition Assessment Dietitian: Malnutrition Criteria Met Start: 04/21/21 12:38 Freq: Status: Active Protocol: Document 05/15/21 15:10 AG (Rec: 05/15/21 15:10 AG [id number]) Nutrition Malnutrition Evidence of Malnutrition Exists Yes Malnutrition (severe): Acute Illness/Injury Evidenced By Suboptimal Energy Intake ( Moderate),Weight Loss (Severe) Clinical Problem Acute Disease or Injury Related Malnutrition Etiology severe, acute malnutrition r/t inadequate energy intake w/ COVID illness Signs/Symptoms as evidenced by reported decreased appetite, estimated PO intake meeting <50% of estimated nutritional needs >1 week, unintentional 8.8kg/10% wt loss since 04/20 admission Status Active Problem Recommendation Dietitian Recommendations/Changes continue regular diet, 8oz ensure enlive w/ meals d/t acute malnutrition. Lab / Micro Data Result Diagrams: 05/16/21 08:34 05/16/21 08:34 Labs: Laboratory Results - last 24 hr 05/16/21 08:34: WBC 10.2, RBC 4.09 L, Hgb 12.6 L, Hct 38.6 L, MCV 94.4 H, MCH 30.8, MCHC 32.6, RDW Std Deviation 47.0 H, RDW Coeff of Alyson 13.6, Plt Count 331, MPV 9.2, Immature Gran % (Auto) 2.200 H, Neut % (Auto) 75.7 H, Lymph % (Auto) 8.8 L, [place] % (Auto) 7.7, Eos % (Auto) 5.2 H, Baso % (Auto) 0.4, Absolute Neuts (auto) 7.7, Absolute Lymphs (auto) 0.89, Nucleated RBC % 0 05/16/21 08:34: Sodium 132 L, Potassium 4.6, Chloride 93 L, Carbon Dioxide 34.0 H, Anion Gap 5, BUN 14, Creatinine 0.65 L, Estim Creat Clear Calc 109.62, Est GFR (MDRD) Af Amer 157, Est GFR (MDRD) Non-Af 130, BUN/Creatinine Ratio 21.4 H, Glucose 124 H, Calcium 8.5, Total Bilirubin 0.70, AST 30, ALT 73 H, Alkaline Phosphatase 120 H, Troponin I High Sens 7, Total Protein 6.3 L, Albumin 2.0 L, Globulin 4.3 H, Albumin/Globulin Ratio 0.5 L 05/16/21 08:34: B-Natriuretic Peptide 20.1 05/16/21 08:34: Procalcitonin 0.26 H Micro: Microbiology 05/16/21 06:20 Sputum, Expectorated/Coughed Gram Stain - Final 05/16/21 06:20 Sputum, Expectorated/Coughed Respiratory Culture - Final 05/09/21 13:40 Urine, Catheterized Urine Culture - Final Enterococcus faecalis 05/06/21 01:48 Urine Catheter - Murphy Legionella Antigen - Final 05/06/21 01:48 Urine Catheter - Murphy Streptococcus pneumoniae Antigen (M - Final 04/20/21 15:10 Blood Culture (Wb) - Left Hand Blood Culture - Final No growth in 5 days. 04/20/21 13:10 Blood Culture (Wb) - Anticubital Right Blood Culture - Final No growth in 5 days. 04/21/21 17:07 Urine, Clean Catch Legionella Antigen - Final 04/21/21 17:07 Urine, Clean Catch Streptococcus pneumoniae Antigen (M - Final 04/20/21 12:10 Nasal Secretion SARS-CoV-2 Antigen (Rapid) - Final SARS-CoV-2 (COVID 19) Physical Exam Narrative alert, oriented x3 and no apparent distress Constitutional Narrative: on BiPAP General Appearance: cooperative, well kempt and well developed Orientation / Consciousness: awake, oriented to person, oriented to place and oriented to time HEENT normocephalic, head/scalp atraumatic and moist oral mucous membranes Head and Scalp: normocephalic Eyes PERRL, EOMs intact bilaterally and conjunctivae normal Neck nuchal rigidity, supple, no JVD, thyroid normal and no carotid bruits General: trachea midline Resp normal respiratory effort, no retractions, no use of accessory muscles and clear to auscultation bilaterally Resp Narrative: Patient does not appear dyspneic at rest. Auscultation: Negative for rales, rhonchi or wheezes Cardio regular rate, regular rhythm, S1 normal heart sound, S2 normal heart sound, no murmurs, no rub and no gallops GI normal to inspection, nondistended, normoactive bowel sounds, soft to palpation, non-tender and non-distended GI Narrative: distended bladder Extremity no clubbing, cyanosis or edema Skin no rashes or lesions noted General Skin Exam: no breakdown Neuro oriented x3, CN's II-XII intact bilaterally, no focal motor deficits and no sensory deficits noted Sensorium / Orientation: awake and alert Speech: speech normal Psych thought process normal and affect normal Const alert, oriented x3 and no apparent distress Constitutional Narrative: on Airvo General Appearance: cooperative, well kempt and well developed Orientation / Consciousness: awake, oriented to person, oriented to place and oriented to time HEENT normocephalic, head/scalp atraumatic and moist oral mucous membranes Eyes PERRL, EOMs intact bilaterally and conjunctivae normal Neck nuchal rigidity, supple, no JVD, thyroid normal and no carotid bruits General: trachea midline Resp normal respiratory effort, no retractions, no use of accessory muscles and clear to auscultation bilaterally Resp Narrative: Patient does not appear dyspneic at rest. Auscultation: Negative for rales, rhonchi or wheezes Cardio regular rate, regular rhythm, S1 normal heart sound, S2 normal heart sound, no murmurs, no rub and no gallops GI normal to inspection, nondistended, normoactive bowel sounds, soft to palpation, non-tender and non-distended GI Narrative: distended bladder Extremity normal to inspection, full ROM and no clubbing, cyanosis or edema Skin no rashes or lesions noted and no wounds General Skin Exam: no breakdown Neuro oriented x3, CN's II-XII intact bilaterally, no focal motor deficits and no sensory deficits noted Sensorium / Orientation: awake and alert Speech: speech normal Psych thought process normal and affect normal Assessment & Plan Assessment/Plan (1) COVID-19: PLAN: 1. COVID-19 pneumonia-patient finished baricitinib at this time on 05/06/2021, he has completed remdesivir and Decadron. Patient currently is on prophylactic Lovenox, patient's family and patient understand that the patient is is in serious condition at this time and his respiratory status is tenuous. Again patient wants to be placed on the vent if necessary. #2 acute hypoxic respiratory failure secondary to #1-pulse ox will be monitored, pulmonary medicine is following the patient, patient is currently on BiPAP #3 urinary retention-patient currently has a Murphy catheter, this will stay in place-it was discontinued on 05/08/2021 but had to be replaced on 05/11/2021. There are no plans for removal of his catheter at this time #4 acute cystitis with Enterococcus faecalis-patient is currently on amoxicillin #5 chronic obstructive pulmonary disease-patient is currently on aerosol treatments, this complicates care and recovery of the patient Patient's overall medical condition is serious at this time, it is most likely that he will wind up on the ventilator if he tires from an effort to oxygenate. Charges/Coding Visit Charges Inpatient E&M: 93235 Subs Hosp L2
[2021-05-16] MEDS: Vancomycin IV 1,000 MG/200 ML BAG 200 MG IV (18:51)
[2021-05-16 19:43] LABS: M R Staph aureus DNA By PCR Negative (Negative); Probe Check PASS; Specimen Processing Control PASS
[2021-05-16] MEDS: MELATONIN 3 MG TABLET PO (21:51)
[2021-05-17] VITALS (40 sets, daily range): BP systolic 66–140; BP diastolic 53–84; PULSE 79–145; RESP 10–47; TEMP 36.1–36.9; O2SAT 82–98
[2021-05-17] MEDS: Ipratropium/Albuterol Sulfate 3 ML AMPUL.NEB INHALATION ×3 (00:34→18:50)
--- NOTE | 2021-05-17 01:35 | NURSING ---
Pt assisted in to position in order to have a BM, refused a bedpan, placed a disposable chux underneath. Pt proceeded to have a large BM. Turned once again on to his left side, became tachypneic, hypoxic, and tachycardic. P.ox drops as low as 38%, HR 140s and RR in the 50s. Pt placed semi-Fowlers and allowed to recuperate, bipap fiO2 increased to 100% and EPAP increased to 10 from 8 on BiPAP per RT direction. Emotional support provided to pt.
--- NOTE | 2021-05-17 02:00 | NURSING ---
Hospitalist paged d/t extended recovery time for pt. at bedside for evaluation. Received verbal order to give 4mg Morphine IVP x1, may repeat morphine in 30 minutes if needed at 2mg IVP.
[2021-05-17] MEDS: Morphine 4 MG/ML Syringe IM (02:04)
--- NOTE | 2021-05-17 02:30 | NURSING ---
Pt visualized after morphine 4mg given, resting w/eyes closed, RR low 30s, HR 125, and p.ox 90%.
[2021-05-17] MEDS: Vancomycin IV 1,000 MG/200 ML BAG 200 MG IV ×3 (03:40→22:11)
[2021-05-17 04:15] LABS: Absolute Neutrophil Count 12.1 X10^3/uL (2.0-7.7); Basophil# 0.08 X10^3/uL; Basophil% 0.6 % (0-1); Eosinophils% 0.7 % (0-5); Hematocrit 39.4 % (40-54); Hemoglobin 12.7 g/dL (13.0-16.5); Lymphocyte % 4.9 % (19-41); Mean Corp Hgb Conc 32.2 g/dL (32-36); Mean Corpuscular Hgb 30.4 pg (27.0-32.0); Mean Corpuscular Volume 94.3 fL (80-94); Mean Platelet Vol. 9.4 fl (6.2-12.0); Monocyte# 0.94 X10^3/uL; Monocyte% 6.6 % (0-10); NRBC Flagged by Analyzer 0 % (0-5); Neutrophil # 12.08 X10^3/uL (2.7-7.7); Platelet Count 338 K/mm3 (150-450); RBC Distribution Width CV 13.4 % (11.6-14.6); Red Blood Count 4.18 M/mm3 (4.6-6.2); White Blood Count 14.2 K/mm3 (4.4-11.0)
[2021-05-17 04:34] LABS: Anion Gap 6 (5-15); BUN 17 mg/dL (7-18); BUN/Creat Ratio 35.3 RATIO (10-20); Calcium,Total 8.6 mg/dL (8.5-10.1); Chloride 101 mmol/L (98-107); Creatinine, Serum 0.48 mg/dL (0.70-1.30); EST Glomerular Filtration Rate 185 mL/min (>60); Est Glom Filt Rate - Afr Amer 224 mL/min (>60); Estimated Creatinine Clearance 148.44 ml/min; Glucose 115 mg/dL (74-106); Potassium 4.2 mmol/L (3.5-5.1); Sodium Level 138 mmol/L (136-145)
--- NOTE | 2021-05-17 06:17 | PN.CC_ITS ---
Assessment & Plan Assessment/Plan (1) Acute respiratory failure with hypoxia: (2) Pneumonia due to COVID-19 virus: PLAN: RECOMMENDATIONS: 1. Proceed with intubation. 2. Wean FiO2/PEEP to maintain oxygen saturations at or above 90%. 3. Continue empiric antimicrobials. 4. Obtain and send sputum for culture. 5. Obtain arterial blood gas. 6. Nutrition consultation for tube feed recommendations. 7. Continue Lovenox as ordered. Recheck D-dimer today. 8. Continue second round of IV Decadron. 9. Continue diuretics as tolerated. 10. Continue appropriate GI prophylaxis. IMPRESSIONS: 1. Acute hypoxic respiratory failure secondary to COVID-19 The patient was initially admitted to the hospital with COVID-19 pneumonia in the setting of progressive dyspnea on April 20. The patient completed treatment courses of remdesivir, Decadron and baricitinib. Despite the aforementioned, the patient's respiratory status remained quite tenuous. Repeat CTA chest was completed on May 14 and again failed to demonstrate evidence of pulmonary embolism. There continues to be extensive bilateral airspace disease with a background of chronic lung disease. The patient has been diuresed extensively over the course of his hospitalization. He remains on prophylactic Lovenox. Given the aforementioned, he was placed empirically on broad-spectrum antimicrobials and a second round of Decadron. He ultimately required transfer back to the ICU and intubation on May 17. 2. Advanced age/nonvaccinated status/history of smoking Complicates care, management, recovery and prognosis. Continue supportive girma sures as noted above. Okay to start tube feeds today from my perspective. TIME: 37 minutes of critical care time, inclusive of procedures, was spent addressing the patient's acute hypoxemic respiratory failure secondary to COVID-19 pneumonia, review of all data and collaboration with the care team. Subjective Subjective The patient was seen and examined at the bedside this morning. Events from the last 24 hours have been reviewed. The patient is currently afebrile, hemodynamically stable and maintaining marginal oxygen saturations on BiPAP with an FiO2 of 100%. Yesterday, the patient was transferred back to the ICU from the PCU due to worsening respiratory status. Upon my discussion with the patient, he insisted that he wished to remain a full code and would indeed welcome reintubation, if necessary. The patient was reinitiated on broad- spectrum antimicrobials. In addition, he was restarted on a second round of Decadron. He is currently documented to be overall net -16 L for the hospitalization. Creatinine is stable. The patient still appears quite anxious with ongoing tachycardia and tachypnea. I had a very sal discussion with him this morning regarding his current clinical state and overall goals of care. 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 I explained to the patient that, despite intubation, there is a high degree of likelihood that he will not improve. Despite this, the patient wishes to proceed with intubation. Intubation Indication: Worsening respiratory failure Consent was obtained from: Patient The patient was placed in the appropriate sniffing position. Preoxygenated via BiPAP was provided for a minimum of 3 minutes. The patient had continuous cardiac as well as pulse oximetry monitoring during the procedure. Procedure sedation was provided by the administration of 4 mg of Versed, 20 mg of etomidate and 100 mg of succinylcholine. Direct laryngoscopy was then performed using a number 4 MAC blade, which revealed a grade 1 view. A 8.0 mm endotracheal tube was visualized advancing between the cords to the level of 22 cm at the lip. The stylette was then removed and discarded. Tube placement was confirmed by fogging in the tube along with equal and bilateral breath sounds. Colorimetric change was visualized on the CO2 meter. The cuff was then inflated and the tube secured using a commercially available device. A good pulse oximetry waveform was seen on the monitor throughout the procedure. A portable chest x-ray has been ordered to confirm appropriate placement. The patient tolerated the procedure well. Objective Data Objective Data The patient's most recent lab work, culture data and imaging studies have all been personally reviewed. Rapid coronavirus antigen testing was positive on April 20. Urine culture dated May 09 was positive for Enterococcus. Vital Signs: Vital Signs Temp Pulse Resp BP Pulse Ox 97.8 F 117 H 36 H 103/72 94 05/17/21 04:00 05/17/21 05:52 05/17/21 05:52 05/17/21 05:00 05/17/21 05:52 Oxygen Flow Rate (L/min) 55 Oxygen Delivery Method Bi-pap Weight: 75.1 kg Body Mass Index (BMI) 28.3 Intake & Output: Intake and Output for Last 24 Hours 05/15/21 05/16/2105/17/22 23:59 23:59 23:59 Intake Total 1230 / 1230 890 / 890 Output Total 2024 1050 / 1050 50 / 50 Balance -795 / -795 -160 / -160 -50 / -50 Medical Nutrition Assessment Dietitian: Malnutrition Criteria Met Start: 04/21/21 12:38 Freq: Status: Active Protocol: Document 05/15/21 15:10 AG (Rec: 05/15/21 15:10 AG [id number]) Nutrition Malnutrition Evidence of Malnutrition Exists Yes Malnutrition (severe): Acute Illness/Injury Evidenced By Suboptimal Energy Intake ( Moderate),Weight Loss (Severe) Clinical Problem Acute Disease or Injury Related Malnutrition Etiology severe, acute malnutrition r/t inadequate energy intake w/ COVID illness Signs/Symptoms as evidenced by reported decreased appetite, estimated PO intake meeting <50% of estimated nutritional needs >1 week, unintentional 8.8kg/10% wt loss since 04/20 admission Status Active Problem Recommendation Dietitian Recommendations/Changes continue regular diet, 8oz ensure enlive w/ meals d/t acute malnutrition. Lab / Micro Data Attestation: I reviewed the patient's lab results. Result Diagrams: 05/17/21 04:08 05/17/21 04:08 Labs: Laboratory Results - last 24 hr 05/16/21 08:34: WBC 10.2, RBC 4.09 L, Hgb 12.6 L, Hct 38.6 L, MCV 94.4 H, MCH 30.8, MCHC 32.6, RDW Std Deviation 47.0 H, RDW Coeff of Alyson 13.6, Plt Count 331, MPV 9.2, Immature Gran % (Auto) 2.200 H, Neut % (Auto) 75.7 H, Lymph % (Auto) 8.8 L, [place] % (Auto) 7.7, Eos % (Auto) 5.2 H, Baso % (Auto) 0.4, Absolute Neuts (auto) 7.7, Absolute Lymphs (auto) 0.89, Nucleated RBC % 0 05/16/21 08:34: Sodium 132 L, Potassium 4.6, Chloride 93 L, Carbon Dioxide 34.0 H, Anion Gap 5, BUN 14, Creatinine 0.65 L, Estim Creat Clear Calc 109.62, Est GFR (MDRD) Af Amer 157, Est GFR (MDRD) Non-Af 130, BUN/Creatinine Ratio 21.4 H, Glucose 124 H, Calcium 8.5, Total Bilirubin 0.70, AST 30, ALT 73 H, Alkaline Phosphatase 120 H, Troponin I High Sens 7, Total Protein 6.3 L, Albumin 2.0 L, Globulin 4.3 H, Albumin/Globulin Ratio 0.5 L 05/16/21 08:34: B-Natriuretic Peptide 20.1 05/16/21 08:34: Procalcitonin 0.26 H 05/16/21 18:10: MRSA (PCR) Negative 05/17/21 04:08: WBC 14.2 H, RBC 4.18 L, Hgb 12.7 L, Hct 39.4 L, MCV 94.3 H, MCH 30.4, MCHC 32.2, RDW Std Deviation 46.0 H, RDW Coeff of Alyson 13.4, Plt Count 338, MPV 9.4, Immature Gran % (Auto) 2.200 H, Neut % (Auto) 85.0 H, Lymph % (Auto) 4.9 L, [place] % (Auto) 6.6, Eos % (Auto) 0.7, Baso % (Auto) 0.6, Absolute Neuts (auto) 12.1 H, Absolute Lymphs (auto) 0.70 L, Nucleated RBC % 0 05/17/21 04:08: Sodium 138, Potassium 4.2, Chloride 101, Carbon Dioxide 31.0, Anion Gap 6, BUN 17, Creatinine 0.48 L, Estim Creat Clear Calc 148.44, Est GFR (MDRD) Af Amer 224, Est GFR (MDRD) Non-Af 185, BUN/Creatinine Ratio 35.3 H, Glucose 115 H, Calcium 8.6 Micro: Microbiology 05/16/21 06:20 Sputum, Expectorated/Coughed Gram Stain - Final 05/16/21 06:20 Sputum, Expectorated/Coughed Respiratory Culture - Final 05/09/21 13:40 Urine, Catheterized Urine Culture - Final Enterococcus faecalis 05/06/21 01:48 Urine Catheter - Murphy Legionella Antigen - Final 05/06/21 01:48 Urine Catheter - Murphy Streptococcus pneumoniae Antigen (M - Final 04/20/21 15:10 Blood Culture (Wb) - Left Hand Blood Culture - Final No growth in 5 days. 04/20/21 13:10 Blood Culture (Wb) - Anticubital Right Blood Culture - Final No growth in 5 days. 04/21/21 17:07 Urine, Clean Catch Legionella Antigen - Final 04/21/21 17:07 Urine, Clean Catch Streptococcus pneumoniae Antigen (M - Final 04/20/21 12:10 Nasal Secretion SARS-CoV-2 Antigen (Rapid) - Final SARS-CoV-2 (COVID 19) Physical Exam Const alert Constitutional Narrative: On Airvo General Appearance: cooperative, anxious and on BiPAP HEENT normocephalic and head/scalp atraumatic Mouth: dry mucous membranes Eyes PERRL, EOMs intact bilaterally and conjunctivae normal Neck supple General: trachea midline Chest inspection of chest normal Chest: symmetrical chest wall rise; Negative for crepitus Resp Effort and Inspection: tachypneic Auscultation: diminished lung sounds; Negative for rales, rhonchi or wheezes Cardio S1 normal heart sound, S2 normal heart sound, no murmurs and no rub Rate: tachycardic GI normal to inspection, nondistended, normoactive bowel sounds Extremity no clubbing, cyanosis or edema Skin no rashes or lesions noted Neuro moves all extremities and no focal motor deficits Psych Mood & Affect: anxious Charges/Coding Procedures Hospitalists Procedures: 63222 Critial Care 1st Hr
[2021-05-17] MEDS: Midazolam 2 MG/2 ML Syringe 4 MG IV (08:15)
[2021-05-17] MEDS: Succinylcholine Chloride 200 MG/10 ML SYRINGE 100 MG IV (08:16)
[2021-05-17] MEDS: Etomidate 20 MG/10 ML Vial IV (08:16)
--- NOTE | 2021-05-17 08:17 | RAD_ITS ---
STUDY: X-RAY CHEST REASON FOR EXAM: Male, 66 years old. ETT placement TECHNIQUE: Single AP portable view of the chest. COMPARISON: 04/29/2021 FINDINGS: Interval placement of endotracheal tube with the tip approximately 2 cm above the tawanda. Interval placement of nasogastric tube with the tip overlying the distal esophagus. Increase in alveolar opacities in both lungs consistent with worsening bilateral pneumonia, pulmonary edema, or ARDS. There is no demonstrated pleural abnormality. Normal size heart. Normal mediastinum and rah. Normal visualized pulmonary arteries. Normal visualized aortic arch and descending thoracic aorta. Normal visualized thoracic spine. Normal visualized ribs, clavicles, and shoulders. There is no demonstrated abnormality of the visualized soft tissue structures of the upper abdomen. RAD/Chest 1 View (Portable) IMPRESSION: 1. Interval placement of endotracheal tube with the tip above the tawanda. 2. Interval placement of nasogastric tube with the tip overlying the distal esophagus. 3. Worsening bilateral pneumonia, pulmonary edema, or ARDS. Electronically Signed: Monster Dean MD at 8:53 EST Tel , Service support ,
[2021-05-17] MEDS: Propofol 10MG/Ml 1,000 MG/100 ML Bottle 4.5 MG CONT INF (08:20)
--- NOTE | 2021-05-17 08:31 | RAD_ITS ---
STUDY: X-RAY - ABDOMEN/PELVIS REASON FOR EXAM: Male, 66 years old. OG Tube placement TECHNIQUE: Single AP view of the abdomen / pelvis. COMPARISON: None. FINDINGS: Nasogastric tube with the tip overlying the distal esophagus. There is an unremarkable bowel gas pattern. The visualized liver, spleen and kidneys are grossly normal in size and morphology. Normal soft tissue structures. Normal visualized osseous structures. RAD/Abdomen Single View (Portable) IMPRESSION: 1. Nasogastric tube with the tip overlying the distal esophagus. 2. No bowel obstruction Electronically Signed: Monster Dean MD at 8:52 EST Tel , Service support ,
--- NOTE | 2021-05-17 08:36 | NURSING ---
Dr Stratton at bedside @08:10am to prepare for intubation Versed 4mg IVP@08:15 Etomidate 20mg IVP@ 0816 Succinylcholine 100mg IVP @0816 Propofol started at 10mcg/kg/min @08:20 Fentanyl started at 50mcg/hr \ Successful intubation with a size 8 ETT 22@lip at 08:17am
[2021-05-17 09:36] LABS: Allen Test Positive; Base Excess 4 mmol/L (-2 to +2); Bicarbonate 29.2 mmol/L (22-26); Blood Gas Specimen Type ART; FI02 100; Mode AC; O2 Delivery Device ET Tube; PEEP 16; PO2 57 mmHG (75-100); RR 18; SITE R Radial; SO2 88 % (95-99); Total Carbon Dioxide 31 mmol/L; Vt 450; pCO2 48.6 mmHg (35-45); pH 7.39 (7.35-7.45)
[2021-05-17] MEDS: Enoxaparin 40 MG/0.4 ML Syringe SC ×2 (09:52→21:57)
[2021-05-17] MEDS: dexAMETHasone 4 MG/ML Vial 6 MG IV (09:52)
[2021-05-17] MEDS: Furosemide 40 MG/4 ML Vial IV (09:52)
[2021-05-17 10:08] LABS: D-Dimer Quantitative (DVT/PE) 1.17 FEU/ug/m (0.27-0.49)
[2021-05-17] MEDS: Propofol 10MG/Ml 1,000 MG/100 ML Bottle 22.5 MG CONT INF ×3 (12:23→21:00)
--- NOTE | 2021-05-17 12:43 | PCM.PN.HOSP ---
Subjective Subjective Patient was seen and examined today, he remains sedated on the ventilator-he was placed on the ventilator today, patient's blood pressures been running low and I suggested that we place a PICC line in case he needs pressor support, the was contacted by phone and she agreed. Objective Data Objective Data Vital Signs: Vital Signs Temp Pulse Resp BP Pulse Ox 97.0 F L 96 28 H 75/61 L 95 05/17/21 12:00 05/17/21 12:00 05/17/21 12:00 05/17/21 12:00 05/17/21 12:00 Oxygen Flow Rate (L/min) 55 Oxygen Delivery Method Mechanical Ventilator Weight: 75.1 kg Body Mass Index (BMI) 28.3 Intake & Output: Intake and Output for Last 24 Hours 05/15/21 05/16/21 05/17/21 23:59 23:59 23:59 Intake Total 1230 / 1230 890 / 890 549.95 / 549.95 Output Total 2024 / 2024 1050 / 1050 175 / 175 Balance -795 / -795 -160 / -160 374.95 / 374.95 Medical Nutrition Assessment Dietitian: Malnutrition Criteria Met Start: 04/21/21 12:38 Freq: Status: Active Protocol: Document 05/15/21 15:10 AG (Rec: 05/15/21 15:10 [id number]) Nutrition Malnutrition Evidence of Malnutrition Exists Yes Malnutrition (severe): Acute Illness/Injury Evidenced By Suboptimal Energy Intake ( Moderate),Weight Loss (Severe) Clinical Problem Acute Disease or Injury Related Malnutrition Etiology severe, acute malnutrition r/t inadequate energy intake w/ COVID illness Signs/Symptoms as evidenced by reported decreased appetite, estimated PO intake meeting <50% of estimated nutritional needs >1 week, unintentional 8.8kg/10% wt loss since 04/20 admission Status Active Problem Recommendation Dietitian Recommendations/Changes continue regular diet, 8oz ensure enlive w/ meals d/t acute malnutrition. Lab / Micro Data Result Diagrams: 05/17/21 04:08 05/17/21 04:08 Labs: Laboratory Results - last 24 hr 05/16/21 18:10: MRSA (PCR) Negative 05/17/21 04:08: WBC 14.2 H, RBC 4.18 L, Hgb 12.7 L, Hct 39.4 L, MCV 94.3 H, MCH 30.4, MCHC 32.2, RDW Std Deviation 46.0 H, RDW Coeff of Alyson 13.4, Plt Count 338, MPV 9.4, Immature Gran % (Auto) 2.200 H, Neut % (Auto) 85.0 H, Lymph % (Auto) 4.9 L, [place] % (Auto) 6.6, Eos % (Auto) 0.7, Baso % (Auto) 0.6, Absolute Neuts (auto) 12.1 H, Absolute Lymphs (auto) 0.70 L, Nucleated RBC % 0 05/17/21 04:08: Sodium 138, Potassium 4.2, Chloride 101, Carbon Dioxide 31.0, Anion Gap 6, BUN 17, Creatinine 0.48 L, Estim Creat Clear Calc 148.44, Est GFR (MDRD) Af Amer 224, Est GFR (MDRD) Non-Af 185, BUN/Creatinine Ratio 35.3 H, Glucose 115 H, Calcium 8.6 05/17/21 09:42: D-Dimer Quant (PE/DVT) 1.17 H* Micro: Microbiology 05/16/21 06:20 Sputum, Expectorated/Coughed Gram Stain - Final 05/16/21 06:20 Sputum, Expectorated/Coughed Respiratory Culture - Final 05/09/21 13:40 Urine, Catheterized Urine Culture - Final Enterococcus faecalis 05/06/21 01:48 Urine Catheter - Murphy Legionella Antigen - Final 05/06/21 01:48 Urine Catheter - Murphy Streptococcus pneumoniae Antigen (M - Final 04/20/21 15:10 Blood Culture (Wb) - Left Hand Blood Culture - Final No growth in 5 days. 04/20/21 13:10 Blood Culture (Wb) - Anticubital Right Blood Culture - Final No growth in 5 days. 04/21/21 17:07 Urine, Clean Catch Legionella Antigen - Final 04/21/21 17:07 Urine, Clean Catch Streptococcus pneumoniae Antigen (M - Final 04/20/21 12:10 Nasal Secretion SARS-CoV-2 Antigen (Rapid) - Final SARS-CoV-2 (COVID 19) ABG Data ABG results: ABG 05/17/21 09:24 Specimen Type ART Sample Site R Radial pH 7.39 Bicarbonate Actual 29.2 H Total CO2 31 Base Excess 4 H O2 Saturation 88 L O2 % 100 ABG pCO2 48.6 H ABG pO2 57 L José Miguel Test Positive Respiration Rate 18 O2 Delivery Device ET Tube Vent Mode AC Tidal Volume 450 POC PEEP 16 Radiography Diagnostic Testing: Radiology Impression Chest X-Ray 05/17/21 08:17 IMPRESSION: 1. Interval placement of endotracheal tube with the tip above the tawanda. 2. Interval placement of nasogastric tube with the tip overlying the distal esophagus. 3. Worsening bilateral pneumonia, pulmonary edema, or ARDS. Electronically Signed: Monster Dean MD at 8:53 EST Tel , Service support , KUB X-Ray 05/17/21 08:31 IMPRESSION: 1. Nasogastric tube with the tip overlying the distal esophagus. 2. No bowel obstruction Electronically Signed: Monster Dean MD at 8:52 EST Tel , Service support , Physical Exam Narrative alert, oriented x3 and no apparent distress Constitutional Narrative: on BiPAP General Appearance: cooperative, well kempt and well developed Orientation / Consciousness: awake, oriented to person, oriented to place and oriented to time HEENT normocephalic, head/scalp atraumatic and moist oral mucous membranes Head and Scalp: normocephalic Eyes PERRL, EOMs intact bilaterally and conjunctivae normal Neck nuchal rigidity, supple, no JVD, thyroid normal and no carotid bruits General: trachea midline Resp normal respiratory effort, no retractions, no use of accessory muscles and clear to auscultation bilaterally Resp Narrative: Patient does not appear dyspneic at rest. Auscultation: Negative for rales, rhonchi or wheezes Cardio regular rate, regular rhythm, S1 normal heart sound, S2 normal heart sound, no murmurs, no rub and no gallops GI normal to inspection, nondistended, normoactive bowel sounds, soft to palpation, non-tender and non-distended GI Narrative: distended bladder Extremity no clubbing, cyanosis or edema Skin no rashes or lesions noted General Skin Exam: no breakdown Neuro oriented x3, CN's II-XII intact bilaterally, no focal motor deficits and no sensory deficits noted Sensorium / Orientation: awake and alert Speech: speech normal Psych thought process normal and affect normal Const alert, oriented x3 and no apparent distress Constitutional Narrative: Patient is sedated on the ventilator at this time General Appearance: cooperative, well kempt and well developed Orientation / Consciousness: awake, oriented to person, oriented to place and oriented to time HEENT normocephalic, head/scalp atraumatic and moist oral mucous membranes Head and Scalp: normocephalic Eyes conjunctivae normal Neck nuchal rigidity, no JVD and thyroid normal General: trachea midline Resp normal respiratory effort, no retractions, no use of accessory muscles and clear to auscultation bilaterally Resp Narrative: Patient does not appear dyspneic at rest. Auscultation: Negative for rales, rhonchi or wheezes Cardio regular rate, regular rhythm, S1 normal heart sound, S2 normal heart sound, no murmurs, no rub and no gallops GI normal to inspection, nondistended, normoactive bowel sounds and non-distended GI Narrative: distended bladder Extremity normal to inspection and no clubbing, cyanosis or edema Skin no rashes or lesions noted General Skin Exam: no breakdown Neuro oriented x3, CN's II-XII intact bilaterally, no focal motor deficits and no sensory deficits noted Neuro Narrative: Patient is sedated and on the ventilator Sensorium / Orientation: awake and alert Speech: speech normal Psych thought process normal Psych Narrative: Patient is sedated and on the ventilator Assessment & Plan Assessment/Plan (1) Acute respiratory failure with hypoxia: (2) COVID-19: PLAN: 1. COVID-19 pneumonia-patient finished baricitinib at this time on 05/06/2021, he has completed remdesivir and Decadron. Patient currently is on prophylactic Lovenox #2 acute hypoxic respiratory failure secondary to #1-patient had to be intubated today due to continued respiratory failure #3 urinary retention-patient currently has a Murphy catheter, this will stay in place-it was discontinued on 05/08/2021 but had to be replaced on 05/11/2021. There are no plans for removal of his catheter at this time #4 acute cystitis with Enterococcus faecalis-patient is currently on amoxicillin #5 chronic obstructive pulmonary disease-patient is currently on aerosol treatments, this complicates care and recovery of the patient Patient's overall medical condition is serious at this time, prognosis is guarded Charges/Coding Visit Charges Inpatient E&M: 67282 Subs Hosp L2
[2021-05-17] MEDS: TITRATION PARAMETER CHANGE 1 EACH IV ×2 (12:50)
[2021-05-17 14:23] LABS: CPK Total, Creatine Kinase 28 U/L (39-308); Triglycerides 167 mg/dL
--- NOTE | 2021-05-17 18:35 | RAD_ITS ---
STUDY: X-RAY CHEST REASON FOR EXAM: Male, 66 years old. Possible Pneumothorax TECHNIQUE: AP COMPARISON: 05/17/2021 FINDINGS: Right arm PICC present with tip extending to the cavoatrial junction. Endotracheal tube present with tip terminating 2.7 cm above the tawanda. EKG leads project over the chest. Subcutaneous emphysema. Multilobar pulmonary infiltrates overall stable. There is small bilateral pneumothoraces with pleural separation measuring 4 mm at the left apex and 11 mm at the right apex. There is air also along the medial left hemidiaphragm and left cardiac apex, likely representing a pneumomediastinum. Normal size heart. Normal mediastinum and rah. Normal visualized pulmonary arteries. Normal visualized aortic arch and descending thoracic aorta. No acute bony process. There is no demonstrated abnormality of the visualized soft tissue structures of the upper abdomen. RAD/Chest 1 View (Portable) IMPRESSION: 1. Unfavorable change. Small bilateral pneumothoraces (10% or less volume). Pneumomediastinum. Electronically Signed: Aime Courtney MD ([place]) at 19:56 EST , Service support ,
[2021-05-17 20:06] LABS: Vancomycin, Trough Level 19.1 ug/mL (5.0-15.0)
[2021-05-17] MEDS: Chlorhexidine 15 ML PO (21:56)
[2021-05-18] VITALS (40 sets, daily range): BP systolic 76–123; BP diastolic 55–84; PULSE 82–122; RESP 16–20; TEMP 36.2–36.6; O2SAT 87–100
--- NOTE | 2021-05-18 00:51 | PCM.RX.CS ---
Consult Pharmacy has been consulted to manage selected antiobiotic: Vancomycin Type of Consult: Follow-up Suspected Infection: Pneumonia Labs: Sodium 138 mmol/L (136-145) 05/17/21 04:08 Potassium 4.2 mmol/L (3.5-5.1) 05/17/21 04:08 Chloride 101 mmol/L (98-107) 05/17/21 04:08 Carbon Dioxide 31.0 mmol/L (21.0-32.0) 05/17/21 04:08 Anion Gap 6 (5-15) 05/17/21 04:08 BUN 17 mg/dL (7-18) 05/17/21 04:08 Creatinine 0.48 mg/dL (0.70-1.30) L 05/17/21 04:08 Est GFR (MDRD) Af Amer 224 mL/min (>60) 05/17/21 04:08 Est GFR (MDRD) Non-Af 185 mL/min (>60) 05/17/21 04:08 BUN/Creatinine Ratio 35.3 RATIO (10-20) H 05/17/21 04:08 Glucose 115 mg/dL (74-106) H 05/17/21 04:08 Vancomycin Trough 19.1 ug/mL (5.0-15.0) H 05/17/21 19:30 Microbiology: Microbiology 05/16/21 06:20 Sputum, Expectorated/Coughed Gram Stain - Final 05/16/21 06:20 Sputum, Expectorated/Coughed Respiratory Culture - Final 05/09/21 13:40 Urine, Catheterized Urine Culture - Final Enterococcus faecalis 05/06/21 01:48 Urine Catheter - Murphy Legionella Antigen - Final 05/06/21 01:48 Urine Catheter - Murphy Streptococcus pneumoniae Antigen (M - Final 04/20/21 15:10 Blood Culture (Wb) - Left Hand Blood Culture - Final No growth in 5 days. 04/20/21 13:10 Blood Culture (Wb) - Anticubital Right Blood Culture - Final No growth in 5 days. 04/21/21 17:07 Urine, Clean Catch Legionella Antigen - Final 04/21/21 17:07 Urine, Clean Catch Streptococcus pneumoniae Antigen (M - Final 04/20/21 12:10 Nasal Secretion SARS-CoV-2 Antigen (Rapid) - Final SARS-CoV-2 (COVID 19) Goal Trough: 15-20 mcg/mL Pharmacy Plan for Drug Dosing: Pharmacy Service will continue to monitor and adjust dosing as required. TROUGH 19.1 @ 7.5HR, NO CHANGES, FOLLOW UP TROUGH IN 2 DAYS Follow-Up Labs: Trough Vancomycin Labs to be done on [date and time ordered]: 05/19 @ 1030
[2021-05-18] MEDS: Propofol 10MG/Ml 1,000 MG/100 ML Bottle 22.5 MG CONT INF ×5 (01:27→19:00)
[2021-05-18] MEDS: Vancomycin IV 1,000 MG/200 ML BAG 200 MG IV ×2 (04:39→11:41)
--- NOTE | 2021-05-18 05:46 | RAD_ITS ---
STUDY: X-RAY CHEST REASON FOR EXAM: Male, 66 years old. Follow up PTX TECHNIQUE: Single AP portable view of the chest. COMPARISON: 05/17/2021 FINDINGS: Endotracheal tube and right upper extremity PICC both which are unchanged. No change in alveolar opacity throughout both lungs consistent with bilateral pneumonia, pulmonary edema, or ARDS. No change in the small bilateral pneumothoraces and pneumomediastinum. Normal size heart. Normal mediastinum and rah. Normal visualized pulmonary arteries. Normal visualized aortic arch and descending thoracic aorta. Normal visualized thoracic spine. Normal visualized ribs, clavicles, and shoulders. There is no demonstrated abnormality of the visualized soft tissue structures of the upper abdomen. RAD/Chest 1 View (Portable) IMPRESSION: No change from 05/17/2021. Electronically Signed: Monster Dean MD at 7:42 EST Tel , Service support ,
--- NOTE | 2021-05-18 06:09 | PN.CC_ITS ---
Assessment & Plan Assessment/Plan (1) Acute respiratory failure with hypoxia: (2) Pneumonia due to COVID-19 virus: PLAN: RECOMMENDATIONS: 1. Continue patient on assist control mode mechanical ventilation. Wean FiO2/PEEP for saturations greater than 90%. 2. Continue empiric antimicrobials. 3. Continue vasopressor support to maintain a mean arterial pressure at or above [address] OG tube today. 5. Continue Lovenox as ordered. 6. Continue bronchodilator therapy. 7. Discontinue IV Lasix. 8. Continue second round of Decadron. 9. Family meeting this morning to discuss goals of care. IMPRESSIONS: 1. Acute hypoxic respiratory failure secondary to COVID-19 The patient was initially admitted to the hospital with COVID-19 pneumonia in the setting of progressive dyspnea on April 20. The patient completed treatment courses of remdesivir, Decadron and baricitinib. Despite the aforementioned, the patient's respiratory status remained quite tenuous. Repeat CTA chest was completed on May 14 and again failed to demonstrate evidence of pulmonary embolism. There continues to be extensive bilateral airspace disease with a background of chronic lung disease. The patient has been diuresed extensively over the course of his hospitalization. He remains on prophylactic Lovenox. Given the aforementioned, he was placed empirically on broad-spectrum antimicrobials and a second round of Decadron. He ultimately required transfer back to the ICU and intubation on May 17. Overall prognosis is quite poor. 2. Pneumomediastinum/bilateral pneumothoraces Plan to proceed with bilateral chest tube placement today. Continue chest tubes to wall suction. 3. Advanced age/nonvaccinated status/history of smoking Complicates care, management, recovery and prognosis. Continue supportive measures as noted above. Reattempt to place OG tube today to facilitate tube feed administration. TIME: 35 minutes of critical care time, inclusive of procedures, was spent addressing the patient's acute hypoxemic respiratory failure secondary to COVID-19 pneumonia, pneumomediastinum/pneumothoraces, review of all data and collaborat ion with the care team. Subjective Subjective The patient was seen and examined at the bedside this morning. Events from the last 24 hours have been reviewed. Today is vent day #2. The patient was intubated yesterday as a consequence of progressive respiratory failure. Overnight, the patient developed subcutaneous emphysema and crepitus. Chest imaging was obtained and did reveal evidence of a pneumomediastinum and small bilateral pneumothoraces. The patient is currently on assist control mode of mechanical ventilation with an FiO2 requirement of 50% and PEEP of 14. He is sedated on propofol, fentanyl and Precedex. He is hemodynamically stable on Levophed at 5 mcg/min. The patient is currently documented to be overall net - 14 L for the hospitalization. He remains on empiric antimicrobials, scheduled Lasix, a second round of decadron and prophylactic Lovenox. Objective Data Objective Data The patient's most recent lab work, culture data and imaging studies have all been personally reviewed. Rapid coronavirus antigen testing was positive on April 20. Urine culture dated May 09 was positive for Enterococcus. Vital Signs: Vital Signs Temp Pulse Resp BP Pulse Ox 97.3 F L 101 H 19 H 103/77 96 05/18/21 00:00 05/18/21 04:00 05/18/21 03:34 05/18/21 03:00 05/18/21 03:34 Oxygen Flow Rate (L/min) 55 Oxygen Delivery Method Mechanical Ventilator Weight: 76 kg Body Mass Index (BMI) 28.3 Intake & Output: Intake and Output for Last 24 Hours 05/16/21 05/17/21 05/18/21 23:59 23:59 23:59 Intake Total 890 / 890 1744.78 / 1797.76 388.44 / 388.44 Output Total 1050 / 1050 275 / 275 125 / 125 Balance -160 / -160 1469.78 / 1522.76 263.44 / 263.44 Medical Nutrition Assessment Dietitian: Malnutrition Criteria Met Start: 04/21/21 12:38 Freq: Status: Active Protocol: Document 05/15/21 15:10 (Rec: 05/15/21 15:10 [id number]) Nutrition Malnutrition Evidence of Malnutrition Exists Yes Malnutrition (severe): Acute Illness/Injury Evidenced By Suboptimal Energy Intake ( Moderate),Weight Loss (Severe) Clinical Problem Acute Disease or Injury Related Malnutrition Etiology severe, acute malnutrition r/t inadequate energy intake w/ COVID illness Signs/Symptoms as evidenced by reported decreased appetite, estimated PO intake meeting <50% of estimated nutritional needs >1 week, unintentional 8.8kg/10% wt loss since 04/20 admission Status Active Problem Recommendation Dietitian Recommendations/Changes continue regular diet, 8oz ensure enlive w/ meals d/t acute malnutrition. Lab / Micro Data Attestation: I reviewed the patient's lab results. Result Diagrams: 05/17/21 04:08 05/17/21 04:08 Labs: Laboratory Results - last 24 hr 05/17/21 04:00: Total Creatine Kinase 28 L, Triglycerides 167 05/17/21 09:42: D-Dimer Quant (PE/DVT) 1.17 H* 05/17/21 19:30: Vancomycin Trough 19.1 H Micro: Microbiology 05/16/21 06:20 Sputum, Expectorated/Coughed Gram Stain - Final 05/16/21 06:20 Sputum, Expectorated/Coughed Respiratory Culture - Final 05/09/21 13:40 Urine, Catheterized Urine Culture - Final Enterococcus faecalis 05/06/21 01:48 Urine Catheter - Murphy Legionella Antigen - Final 05/06/21 01:48 Urine Catheter - Murphy Streptococcus pneumoniae Antigen (M - Final 04/20/21 15:10 Blood Culture (Wb) - Left Hand Blood Culture - Final No growth in 5 days. 04/20/21 13:10 Blood Culture (Wb) - Anticubital Right Blood Culture - Final No growth in 5 days. 04/21/21 17:07 Urine, Clean Catch Legionella Antigen - Final 04/21/21 17:07 Urine, Clean Catch Streptococcus pneumoniae Antigen (M - Final 04/20/21 12:10 Nasal Secretion SARS-CoV-2 Antigen (Rapid) - Final SARS-CoV-2 (COVID 19) ABG Data ABG results: ABG 05/17/21 09:24 Specimen Type ART Sample Site R Radial pH 7.39 Bicarbonate Actual 29.2 H Total CO2 31 Base Excess 4 H O2 Saturation 88 L O2 % 100 ABG pCO2 48.6 H ABG pO2 57 L José Miguel Test Positive Respiration Rate 18 O2 Delivery Device ET Tube Vent Mode AC Tidal Volume 450 POC PEEP 16 Radiography Diagnostic Testing: Radiology Impression Chest X-Ray 05/17/21 08:17 IMPRESSION: 1. Interval placement of endotracheal tube with the tip above the tawanda. 2. Interval placement of nasogastric tube with the tip overlying the distal esophagus. 3. Worsening bilateral pneumonia, pulmonary edema, or ARDS. Electronically Signed: Monster Dean MD at 8:53 EST Tel , Service support , KUB X-Ray 05/17/21 08:31 IMPRESSION: 1. Nasogastric tube with the tip overlying the distal esophagus. 2. No bowel obstruction Electronically Signed: Monster Dean MD at 8:52 EST Tel , Service support , Chest X-Ray 05/17/21 18:35 IMPRESSION: 1. Unfavorable change. Small bilateral pneumothoraces (10% or less volume). Pneumomediastinum. Electronically Signed: Aime Courtney MD (Brooks) at 19:56 EST , Service support , Physical Exam Const General Appearance: intubated and patient mechanically ventilated HEENT normocephalic and head/scalp atraumatic Mouth: dry mucous membranes and endotracheal tube in place Eyes PERRL and conjunctivae normal Neck supple General: trachea midline Chest Chest Narrative: Extensive subcutaneous emphysema with crepitus Chest: symmetrical chest wall rise and chest tube; Negative for crepitus Resp Auscultation: diminished lung sounds; Negative for rales, rhonchi or wheezes Cardio S1 normal heart sound, S2 normal heart sound, no murmurs and no rub Rate: tachycardic GI normal to inspection, nondistended, normoactive bowel sounds Extremity no clubbing, cyanosis or edema Skin no rashes or lesions noted Neuro Sensorium / Orientation: sedated on vent Charges/Coding Procedures Hospitalists Procedures: 63058 Critial Care 1st Hr
[2021-05-18] MEDS: Ipratropium/Albuterol Sulfate 3 ML AMPUL.NEB INHALATION ×3 (06:32→19:04)
--- NOTE | 2021-05-18 07:06 | CON.PCM.SX_ITS ---
Assessment & Plan Assessment/Plan (1) Pneumothorax: (2) Pneumomediastinum: (3) Acute respiratory failure with hypoxia: (4) Pneumonia due to COVID-19 virus: (5) COVID-19: PLAN: Consent was obtained from the we will plan to place bilateral chest tubes. Tiara Buck M.D. Pager: [phone] [facility] [address] [place] [address], Outpatient Pavilion, [address] [place] [address] Office: [phone] HPI Consult Data Date of Consult: 05/18/21 HPI Narrative HPI Narrative: KATY WILSON, is a 66 M who admitted to ICU after a long ho spital stay due to Covid 19/pneumonia/respiratory failure. Patient was intubated recently x-ray yesterday did show small bilateral pneumothoraxes as well as pneumomediastinum however this morning they did get larger. Request for bilateral chest tubes. [facility] Medical History Former smoker Home Medications NK 04/20/21 [History Last Taken Unknown] Allergy/AdvReac Type Severity Reaction Status Date / Time No Known Allergies Allergy Verified 04/20/21 12:24 Family History Mother No problems noted. Father CAD (coronary artery disease) Social History (Updated 04/23/21 @ 16:[address] Rome Aviles MD) Smoking Status: Former smoker quit date: 02/14/01 Electronic Cigarette Use: not used ROS Review of Systems ROS Unobtainable: due to endotracheal tube Physical Exam Const Constitutional Narrative: Intubated and sedated HEENT HEENT Narrative: Subcutaneous crepitus of the neck and lower face Chest Chest Narrative: Upper chest Cardio Rate: regular rate GI soft to palpation Skin Skin Narrative: Subcu crepitus of upper chest neck and lower face Neuro Neuro Narrative: Intubated and sedated Psych Psych Narrative: Sedated Medical Records Data Medical Nutrition Assessment Dietitian: Malnutrition Criteria Met Start: 04/21/21 12:38 Freq: Status: Active Protocol: Document 05/15/21 15:10 AG (Rec: 05/15/21 15:10 AG [id number]) Nutrition Malnutrition Evidence of Malnutrition Exists Yes Malnutrition (severe): Acute Illness/Injury Evidenced By Suboptimal Energy Intake ( Moderate),Weight Loss (Severe) Clinical Problem Acute Disease or Injury Related Malnutrition Etiology severe, acute malnutrition r/t inadequate energy intake w/ COVID illness Signs/Symptoms as evidenced by reported decreased appetite, estimated PO intake meeting <50% of estimated nutritional needs >1 week, unintentional 8.8kg/10% wt loss since 04/20 admission Status Active Problem Recommendation Dietitian Recommendations/Changes continue regular diet, 8oz ensure enlive w/ meals d/t acute malnutrition. Lab / Micro Data Result Diagrams: 05/18/21 04:30 05/17/21 04:08 Labs: Laboratory Results - last 24 hr 05/17/21 04:00: Total Creatine Kinase 28 L, Triglycerides 167 05/17/21 09:42: D-Dimer Quant (PE/DVT) 1.17 H* 05/17/21 19:30: Vancomycin Trough 19.1 H ABG Data ABG results: ABG 05/17/21 09:24 Specimen Type ART Sample Site R Radial pH 7.39 Bicarbonate Actual 29.2 H Total CO2 31 Base Excess 4 H O2 Saturation 88 L O2 % 100 ABG pCO2 48.6 H ABG pO2 57 L José Miguel Test Positive Respiration Rate 18 O2 Delivery Device ET Tube Vent Mode AC Tidal Volume 450 POC PEEP 16 Radiology Impression Chest X-Ray 05/17/21 08:17 IMPRESSION: 1. Interval placement of endotracheal tube with the tip above the tawanda. 2. Interval placement of nasogastric tube with the tip overlying the distal esophagus. 3. Worsening bilateral pneumonia, pulmonary edema, or ARDS. Electronically Signed: Monster Dean MD at 8:53 EST Tel , Service support , KUB X-Ray 05/17/21 08:31 IMPRESSION: 1. Nasogastric tube with the tip overlying the distal esophagus. 2. No bowel obstruction Electronically Signed: Monster Dean MD at 8:52 EST Tel , Service support , Chest X-Ray 05/17/21 18:35 IMPRESSION: 1. Unfavorable change. Small bilateral pneumothoraces (10% or less volume). Pneumomediastinum. Electronically Signed: Aime Courtney MD (Brooks) at 19:56 EST , Service support , Charges/Coding Visit Charges Inpatient E&M: 58367 Init Hosp L3
--- NOTE | 2021-05-18 07:47 | RAD_ITS ---
EXAM: XR CHEST, 1 VIEW CLINICAL INDICATION: Chest tube placement TECHNIQUE: Frontal view of the chest. This report was created using [employer] report generation technology. COMPARISON: 05/18/2021. FINDINGS: LUNGS AND PLEURAL SPACES: Clearing of right apical pneumothorax. Diffuse airspace disease in both lungs is unchanged. No effusion. HEART: Unremarkable. Cardiac silhouette not enlarged. MEDIASTINUM: Central airways and mediastinal contour are unremarkable. BONES/JOINTS: Unremarkable. SOFT TISSUES: Extensive soft tissue air emphysema across the neck and chest. TUBES, LINES AND DEVICES: Right PICC line catheter tip remains in the SVC/right upper atrial chamber junction. Right chest tube tip remains overlying the right apex. ET tube tip is 3 cm above the tawanda. RAD/Chest 1 View (Portable) IMPRESSION: 1. Clearing of right apical pneumothorax following right chest tube drain placement. 2. Airspace disease in both lungs is unchanged Electronically Signed: Roderick Hameed MD at 8:39 EST , Service support ,
--- NOTE | 2021-05-18 08:18 | PCM.OPRPT ---
Report of Operation Date of Procedure: 05/18/21 Pre-Operative Diagnosis: Bilateral pneumothorax, pneumomediastinum Post-Operative Diagnosis: Same Surgery/Procedure Performed:: Placement of bilateral chest tubes 20 Indonesian on the right, 28 Indonesian on the left Surgeon: Tiara uBck Type of Anesthesia: Local (sedated on vent in ICU) Specimen's removed: none Drains: 20 Fr on Right & 28 Fr on Left Description of Procedure: Both procedures were done similarly. The anterior axillary line at the inframammary fold prepped and draped in usual sterile fashion with chlorhexidine. Local anesthesia of 1% lidocaine was infiltrated in the area of the planned placement. A 15 blade scalpel was used to make an incision. Straight Munion's were used to dissect tissue down and over the rib. Entry into the pleura was confirmed with a salinas of air. 20 Indonesian chest tube was placed on the right and 20 Indonesian chest tube was placed on the left. These were sutured in place with 0 silk sutures. Vaseline gauze was placed with 4 x 4 drain sponges and Elastikon tape. Both chest tubes were placed to -20 suction on the Pleur-evac. Chest x-ray was obtained. Complications none
[2021-05-18] MEDS: Lidocaine 1% (20 ml mdv) 20 ML Vial INFILT (08:19)
--- NOTE | 2021-05-18 08:22 | RAD_ITS ---
STUDY: X-RAY CHEST REASON FOR EXAM: Male, 66 years old. Chest tube placement ON THE LEFT TECHNIQUE: Single AP portable view of the chest. COMPARISON: 05/18/2021 at 07 47 FINDINGS: Interval placement of left-sided thoracostomy tube with a tiny apical pneumothorax. Right-sided thoracostomy tube with a tiny apical pneumothorax. Endotracheal tube which is unchanged. No change in suspected pneumomediastinum and subcutaneous emphysema. No change in alveolar opacities throughout both lungs consistent with bilateral pneumonia. There is no demonstrated pleural abnormality. Normal size heart. Normal mediastinum and rah. Normal visualized pulmonary arteries. Normal visualized aortic arch and descending thoracic aorta. Normal visualized thoracic spine. Normal visualized ribs, clavicles, and shoulders. There is no demonstrated abnormality of the visualized soft tissue structures of the upper abdomen. RAD/Chest 1 View (Portable) IMPRESSION: Interval placement of left-sided thoracostomy tube with a tiny left pneumothorax. Electronically Signed: Monster Dean MD at 8:51 EST Tel , Service support ,
[2021-05-18 08:30] LABS: Absolute Neutrophil Count 12.4 X10^3/uL (2.0-7.7); Basophil% 0.6 % (0-1); Eosinophil# 0.05 X10^3/uL; Eosinophils% 0.3 % (0-5); Hematocrit 40.3 % (40-54); Hemoglobin 12.5 g/dL (13.0-16.5); Lymphocyte % 10.1 % (19-41); Mean Corpuscular Hgb 30.3 pg (27.0-32.0); Mean Corpuscular Volume 97.8 fL (80-94); Mean Platelet Vol. 10.3 fl (6.2-12.0); Monocyte# 1.07 X10^3/uL; Monocyte% 6.8 % (0-10); NRBC Flagged by Analyzer 0 % (0-5); Neutrophil # 12.36 X10^3/uL (2.7-7.7); Platelet Count 466 K/mm3 (150-450); RBC Distribution Width SD 50.3 fl (35.1-43.9); Red Blood Count 4.12 M/mm3 (4.6-6.2); White Blood Count 15.8 K/mm3 (4.4-11.0)
[2021-05-18 08:46] LABS: Anion Gap 9 (5-15); BUN 42 mg/dL (7-18); Calcium,Total 9.6 mg/dL (8.5-10.1); Chloride 102 mmol/L (98-107); Creatinine, Serum 1.05 mg/dL (0.70-1.30); EST Glomerular Filtration Rate 75 mL/min (>60); Est Glom Filt Rate - Afr Amer 91 mL/min (>60); Estimated Creatinine Clearance 67.86 ml/min; Glucose 144 mg/dL (74-106); Potassium 4.8 mmol/L (3.5-5.1); Sodium Level 138 mmol/L (136-145)
--- NOTE | 2021-05-18 08:56 | PN.HOSP_ITS ---
Subjective Subjective Patient was seen and examined today, family was at the bedside, patient had insertion of bilateral chest tubes due to bilateral pneumothoraxes. Patient is currently on 50% oxygen on the ventilator and sedated. Objective Data Objective Data Vital Signs: Vital Signs Temp Pulse Resp BP Pulse Ox 97.3 F L 96 17 111/79 89 05/18/21 00:00 05/18/21 07:00 05/18/21 07:00 05/18/21 07:00 05/18/21 07:00 Oxygen Flow Rate (L/min) 55 Oxygen Delivery Method Mechanical Ventilator Weight: 76 kg Body Mass Index (BMI) 28.3 Intake & Output: Intake and Output for Last 24 Hours 05/16/21 05/17/21 05/18/21 23:59 23:59 23:59 Intake Total 890 / 890 1744.78 / 1797.76 763.98 / 763.98 Output Total 1050 / 1050 275 / 275 125 / 125 Balance -160 / -160 1469.78 / 1522.76 638.98 / 638.98 Medical Nutrition Assessment Dietitian: Malnutrition Criteria Met Start: 04/21/21 12:38 Freq: Status: Active Protocol: Document 05/18/21 07:32 DENI (Rec: 05/18/21 07:32 SLA [id number]) Nutrition Malnutrition Evidence of Malnutrition Exists Yes Malnutrition (severe): Acute Illness/Injury Evidenced By Suboptimal Energy Intake ( Moderate),Weight Loss (Severe) Clinical Problem Acute Disease or Injury Related Malnutrition Etiology severe, acute malnutrition r/t inadequate energy intake w/ COVID illness Signs/Symptoms as evidenced by reported decreased appetite, estimated PO intake meeting <50% of estimated nutritional needs >1 week, unintentional >10% wt loss since 04/20/21 admission Status Active Problem Recommendation Dietitian Recommendations/Changes When medically indicated, recommend continue regular diet, 8oz ensure enlive w/ meals d/t acute malnutrition. If pt intubated and OG placed, rec Vital AF 1.2 at goal 65 ml/hr w/ 100 ml h2o flush every 4 hours to provide ~ 1872 humberto/ 117 gm pro/ 1865 ml free water/day. Start tf at 20 ml/hr and increase by 15 ml /hr every 8-10 hours as pt tolerates until goal rate 65 ml/hr achieved. Lab / Micro Data Result Diagrams: 05/18/21 04:30 05/18/21 04:30 Labs: Laboratory Results - last 24 hr 05/17/21 04:00: Total Creatine Kinase 28 L, Triglycerides 167 05/17/21 09:42: D-Dimer Quant (PE/DVT) 1.17 H* 05/17/21 19:30: Vancomycin Trough 19.1 H 05/18/21 04:30: WBC 15.8 H, RBC 4.12 L, Hgb 12.5 L, Hct 40.3, MCV 97.8 H, MCH 30.3, MCHC 31.0 L, RDW Std Deviation 50.3 H, RDW Coeff of Alyson 14.0, Plt Count 466 H, MPV 10.3, Immature Gran % (Auto) 4.200 H, Neut % (Auto) 78.0 H, Lymph % (Auto) 10.1 L, [place] % (Auto) 6.8, Eos % (Auto) 0.3, Baso % (Auto) 0.6, Absolute Neuts (auto) 12.4 H, Absolute Lymphs (auto) 1.60, Nucleated RBC % 0 05/18/21 04:30: Sodium 138, Potassium 4.8, Chloride 102, Carbon Dioxide 27.0, Anion Gap 9, BUN 42 H, Creatinine 1.05, Estim Creat Clear Calc 67.86, Est GFR (MDRD) Af Amer 91, Est GFR (MDRD) Non-Af 75, BUN/Creatinine Ratio 40.0 H, Glucose 144 H, Calcium 9.6 Micro: Microbiology 05/16/21 06:20 Sputum, Expectorated/Coughed Gram Stain - Final 05/16/21 06:20 Sputum, Expectorated/Coughed Respiratory Culture - Final 05/09/21 13:40 Urine, Catheterized Urine Culture - Final Enterococcus faecalis 05/06/21 01:48 Urine Catheter - Murphy Legionella Antigen - Final 05/06/21 01:48 Urine Catheter - Murphy Streptococcus pneumoniae Antigen (M - Final 04/20/21 15:10 Blood Culture (Wb) - Left Hand Blood Culture - Final No growth in 5 days. 04/20/21 13:10 Blood Culture (Wb) - Anticubital Right Blood Culture - Final No growth in 5 days. 04/21/21 17:07 Urine, Clean Catch Legionella Antigen - Final 04/21/21 17:07 Urine, Clean Catch Streptococcus pneumoniae Antigen (M - Final 04/20/21 12:10 Nasal Secretion SARS-CoV-2 Antigen (Rapid) - Final SARS-CoV-2 (COVID 19) ABG Data ABG results: ABG 05/17/21 09:24 Specimen Type ART Sample Site R Radial pH 7.39 Bicarbonate Actual 29.2 H Total CO2 31 Base Excess 4 H O2 Saturation 88 L O2 % 100 ABG pCO2 48.6 H ABG pO2 57 L José Miguel Test Positive Respiration Rate 18 O2 Delivery Device ET Tube Vent Mode AC Tidal Volume 450 POC PEEP 16 Radiography Diagnostic Testing: Radiology Impression Chest X-Ray 05/17/21 18:35 IMPRESSION: 1. Unfavorable change. Small bilateral pneumothoraces (10% or less volume). Pneumomediastinum. Electronically Signed: Aime Courtney MD (Brooks) at 19:56 EST , Service support , Chest X-Ray 05/18/21 05:46 IMPRESSION: No change from 05/17/2021. Electronically Signed: Monster Dean MD at 7:42 EST Tel , Service support , Chest X-Ray 05/18/21 07:47 IMPRESSION: 1. Clearing of right apical pneumothorax following right chest tube drain placement. 2. Airspace disease in both lungs is unchanged Electronically Signed: Roderick Hameed MD at 8:39 EST , Service support , Chest X-Ray 05/18/21 08:22 IMPRESSION: Interval placement of left-sided thoracostomy tube with a tiny left pneumothorax. Electronically Signed: Monster Dean MD at 8:51 EST Tel , Service support , Physical Exam Narrative ert, oriented x3 and no apparent distress Constitutional Narrative: Patient is sedated on the ventilator at this time General Appearance: cooperative, well kempt and well developed Orientation / Consciousness: awake, oriented to person, oriented to place and oriented to time HEENT normocephalic, head/scalp atraumatic and moist oral mucous membranes Head and Scalp: normocephalic Eyes conjunctivae normal Neck nuchal rigidity, no JVD and thyroid normal General: trachea midline Resp normal respiratory effort, no retractions, no use of accessory muscles and clear to auscultation bilaterally Resp Narrative: Patient does not appear dyspneic at rest. Auscultation: Negative for rales, rhonchi or wheezes Cardio regular rate, regular rhythm, S1 normal heart sound, S2 normal heart sound, no murmurs, no rub and no gallops GI normal to inspection, nondistended, normoactive bowel sounds and non-distended GI Narrative: distended bladder Extremity normal to inspection and no clubbing, cyanosis or edema Skin no rashes or lesions noted General Skin Exam: no breakdown Neuro oriented x3, CN's II-XII intact bilaterally, no focal motor deficits and no sensory deficits noted Neuro Narrative: Patient is sedated and on the ventilator Sensorium / Orientation: Patient is sedated and on the ventilator Psych Narrative: Patient is sedated and on the ventilator Assessment & Plan Assessment/Plan (1) COVID-19: (2) Acute respiratory failure with hypoxia: PLAN: 1. COVID-19 pneumonia-patient finished baricitinib at this time on 05/06/2021, he has completed remdesivir and Decadron. Patient currently is on prophylactic Lovenox #2 acute hypoxic respiratory failure secondary to #1-patient on the ventilator #3 urinary retention-patient currently has a Murphy catheter, this will stay in place-it was discontinued on 05/08/2021 but had to be replaced on 05/11/2021. There are no plans for removal of his catheter at this time #4 acute cystitis with Enterococcus faecalis-patient is now on vancomycin IV and cefepime IV for empiric coverage due to his severe COVID-19 pneumonia #5 chronic obstructive pulmonary disease-patient is currently on aerosol treatments, this complicates care and recovery of the patient #6 severe protein and caloric malnutrition as evidenced by reported decreased appetite, and estimated p.o. intake less than 50% nutritional needs x1 week, patient will receive enteral nutrition to correct this #7 bilateral pneumothorax with pneumomediastinum-bilateral chest tubes were put in by surgery today. Patient's overall medical condition is serious at this time, prognosis is guarded, patient's family is aware of this Charges/Coding Visit Charges Inpatient E&M: 90877 Subs Hosp L2
[2021-05-18] MEDS: dexAMETHasone 4 MG/ML Vial 6 MG IV (09:11)
[2021-05-18] MEDS: Chlorhexidine 15 ML PO ×2 (09:11→20:04)
[2021-05-18] MEDS: Enoxaparin 40 MG/0.4 ML Syringe SC ×2 (09:11→20:04)
--- NOTE | 2021-05-18 10:10 | RAD_ITS ---
STUDY: X-RAY - ABDOMEN/PELVIS REASON FOR EXAM: Male, 66 years old. OG placement TECHNIQUE: Single AP view of the abdomen / pelvis. COMPARISON: 05/17/2021 FINDINGS: Nasogastric tube with the tip in the left upper quadrant likely in the gastroesophageal junction. There is an unremarkable bowel gas pattern. The visualized liver, spleen and kidneys are grossly normal in size and morphology. Normal soft tissue structures. Normal visualized osseous structures. RAD/Abdomen Single View (Portable) IMPRESSION: 1. Nasogastric tube with the tip likely at the gastroesophageal junction. 2. No bowel obstruction. Electronically Signed: Monster Dean MD at 10:29 EST Tel , Service support ,
--- NOTE | 2021-05-18 11:48 | NURSING ---
Gifty to take home his boots, clothing and cell phone. However she did leave his Glasses and dentures here at this time.
[2021-05-18] MEDS: Tamsulosin HCl 0.4 MG Capsule 0.8 MG PO (17:19)
--- NOTE | 2021-05-18 17:40 | PCM.RX.CS ---
Consult Pharmacy has been consulted to manage selected antiobiotic: Vancomycin Type of Consult: Follow-up Suspected Infection: Pneumonia Labs: Sodium 138 mmol/L (136-145) 05/18/21 04:30 Potassium 4.8 mmol/L (3.5-5.1) 05/18/21 04:30 Chloride 102 mmol/L (98-107) 05/18/21 04:30 Carbon Dioxide 27.0 mmol/L (21.0-32.0) 05/18/21 04:30 Anion Gap 9 (5-15) 05/18/21 04:30 BUN 42 mg/dL (7-18) H 05/18/21 04:30 Creatinine 1.05 mg/dL (0.70-1.30) 05/18/21 04:30 Est GFR (MDRD) Af Amer 91 mL/min (>60) 05/18/21 04:30 Est GFR (MDRD) Non-Af 75 mL/min (>60) 05/18/21 04:30 BUN/Creatinine Ratio 40.0 RATIO (10-20) H 05/18/21 04:30 Glucose 144 mg/dL (74-106) H 05/18/21 04:30 Vancomycin Trough 19.1 ug/mL (5.0-15.0) H 05/17/21 19:30 Microbiology: Microbiology 05/17/21 08:30 Sputum, Expectorated/Coughed Gram Stain - Final 05/17/21 08:30 Sputum, Expectorated/Coughed Respiratory Culture - Preliminary Appears to be normal respiratory yana. Further studies to follow. 05/16/21 06:20 Sputum, Expectorated/Coughed Gram Stain - Final 05/16/21 06:20 Sputum, Expectorated/Coughed Respiratory Culture - Final 05/09/21 13:40 Urine, Catheterized Urine Culture - Final Enterococcus faecalis 05/06/21 01:48 Urine Catheter - Murphy Legionella Antigen - Final 05/06/21 01:48 Urine Catheter - Murphy Streptococcus pneumoniae Antigen (M - Final 04/20/21 15:10 Blood Culture (Wb) - Left Hand Blood Culture - Final No growth in 5 days. 04/20/21 13:10 Blood Culture (Wb) - Anticubital Right Blood Culture - Final No growth in 5 days. 04/21/21 17:07 Urine, Clean Catch Legionella Antigen - Final 04/21/21 17:07 Urine, Clean Catch Streptococcus pneumoniae Antigen (M - Final 04/20/21 12:10 Nasal Secretion SARS-CoV-2 Antigen (Rapid) - Final SARS-CoV-2 (COVID 19) Goal Trough: 15-20 mcg/mL Pharmacy Plan for Drug Dosing: DAILY ASSESSMENT Current Vancomcyin Dose: 1000mg q8h (03,11,19) Number of Doses Received: Current Renal Function: SrCr 1.05 Renal Function Trend: SrCr increased from 0.48 on 05/17/21 Lab/Micro: Any Change in Vanc Plan: recommend changing the level from 05/19/21 at 1030 to 05/18/21 at 1830 due to increasing SrCr Pending Level: 05/18/21 at 1830 Pharmacy Service will continue to monitor and adjust dosing as required. Follow-Up Labs: Trough Vancomycin - 05/18/21 at 1830
[2021-05-18 18:49] LABS: Vancomycin, Trough Level 32.9 ug/mL (5.0-15.0)
--- NOTE | 2021-05-18 19:14 | PCM.RX.CS ---
Consult Pharmacy has been consulted to manage selected antiobiotic: Vancomycin Type of Consult: Follow-up Labs: Sodium 138 mmol/L (136-145) 05/18/21 04:30 Potassium 4.8 mmol/L (3.5-5.1) 05/18/21 04:30 Chloride 102 mmol/L (98-107) 05/18/21 04:30 Carbon Dioxide 27.0 mmol/L (21.0-32.0) 05/18/21 04:30 Anion Gap 9 (5-15) 05/18/21 04:30 BUN 42 mg/dL (7-18) H 05/18/21 04:30 Creatinine 1.05 mg/dL (0.70-1.30) 05/18/21 04:30 Est GFR (MDRD) Af Amer 91 mL/min (>60) 05/18/21 04:30 Est GFR (MDRD) Non-Af 75 mL/min (>60) 05/18/21 04:30 BUN/Creatinine Ratio 40.0 RATIO (10-20) H 05/18/21 04:30 Glucose 144 mg/dL (74-106) H 05/18/21 04:30 Vancomycin Trough 32.9 ug/mL (5.0-15.0) H 05/18/21 18:15 Microbiology: Microbiology 05/17/21 08:30 Sputum, Expectorated/Coughed Gram Stain - Final 05/17/21 08:30 Sputum, Expectorated/Coughed Respiratory Culture - Preliminary Appears to be normal respiratory yana. Further studies to follow. 05/16/21 06:20 Sputum, Expectorated/Coughed Gram Stain - Final 05/16/21 06:20 Sputum, Expectorated/Coughed Respiratory Culture - Final 05/09/21 13:40 Urine, Catheterized Urine Culture - Final Enterococcus faecalis 05/06/21 01:48 Urine Catheter - Murphy Legionella Antigen - Final 05/06/21 01:48 Urine Catheter - Murphy Streptococcus pneumoniae Antigen (M - Final 04/20/21 15:10 Blood Culture (Wb) - Left Hand Blood Culture - Final No growth in 5 days. 04/20/21 13:10 Blood Culture (Wb) - Anticubital Right Blood Culture - Final No growth in 5 days. 04/21/21 17:07 Urine, Clean Catch Legionella Antigen - Final 04/21/21 17:07 Urine, Clean Catch Streptococcus pneumoniae Antigen (M - Final 04/20/21 12:10 Nasal Secretion SARS-CoV-2 Antigen (Rapid) - Final SARS-CoV-2 (COVID 19) Goal Trough: 15-20 mcg/mL Pharmacy Plan for Drug Dosing: Pharmacy Service will continue to monitor and adjust dosing as required. SCr INCREASED TO 1.05 FROM 0.48. TROUGH 32.9 @6.75HRS. D/C CURRENT ORDER AND DRAW RANDOM LEVEL 05/19 @ 1200 Follow-Up Labs: Trough Vancomycin Labs to be done on [date and time ordered]: 05/19 @ 1200
[2021-05-18] MEDS: Senna/Docusate Sodium 1 Tablet PO (20:02)
[2021-05-18] MEDS: guaiFENesin 1,200 MG Tablet 1200 MG PO (20:02)
[2021-05-18] MEDS: Propofol 10MG/Ml 1,000 MG/100 ML Bottle 20.3 MG CONT INF (23:16)
[2021-05-19] VITALS (48 sets, daily range): BP systolic 76–119; BP diastolic 55–86; PULSE 71–122; RESP 14–22; TEMP 36.1–36.4; O2SAT 87–97
[2021-05-19] MEDS: Ipratropium/Albuterol Sulfate 3 ML AMPUL.NEB INHALATION ×3 (00:47→13:53)
[2021-05-19] MEDS: Propofol 10MG/Ml 1,000 MG/100 ML Bottle 22.5 MG CONT INF ×6 (02:43→23:47)
--- NOTE | 2021-05-19 07:11 | PCM.PN.INT ---
Assessment & Plan Assessment/Plan (1) Acute respiratory failure with hypoxia: (2) Pneumonia due to COVID-19 virus: PLAN: RECOMMENDATIONS: 1. Continue patient on assist control mode mechanical ventilation. Wean FiO2/PEEP for saturations greater than 90%. 2. Continue empiric antimicrobials. 3. Continue vasopressor support to maintain a mean arterial pressure at or above 65 mmHg. 4. Advance OG 4 to 5 cm 5. Continue Lovenox as ordered. 6. Continue bronchodilator therapy. 7. Discontinue IV Lasix. 8. Continue second round of Decadron. 9. Decrease PEEP with higher FiO2 to attempt to address pneumomediastinum/pneumothoraces. IMPRESSIONS: 1. Acute hypoxic respiratory failure secondary to COVID-19 The patient was initially admitted to the hospital with COVID-19 pneumonia in the setting of progressive dyspnea on April 20. The patient completed treatment courses of remdesivir, Decadron and baricitinib. Despite the aforementioned, the patient's respiratory status remained quite tenuous. Repeat CTA chest was completed on May 14 and again failed to demonstrate evidence of pulmonary embolism. There continues to be extensive bilateral airspace disease with a background of chronic lung disease. The patient has been diuresed extensively over the course of his hospitalization. He remains on prophylactic Lovenox. Given the aforementioned, he was placed empirically on broad-spectrum antimicrobials and a second round of Decadron. He ultimately required transfer back to the ICU and intubation on May 17. Overall prognosis is quite poor. If aggressive measures are taken, anticipate trach and PEG once subcutaneous emphysema is addressed. 2. Pneumomediastinum/bilateral pneumothoraces Plan to continue with bilateral chest tube placement. Continue chest tubes to wall suction. Will attempt to wean PEEP and tolerate higher FiO2 in an effort to resolve. Decreased venous return may be the etiology for the need for pressor therapy, in addition to sedation. 3. Advanced age/nonvaccinated status/history of smoking Complicates care, management, recovery and prognosis. Continue supportive measures as noted above. Reattempt to place OG tube today to facilitate tube feed administration. TIME: 34 minutes of critical care time, inclusive of procedures, was spent addressing the patient's acute hypoxemic respiratory failure secondary to COVID-19 pneumonia, pneumomediastinum/pneumothoraces, review of all data and collaboration with the care team. Subjective Subjective Patient did okay overnight. No acute issues were reported. No leak has been noted from the chest tubes. OG has not been used. Nursing suggests subcutaneous emphysema is unchanged. Pressor need have improved somewhat. Objective Data Objective Data Vital Signs: Vital Signs Temp Pulse Resp BP Pulse Ox 36.4 C L 87 18 98/67 89 05/19/21 06:00 05/19/21 07:00 05/19/21 07:00 05/19/21 07:00 05/19/21 07:00 Oxygen Flow Rate (L/min) 55 Oxygen Delivery Method Mechanical Ventilator Weight: 76.7 kg Body Mass Index (BMI) 28.3 Intake & Output: Intake and Output for Last 24 Hours 05/17/21 05/18/21 05/19/21 23:59 23:59 23:59 Intake Total 1744.78 / 1797.76 2031.00 / 2060.40 520.36 / 520.36 Output Total 275 / 275 720 / 720 385 / 385 Balance 1469.78 / 1522.76 1311.00 / 1340.40 135.36 / 135.36 Medical Nutrition Assessment Dietitian: Malnutrition Criteria Met Start: 04/21/21 12:38 Freq: Status: Active Protocol: Document 05/18/21 07:32 DENI (Rec: 05/18/21 07:32 SLA [id number]) Nutrition Malnutrition Evidence of Malnutrition Exists Yes Malnutrition (severe): Acute Illness/Injury Evidenced By Suboptimal Energy Intake ( Moderate),Weight Loss (Severe) Clinical Problem Acute Disease or Injury Related Malnutrition Etiology severe, acute malnutrition r/t inadequate energy intake w/ COVID illness Signs/Symptoms as evidenced by reported decreased appetite, estimated PO intake meeting <50% of estimated nutritional needs >1 week, unintentional >10% wt loss since 04/20/21 admission Status Active Problem Recommendation Dietitian Recommendations/Changes When medically indicated, recommend continue regular diet, 8oz ensure enlive w/ meals d/t acute malnutrition. If pt intubated and OG placed, rec Vital AF 1.2 at goal 65 ml/hr w/ 100 ml h2o flush every 4 hours to provide ~ 1872 humberto/ 117 gm pro/ 1865 ml free water/day. Start tf at 20 ml/hr and increase by 15 ml /hr every 8-10 hours as pt tolerates until goal rate 65 ml/hr achieved. Lab / Micro Data Result Diagrams: 05/18/21 04:30 05/18/21 04:30 Labs: Laboratory Results - last 24 hr 05/18/21 04:30: WBC 15.8 H, RBC 4.12 L, Hgb 12.5 L, Hct 40.3, MCV 97.8 H, MCH 30.3, MCHC 31.0 L, RDW Std Deviation 50.3 H, RDW Coeff of Alyson 14.0, Plt Count 466 H, MPV 10.3, Immature Gran % (Auto) 4.200 H, Neut % (Auto) 78.0 H, Lymph % (Auto) 10.1 L, Christian % (Auto) 6.8, Eos % (Auto) 0.3, Baso % (Auto) 0.6, Absolute Neuts (auto) 12.4 H, Absolute Lymphs (auto) 1.60, Nucleated RBC % 0 05/18/21 04:30: Sodium 138, Potassium 4.8, Chloride 102, Carbon Dioxide 27.0, Anion Gap 9, BUN 42 H, Creatinine 1.05, Estim Creat Clear Calc 67.86, Est GFR (MDRD) Af Amer 91, Est GFR (MDRD) Non-Af 75, BUN/Creatinine Ratio 40.0 H, Glucose 144 H, Calcium 9.6 05/18/21 18:15: Vancomycin Trough 32.9 H Micro: Microbiology 05/17/21 08:30 Sputum, Expectorated/Coughed Gram Stain - Final 05/17/21 08:30 Sputum, Expectorated/Coughed Respiratory Culture - Preliminary Appears to be normal respiratory yana. Further studies to follow. 05/16/21 06:20 Sputum, Expectorated/Coughed Gram Stain - Final 05/16/21 06:20 Sputum, Expectorated/Coughed Respiratory Culture - Final 05/09/21 13:40 Urine, Catheterized Urine Culture - Final Enterococcus faecalis 05/06/21 01:48 Urine Catheter - Murphy Legionella Antigen - Final 05/06/21 01:48 Urine Catheter - Murphy Streptococcus pneumoniae Antigen (M - Final 04/20/21 15:10 Blood Culture (Wb) - Left Hand Blood Culture - Final No growth in 5 days. 04/20/21 13:10 Blood Culture (Wb) - Anticubital Right Blood Culture - Final No growth in 5 days. 04/21/21 17:07 Urine, Clean Catch Legionella Antigen - Final 04/21/21 17:07 Urine, Clean Catch Streptococcus pneumoniae Antigen (M - Final 04/20/21 12:10 Nasal Secretion SARS-CoV-2 Antigen (Rapid) - Final SARS-CoV-2 (COVID 19) Radiography Diagnostic Testing: Radiology Impression Chest X-Ray 05/18/21 05:46 IMPRESSION: No change from 05/17/2021. Electronically Signed: Monster Dean MD at 7:42 EST Tel , Service support , Chest X-Ray 05/18/21 07:47 IMPRESSION: 1. Clearing of right apical pneumothorax following right chest tube drain placement. 2. Airspace disease in both lungs is unchanged Electronically Signed: Roderick Hameed MD at 8:39 EST , Service support , Chest X-Ray 05/18/21 08:22 IMPRESSION: Interval placement of left-sided thoracostomy tube with a tiny left pneumothorax. Electronically Signed: Monster Dean MD at 8:51 EST Tel , Service support , KUB X-Ray 05/18/21 10:10 IMPRESSION: 1. Nasogastric tube with the tip likely at the gastroesophageal junction. 2. No bowel obstruction. Electronically Signed: Monster Dean MD at 10:29 EST Tel , Service support , Physical Exam Const General Appearance: intubated and patient mechanically ventilated HEENT normocephalic and head/scalp atraumatic Mouth: dry mucous membranes, endotracheal tube in place and OG tube in place Eyes PERRL and conjunctivae normal Neck supple General: trachea midline Chest Chest Narrative: Extensive subcutaneous emphysema with crepitus throughout the face, chest and arms. No leak noted on chest tubes Chest: symmetrical chest wall rise and chest tube; Negative for crepitus Resp Auscultation: diminished lung sounds; Negative for rales, rhonchi or wheezes Cardio regular rate, S1 normal heart sound, S2 normal heart sound, no murmurs and no rub GI normal to inspection, nondistended, normoactive bowel sounds Extremity no clubbing, cyanosis or edema Skin no rashes or lesions noted Neuro Sensorium / Orientation: sedated on vent Charges/Coding Procedures Hospitalists Procedures: 58809 Critial Care 1st Hr
--- NOTE | 2021-05-19 07:36 | PN.HOSP_ITS ---
Subjective Subjective Follow-up on acute hypoxic respiratory failure/acute COVID-19 pneumonia/bilateral pneumothorax/pneumomediastinum: Patient was seen and examined. Remains intubated on mechanical ventilator. On Levophed drip Objective Data Objective Data Vital Signs: Vital Signs Temp Pulse Resp BP Pulse Ox 97.5 F L 84 18 98/67 89 05/19/21 06:00 05/19/21 07:26 05/19/21 07:00 05/19/21 07:00 05/19/21 07:00 Oxygen Flow Rate (L/min) 55 Oxygen Delivery Method Mechanical Ventilator Weight: 76.7 kg Body Mass Index (BMI) 28.3 Intake & Output: Intake and Output for Last 24 Hours 05/17/21 05/18/21 05/19/21 23:59 23:59 23:59 Intake Total 1744.78 / 1797.76 2031.00 / 2060.40 520.36 / 520.36 Output Total 275 / 275 720 / 720 385 / 385 Balance 1469.78 / 1522.76 1311.00 / 1340.40 135.36 / 135.36 Medical Nutrition Assessment Dietitian: Malnutrition Criteria Met Start: 04/21/21 12:38 Freq: Status: Active Protocol: Document 05/18/21 07:32 DENI (Rec: 05/18/21 07:32 [facility] [id number]) Nutrition Malnutrition Evidence of Malnutrition Exists Yes Malnutrition (severe): Acute Illness/Injury Evidenced By Suboptimal Energy Intake ( Moderate),Weight Loss (Severe) Clinical Problem Acute Disease or Injury Related Malnutrition Etiology severe, acute malnutrition r/t inadequate energy intake w/ COVID illness Signs/Symptoms as evidenced by reported decreased appetite, estimated PO intake meeting <50% of estimated nutritional needs >1 week, unintentional >10% wt loss since 04/20/21 admission Status Active Problem Recommendation Dietitian Recommendations/Changes When medically indicated, recommend continue regular diet, 8oz ensure enlive w/ meals d/t acute malnutrition. If pt intubated and OG placed, rec Vital AF 1.2 at goal 65 ml/hr w/ 100 ml h2o flush every 4 hours to provide ~ 1872 humberto/ 117 gm pro/ 1865 ml free water/day. Start tf at 20 ml/hr and increase by 15 ml /hr every 8-10 hours as pt tolerates until goal rate 65 ml/hr achieved. Lab / Micro Data Result Diagrams: 05/18/21 04:30 05/18/21 04:30 Labs: Laboratory Results - last 24 hr 05/18/21 04:30: WBC 15.8 H, RBC 4.12 L, Hgb 12.5 L, Hct 40.3, MCV 97.8 H, MCH 30.3, MCHC 31.0 L, RDW Std Deviation 50.3 H, RDW Coeff of Alyson 14.0, Plt Count 466 H, MPV 10.3, Immature Gran % (Auto) 4.200 H, Neut % (Auto) 78.0 H, Lymph % (Auto) 10.1 L, [place] % (Auto) 6.8, Eos % (Auto) 0.3, Baso % (Auto) 0.6, Absolute Neuts (auto) 12.4 H, Absolute Lymphs (auto) 1.60, Nucleated RBC % 0 05/18/21 04:30: Sodium 138, Potassium 4.8, Chloride 102, Carbon Dioxide 27.0, Anion Gap 9, BUN 42 H, Creatinine 1.05, Estim Creat Clear Calc 67.86, Est GFR (MDRD) Af Amer 91, Est GFR (MDRD) Non-Af 75, BUN/Creatinine Ratio 40.0 H, Glucose 144 H, Calcium 9.6 05/18/21 18:15: Vancomycin Trough 32.9 H Micro: Microbiology 05/17/21 08:30 Sputum, Expectorated/Coughed Gram Stain - Final 05/17/21 08:30 Sputum, Expectorated/Coughed Respiratory Culture - Preliminary Appears to be normal respiratory yana. Further studies to follow. 05/16/21 06:20 Sputum, Expectorated/Coughed Gram Stain - Final 05/16/21 06:20 Sputum, Expectorated/Coughed Respiratory Culture - Final 05/09/21 13:40 Urine, Catheterized Urine Culture - Final Enterococcus faecalis 05/06/21 01:48 Urine Catheter - Murphy Legionella Antigen - Final 05/06/21 01:48 Urine Catheter - Murphy Streptococcus pneumoniae Antigen (M - Final 04/20/21 15:10 Blood Culture (Wb) - Left Hand Blood Culture - Final No growth in 5 days. 04/20/21 13:10 Blood Culture (Wb) - Anticubital Right Blood Culture - Final No growth in 5 days. 04/21/21 17:07 Urine, Clean Catch Legionella Antigen - Final 04/21/21 17:07 Urine, Clean Catch Streptococcus pneumoniae Antigen (M - Final 04/20/21 12:10 Nasal Secretion SARS-CoV-2 Antigen (Rapid) - Final SARS-CoV-2 (COVID 19) Radiography Diagnostic Testing: Radiology Impression Chest X-Ray 05/18/21 05:46 IMPRESSION: No change from 05/17/2021. Electronically Signed: Monster Dean MD at 7:42 EST Tel , Service support , Chest X-Ray 05/18/21 07:47 IMPRESSION: 1. Clearing of right apical pneumothorax following right chest tube drain placement. 2. Airspace disease in both lungs is unchanged Electronically Signed: Roderick Hameed MD at 8:39 EST , Service support , Chest X-Ray 05/18/21 08:22 IMPRESSION: Interval placement of left-sided thoracostomy tube with a tiny left pneumothorax. Electronically Signed: Monster Dean MD at 8:51 EST Tel , Service support , KUB X-Ray 05/18/21 10:10 IMPRESSION: 1. Nasogastric tube with the tip likely at the gastroesophageal junction. 2. No bowel obstruction. Electronically Signed: Monster Dean MD at 10:29 EST Tel , Service support , Physical Exam Narrative Physical exam: General: Sedated, intubated HEENT: Atraumatic, subcutaneous emphysema around the neck, chest and face Oral: Moist Mucosa Neck: Supple Lungs: Diminished to auscultation, bilateral chest tubes in situ Cardiovascular: HS I+II, regular, no murmurs Abdomen: Bowel Sounds Present, Soft, Non Tender Extremities: No edema Assessment & Plan Assessment/Plan (1) COVID-19: (2) Acute respiratory failure with hypoxia: PLAN: 1. Acute hypoxic respiratory failure secondary to acute COVID-19 pneumonia complicated by bilateral pneumothorax and pneumomediastinum Patient is intubated, sedated Completed remdesivir, Decadron, baricitinib Travel Specialist following Restarted back on Decadron Intubated on 05/17/21 2. Acute Enterococcus faecalis UTI, pansensitive, continue on cefepime and vancomycin 3. Acute urinary retention, status post Murphy catheter, placed on 05/11/21 4. Severe protein calorie malnutrition, drawing instructor consulted, patient is on enteral feeds 5. DVT PPx- Lovenox SC BID Charges/Coding Visit Charges Inpatient E&M: 66258 [facility] Hosp L3
--- NOTE | 2021-05-19 08:40 | RAD_ITS ---
STUDY: X-RAY - ABDOMEN/PELVIS REASON FOR EXAM: Male, 66 years old. OG placement TECHNIQUE: Single AP view of the abdomen / pelvis. COMPARISON: Comparison is made with prior examination dated 05/18/2021. FINDINGS: Bilateral pulmonary infiltrates. Bilateral chest tubes are seen. The tip of the orogastric tube is at the gastroesophageal junction. The visualized liver, spleen and kidneys are grossly normal in size and morphology. Normal soft tissue structures. There are diffuse degenerative changes of the visualized lumbar spine. RAD/Abdomen Single View (Portable) IMPRESSION: The tip of the orogastric tube is at the level of the gastroesophageal junction. Electronically Signed: Matt Rodriguez MD at 9:26 EST , Service support ,
[2021-05-19] MEDS: Chlorhexidine 15 ML PO ×2 (09:05→20:06)
[2021-05-19] MEDS: Enoxaparin 40 MG/0.4 ML Syringe SC ×2 (09:25→20:05)
[2021-05-19] MEDS: dexAMETHasone 4 MG/ML Vial 6 MG IV (09:25)
--- NOTE | 2021-05-19 11:30 | NURSING ---
[facility] early referral call completed, per Lopez, patient not DCD candidate, but will continue to follow
[2021-05-19 13:13] LABS: Vancomycin, Random Level 20.8 ug/mL (0.0-15.0)
--- NOTE | 2021-05-19 14:35 | PCM.PN.ID ---
Physical Exam Narrative On vent, no fever Const no apparent distress Resp Effort and Inspection: mechanically ventilated Auscultation: diminished lung sounds Cardio regular rate and regular rhythm GI soft to palpation, non-tender and non-distended Skin no rashes or lesions noted ID ID: Route of nutrition/ use of supplements: [] Nutritional Intake: [] IV Site: [] Murphy Catheter: [] Assessment & Plan Assessment/Plan (1) Pneumomediastinum: (2) COVID-19: PLAN: Out of iso. On cefepime, dex, levophed. Will stop vanc. Trough was high. Sputum cx 05/17 neg so far. (3) Acute respiratory failure with hypoxia:
[2021-05-19] MEDS: Oxymetazoline 0.05% 1 SPRAY SPRAY.BTL 2 SPRAY NASAL (20:06)
[2021-05-20] VITALS (40 sets, daily range): BP systolic 78–141; BP diastolic 54–87; PULSE 5–104; RESP 15–25; TEMP 36.6–37.8; O2SAT 89–97
[2021-05-20] MEDS: Propofol 10MG/Ml 1,000 MG/100 ML Bottle 22.5 MG CONT INF ×5 (04:15→21:25)
[2021-05-20 04:20] LABS: Hematocrit 33.1 % (40-54); Hemoglobin 10.4 g/dL (13.0-16.5); Mean Corp Hgb Conc 31.4 g/dL (32-36); Mean Corpuscular Hgb 30.4 pg (27.0-32.0); Mean Corpuscular Volume 96.8 fL (80-94); Mean Platelet Vol. 9.7 fl (6.2-12.0); POSITIVE COUNT YES; POSITIVE MORPHOLOGY YES; Platelet Count 315 K/mm3 (150-450); RBC Distribution Width CV 14.2 % (11.6-14.6); RBC Distribution Width SD 50.3 fl (35.1-43.9); Red Blood Count 3.42 M/mm3 (4.6-6.2); White Blood Count 10.4 K/mm3 (4.4-11.0)
[2021-05-20 04:22] LABS: Differential Indicated MANUAL DIFF
[2021-05-20 04:39] LABS: ALB/GLOB Ratio 0.4 RATIO (0.9-2.4); AST(SGOT) 74 U/L (15-37); Alanine Aminotransfer ALT/SGPT 121 U/L (16-61); Albumin, Serum 1.6 g/dL (3.2-5.0); Alkaline Phosphatase 97 U/L (45-117); Anion Gap 5 (5-15); BUN 62 mg/dL (7-18); BUN/Creat Ratio 63.3 RATIO (10-20); Calcium,Total 8.4 mg/dL (8.5-10.1); Chloride 108 mmol/L (98-107); Creatinine, Serum 0.98 mg/dL (0.70-1.30); EST Glomerular Filtration Rate 82 mL/min (>60); Est Glom Filt Rate - Afr Amer 99 mL/min (>60); Glucose 115 mg/dL (74-106); Potassium 4.3 mmol/L (3.5-5.1); Protein, Total 5.6 g/dL (6.4-8.2); Sodium Level 143 mmol/L (136-145)
[2021-05-20 05:06] LABS: Eosinophil 1 % (0-5); Lymphocyte 8 % (19-41); Metamyelocyte 1 % (0-1); Monocyte 7 % (0-10); Myelocyte 2 % (0-0); Neutrophil-Segmented 81 % (47-70); Platelet Estimate ADEQUATE (ADEQ); Total Cells Counted 100 (MANUAL DIFF)
[2021-05-20 05:07] LABS: Absolute Neutrophil Count 8.4 X10^3/uL (2.0-7.7); Neutrophil # 8.41 X10^3/uL (2.7-7.7); Red Cell Morphology NORM C+C NORMAL (NORM C&C)
[2021-05-20 05:08] LABS: Absolute Lymphocyte Count 0.83 X10^3/uL (0.83-4.51); Lymphocyte # 0.83 X10^3/ul (0.83-4.51)
[2021-05-20] MEDS: Furosemide 40 MG/4 ML Vial IV (06:52)
--- NOTE | 2021-05-20 07:43 | PN.HOSP_ITS ---
Subjective Subjective Follow-up on acute hypoxic respiratory failure/acute COVID-19 pneumonia/bilateral pneumothorax/pneumomediastinum: Patient was seen and examined. No acute events overnight. Remains intubated on mechanical ventilator. On Levophed. Objective Data Objective Data Vital Signs: Vital Signs Temp Pulse Resp BP Pulse Ox 97.9 F 70 22 H 91/59 L 93 05/20/21 00:00 05/20/21 07:21 05/20/21 07:21 05/20/21 07:00 05/20/21 07:21 Oxygen Flow Rate (L/min) 55 Oxygen Delivery Method Mechanical Ventilator Weight: 76.8 kg Body Mass Index (BMI) 28.3 Intake & Output: Intake and Output for Last 24 Hours 05/18/21 05/19/21 05/20/21 23:59 23:59 23:59 Intake Total 2031.00 / 2060.40 1559.35 / 1597.43 453.70 / 453.70 Output Total 720 / 720 880 / 1080 304 / 304 Balance 1311.00 / 1340.40 679.35 / 517.43 149.70 / 149.70 Medical Nutrition Assessment Dietitian: Malnutrition Criteria Met Start: 04/21/21 12:38 Freq: Status: Active Protocol: Document 05/19/21 11:25 SLA (Rec: 05/19/21 11:26 SLA [id number]) Nutrition Malnutrition Evidence of Malnutrition Exists Yes Malnutrition (severe): Acute Illness/Injury Evidenced By Suboptimal Energy Intake ( Moderate),Weight Loss (Severe) Clinical Problem Acute Disease or Injury Related Malnutrition Etiology severe, acute malnutrition r/t inadequate energy intake w/ COVID illness Signs/Symptoms as evidenced by reported decreased appetite, estimated PO intake meeting <50% of estimated nutritional needs >1 week, unintentional >10% wt loss since 04/20/21 admission Status Active Problem Recommendation Dietitian Recommendations/Changes When medically indicated, recommend continue regular diet, 8oz ensure enlive w/ meals d/t acute malnutrition. If pt intubated and if OG placed, rec Vital AF 1.2 at goal 65 ml/hr w/ 100 ml h2o flush every 4 hours to provide ~ 1872 humberto/ 117 gm pro/ 1865 ml free water/day. Start tf at 20 ml/hr and increase by 15 ml/hr every 8-10 hours as pt tolerates until goal rate 65 ml/hr achieved. Lab / Micro Data Result Diagrams: 05/20/21 04:15 05/20/21 04:15 Labs: Laboratory Results - last 24 hr 05/19/21 12:15: Random Vancomycin 20.8 H 05/20/21 04:15: WBC 10.4, RBC 3.42 L, Hgb 10.4 L, Hct 33.1 L, MCV 96.8 H, MCH 30.4, MCHC 31.4 L, RDW Std Deviation 50.3 H, RDW Coeff of Alyson 14.2, Plt Count 315, MPV 9.7, Neut % (Auto) Not Reportable, Absolute Neuts (auto) 8.4 H, Absolute Lymphs (auto) 0.83, Total Counted 100, Neutrophils % (Manual) 81 H, Lymphocytes % (Manual) 8 L, Monocytes % (Manual) 7, Eosinophils % (Manual) 1, Metamyelocytes % 1, Myelocytes % 2 H, Diff Path Review September, Platelet Estimate ADEQUATE, RBC Morphology NORM C+C 05/20/21 04:15: Sodium 143, Potassium 4.3, Chloride 108 H, Carbon Dioxide 30.0, Anion Gap 5, BUN 62 H, Creatinine 0.98, Estim Creat Clear Calc 72.70, Est GFR (MDRD) Af Amer 99, Est GFR (MDRD) Non-Af 82, BUN/Creatinine Ratio 63.3 H, Glucose 115 H, Calcium 8.4 L, Total Bilirubin 0.90, AST 74 H, ALT 121 H, Alkaline Phosphatase 97, Total Protein 5.6 L, Albumin 1.6 L, Globulin 4.0, Albumin/Globulin Ratio 0.4 L Micro: Microbiology 05/17/21 08:30 Sputum, Expectorated/Coughed Gram Stain - Final 05/17/21 08:30 Sputum, Expectorated/Coughed Respiratory Culture - Final Culture exhibits no growth. 05/16/21 06:20 Sputum, Expectorated/Coughed Gram Stain - Final 05/16/21 06:20 Sputum, Expectorated/Coughed Respiratory Culture - Final 05/09/21 13:40 Urine, Catheterized Urine Culture - Final Enterococcus faecalis 05/06/21 01:48 Urine Catheter - Murphy Legionella Antigen - Final 05/06/21 01:48 Urine Catheter - Murphy Streptococcus pneumoniae Antigen (M - Final 04/20/21 15:10 Blood Culture (Wb) - Left Hand Blood Culture - Final No growth in 5 days. 04/20/21 13:10 Blood Culture (Wb) - Anticubital Right Blood Culture - Final No growth in 5 days. 04/21/21 17:07 Urine, Clean Catch Legionella Antigen - Final 04/21/21 17:07 Urine, Clean Catch Streptococcus pneumoniae Antigen (M - Final 04/20/21 12:10 Nasal Secretion SARS-CoV-2 Antigen (Rapid) - Final SARS-CoV-2 (COVID 19) Radiography Diagnostic Testing: Radiology Impression KUB X-Ray 05/19/21 08:40 IMPRESSION: The tip of the orogastric tube is at the level of the gastroesophageal junction. Electronically Signed: Matt Rodriguez MD at 9:26 EST , Service support , Physical Exam Narrative Physical exam: General: Sedated, intubated HEENT: Atraumatic, subcutaneous emphysema around the neck, chest and face Oral: Moist Mucosa Neck: Supple Lungs: Diminished to auscultation, bilateral chest tubes in situ Cardiovascular: HS I+II, regular, no murmurs Abdomen: Bowel Sounds Present, Soft, Non Tender Extremities: No edema Assessment & Plan Assessment/Plan (1) COVID-19: (2) Acute respiratory failure with hypoxia: PLAN: 1. Acute hypoxic respiratory failure secondary to acute COVID-19 pneumonia complicated by bilateral pneumothorax and pneumomediastinum, remains about the same Patient is intubated, sedated. Intubated on 05/17/21 Completed Remdesivir, Decadron, baricitinib Global Product Manager and ID following Continue on dexamethasone(2nd round) 2. Shock, unclear etiology, probably septic secondary to #3 Blood cultures have been negative Patient is on minimal amounts of pressors Continue on IV cefepime 3. Acute Enterococcus faecalis UTI, pansensitive, continue on cefepime 4. Acute urinary retention, status post Murphy catheter, placed on 05/11/21 5. Severe protein calorie malnutrition, educational fundraising director consulted, patient is on enteral feeds 6. DVT PPx- Lovenox SC BID Charges/Coding Visit Charges Inpatient E&M: 61059 Subs Hosp L3
--- NOTE | 2021-05-20 07:45 | PN.CC_ITS ---
Assessment & Plan Assessment/Plan (1) Acute respiratory failure with hypoxia: (2) Pneumonia due to COVID-19 virus: PLAN: RECOMMENDATIONS: 1. Continue patient on assist control mode mechanical ventilation. Wean FiO2/PEEP for saturations greater than 90%. 2. Continue empiric antimicrobials. 3. Continue vasopressor support to maintain a mean arterial pressure at or above 65 mmHg. 4. Discontinue OG 5. Continue Lovenox as ordered. 6. Continue bronchodilator therapy. 7. Continue to hold IV Lasix for now 8. Continue second round of Decadron. 9. Continue to minimize PEEP address pneumomediastinum/pneumothoraces. IMPRESSIONS: 1. Acute hypoxic respiratory failure secondary to COVID-19 The patient was initially admitted to the hospital with COVID-19 pneumonia in the setting of progressive dyspnea on April 20. The patient completed treatment courses of remdesivir, Decadron and baricitinib. Despite the aforemen tioned, the patient's respiratory status remained quite tenuous. Repeat CTA chest was completed on May 14 and again failed to demonstrate evidence of pulmonary embolism. There continues to be extensive bilateral airspace disease with a background of chronic lung disease. The patient has been diuresed extensively over the course of his hospitalization. He remains on prophylactic Lovenox. Given the aforementioned, he was placed empirically on broad-spectrum antimicrobials and a second round of Decadron. He ultimately required transfer back to the ICU and intubation on May 17. Overall prognosis is quite poor. If aggressive measures are taken, anticipate trach and PEG once subcutaneous emphysema is addressed. Await family decision. 2. Pneumomediastinum/bilateral pneumothoraces Plan to continue with bilateral chest tube placement. Continue chest tubes to wall suction. Patient on minimal vent settings at this time. Patient does appear to be improving from a subcutaneous emphysematous standpoint. Decreased venous return may be the etiology for the need for pressor therapy, in addition to sedation. 3. Advanced age/nonvaccinated status/history of smoking Complicates care, management, recovery and prognosis. Continue supportive measures as noted above. We will hold on OG for now. May need to have endosc opic placement to facilitate feeds if aggressive measures are recommended. Other alternative would be to proceed directly to PEG. Await family decision. Addendum 5:16 PM: Extensive conversation with the family for over 40 minutes on patient's current status and goals. After reviewing multiple scenarios, the family is leaning towards proceeding with a PEG to provide nutritional support. They do not believe that they will proceed with a tracheostomy, but would like to optimize patient as best they can with an expectation that they will extubate with no reintubation. They understand that nutrition is necessary to give him a chance of moving forward. The necessity for LTAC placement and protracted rehab away from home are the biggest barrier of proceeding with tracheostomy from their perspective. TIME: 77 minutes of critical care time, inclusive of procedures, was spent addressing the patient's acute hypoxemic respiratory failure secondary to COVID- 19 pneumonia, pneumomediastinum/pneumothoraces, review of all data and collaboration with the care team. Subjective Subjective Patient did okay overnight. No acute issues were reported. Patient remains on minimal Levophed to maintain saturations. No change in oxygenation status has been noted. Did have a 45-minute conversation with the family yesterday about goals of care. No change in CODE STATUS at this time. They are aware that patient likely needs a trach and PEG given protracted hospital course and debility. Nursing reports that the OG is continuing to be nonfunctional. Objective Data Objective Data Vital Signs: Vital Signs Temp Pulse Resp BP Pulse Ox 36.6 C 70 22 H 91/59 L 93 05/20/21 00:00 05/20/21 07:21 05/20/21 07:21 05/20/21 07:00 05/20/21 07:21 Oxygen Flow Rate (L/min) 55 Oxygen Delivery Method Mechanical Ventilator Weight: 76.8 kg Body Mass Index (BMI) 28.3 Intake & Output: Intake and Output for Last 24 Hours 05/18/21 05/19/21 05/20/21 23:59 23:59 23:59 Intake Total 2031.00 / 2060.40 1559.35 / 1597.43 453.70 / 453.70 Output Total 720 / 720 880 / 1080 304 / 304 Balance 1311.00 / 1340.40 679.35 / 517.43 149.70 / 149.70 Medical Nutrition Assessment Dietitian: Malnutrition Criteria Met Start: 04/21/21 12:38 Freq: Status: Active Protocol: Document 05/19/21 11:25 DENI (Rec: 05/19/21 11:26 DENI [id number]) Nutrition Malnutrition Evidence of Malnutrition Exists Yes Malnutrition (severe): Acute Illness/Injury Evidenced By Suboptimal Energy Intake ( Moderate),Weight Loss (Severe) Clinical Problem Acute Disease or Injury Related Malnutrition Etiology severe, acute malnutrition r/t inadequate energy intake w/ COVID illness Signs/Symptoms as evidenced by reported decreased appetite, estimated PO intake meeting <50% of estimated nutritional needs >1 week, unintentional >10% wt loss since 04/20/21 admission Status Active Problem Recommendation Dietitian Recommendations/Changes When medically indicated, recommend continue regular diet, 8oz ensure enlive w/ meals d/t acute malnutrition. If pt intubated and if OG placed, rec Vital AF 1.2 at goal 65 ml/hr w/ 100 ml h2o flush every 4 hours to provide ~ 1872 humberto/ 117 gm pro/ 1865 ml free water/day. Start tf at 20 ml/hr and increase by 15 ml/hr every 8-10 hours as pt tolerates until goal rate 65 ml/hr achieved. Lab / Micro Data Result Diagrams: 05/20/21 04:15 05/20/21 04:15 Labs: Laboratory Results - last 24 hr 05/19/21 12:15: Random Vancomycin 20.8 H 05/20/21 04:15: WBC 10.4, RBC 3.42 L, Hgb 10.4 L, Hct 33.1 L, MCV 96.8 H, MCH 30.4, MCHC 31.4 L, RDW Std Deviation 50.3 H, RDW Coeff of Alyson 14.2, Plt Count 315, MPV 9.7, Neut % (Auto) Not Reportable, Absolute Neuts (auto) 8.4 H, Absolute Lymphs (auto) 0.83, Total Counted 100, Neutrophils % (Manual) 81 H, Lymphocytes % (Manual) 8 L, Monocytes % (Manual) 7, Eosinophils % (Manual) 1, Metamyelocytes % 1, Myelocytes % 2 H, Diff Path Review May foll, Platelet Estimate ADEQUATE, RBC Morphology NORM C+C 05/20/21 04:15: Sodium 143, Potassium 4.3, Chloride 108 H, Carbon Dioxide 30.0, Anion Gap 5, BUN 62 H, Creatinine 0.98, Estim Creat Clear Calc 72.70, Est GFR (MDRD) Af Amer 99, Est GFR (MDRD) Non-Af 82, BUN/Creatinine Ratio 63.3 H, Glucose 115 H, Calcium 8.4 L, Total Bilirubin 0.90, AST 74 H, ALT 121 H, Alkaline Phosphatase 97, Total Protein 5.6 L, Albumin 1.6 L, Globulin 4.0, Alb umin/Globulin Ratio 0.4 L Micro: Microbiology 05/17/21 08:30 Sputum, Expectorated/Coughed Gram Stain - Final 05/17/21 08:30 Sputum, Expectorated/Coughed Respiratory Culture - Final Culture exhibits no growth. 05/16/21 06:20 Sputum, Expectorated/Coughed Gram Stain - Final 05/16/21 06:20 Sputum, Expectorated/Coughed Respiratory Culture - Final 05/09/21 13:40 Urine, Catheterized Urine Culture - Final Enterococcus faecalis 05/06/21 01:48 Urine Catheter - Murphy Legionella Antigen - Final 05/06/21 01:48 Urine Catheter - Murphy Streptococcus pneumoniae Antigen (M - Final 04/20/21 15:10 Blood Culture (Wb) - Left Hand Blood Culture - Final No growth in 5 days. 04/20/21 13:10 Blood Culture (Wb) - Anticubital Right Blood Culture - Final No growth in 5 days. 04/21/21 17:07 Urine, Clean Catch Legionella Antigen - Final 04/21/21 17:07 Urine, Clean Catch Streptococcus pneumoniae Antigen (M - Final 04/20/21 12:10 Nasal Secretion SARS-CoV-2 Antigen (Rapid) - Final SARS-CoV-2 (COVID 19) Radiography Diagnostic Testing: Radiology Impression KUB X-Ray 05/19/21 08:40 IMPRESSION: The tip of the orogastric tube is at the level of the gastroesophageal junction. Electronically Signed: Matt Rodriguez MD at 9:26 EST , Service support , Physical Exam Const Constitutional Narrative: Subcutaneous emphysema appears slightly improved compared to previous General Appearance: intubated and patient mechanically ventilated HEENT normocephalic and head/scalp atraumatic Mouth: dry mucous membranes, endotracheal tube in place and OG tube in place Eyes PERRL and conjunctivae normal Neck supple General: trachea midline Chest Chest Narrative: Extensive subcutaneous emphysema with crepitus throughout the face, chest and arms. No leak noted on chest tubes Chest: symmetrical chest wall rise, crepitus and chest tube Resp Auscultation: diminished lung sounds; Negative for rales, rhonchi or wheezes Cardio regular rate, S1 normal heart sound, S2 normal heart sound, no murmurs and no rub GI normal to inspection, nondistended, normoactive bowel sounds Extremity no clubbing, cyanosis or edema Skin no rashes or lesions noted Neuro Sensorium / Orientation: sedated on vent Charges/Coding Procedures Hospitalists Procedures: 59495 Critial Care 1st Hr Multi Select Codes Hospitalists' Procedures Procedures: 57228 Critial Care Addl 30 Min
--- NOTE | 2021-05-20 10:43 | PCM.PN.SRG ---
Subjective Subjective Patient still intubated and sedated, still on small amount of levo, subcutaneous emphysema improved Objective Data Objective Data Vital Signs: Vital Signs Temp Pulse Resp BP Pulse Ox 97.9 F 97 22 H 91/59 L 90 05/20/21 00:00 05/20/21 08:56 05/20/21 07:21 05/20/21 07:00 05/20/21 08:56 Oxygen Flow Rate (L/min) 55 Oxygen Delivery Method Mechanical Ventilator Weight: 169 lb 5.04 oz Body Mass Index (BMI) 28.3 Intake & Output: Intake and Output for Last 24 Hours 05/18/21 05/19/21 05/20/21 23:59 23:59 23:59 Intake Total 2031.00 / 2060.40 1559.35 / 1597.43 491.82 / 491.82 Output Total 720 / 720 880 / 1080 304 / 304 Balance 1311.00 / 1340.40 679.35 / 517.43 187.82 / 187.82 Medical Nutrition Assessment Dietitian: Malnutrition Criteria Met Start: 04/21/21 12:38 Freq: Status: Active Protocol: Document 05/19/21 11:25 SLA (Rec: 05/19/21 11:26 SLA [id number]) Nutrition Malnutrition Evidence of Malnutrition Exists Yes Malnutrition (severe): Acute Illness/Injury Evidenced By Suboptimal Energy Intake ( Moderate),Weight Loss (Severe) Clinical Problem Acute Disease or Injury Related Malnutrition Etiology severe, acute malnutrition r/t inadequate energy intake w/ COVID illness Signs/Symptoms as evidenced by reported decreased appetite, estimated PO intake meeting <50% of estimated nutritional needs >1 week, unintentional >10% wt loss since 04/20/21 admission Status Active Problem Recommendation Dietitian Recommendations/Changes When medically indicated, recommend continue regular diet, 8oz ensure enlive w/ meals d/t acute malnutrition. If pt intubated and if OG placed, rec Vital AF 1.2 at goal 65 ml/hr w/ 100 ml h2o flush every 4 hours to provide ~ 1872 humberto/ 117 gm pro/ 1865 ml free water/day. Start tf at 20 ml/hr and increase by 15 ml/hr every 8-10 hours as pt tolerates until goal rate 65 ml/hr achieved. Lab / Micro Data Result Diagrams: 05/20/21 04:15 05/20/21 04:15 Labs: Laboratory Results - last 24 hr 05/19/21 12:15: Random Vancomycin 20.8 H 05/20/21 04:15: WBC 10.4, RBC 3.42 L, Hgb 10.4 L, Hct 33.1 L, MCV 96.8 H, MCH 30.4, MCHC 31.4 L, RDW Std Deviation 50.3 H, RDW Coeff of Alyson 14.2, Plt Count 315, MPV 9.7, Neut % (Auto) Not Reportable, Absolute Neuts (auto) 8.4 H, Absolute Lymphs (auto) 0.83, Total Counted 100, Neutrophils % (Manual) 81 H, Lymphocytes % (Manual) 8 L, Monocytes % (Manual) 7, Eosinophils % (Manual) 1, Metamyelocytes % 1, Myelocytes % 2 H, Diff Path Review September, Platelet Estimate ADEQUATE, RBC Morphology NORM C+C 05/20/21 04:15: Sodium 143, Potassium 4.3, Chloride 108 H, Carbon Dioxide 30.0, Anion Gap 5, BUN 62 H, Creatinine 0.98, Estim Creat Clear Calc 72.70, Est GFR (MDRD) Af Amer 99, Est GFR (MDRD) Non-Af 82, BUN/Creatinine Ratio 63.3 H, Glucose 115 H, Calcium 8.4 L, Total Bilirubin 0.90, AST 74 H, ALT 121 H, Alkaline Phosphatase 97, Total Protein 5.6 L, Albumin 1.6 L, Globulin 4.0, Albumin/Globulin Ratio 0.4 L Micro: Microbiology 05/17/21 08:30 Sputum, Expectorated/Coughed Gram Stain - Final 05/17/21 08:30 Sputum, Expectorated/Coughed Respiratory Culture - Final Culture exhibits no growth. 05/16/21 06:20 Sputum, Expectorated/Coughed Gram Stain - Final 05/16/21 06:20 Sputum, Expectorated/Coughed Respiratory Culture - Final 05/09/21 13:40 Urine, Catheterized Urine Culture - Final Enterococcus faecalis 05/06/21 01:48 Urine Catheter - Murphy Legionella Antigen - Final 05/06/21 01:48 Urine Catheter - Murphy Streptococcus pneumoniae Antigen (M - Final 04/20/21 15:10 Blood Culture (Wb) - Left Hand Blood Culture - Final No growth in 5 days. 04/20/21 13:10 Blood Culture (Wb) - Anticubital Right Blood Culture - Final No growth in 5 days. 04/21/21 17:07 Urine, Clean Catch Legionella Antigen - Final 04/21/21 17:07 Urine, Clean Catch Streptococcus pneumoniae Antigen (M - Final 04/20/21 12:10 Nasal Secretion SARS-CoV-2 Antigen (Rapid) - Final SARS-CoV-2 (COVID 19) Physical Exam Const Constitutional Narrative: Intubated and sedated HEENT HEENT Narrative: Subcutaneous emphysema of the right eyelid and lower face and neck?lower face and neck has improved some Resp Resp Narrative: Bilateral chest tubes in place no obvious air leak in either side. Cardio regular rate GI soft to palpation Assessment & Plan Assessment/Plan (1) Pneumothorax: (2) Pneumomediastinum: (3) Acute respiratory failure with hypoxia: (4) Pneumonia due to COVID-19 virus: (5) COVID-19: PLAN: Bilateral chest tubes in place no air leak. Subcutaneous emphysema is improving some. We will continue to follow. Tiara Buck M.D. Pager: [phone] [facility] [address] [place] [address], [facility] [address] [place] [address] Office: [phone] Charges/Coding Visit Charges Inpatient E&M: 18824 Subs Hosp L3
[2021-05-20] MEDS: dexAMETHasone 4 MG/ML Vial 6 MG IV (10:49)
[2021-05-20] MEDS: Enoxaparin 40 MG/0.4 ML Syringe SC (10:49)
[2021-05-20] MEDS: Chlorhexidine 15 ML PO ×2 (10:49→21:12)
--- NOTE | 2021-05-20 11:40 | CASEMGMT ---
SOCIAL WORK Call to patient's to follow up for support. tearful on phone reporting It just wasn't supposed to go this way. stating, this is just such a hard decision to make. reports patient would not want to live in a [facility] with a trach and peg. We have had these discussions. asking questions regarding Hospice. Much emotional support and education provided. states awaiting to hear from physician today and states has been updated from nursing. Nursing updated on this writers conversation with . SW to remain available for needs. Omaira López, TILT WALL SUPERVISOR, CRIMINAL RECORDS TECHNICIAN
[2021-05-20] MEDS: Ipratropium/Albuterol Sulfate 3 ML AMPUL.NEB INHALATION ×2 (13:25→18:35)
[2021-05-20 14:25] LABS: Pathologist Review Reviewed
[2021-05-21] VITALS (39 sets, daily range): BP systolic 86–131; BP diastolic 52–75; PULSE 70–104; RESP 16–25; TEMP 37.6–38.1; O2SAT 90–96
[2021-05-21] MEDS: Ipratropium/Albuterol Sulfate 3 ML AMPUL.NEB INHALATION ×4 (01:10→19:10)
[2021-05-21] MEDS: Propofol 10MG/Ml 1,000 MG/100 ML Bottle 22.5 MG CONT INF ×5 (01:53→17:51)
[2021-05-21 04:32] LABS: Hematocrit 33.4 % (40-54); Hemoglobin 10.5 g/dL (13.0-16.5); Mean Corp Hgb Conc 31.4 g/dL (32-36); Mean Corpuscular Hgb 30.3 pg (27.0-32.0); Mean Corpuscular Volume 96.5 fL (80-94); Mean Platelet Vol. 9.6 fl (6.2-12.0); POSITIVE COUNT YES; POSITIVE MORPHOLOGY YES; Platelet Count 297 K/mm3 (150-450); RBC Distribution Width CV 14.2 % (11.6-14.6); RBC Distribution Width SD 50.2 fl (35.1-43.9); Red Blood Count 3.46 M/mm3 (4.6-6.2); White Blood Count 11.2 K/mm3 (4.4-11.0)
[2021-05-21 04:38] LABS: Differential Indicated MANUAL DIFF
[2021-05-21 04:52] LABS: ALB/GLOB Ratio 0.4 RATIO (0.9-2.4); AST(SGOT) 41 U/L (15-37); Alanine Aminotransfer ALT/SGPT 118 U/L (16-61); Albumin, Serum 1.5 g/dL (3.2-5.0); Alkaline Phosphatase 103 U/L (45-117); Anion Gap 6 (5-15); BUN 54 mg/dL (7-18); BUN/Creat Ratio 64.8 RATIO (10-20); Chloride 110 mmol/L (98-107); Creatinine, Serum 0.83 mg/dL (0.70-1.30); EST Glomerular Filtration Rate 98 mL/min (>60); Est Glom Filt Rate - Afr Amer 119 mL/min (>60); Estimated Creatinine Clearance 85.84 ml/min; Glucose 117 mg/dL (74-106); Potassium 3.7 mmol/L (3.5-5.1); Protein, Total 5.5 g/dL (6.4-8.2); Sodium Level 144 mmol/L (136-145)
[2021-05-21 05:09] LABS: Eosinophil 5 % (0-5); Lymphocyte 8 % (19-41); Metamyelocyte 1 % (0-1); Monocyte 4 % (0-10); Myelocyte 3 % (0-0); Neutrophil-Band 1 % (0-5); Neutrophil-Segmented 78 % (47-70); Platelet Estimate ADEQUATE (ADEQ); Red Cell Morphology NORM C+C NORMAL (NORM C&C); Total Cells Counted 100 (MANUAL DIFF)
[2021-05-21 05:10] LABS: Absolute Neutrophil Count 8.9 X10^3/uL (2.0-7.7); Neutrophil # 8.87 X10^3/uL (2.7-7.7)
[2021-05-21] MEDS: TITRATION PARAMETER CHANGE 1 EACH IV (06:56)
--- NOTE | 2021-05-21 07:14 | PN.CC_ITS ---
Assessment & Plan Assessment/Plan (1) Acute respiratory failure with hypoxia: (2) Pneumonia due to COVID-19 virus: PLAN: RECOMMENDATIONS: 1. Continue patient on assist control mode mechanical ventilation. Wean FiO2/PEEP for saturations greater than 90%. 2. Continue empiric antimicrobials. 3. Continue vasopressor support to maintain a mean arterial pressure at or above 65 mmHg. 4. Consult surgery for PEG placement 5. Continue Lovenox as ordered. 6. Continue bronchodilator therapy. 7. Continue to hold IV Lasix for now unless able to discontinue pressors 8. Continue second round of Decadron. 9. Continue to minimize PEEP address pneumomediastinum/pneumothoraces. IMPRESSIONS: 1. Acute hypoxic respiratory failure secondary to COVID-19 The patient was initially admitted to the hospital with COVID-19 pneumonia in the setting of progressive dyspnea on April 20. The patient completed treatment courses of remdesivir, Decadron and baricitinib. Despite the aforementioned, the patient's respiratory status remained quite tenuous. Repeat CTA chest was completed on May 14 and again failed to demonstrate evidence of pulmonary embolism. There continues to be extensive bilateral airspace disease with a background of chronic lung disease. The patient has been diuresed extensively over the course of his hospitalization. He remains on prophylactic Lovenox. Given the aforementioned, he was placed empirically on broad-spectrum antimicrobials and a second round of Decadron. He ultimately required transfer back to the ICU and intubation on May 17. Overall prognosis is quite poor. Family has elected to proceed with PEG. Patient will be optimized from a pulmonary standpoint and then extubated with no plans of tracheostomy. 2. Pneumomediastinum/bilateral pneumothoraces Plan to continue with bilateral chest tube placement. Continue chest tubes to wall suction. Patient on minimal vent settings at this time. Patient does appear to be improving from a subcutaneous emphysematous standpoint. Decreased venous return may be the etiology for the need for pressor therapy, in addition to sedation. Anticipate removal of chest tubes once patient is off of positive pressure ventilation 3. Advanced age/nonvaccinated status/history of smoking Complicates care, management, recovery and prognosis. Continue supportive measures as noted above. PEG placement for nutrition. Surgery to be contacted today. TIME: 32 minutes of critical care time, inclusive of procedures, was spent addressing the patient's acute hypoxemic respiratory failure secondary to COVID- 19 pneumonia, pneumomediastinum/pneumothoraces, review of all data and collaboration with the care team. Subjective Subjective Said you feel like youPatient did well overnight. No acute issues were reported. Patient remains on minimal Levophed to maintain pressures. Chest tubes continue to show no leak and have put out 75 cc each. Family meeting yesterday. Plan is to treat aggressively and extubate with no plans of reintubation. Objective Data Objective Data Vital Signs: Vital Signs Temp Pulse Resp BP Pulse Ox 37.6 C H 79 18 111/65 94 05/21/21 04:00 05/21/21 07:00 05/21/21 07:00 05/21/21 06:00 05/21/21 07:00 Oxygen Flow Rate (L/min) 55 Oxygen Delivery Method Mechanical Ventilator Weight: 75.3 kg Body Mass Index (BMI) 28.3 Intake & Output: Intake and Output for Last 24 Hours 05/19/21 05/20/21 05/21/21 23:59 23:59 23:59 Intake Total 1559.35 / 1597.43 1523.15 / 1571.88 503.43 / 503.43 Output Total 880 / 1080 1829 / 2104 575 / 575 Balance 679.35 / 517.43 -305.85 / -532.12 -71.57 / -71.57 Medical Nutrition Assessment Dietitian: Malnutrition Criteria Met Start: 04/21/21 12:38 Freq: Status: Active Protocol: Document 05/20/21 10:18 AG (Rec: 05/20/21 11:23 [id number]) Nutrition Malnutrition Evidence of Malnutrition Exists Yes Malnutrition (severe): Acute Illness/Injury Evidenced By Suboptimal Energy Intake ( Moderate),Weight Loss (Severe) Clinical Problem Acute Disease or Injury Related Malnutrition Etiology severe, acute malnutrition r/t inadequate energy intake w/ COVID illness Signs/Symptoms as evidenced by reported decreased appetite, estimated PO intake meeting <50% of estimated nutritional needs >1 week, unintentional 7.9kg/9.3 % wt loss since 04/20/21 admission Status Active Problem Recommendation Dietitian Recommendations/Changes NPO while intubated; No enteral access at this time. Recommend placement of PEG if unable to extubate over next 48 hours. Lab / Micro Data Result Diagrams: 05/21/21 04:20 05/21/21 04:20 Labs: Laboratory Results - last 24 hr 05/20/21 04:15: Diff Path Review Reviewed 05/21/21 04:20: WBC 11.2 H, RBC 3.46 L, Hgb 10.5 L, Hct 33.4 L, MCV 96.5 H, MCH 30.3, MCHC 31.4 L, RDW Std Deviation 50.2 H, RDW Coeff of Alyson 14.2, Plt Count 297, MPV 9.6, Neut % (Auto) Not Reportable, Absolute Neuts (auto) 8.9 H, Absolute Lymphs (auto) 0.90, Total Counted 100, Neutrophils % (Manual) 78 H, Band Neutrophils % 1, Lymphocytes % (Manual) 8 L, Monocytes % (Manual) 4, Eosinophils % (Manual) 5, Metamyelocytes % 1, Myelocytes % 3 H, Diff Path Review May , Platelet Estimate ADEQUATE, RBC Morphology NORM C+C 05/21/21 04:20: Sodium 144, Potassium 3.7, Chloride 110 H, Carbon Dioxide 28.0, Anion Gap 6, BUN 54 H, Creatinine 0.83, Estim Creat Clear Calc 85.84, Est GFR (MDRD) Af Amer 119, Est GFR (MDRD) Non-Af 98, BUN/Creatinine Ratio 64.8 H, Glucose 117 H, Calcium 8.0 L, Total Bilirubin 1.40 H, AST 41 H, ALT 118 H, Alkaline Phosphatase 103, Total Protein 5.5 L, Albumin 1.5 L, Globulin 4.0, Albumin/Globulin Ratio 0.4 L Micro: Microbiology 05/17/21 08:30 Sputum, Expectorated/Coughed Gram Stain - Final 05/17/21 08:30 Sputum, Expectorated/Coughed Respiratory Culture - Final Culture exhibits no growth. 05/16/21 06:20 Sputum, Expectorated/Coughed Gram Stain - Final 05/16/21 06:20 Sputum, Expectorated/Coughed Respiratory Culture - Final 05/09/21 13:40 Urine, Catheterized Urine Culture - Final Enterococcus faecalis 05/06/21 01:48 Urine Catheter - Murphy Legionella Antigen - Final 05/06/21 01:48 Urine Catheter - Murphy Streptococcus pneumoniae Antigen (M - Final 04/20/21 15:10 Blood Culture (Wb) - Left Hand Blood Culture - Final No growth in 5 days. 04/20/21 13:10 Blood Culture (Wb) - Anticubital Right Blood Culture - Final No growth in 5 days. 04/21/21 17:07 Urine, Clean Catch Legionella Antigen - Final 04/21/21 17:07 Urine, Clean Catch Streptococcus pneumoniae Antigen (M - Final 04/20/21 12:10 Nasal Secretion SARS-CoV-2 Antigen (Rapid) - Final SARS-CoV-2 (COVID 19) Physical Exam Const Constitutional Narrative: Subcutaneous emphysema appears slightly improved compared to previous General Appearance: intubated and patient mechanically ventilated HEENT normocephalic and head/scalp atraumatic Mouth: dry mucous membranes, endotracheal tube in place and OG tube in place Eyes PERRL and conjunctivae normal Neck supple General: trachea midline Chest Chest Narrative: Significantly improved extensive subcutaneous emphysema with crepitus throughout the face, chest and arms. No leak noted on chest tubes Chest: symmetrical chest wall rise, crepitus and chest tube Resp Auscultation: diminished lung sounds; Negative for rales, rhonchi or wheezes Cardio regular rate, S1 normal heart sound, S2 normal heart sound, no murmurs and no rub GI normal to inspection, nondistended, normoactive bowel sounds Extremity no clubbing, cyanosis or edema Skin no rashes or lesions noted Neuro Sensorium / Orientation: sedated on vent Charges/Coding Procedures Hospitalists Procedures: 27958 Critial Care 1st Hr
--- NOTE | 2021-05-21 07:27 | PCM.PN.HOSP ---
Subjective Subjective Follow-up on acute hypoxic respiratory failure/acute COVID-19 pneumonia/bilateral pneumothorax/pneumomediastinum: Patient was seen and examined. Remains on minimal oxygen requirements as well as Levophed. Subcutaneous emphysema appears to be improving. Patient has been running low-grade fevers. Objective Data Objective Data Vital Signs: Vital Signs Temp Pulse Resp BP Pulse Ox 99.6 F H 79 18 111/65 94 05/21/21 04:00 05/21/21 07:00 05/21/21 07:00 05/21/21 06:00 05/21/21 07:00 Oxygen Flow Rate (L/min) 55 Oxygen Delivery Method Mechanical Ventilator Weight: 75.3 kg Body Mass Index (BMI) 28.3 Intake & Output: Intake and Output for Last 24 Hours 05/19/21 05/20/21 05/21/21 23:59 23:59 23:59 Intake Total 1559.35 / 1597.43 1523.15 / 1571.88 503.43 / 503.43 Output Total 880 / 1080 1829 / 2104 575 / 575 Balance 679.35 / 517.43 -305.85 / -532.12 -71.57 / -71.57 Medical Nutrition Assessment Dietitian: Malnutrition Criteria Met Start: 04/21/21 12:38 Freq: Status: Active Protocol: Document 05/20/21 10:18 AG (Rec: 05/20/21 11:23 [id number]) Nutrition Malnutrition Evidence of Malnutrition Exists Yes Malnutrition (severe): Acute Illness/Injury Evidenced By Suboptimal Energy Intake ( Moderate),Weight Loss (Severe) Clinical Problem Acute Disease or Injury Related Malnutrition Etiology severe, acute malnutrition r/t inadequate energy intake w/ COVID illness Signs/Symptoms as evidenced by reported decreased appetite, estimated PO intake meeting <50% of estimated nutritional needs >1 week, unintentional 7.9kg/9.3 % wt loss since 04/20/21 admission Status Active Problem Recommendation Dietitian Recommendations/Changes NPO while intubated; No enteral access at this time. Recommend placement of PEG if unable to extubate over next 48 hours. Lab / Micro Data Result Diagrams: 05/21/21 04:20 05/21/21 04:20 Labs: Laboratory Results - last 24 hr 05/20/21 04:15: Diff Path Review Reviewed 05/21/21 04:20: WBC 11.2 H, RBC 3.46 L, Hgb 10.5 L, Hct 33.4 L, MCV 96.5 H, MCH 30.3, MCHC 31.4 L, RDW Std Deviation 50.2 H, RDW Coeff of Alyson 14.2, Plt Count 297, MPV 9.6, Neut % (Auto) Not Reportable, Absolute Neuts (auto) 8.9 H, Absolute Lymphs (auto) 0.90, Total Counted 100, Neutrophils % (Manual) 78 H, Band Neutrophils % 1, Lymphocytes % (Manual) 8 L, Monocytes % (Manual) 4, Eosinophils % (Manual) 5, Metamyelocytes % 1, Myelocytes % 3 H, Diff Path Review September, Platelet Estimate ADEQUATE, RBC Morphology NORM C+C 05/21/21 04:20: Sodium 144, Potassium 3.7, Chloride 110 H, Carbon Dioxide 28.0, Anion Gap 6, BUN 54 H, Creatinine 0.83, Estim Creat Clear Calc 85.84, Est GFR (MDRD) Af Amer 119, Est GFR (MDRD) Non-Af 98, BUN/Creatinine Ratio 64.8 H, Glucose 117 H, Calcium 8.0 L, Total Bilirubin 1.40 H, AST 41 H, ALT 118 H, Alkaline Phosphatase 103, Total Protein 5.5 L, Albumin 1.5 L, Globulin 4.0, Albumin/Globulin Ratio 0.4 L Micro: Microbiology 05/17/21 08:30 Sputum, Expectorated/Coughed Gram Stain - Final 05/17/21 08:30 Sputum, Expectorated/Coughed Respiratory Culture - Final Culture exhibits no growth. 05/16/21 06:20 Sputum, Expectorated/Coughed Gram Stain - Final 05/16/21 06:20 Sputum, Expectorated/Coughed Respiratory Culture - Final 05/09/21 13:40 Urine, Catheterized Urine Culture - Final Enterococcus faecalis 05/06/21 01:48 Urine Catheter - Murphy Legionella Antigen - Final 05/06/21 01:48 Urine Catheter - Murphy Streptococcus pneumoniae Antigen (M - Final 04/20/21 15:10 Blood Culture (Wb) - Left Hand Blood Culture - Final No growth in 5 days. 04/20/21 13:10 Blood Culture (Wb) - Anticubital Right Blood Culture - Final No growth in 5 days. 04/21/21 17:07 Urine, Clean Catch Legionella Antigen - Final 04/21/21 17:07 Urine, Clean Catch Streptococcus pneumoniae Antigen (M - Final 04/20/21 12:10 Nasal Secretion SARS-CoV-2 Antigen (Rapid) - Final SARS-CoV-2 (COVID 19) Physical Exam Narrative Physical exam: General: Sedated, intubated HEENT: Atraumatic, subcutaneous emphysema around the neck, chest and face, improving Oral: Moist Mucosa Neck: Supple Lungs: Diminished to auscultation, bilateral chest tubes in situ Cardiovascular: HS I+II, regular, no murmurs Abdomen: Bowel Sounds Present, Soft, Non Tender Extremities: No edema Assessment & Plan Assessment/Plan (1) COVID-19: (2) Acute respiratory failure with hypoxia: PLAN: 1. Acute hypoxic respiratory failure secondary to acute COVID-19 pneumonia complicated by bilateral pneumothorax and pneumomediastinum, remains on minimal oxygen requirements, subcutaneous emphysema appears to be improving Patient is intubated, sedated. Intubated on 05/17/21 Completed Remdesivir, Decadron, baricitinib School Library Media Specialist and ID following Continue on dexamethasone(2nd round) 2. Shock, unclear etiology, probably septic secondary to #3 Blood cultures have been negative Patient remains on minimal amounts of pressors Continue on IV cefepime 3. Acute Enterococcus faecalis UTI, pansensitive, continue on cefepime 4. Acute urinary retention, status post Murphy catheter, placed on 05/11/21 5. Severe protein calorie malnutrition, instructional media services technician consulted, patient is on enteral feeds 6. DVT PPx- Lovenox SC BID Charges/Coding Visit Charges Inpatient E&M: 08715 Subs Hosp L3
[2021-05-21] MEDS: dexAMETHasone 4 MG/ML Vial 6 MG IV (10:10)
[2021-05-21] MEDS: Chlorhexidine 15 ML PO ×2 (10:11→21:22)
--- NOTE | 2021-05-21 10:24 | PCM.PN.SRG ---
Subjective Subjective Patient intubated and sedated, OG unable to be placed completely into the stomach and request PEG tube Objective Data Objective Data Vital Signs: Vital Signs Temp Pulse Resp BP Pulse Ox 100.4 F H 84 20 H 113/71 93 05/21/21 10:00 05/21/21 10:00 05/21/21 10:00 05/21/21 10:00 05/21/21 10:00 Oxygen Flow Rate (L/min) 45 Oxygen Delivery Method Mechanical Ventilator Weight: 166 lb 0.129 oz Body Mass Index (BMI) 28.3 Intake & Output: Intake and Output for Last 24 Hours 05/19/21 05/20/21 05/21/21 23:59 23:59 23:59 Intake Total 1559.35 / 1597.43 1523.15 / 1571.88 740.40 / 740.40 Output Total 880 / 1080 1829 / 2104 575 / 575 Balance 679.35 / 517.43 -305.85 / -532.12 165.40 / 165.40 Medical Nutrition Assessment Dietitian: Malnutrition Criteria Met Start: 04/21/21 12:38 Freq: Status: Active Protocol: Document 05/21/21 10:15 AG (Rec: 05/21/21 10:15 AG [id number]) Nutrition Malnutrition Evidence of Malnutrition Exists Yes Malnutrition (severe): Acute Illness/Injury Evidenced By Suboptimal Energy Intake ( Moderate),Weight Loss (Severe) Clinical Problem Acute Disease or Injury Related Malnutrition Etiology severe, acute malnutrition r/t inadequate energy intake w/ COVID illness Signs/Symptoms as evidenced by reported decreased appetite, estimated PO intake meeting <50% of estimated nutritional needs >1 week, unintentional 9.4kg/11% wt loss since 04/20/21 admission Status Active Problem Recommendation Dietitian Recommendations/Changes NPO while intubated; If PEG placed, recommend Vital AF 1.2 via PEG at goal rate of 65mL/ hour w/ 100mL H2O flush every 4 hours to provide 1872 calories, 117 g protein, and 1865mL total fluid/day. Would start at 20mL/hour and increase by 15mL/hour every 8- 12 hours as tolerated until goal rate is achieved. Close monitoring of electrolytes when enteral nutrition initiated given malnutrition. Lab / Micro Data Result Diagrams: 05/21/21 04:20 05/21/21 04:20 Labs: Laboratory Results - last 24 hr 05/20/21 04:15: Diff Path Review Reviewed 05/21/21 04:20: WBC 11.2 H, RBC 3.46 L, Hgb 10.5 L, Hct 33.4 L, MCV 96.5 H, MCH 30.3, MCHC 31.4 L, RDW Std Deviation 50.2 H, RDW Coeff of Alyson 14.2, Plt Count 297, MPV 9.6, Neut % (Auto) Not Reportable, Absolute Neuts (auto) 8.9 H, Absolute Lymphs (auto) 0.90, Total Counted 100, Neutrophils % (Manual) 78 H, Band Neutrophils % 1, Lymphocytes % (Manual) 8 L, Monocytes % (Manual) 4, Eosinophils % (Manual) 5, Metamyelocytes % 1, Myelocytes % 3 H, Diff Path Review May , Platelet Estimate ADEQUATE, RBC Morphology NORM C+C 05/21/21 04:20: Sodium 144, Potassium 3.7, Chloride 110 H, Carbon Dioxide 28.0, Anion Gap 6, BUN 54 H, Creatinine 0.83, Estim Creat Clear Calc 85.84, Est GFR (MDRD) Af Amer 119, Est GFR (MDRD) Non-Af 98, BUN/Creatinine Ratio 64.8 H, Glucose 117 H, Calcium 8.0 L, Total Bilirubin 1.40 H, AST 41 H, ALT 118 H, Alkaline Phosphatase 103, Total Protein 5.5 L, Albumin 1.5 L, Globulin 4.0, Albumin/Globulin Ratio 0.4 L Micro: Microbiology 05/17/21 08:30 Sputum, Expectorated/Coughed Gram Stain - Final 05/17/21 08:30 Sputum, Expectorated/Coughed Respiratory Culture - Final Culture exhibits no growth. 05/16/21 06:20 Sputum, Expectorated/Coughed Gram Stain - Final 05/16/21 06:20 Sputum, Expectorated/Coughed Respiratory Culture - Final 05/09/21 13:40 Urine, Catheterized Urine Culture - Final Enterococcus faecalis 05/06/21 01:48 Urine Catheter - Murphy Legionella Antigen - Final 05/06/21 01:48 Urine Catheter - Murphy Streptococcus pneumoniae Antigen (M - Final 04/20/21 15:10 Blood Culture (Wb) - Left Hand Blood Culture - Final No growth in 5 days. 12/05/21 13:10 Blood Culture (Wb) - Anticubital Right Blood Culture - Final No growth in 5 days. 04/21/21 17:07 Urine, Clean Catch Legionella Antigen - Final 04/21/21 17:07 Urine, Clean Catch Streptococcus pneumoniae Antigen (M - Final 04/20/21 12:10 Nasal Secretion SARS-CoV-2 Antigen (Rapid) - Final SARS-CoV-2 (COVID 19) Physical Exam Const Constitutional Narrative: Intubated and sedated HEENT HEENT Narrative: Subcutaneous emphysema of the right eyelid and lower face and neck?improved Resp Resp Narrative: Bilateral chest tubes in place no obvious air leak in either side. Cardio regular rate GI soft to palpation Assessment & Plan Assessment/Plan (1) Pneumothorax: (2) Pneumomediastinum: (3) Acute respiratory failure with hypoxia: (4) Pneumonia due to COVID-19 virus: (5) COVID-19: (6) Malnutrition: PLAN: Bilateral chest tubes in place no air leak. Subcutaneous emphysema improved. We will continue to follow. Discussed with we will plan to place a PEG tube as having difficulty placing an OG and getting it to go into the stomach. Discussed procedure including risk and benefits patient's no further questions at this time. Tiara Buck M.D. Pager: [phone] [facility] [address] [place] [address], [address] [place] [address] Office: [phone] Charges/Coding Visit Charges Inpatient E&M: 55595 Subs Hosp L2
[2021-05-21 13:24] LABS: Pathologist Review Reviewed
--- NOTE | 2021-05-21 15:01 | OP.CCLET_ITS ---
05/21/2021 No Primary Care Physician Re : Upper GI endoscopy procedure for Steven Christensen Dear Care Physician This procedure was performed on Friday, May 21, 2021. My impressions and recommendations are as follows: Impressions : - Z-line variable, 40 cm from the incisors. - Erythematous mucosa in the antrum. - Normal examined duodenum. - An externally removable PEG placement was successfully completed. - No specimens collected. Recommendations : - Return patient to ICU for ongoing care. - Ok for TF tomorrow, PEG to gravity today, ok to use for meds. - Continue present medications. My findings are described in the full procedure note, which is enclosed. If I can be of further assistance, please feel free to contact me at Doctor phone number(s): , Work: . Sincerely, MD Tiara Olmos MD 05/21/2021 3:01:13 PM This report has been signed electronically.
--- NOTE | 2021-05-21 15:01 | OP.EGD_ITS ---
Patient Name: Steven Christensen Procedure Date: 05/21/2021 2:33 PM Date of : 1955 Age: 66 Procedure: Upper GI endoscopy Indications: Malnutrition Providers: Tiara Buck MD Medicines: Administered by science editor in ICU Patient Profile: This is a 66 year old male. Complications: No immediate complications. Procedure: Pre-Anesthesia Assessment: - Prior to the procedure, a History and Physical was performed, and patient medications and allergies were reviewed. The patient's tolerance of previous anesthesia was also reviewed. The risks and benefits of the procedure and the sedation options and risks were discussed with the patient. All questions were answered, and informed consent was obtained. Prior Anticoagulants: The patient has taken Lovenox (enoxaparin), last dose was 1 day prior to procedure. ASA Grade Assessment: Per Events Associate. After reviewing the risks and benefits, the patient was deemed in satisfactory condition to undergo the procedure. After obtaining informed consent, the endoscope was passed under direct vision. Throughout the procedure, the patient's blood pressure, pulse, and oxygen saturations were monitored continuously. The Endoscope was introduced through the mouth, and advanced to the second part of duodenum. The upper GI endoscopy was accomplished without difficulty. The patient tolerated the procedure well. Scope In: 2:39:33 PM Scope Out: 2:50:48 PM Total Procedure Duration Time 0 hours 11 minutes 15 seconds Findings: The Z-line was variable and was found 40 cm from the incisors. Mildly erythematous mucosa without bleeding was found in the gastric antrum. The examined duodenum was normal. The patient was placed in the supine position for PEG placement. The stomach was insufflated to appose gastric and abdominal coyle. A site was located in the body of the stomach with excellent transillumination for placement. The abdominal wall was marked and prepped in a sterile manner. The area was anesthetized with 4 mL of 1% lidocaine. The trocar needle was introduced through the abdominal wall and into the stomach under direct endoscopic view. A snare was introduced through the endoscope and opened in the gastric lumen. The guide wire was passed through the trocar and into the open snare. The snare was closed around the guide wire. The endoscope and snare were removed, pulling the wire out through the mouth. A skin incision was made at the site of needle insertion. The externally removable 20 Fr Bard gastrostomy tube was lubricated. The G-tube was tied to the guide wire and pulled through the mouth and into the stomach. The trocar needle was removed, and the gastrostomy tube was pulled out from the stomach through the skin. The external bumper was attached to the gastrostomy tube, and the tube was cut to remove the guide wire. The final position of the gastrostomy tube was confirmed by relook endoscopy, and skin marking noted to be 4 cm at the external bumper. The final tension and compression of the abdominal wall by the PEG tube and external bumper were checked and revealed that the bumper was loose and lightly touching the skin. The feeding tube was capped, and the tube site cleaned and dressed. Impression: - Z-line variable, 40 cm from the incisors. - Erythematous mucosa in the antrum. - Normal examined duodenum. - An externally removable PEG placement was successfully completed. - No specimens collected. Recommendation: - Return patient to ICU for ongoing care. - Ok for TF tomorrow, PEG to gravity today, ok to use for meds. - Continue present medications. Procedure Code(s): --- Professional --- 26139, Esophagogastroduodenoscopy, flexible, transoral; with directed placement of percutaneous gastrostomy tube Diagnosis Code(s): --- Professional --- K22.8, Other specified diseases of esophagus K31.89, Other diseases of stomach and duodenum E46, Unspecified protein-calorie malnutrition CPT copyright 2017 [employer] [place] [employer]. All rights reserved. The codes documented in this report are preliminary and upon associate programmer review may be revised to meet current compliance requirements. MD Tiara Olmos MD 05/21/2021 3:01:13 PM This report has been signed electronically. Number of Addenda: 0 Note Initiated On: 05/21/2021 2:33 PM
[2021-05-21] MEDS: Propofol 10MG/Ml 1,000 MG/100 ML Bottle 20.3 MG CONT INF (23:04)
[2021-05-21] MEDS: Senna/Docusate Sodium 1 Tablet GT (23:04)
[2021-05-22] VITALS (41 sets, daily range): BP systolic 80–138; BP diastolic 52–83; PULSE 74–118; RESP 17–34; TEMP 37.3–38.3; O2SAT 80–99
--- NOTE | 2021-05-22 00:18 | RAD_ITS ---
STUDY: X-RAY CHEST REASON FOR EXAM: Male, 66 years old. Respiratory Failure TECHNIQUE: Single AP portable view of the chest. COMPARISON: 05/18/2021 FINDINGS: PICC line is seen on the right side its tip is at the right atrium. Endotracheal tube is seen its tip is 2 cm superior to the tawanda. Bilateral chest tubes are unchanged. There is no recurrent pneumothorax. No change in alveolar opacities throughout both lungs consistent with bilateral pneumonia. There is no demonstrated pleural abnormality. Normal size heart. Normal mediastinum and rah. Normal visualized pulmonary arteries. Normal visualized aortic arch and descending thoracic aorta. Normal visualized thoracic spine. Normal visualized ribs, clavicles, and shoulders. There is no demonstrated abnormality of the visualized soft tissue structures of the upper abdomen. Stable subcutaneous emphysema in the chest wall. RAD/Chest 1 View (Portable) IMPRESSION: Bilateral chest tubes are unchanged. There is no recurrent pneumothorax. No change in alveolar opacities throughout both lungs consistent with bilateral pneumonia. Electronically Signed: Ramona Dozier MD at 1:25 EST Tel , Service support ,
[2021-05-22] MEDS: Propofol 10MG/Ml 1,000 MG/100 ML Bottle 22.5 MG CONT INF (02:00)
[2021-05-22] MEDS: Ipratropium/Albuterol Sulfate 3 ML AMPUL.NEB INHALATION ×4 (02:10→18:56)
[2021-05-22] MEDS: CHLORHEXIDINE GLUC 2% CLOTH 1 EACH TOWELETTE TOPICAL ×2 (04:18→21:07)
[2021-05-22] MEDS: Acetaminophen 650 MG/20 ML UDC GT ×2 (04:18→21:08)
[2021-05-22 04:29] LABS: Hematocrit 35.4 % (40-54); Hemoglobin 11.2 g/dL (13.0-16.5); Mean Corp Hgb Conc 31.6 g/dL (32-36); Mean Corpuscular Hgb 30.4 pg (27.0-32.0); Mean Corpuscular Volume 96.2 fL (80-94); Mean Platelet Vol. 9.8 fl (6.2-12.0); POSITIVE COUNT YES; POSITIVE MORPHOLOGY YES; Platelet Count 279 K/mm3 (150-450); RBC Distribution Width CV 14.5 % (11.6-14.6); RBC Distribution Width SD 50.6 fl (35.1-43.9); Red Blood Count 3.68 M/mm3 (4.6-6.2); White Blood Count 12.6 K/mm3 (4.4-11.0)
[2021-05-22 04:35] LABS: Differential Indicated MANUAL DIFF
[2021-05-22 04:45] LABS: ALB/GLOB Ratio 0.4 RATIO (0.9-2.4); AST(SGOT) 27 U/L (15-37); Alanine Aminotransfer ALT/SGPT 107 U/L (16-61); Albumin, Serum 1.6 g/dL (3.2-5.0); Alkaline Phosphatase 111 U/L (45-117); Anion Gap 4 (5-15); BUN 45 mg/dL (7-18); BUN/Creat Ratio 59.4 RATIO (10-20); Calcium,Total 8.3 mg/dL (8.5-10.1); Chloride 113 mmol/L (98-107); Creatinine, Serum 0.76 mg/dL (0.70-1.30); EST Glomerular Filtration Rate 110 mL/min (>60); Est Glom Filt Rate - Afr Amer 133 mL/min (>60); Estimated Creatinine Clearance 93.75 ml/min; Globulin 4.1 g/dL (2.2-4.2); Glucose 126 mg/dL (74-106); Potassium 3.8 mmol/L (3.5-5.1); Protein, Total 5.7 g/dL (6.4-8.2); Sodium Level 144 mmol/L (136-145)
[2021-05-22 04:56] LABS: Eosinophil 1 % (0-5); Lymphocyte 3 % (19-41); Metamyelocyte 6 % (0-1); Monocyte 5 % (0-10); Myelocyte 3 % (0-0); Neutrophil-Band 2 % (0-5); Neutrophil-Segmented 80 % (47-70); Total Cells Counted 100 (MANUAL DIFF)
[2021-05-22 04:57] LABS: Absolute Lymphocyte Count 0.38 X10^3/uL (0.83-4.51); Absolute Neutrophil Count 11.4 X10^3/uL (2.0-7.7); Lymphocyte # 0.38 X10^3/ul (0.83-4.51); Neutrophil # 11.42 X10^3/uL (2.7-7.7)
[2021-05-22 04:58] LABS: Platelet Estimate ADEQUATE (ADEQ); Red Cell Morphology NORM C+C NORMAL (NORM C&C)
[2021-05-22] MEDS: Potassium Chloride Oral Soln 20 MEQ/15 ML UDC 40 MEQ GT (05:38)
[2021-05-22] MEDS: 0.9% Saline Lock 10 ML Syringe IV (05:38)
[2021-05-22] MEDS: Furosemide 40 MG/4 ML Vial IV (05:38)
[2021-05-22] MEDS: Propofol 10MG/Ml 1,000 MG/100 ML Bottle 15.8 MG CONT INF ×2 (06:48→21:18)
[2021-05-22] MEDS: Chlorhexidine 15 ML PO ×2 (08:18→20:42)
[2021-05-22] MEDS: Enoxaparin 40 MG/0.4 ML Syringe SC ×2 (08:21→20:43)
--- NOTE | 2021-05-22 08:23 | PN.HOSP_ITS ---
Subjective Subjective Follow-up on acute hypoxic respiratory failure/acute COVID-19 pneumonia/bilateral pneumothorax/pneumomediastinum: Patient was seen and examined. He underwent PEG tube placement yesterday by general surgery as his OG tube was not working over past few days and he could not be fed. No other acute events overnight. Patient still having low-grade fevers. Objective Data Objective Data Vital Signs: Vital Signs Temp Pulse Resp BP Pulse Ox 100.7 F H 77 18 109/72 96 05/22/21 04:00 05/22/21 07:34 05/22/21 07:00 05/22/21 07:00 05/22/21 07:00 Oxygen Flow Rate (L/min) 45 Oxygen Delivery Method Mechanical Ventilator Weight: 75.4 kg Body Mass Index (BMI) 28.3 Intake & Output: Intake and Output for Last 24 Hours 05/20/21 05/21/21 05/22/21 23:59 23:59 23:59 Intake Total 1523.15 / 1571.88 1716.45 / 1761.28 599.76 / 599.76 Output Total 1829 / 2104 1135 / 1335 1050 / 1050 Balance -305.85 / -532.12 581.45 / 426.28 -450.24 / -450.24 Medical Nutrition Assessment Dietitian: Malnutrition Criteria Met Start: 04/21/21 12:38 Freq: Status: Active Protocol: Document 05/21/21 10:15 (Rec: 05/21/21 10:15 [id number]) Nutrition Malnutrition Evidence of Malnutrition Exists Yes Malnutrition (severe): Acute Illness/Injury Evidenced By Suboptimal Energy Intake ( Moderate),Weight Loss (Severe) Clinical Problem Acute Disease or Injury Related Malnutrition Etiology severe, acute malnutrition r/t inadequate energy intake w/ COVID illness Signs/Symptoms as evidenced by reported decreased appetite, estimated PO intake meeting <50% of estimated nutritional needs >1 week, unintentional 9.4kg/11% wt loss since 04/20/21 admission Status Active Problem Recommendation Dietitian Recommendations/Changes NPO while intubated; If PEG placed, recommend Vital AF 1.2 via PEG at goal rate of 65mL/ hour w/ 100mL H2O flush every 4 hours to provide 1872 calories, 117 g protein, and 1865mL total fluid/day. Would start at 20mL/hour and increase by 15mL/hour every 8- 12 hours as tolerated until goal rate is achieved. Close monitoring of electrolytes when enteral nutrition initiated given malnutrition. Lab / Micro Data Result Diagrams: 05/22/21 04:10 05/22/21 04:10 Labs: Laboratory Results - last 24 hr 05/21/21 04:20: Diff Path Review Reviewed 05/22/21 04:10: WBC 12.6 H, RBC 3.68 L, Hgb 11.2 L, Hct 35.4 L, MCV 96.2 H, MCH 30.4, MCHC 31.6 L, RDW Std Deviation 50.6 H, RDW Coeff of Alyson 14.5, Plt Count 279, MPV 9.8, Neut % (Auto) Not Reportable, Absolute Neuts (auto) 11.4 H, Absolute Lymphs (auto) 0.38 L, Total Counted 100, Neutrophils % (Manual) 80 H, Band Neutrophils % 2, Lymphocytes % (Manual) 3 L, Monocytes % (Manual) 5, Eosinophils % (Manual) 1, Metamyelocytes % 6 H, Myelocytes % 3 H, Diff Path Review May foll, Platelet Estimate ADEQUATE, RBC Morphology NORM C+C 05/22/21 04:10: Sodium 144, Potassium 3.8, Chloride 113 H, Carbon Dioxide 27.0, Anion Gap 4 L, BUN 45 H, Creatinine 0.76, Estim Creat Clear Calc 93.75, Est GFR (MDRD) Af Amer 133, Est GFR (MDRD) Non-Af 110, BUN/Creatinine Ratio 59.4 H, Glucose 126 H, Calcium 8.3 L, Total Bilirubin 0.90, AST 27, ALT 107 H, Alkaline Phosphatase 111, Total Protein 5.7 L, Albumin 1.6 L, Globulin 4.1, Albumin/Globulin Ratio 0.4 L Micro: Microbiology 05/17/21 08:30 Sputum, Expectorated/Coughed Gram Stain - Final 05/17/21 08:30 Sputum, Expectorated/Coughed Respiratory Culture - Final Culture exhibits no growth. 05/16/21 06:20 Sputum, Expectorated/Coughed Gram Stain - Final 05/16/21 06:20 Sputum, Expectorated/Coughed Respiratory Culture - Final 05/09/21 13:40 Urine, Catheterized Urine Culture - Final Enterococcus faecalis 05/06/21 01:48 Urine Catheter - Mruphy Legionella Antigen - Final 05/06/21 01:48 Urine Catheter - Murphy Streptococcus pneumoniae Antigen (M - Final 04/20/21 15:10 Blood Culture (Wb) - Left Hand Blood Culture - Final No growth in 5 days. 04/20/21 13:10 Blood Culture (Wb) - Anticubital Right Blood Culture - Final No growth in 5 days. 04/21/21 17:07 Urine, Clean Catch Legionella Antigen - Final 04/21/21 17:07 Urine, Clean Catch Streptococcus pneumoniae Antigen (M - Fi nal 04/20/21 12:10 Nasal Secretion SARS-CoV-2 Antigen (Rapid) - Final SARS-CoV-2 (COVID 19) Radiography Diagnostic Testing: Radiology Impression Chest X-Ray 05/22/21 00:18 IMPRESSION: Bilateral chest tubes are unchanged. There is no recurrent pneumothorax. No change in alveolar opacities throughout both lungs consistent with bilateral pneumonia. Electronically Signed: Ramona Dozier MD at 1:25 EST Tel , Service support , Physical Exam Narrative Physical exam: General: Sedated, intubated HEENT: Atraumatic, subcutaneous emphysema around the neck, chest and face, improving Oral: Moist Mucosa Neck: Supple Lungs: Diminished to auscultation, bilateral chest tubes in situ Cardiovascular: HS I+II, regular, no murmurs Abdomen: Bowel Sounds Present, Soft, Non Tender Extremities: No edema Assessment & Plan Assessment/Plan (1) COVID-19: (2) Acute respiratory failure with hypoxia: PLAN: 1. Acute hypoxic respiratory failure secondary to acute COVID-19 pneumonia complicated by bilateral pneumothorax and pneumomediastinum, remains on minimal oxygen requirements, subcutaneous emphysema appears to be improving Patient is intubated, sedated. Intubated on 05/17/21 Completed Remdesivir, Decadron, baricitinib [employer] and ID following Continue on dexamethasone(2nd round - day 6) 2. Shock, unclear etiology, probably septic secondary to #3 Blood cultures have been negative Patient continues to have low-grade fevers despite being on antibiotics Will repeat blood cultures Continue on IV cefepime 3. Acute Enterococcus faecalis UTI, pansensitive, continue on cefepime 4. Acute urinary retention, status post Murphy catheter, placed on 05/11/21 5. Severe protein calorie malnutrition, patient insurance clerk consulted, patient is on enteral feeds 6. DVT PPx- Lovenox SC BID Charges/Coding Visit Charges Inpatient E&M: 89631 Subs Hosp L3
--- NOTE | 2021-05-22 08:53 | PN.CC_ITS ---
Assessment & Plan Assessment/Plan (1) Acute respiratory failure with hypoxia: (2) Pneumonia due to COVID-19 virus: PLAN: RECOMMENDATIONS: 1. Continue patient on assist control mode mechanical ventilation. Wean FiO2/PEEP for saturations greater than 90%. 2. Complete empiric antimicrobials today 3. Continue vasopressor support to maintain a mean arterial pressure at or above 65 mmHg. 4. Lighten sedation with transition to Precedex for possible SBT tomorrow 5. Continue Lovenox as ordered. 6. Continue bronchodilator therapy. 7. Complete second round of Decadron (05/25/2021) IMPRESSIONS: 1. Acute hypoxic respiratory failure secondary to COVID-19 The patient was initially admitted to the hospital with COVID-19 pneumonia in the setting of progressive dyspnea on April 20. The patient completed treatment courses of remdesivir, Decadron and baricitinib. Despite the aforementioned, the patient's respiratory status remained quite tenuous. Repeat CTA chest was completed on May 14 and again failed to demonstrate evidence of pulmonary embolism. There continues to be extensive bilateral airspace disease with a background of chronic lung disease. The patient has been diuresed extensively over the course of his hospitalization. He remains on prophylactic Lovenox. Given the aforementioned, he was placed empirically on broad-spectrum antimicrobials and a second round of Decadron. He ultimately required transfer back to the ICU and intubation on May 17. Overall prognosis is quite poor. Family has elected to proceed with PEG. Will attempt to transition patient to Precedex therapy. Patient will be challenged with diuretics. Possible spontaneous breathing trials tomorrow. If able to tolerate spontaneous breathing trial, will allow family to be present for extubation given plans. 2. Pneumomediastinum/bilateral pneumothoraces Plan to continue with bilateral chest tube placement. Continue chest tubes to wall suction. Patient on minimal vent settings at this time. Patient does appear to be improving from a subcutaneous emphysematous standpoint. Decreased venous return may be the etiology for the need for pressor therapy, in addition to sedation. Anticipate removal of chest tubes once patient is off of positive pressure ventilation 3. Advanced age/nonvaccinated status/history of smoking Complicates care, management, recovery and prognosis. Continue supportive measures as noted above. PEG placement for nutrition. Tube feeds can start today per surgery recommendations yesterday TIME: 35 minutes of critical care time, inclusive of procedures, was spent addressing the patient's acute hypoxemic respiratory failure secondary to COVID- 19 pneumonia, pneumomediastinum/pneumothoraces, review of all data and collaboration with the care team. Subjective Subjective Patient did okay overnight. Patient did have a PEG placed yesterday and tolerated this well. Chest tubes continue to have secretion. Patient did have a mild fever overnight, but no associated hemodynamic instability. Crepitus continues to improve per nursing. Objective Data Objective Data Vital Signs: Vital Signs Temp Pulse Resp BP Pulse Ox 38.2 C H 77 18 109/72 96 05/22/21 04:00 05/22/21 07:34 05/22/21 07:00 05/22/21 07:00 05/22/21 07:00 Oxygen Flow Rate (L/min) 45 Oxygen Delivery Method Mechanical Ventilator Weight: 75.4 kg Body Mass Index (BMI) 28.3 Intake & Output: Intake and Output for Last 24 Hours 05/20/21 05/21/21 05/22/21 23:59 23:59 23:59 Intake Total 1523.15 / 1571.88 1716.45 / 1761.28 626.39 / 626.39 Output Total 1829 / 2104 1135 / 1335 1050 / 1050 Balance -305.85 / -532.12 581.45 / 426.28 -423.61 / -423.61 Medical Nutrition Assessment Dietitian: Malnutrition Criteria Met Start: 04/21/21 12:38 Freq: Status: Active Protocol: Document 05/21/21 10:15 AG (Rec: 05/21/21 10:15 AG [id number]) Nutrition Malnutrition Evidence of Malnutrition Exists Yes Malnutrition (severe): Acute Illness/Injury Evidenced By Suboptimal Energy Intake ( Moderate),Weight Loss (Severe) Clinical Problem Acute Disease or Injury Related Malnutrition Etiology severe, acute malnutrition r/t inadequate energy intake w/ COVID illness Signs/Symptoms as evidenced by reported decreased appetite, estimated PO intake meeting <50% of estimated nutritional needs >1 week, unintentional 9.4kg/11% wt loss since 04/20/21 admission Status Active Problem Recommendation Dietitian Recommendations/Changes NPO while intubated; If PEG placed, recommend Vital AF 1.2 via PEG at goal rate of 65mL/ hour w/ 100mL H2O flush every 4 hours to provide 1872 calories, 117 g protein, and 1865mL total fluid/day. Would start at 20mL/hour and increase by 15mL/hour every 8- 12 hours as tolerated until goal rate is achieved. Close monitoring of electrolytes when enteral nutrition initiated given malnutrition. Lab / Micro Data Result Diagrams: 05/22/21 04:10 05/22/21 04:10 Labs: Laboratory Results - last 24 hr 05/21/21 04:20: Diff Path Review Reviewed 05/22/21 04:10: WBC 12.6 H, RBC 3.68 L, Hgb 11.2 L, Hct 35.4 L, MCV 96.2 H, MCH 30.4, MCHC 31.6 L, RDW Std Deviation 50.6 H, RDW Coeff of Alyson 14.5, Plt Count 279, MPV 9.8, Neut % (Auto) Not Reportable, Absolute Neuts (auto) 11.4 H, Absolute Lymphs (auto) 0.38 L, Total Counted 100, Neutrophils % (Manual) 80 H, Band Neutrophils % 2, Lymphocytes % (Manual) 3 L, Monocytes % (Manual) 5, Eosinophils % (Manual) 1, Metamyelocytes % 6 H, Myelocytes % 3 H, Diff Path Review May foll, Platelet Estimate ADEQUATE, RBC Morphology NORM C+C 05/22/21 04:10: Sodium 144, Potassium 3.8, Chloride 113 H, Carbon Dioxide 27.0, Anion Gap 4 L, BUN 45 H, Creatinine 0.76, Estim Creat Clear Calc 93.75, Est GFR (MDRD) Af Amer 133, Est GFR (MDRD) Non-Af 110, BUN/Creatinine Ratio 59.4 H, Gl ucose 126 H, Calcium 8.3 L, Total Bilirubin 0.90, AST 27, ALT 107 H, Alkaline Phosphatase 111, Total Protein 5.7 L, Albumin 1.6 L, Globulin 4.1, Albumin/Globulin Ratio 0.4 L Micro: Microbiology 05/17/21 08:30 Sputum, Expectorated/Coughed Gram Stain - Final 05/17/21 08:30 Sputum, Expectorated/Coughed Respiratory Culture - Final Culture exhibits no growth. 05/16/21 06:20 Sputum, Expectorated/Coughed Gram Stain - Final 05/16/21 06:20 Sputum, Expectorated/Coughed Respiratory Culture - Final 05/09/21 13:40 Urine, Catheterized Urine Culture - Final Enterococcus faecalis 05/06/21 01:48 Urine Catheter - Murphy Legionella Antigen - Final 05/06/21 01:48 Urine Catheter - Murphy Streptococcus pneumoniae Antigen (M - Final 04/20/21 15:10 Blood Culture (Wb) - Left Hand Blood Culture - Final No growth in 5 days. 04/20/21 13:10 Blood Culture (Wb) - Anticubital Right Blood Culture - Final No growth in 5 days. 04/21/21 17:07 Urine, Clean Catch Legionella Antigen - Final 04/21/21 17:07 Urine, Clean Catch Streptococcus pneumoniae Antigen (M - Final 04/20/21 12:10 Nasal Secretion SARS-CoV-2 Antigen (Rapid) - Final SARS-CoV-2 (COVID 19) Radiography Diagnostic Testing: Radiology Impression Chest X-Ray 05/22/21 00:18 IMPRESSION: Bilateral chest tubes are unchanged. There is no recurrent pneumothorax. No change in alveolar opacities throughout both lungs consistent with bilateral pneumonia. Electronically Signed: Ramona Dozier MD at 1:25 EST Tel , Service support , Physical Exam Const Constitutional Narrative: Subcutaneous emphysema appears improved compared to previous General Appearance: intubated and patient mechanically ventilated HEENT normocephalic and head/scalp atraumatic Mouth: dry mucous membranes, endotracheal tube in place and OG tube in place Eyes PERRL and conjunctivae normal Neck supple General: trachea midline Chest Chest Narrative: Significantly improved extensive subcutaneous emphysema with crepitus throughout the chest and arms. No leak noted on chest tubes Chest: symmetrical chest wall rise, crepitus and chest tube Resp Auscultation: diminished lung sounds; Negative for rales, rhonchi or wheezes Cardio regular rate, S1 normal heart sound, S2 normal heart sound, no murmurs and no rub GI normal to inspection, nondistended, normoactive bowel sounds Extremity no clubbing, cyanosis or edema Skin no rashes or lesions noted Neuro Sensorium / Orientation: sedated on vent Charges/Coding Procedures Hospitalists Procedures: 21185 Critial Care 1st Hr
[2021-05-22] MEDS: dexAMETHasone 4 MG/ML Vial 6 MG IV (09:14)
--- NOTE | 2021-05-22 12:40 | RAD_ITS ---
STUDY: X-RAY CHEST REASON FOR EXAM: Male, 66 years old. Sob TECHNIQUE: Single AP portable view of the chest. COMPARISON: Comparison is made with prior study dated 05/22/2021 at 12:15 AM. FINDINGS: An endotracheal tube is in situ. The tip is at the level of the tawanda. This should be withdrawn approximately 2.6 cm. A right-sided chest tube is seen with the tip in the right lung apex. A left-sided chest tube is seen with the tip in the medial aspect of the left upper lobe. A right-sided subclavian catheter seen with the tip at the junction of the superior vena cava and right atrium. Persistent subcutaneous emphysema although this has improved as compared to prior study. Stable appearance of both lungs. There is no demonstrated pleural abnormality. Normal size heart. Calcified left hilar lymph node. Normal visualized pulmonary arteries. Normal visualized aortic arch and descending thoracic aorta. Normal visualized thoracic spine. Normal visualized ribs, clavicles, and shoulders. There is no demonstrated abnormality of the visualized soft tissue structures of the upper abdomen. RAD/Chest 1 View (Portable) IMPRESSION: The tip of the endotracheal tube is at the level of the twaanda. It should be withdrawn approximately 2.6 cm. Bilateral chest tubes are seen. No evidence of pneumothorax. Interval improvement of the subcutaneous emphysema. Electronically Signed: Matt Rodriguez MD at 13:05 EST , Service support ,
--- NOTE | 2021-05-22 14:08 | PCM.PN.SRG ---
Subjective Subjective Still no air leaks from bilateral chest tubes, Objective Data Objective Data Vital Signs: Vital Signs Temp Pulse Resp BP Pulse Ox 99.4 F H 112 H 32 H 127/82 H 88 05/22/21 12:00 05/22/21 12:00 05/22/21 12:00 05/22/21 12:00 05/22/21 12:00 Oxygen Flow Rate (L/min) 45 Oxygen Delivery Method Mechanical Ventilator Weight: 166 lb 3.657 oz Body Mass Index (BMI) 28.3 Intake & Output: Intake and Output for Last 24 Hours 05/20/21 05/21/21 05/22/21 23:59 23:59 23:59 Intake Total 1523.15 / 1571.88 1716.45 / 1761.28 850.96 / 850.96 Output Total 1829 / 2104 1135 / 1335 2300 / 2300 Balance -305.85 / -532.12 581.45 / 426.28 -1449.04 / -1449.04 Medical Nutrition Assessment Dietitian: Malnutrition Criteria Met Start: 04/21/21 12:38 Freq: Status: Active Protocol: Document 05/22/21 10:49 AG (Rec: 05/22/21 10:49 AG [id number]) Nutrition Malnutrition Evidence of Malnutrition Exists Yes Malnutrition (severe): Acute Illness/Injury Evidenced By Suboptimal Energy Intake ( Moderate),Weight Loss (Severe) Clinical Problem Acute Disease or Injury Related Malnutrition Etiology severe, acute malnutrition r/t inadequate energy intake w/ COVID illness Signs/Symptoms as evidenced by reported decreased appetite, estimated PO intake meeting <50% of estimated nutritional needs >1 week, unintentional 9.4kg/11% wt loss since 04/20/21 admission Status Active Problem Recommendation Dietitian Recommendations/Changes NPO while intubated; Vital AF 1.2 via PEG at goal rate of 65mL/hour w/ 100mL H2O flush every 4 hours to provide 1872 calories, 117 g protein, and 1865mL total fluid/day. Would start at 20mL/hour and increase by 15mL/hour every 8- 12 hours as tolerated until goal rate is achieved. Close monitoring of electrolytes when enteral nutrition initiated given malnutrition. Lab / Micro Data Result Diagrams: 05/22/21 04:10 05/22/21 04:10 Labs: Laboratory Results - last 24 hr 05/22/21 04:10: WBC 12.6 H, RBC 3.68 L, Hgb 11.2 L, Hct 35.4 L, MCV 96.2 H, MCH 30.4, MCHC 31.6 L, RDW Std Deviation 50.6 H, RDW Coeff of Alyson 14.5, Plt Count 279, MPV 9.8, Neut % (Auto) Not Reportable, Absolute Neuts (auto) 11.4 H, Absolute Lymphs (auto) 0.38 L, Total Counted 100, Neutrophils % (Manual) 80 H, Band Neutrophils % 2, Lymphocytes % (Manual) 3 L, Monocytes % (Manual) 5, Eosinophils % (Manual) 1, Metamyelocytes % 6 H, Myelocytes % 3 H, Diff Path Review September, Platelet Estimate ADEQUATE, RBC Morphology NORM C+C 05/22/21 04:10: Sodium 144, Potassium 3.8, Chloride 113 H, Carbon Dioxide 27.0, Anion Gap 4 L, BUN 45 H, Creatinine 0.76, Estim Creat Clear Calc 93.75, Est GFR (MDRD) Af Amer 133, Est GFR (MDRD) Non-Af 110, BUN/Creatinine Ratio 59.4 H, Glucose 126 H, Calcium 8.3 L, Total Bilirubin 0.90, AST 27, ALT 107 H, Alkaline Phosphatase 111, Total Protein 5.7 L, Albumin 1.6 L, Globulin 4.1, Albumin/Globulin Ratio 0.4 L Micro: Microbiology 05/17/21 08:30 Sputum, Expectorated/Coughed Gram Stain - Final 05/17/21 08:30 Sputum, Expectorated/Coughed Respiratory Culture - Final Culture exhibits no growth. 05/16/21 06:20 Sputum, Expectorated/Coughed Gram Stain - Final 05/16/21 06:20 Sputum, Expectorated/Coughed Respiratory Culture - Final 05/09/21 13:40 Urine, Catheterized Urine Culture - Final Enterococcus faecalis 05/06/21 01:48 Urine Catheter - Murphy Legionella Antigen - Final 05/06/21 01:48 Urine Catheter - Murphy Streptococcus pneumoniae Antigen (M - Final 04/20/21 15:10 Blood Culture (Wb) - Left Hand Blood Culture - Final No growth in 5 days. 04/20/21 13:10 Blood Culture (Wb) - Anticubital Right Blood Culture - Final No growth in 5 days. 04/21/21 17:07 Urine, Clean Catch Legionella Antigen - Final 04/21/21 17:07 Urine, Clean Catch Streptococcus pneumoniae Antigen (M - Final 04/20/21 12:10 Nasal Secretion SARS-CoV-2 Antigen (Rapid) - Final SARS-CoV-2 (COVID 19) Radiography Diagnostic Testing: Radiology Impression Chest X-Ray 05/22/21 00:18 IMPRESSION: Bilateral chest tubes are unchanged. There is no recurrent pneumothorax. No change in alveolar opacities throughout both lungs consistent with bilateral pneumonia. Electronically Signed: Ramona Dozier MD at 1:25 EST Tel , Service support , Chest X-Ray 05/22/21 12:40 IMPRESSION: The tip of the endotracheal tube is at the level of the tawanda. It should be withdrawn approximately 2.6 cm. Bilateral chest tubes are seen. No evidence of pneumothorax. Interval improvement of the subcutaneous emphysema. Electronically Signed: Matt Rodriguez MD at 13:05 EST , Service support , Physical Exam Const Constitutional Narrative: Intubated/sedated Resp Resp Narrative: Bilateral chest tube to -20 Pleur-evac no leak Cardio regular rate GI GI Narrative: Soft, PEG in place Assessment & Plan Assessment/Plan (1) Pneumothorax: (2) Pneumomediastinum: (3) Acute respiratory failure with hypoxia: (4) Pneumonia due to COVID-19 virus: (5) COVID-19: (6) Malnutrition: PLAN: Bilateral chest tubes in place no air leak. Will continue to follow. Okay to use PEG for tube feeds Tiara Buck M.D. Pager: [phone] [facility] [address] [place] [address], Outpatient [facility], [address] [place] [address] Office: [phone] Charges/Coding Visit Charges Inpatient E&M: 67276 Subs Hosp L2
[2021-05-22] MEDS: Propofol 10MG/Ml 1,000 MG/100 ML Bottle 9 MG CONT INF (14:34)
[2021-05-22] MEDS: Senna/Docusate Sodium 1 Tablet 2 TABLET GT ×2 (15:01→21:08)
[2021-05-22] MEDS: Vital AF 1.2 Cal Liquid 1,000 ML 20 ML GT (15:02)
[2021-05-23] VITALS (41 sets, daily range): BP systolic 81–126; BP diastolic 51–82; PULSE 75–127; RESP 18–35; TEMP 38.3–39; O2SAT 90–97
[2021-05-23] MEDS: Ipratropium/Albuterol Sulfate 3 ML AMPUL.NEB INHALATION ×3 (01:46→19:12)
[2021-05-23] MEDS: Propofol 10MG/Ml 1,000 MG/100 ML Bottle 11.3 MG CONT INF (04:00)
[2021-05-23 04:50] LABS: Hematocrit 34.8 % (40-54); Hemoglobin 11.7 g/dL (13.0-16.5); Mean Corp Hgb Conc 33.6 g/dL (32-36); Mean Corpuscular Hgb 32.2 pg (27.0-32.0); Mean Corpuscular Volume 95.9 fL (80-94); Mean Platelet Vol. 10.2 fl (6.2-12.0); POSITIVE COUNT YES; POSITIVE MORPHOLOGY YES; Platelet Count 285 K/mm3 (150-450); RBC Distribution Width CV 14.6 % (11.6-14.6); RBC Distribution Width SD 51.3 fl (35.1-43.9); Red Blood Count 3.63 M/mm3 (4.6-6.2); White Blood Count 14.1 K/mm3 (4.4-11.0)
[2021-05-23 04:59] LABS: Differential Indicated MANUAL DIFF
[2021-05-23 05:21] LABS: ALB/GLOB Ratio 0.3 RATIO (0.9-2.4); AST(SGOT) 56 U/L (15-37); Alanine Aminotransfer ALT/SGPT 168 U/L (16-61); Albumin, Serum 1.4 g/dL (3.2-5.0); Alkaline Phosphatase 140 U/L (45-117); Anion Gap 7 (5-15); BUN 41 mg/dL (7-18); BUN/Creat Ratio 60.7 RATIO (10-20); Calcium,Total 7.1 mg/dL (8.5-10.1); Chloride 114 mmol/L (98-107); Creatinine, Serum 0.68 mg/dL (0.70-1.30); EST Glomerular Filtration Rate 125 mL/min (>60); Est Glom Filt Rate - Afr Amer 152 mL/min (>60); Estimated Creatinine Clearance 104.78 ml/min; Globulin 4.1 g/dL (2.2-4.2); Glucose 173 mg/dL (74-106); Potassium 3.7 mmol/L (3.5-5.1); Protein, Total 5.5 g/dL (6.4-8.2); Sodium Level 144 mmol/L (136-145)
[2021-05-23 05:37] LABS: Eosinophil 4 % (0-5); Lymphocyte 3 % (19-41); Metamyelocyte 8 % (0-1); Monocyte 1 % (0-10); Myelocyte 4 % (0-0); Neutrophil-Band 5 % (0-5); Neutrophil-Segmented 75 % (47-70); Total Cells Counted 100 (MANUAL DIFF)
[2021-05-23 05:38] LABS: Lymphocyte # 0.42 X10^3/ul (0.83-4.51); Neutrophil # 12.99 X10^3/uL (2.7-7.7)
[2021-05-23 05:39] LABS: Absolute Lymphocyte Count 0.42 X10^3/uL (0.83-4.51); Platelet Estimate ADEQUATE (ADEQ); Red Cell Morphology NORM C+C NORMAL (NORM C&C)
--- NOTE | 2021-05-23 07:06 | PCM.PN.INT ---
Assessment & Plan Assessment/Plan (1) Acute respiratory failure with hypoxia: (2) Pneumonia due to COVID-19 virus: PLAN: RECOMMENDATIONS: 1. Continue patient on assist control mode mechanical ventilation. Wean FiO2/PEEP for saturations greater than 90%. 2. Monitor off antimicrobials. Some concern for drug fever related to Precedex 3. Obtain another chest x-ray if unable to wean propofol today 4. Lighten sedation with transition to Precedex for possible SBT tomorrow 5. Continue Lovenox as ordered. 6. Continue bronchodilator therapy. 7. Complete second round of Decadron (05/25/2021) IMPRESSIONS: 1. Acute hypoxic respiratory failure secondary to COVID-19 The patient was initially admitted to the hospital with COVID-19 pneumonia in the setting of progressive dyspnea on April 20. The patient completed treatment courses of remdesivir, Decadron and baricitinib. Despite the aforementioned, the patient's respiratory status remained quite tenuous. Repeat CTA chest was completed on May 14 and again failed to demonstrate evidence of pulmonary embolism. There continues to be extensive bilateral airspace disease with a background of chronic lung disease. The patient has been diuresed extensively over the course of his hospitalization. He remains on prophylactic Lovenox. Given the aforementioned, he was placed empirically on broad-spectrum antimicrobials and a second round of Decadron. He ultimately required transfer back to the ICU and intubation on May 17. Overall prognosis is quite poor. Family has elected to proceed with PEG. Patient not able to tolerate lack of sedation. Yesterday, chest x-ray showed endotracheal tube at the tawanda and this was withdrawn. The patient continues to have difficulty coming off of propofol, may repeat chest x-ray. 2. Pneumomediastinum/bilateral pneumothoraces Improving. Plan to continue with bilateral chest tube placement. Continue chest tubes to wall suction. Patient on minimal vent settings at this time. Patient does appear to be improving from a subcutaneous emphysematous standpoint. Off of pressor agents. Anticipate removal of chest tubes once patient is off of positive pressure ventilation 3. Advanced age/nonvaccinated status/history of smoking Complicates care, management, recovery and prognosis. Continue supportive measures as noted above. PEG placement for nutrition. Tube feeds can start today per surgery recommendations yesterday TIME: 32 minutes of critical care time, inclusive of procedures, was spent addressing the patient's acute hypoxemic respiratory failure secondary to COVID-19 pneumonia, pneumomediastinum/pneumothoraces, review of all data and collaboration with the care team. Subjective Subjective Patient continues to have intermittent fevers. Chest tubes continue to show no leak with minimal drainage. Attempts at using Precedex to wean propofol have been unsuccessful. Typically patient will have vent dyssynchrony with any propofol level less than 30. Patient is not following commands and is not able to be redirected. Patient has continued to tolerate tube feeds. Objective Data Objective Data Vital Signs: Vital Signs Temp Pulse Resp BP Pulse Ox 38.5 C H 82 26 H 89/54 L 95 05/23/21 06:00 05/23/21 06:53 05/23/21 06:53 05/23/21 06:00 05/23/21 06:53 Oxygen Flow Rate (L/min) 45 Oxygen Delivery Method Mechanical Ventilator Weight: 75.9 kg Body Mass Index (BMI) 28.3 Intake & Output: Intake and Output for Last 24 Hours 05/21/21 05/22/21 05/23/21 23:59 23:59 23:59 Intake Total 1716.45 / 1761.28 1746.07 / 1810.07 1120.46 / 1120.46 Output Total 1135 / 1335 2300 / 2300 510 / 510 Balance 581.45 / 426.28 -553.93 / -489.93 610.46 / 610.46 Medical Nutrition Assessment Dietitian: Malnutrition Criteria Met Start: 04/21/21 12:38 Freq: Status: Active Protocol: Document 05/22/21 10:49 AG (Rec: 05/22/21 10:49 AG [id number]) Nutrition Malnutrition Evidence of Malnutrition Exists Yes Malnutrition (severe): Acute Illness/Injury Evidenced By Suboptimal Energy Intake ( Moderate),Weight Loss (Severe) Clinical Problem Acute Disease or Injury Related Malnutrition Etiology severe, acute malnutrition r/t inadequate energy intake w/ COVID illness Signs/Symptoms as evidenced by reported decreased appetite, estimated PO intake meeting <50% of estimated nutritional needs >1 week, unintentional 9.4kg/11% wt loss since 04/20/21 admission Status Active Problem Recommendation Dietitian Recommendations/Changes NPO while intubated; Vital AF 1.2 via PEG at goal rate of 65mL/hour w/ 100mL H2O flush every 4 hours to provide 1872 calories, 117 g protein, and 1865mL total fluid/day. Would start at 20mL/hour and increase by 15mL/hour every 8- 12 hours as tolerated until goal rate is achieved. Close monitoring of electrolytes when enteral nutrition initiated given malnutrition. Lab / Micro Data Result Diagrams: 05/23/21 04:40 05/23/21 04:40 Labs: Laboratory Results - last 24 hr 05/23/21 04:40: WBC 14.1 H, RBC 3.63 L, Hgb 11.7 L, Hct 34.8 L, MCV 95.9 H, MCH 32.2 H, MCHC 33.6 D, RDW Std Deviation 51.3 H, RDW Coeff of Alyson 14.6, Plt Count 285, MPV 10.2, Neut % (Auto) Not Reportable, Absolute Neuts (auto) 13.0 H, Absolute Lymphs (auto) 0.42 L, Total Counted 100, Neutrophils % (Manual) 75 H, Band Neutrophils % 5, Lymphocytes % (Manual) 3 L, Monocytes % (Manual) 1, Eosinophils % (Manual) 4, Metamyelocytes % 8 H, Myelocytes % 4 H, Diff Path Review September, Platelet Estimate ADEQUATE, RBC Morphology NORM C+C 05/23/21 04:40: Sodium 144, Potassium 3.7, Chloride 114 H, Carbon Dioxide 23.0, Anion Gap 7, BUN 41 H, Creatinine 0.68 L, Estim Creat Clear Calc 104.78, Est GFR (MDRD) Af Amer 152, Est GFR (MDRD) Non-Af 125, BUN/Creatinine Ratio 60.7 H, Glucose 173 H, Calcium 7.1 L, Magnesium 2.0, Total Bilirubin 0.90, AST 56 H, ALT 168 H, Alkaline Phosphatase 140 H, Total Protein 5.5 L, Albumin 1.4 L, Globulin 4.1, Albumin/Globulin Ratio 0.3 L 05/23/21 04:40: Phosphorus 2.0 L Micro: Microbiology 05/17/21 08:30 Sputum, Expectorated/Coughed Gram Stain - Final 05/17/21 08:30 Sputum, Expectorated/Coughed Respiratory Culture - Final Culture exhibits no growth. 05/16/21 06:20 Sputum, Expectorated/Coughed Gram Stain - Final 05/16/21 06:20 Sputum, Expectorated/Coughed Respiratory Culture - Final 05/09/21 13:40 Urine, Catheterized Urine Culture - Final Enterococcus faecalis 05/06/21 01:48 Urine Catheter - Murphy Legionella Antigen - Final 05/06/21 01:48 Urine Catheter - Murphy Streptococcus pneumoniae Antigen (M - Final 04/20/21 15:10 Blood Culture (Wb) - Left Hand Blood Culture - Final No growth in 5 days. 04/20/21 13:10 Blood Culture (Wb) - Anticubital Right Blood Culture - Final No growth in 5 days. 04/21/21 17:07 Urine, Clean Catch Legionella Antigen - Final 04/21/21 17:07 Urine, Clean Catch Streptococcus pneumoniae Antigen (M - Final 04/20/21 12:10 Nasal Secretion SARS-CoV-2 Antigen (Rapid) - Final SARS-CoV-2 (COVID 19) Radiography Diagnostic Testing: Radiology Impression Chest X-Ray 05/22/21 12:40 IMPRESSION: The tip of the endotracheal tube is at the level of the tawanda. It should be withdrawn approximately 2.6 cm. Bilateral chest tubes are seen. No evidence of pneumothorax. Interval improvement of the subcutaneous emphysema. Electronically Signed: Matt Rodriguez MD at 13:05 EST , Service support , Physical Exam Const Constitutional Narrative: Subcutaneous emphysema appears improved compared to previous General Appearance: intubated and patient mechanically ventilated HEENT normocephalic and head/scalp atraumatic Mouth: dry mucous membranes, endotracheal tube in place and OG tube in place Eyes PERRL and conjunctivae normal Neck supple General: trachea midline Chest Chest Narrative: Significantly improved extensive subcutaneous emphysema with crepitus throughout the chest and arms. Face resolved. No leak noted on chest tubes Chest: symmetrical chest wall rise, crepitus and chest tube Resp Auscultation: diminished lung sounds; Negative for rales, rhonchi or wheezes Cardio regular rate, S1 normal heart sound, S2 normal heart sound, no murmurs and no rub GI normal to inspection, nondistended, normoactive bowel sounds Extremity no clubbing, cyanosis or edema Skin no rashes or lesions noted Neuro Sensorium / Orientation: sedated on vent Charges/Coding Procedures Hospitalists Procedures: 56817 Critial Care 1st Hr
[2021-05-23] MEDS: Acetaminophen 650 MG/20 ML UDC GT ×2 (08:04→13:36)
[2021-05-23] MEDS: Chlorhexidine 15 ML PO ×2 (08:05→21:41)
[2021-05-23] MEDS: Senna/Docusate Sodium 1 Tablet 2 TABLET GT ×2 (08:06→21:38)
[2021-05-23] MEDS: Enoxaparin 40 MG/0.4 ML Syringe SC ×2 (08:10→21:38)
[2021-05-23] MEDS: Propofol 10MG/Ml 1,000 MG/100 ML Bottle 15.8 MG CONT INF ×3 (09:29→21:00)
[2021-05-23] MEDS: dexAMETHasone 4 MG/ML Vial 6 MG IV (09:31)
[2021-05-23 09:50] LABS: Pathologist Review Reviewed
[2021-05-23 10:31] LABS: Pathologist Review Reviewed
--- NOTE | 2021-05-23 11:42 | PCM.PN.HOSP ---
Subjective Subjective Follow-up on acute hypoxic respiratory failure/acute COVID-19 pneumonia/bilateral pneumothorax/pneumomediastinum: Patient was seen and examined. No acute events overnight. Remains febrile Objective Data Objective Data Vital Signs: Vital Signs Temp Pulse Resp BP Pulse Ox 101.8 F H 108 H 33 H 116/71 91 05/23/21 07:00 05/23/21 11:13 05/23/21 11:13 05/23/21 07:00 05/23/21 11:13 Oxygen Flow Rate (L/min) 45 Oxygen Delivery Method Mechanical Ventilator Weight: 75.9 kg Body Mass Index (BMI) 28.3 Intake & Output: Intake and Output for Last 24 Hours 05/21/21 05/22/21 05/23/21 23:59 23:59 23:59 Intake Total 1716.45 / 1761.28 1746.07 / 1810.07 1533.03 / 1533.03 Output Total 1135 / 1335 2300 / 2300 510 / 510 Balance 581.45 / 426.28 -553.93 / -489.93 1023.03 / 1023.03 Medical Nutrition Assessment Dietitian: Malnutrition Criteria Met Start: 04/21/21 12:38 Freq: Status: Active Protocol: Document 05/22/21 10:49 AG (Rec: 05/22/21 10:49 AG [id number]) Nutrition Malnutrition Evidence of Malnutrition Exists Yes Malnutrition (severe): Acute Illness/Injury Evidenced By Suboptimal Energy Intake ( Moderate),Weight Loss (Severe) Clinical Problem Acute Disease or Injury Related Malnutrition Etiology severe, acute malnutrition r/t inadequate energy intake w/ COVID illness Signs/Symptoms as evidenced by reported decreased appetite, estimated PO intake meeting <50% of estimated nutritional needs >1 week, unintentional 9.4kg/11% wt loss since 04/20/21 admission Status Active Problem Recommendation Dietitian Recommendations/Changes NPO while intubated; Vital AF 1.2 via PEG at goal rate of 65mL/hour w/ 100mL H2O flush every 4 hours to provide 1872 calories, 117 g protein, and 1865mL total fluid/day. Would start at 20mL/hour and increase by 15mL/hour every 8- 12 hours as tolerated until goal rate is achieved. Close monitoring of electrolytes when enteral nutrition initiated given malnutrition. Lab / Micro Data Result Diagrams: 05/23/21 04:40 05/23/21 04:40 Labs: Laboratory Results - last 24 hr 05/22/21 04:10: Diff Path Review Reviewed 05/23/21 04:40: WBC 14.1 H, RBC 3.63 L, Hgb 11.7 L, Hct 34.8 L, MCV 95.9 H, MCH 32.2 H, MCHC 33.6 D, RDW Std Deviation 51.3 H, RDW Coeff of Alyson 14.6, Plt Count 285, MPV 10.2, Neut % (Auto) Not Reportable, Absolute Neuts (auto) 13.0 H, Absolute Lymphs (auto) 0.42 L, Total Counted 100, Neutrophils % (Manual) 75 H, Band Neutrophils % 5, Lymphocytes % (Manual) 3 L, Monocytes % (Manual) 1, Eosinophils % (Manual) 4, Metamyelocytes % 8 H, Myelocytes % 4 H, Diff Path Review Reviewed, Platelet Estimate ADEQUATE, RBC Morphology NORM C+C 05/23/21 04:40: Sodium 144, Potassium 3.7, Chloride 114 H, Carbon Dioxide 23.0, Anion Gap 7, BUN 41 H, Creatinine 0.68 L, Estim Creat Clear Calc 104.78, Est GFR (MDRD) Af Amer 152, Est GFR (MDRD) Non-Af 125, BUN/Creatinine Ratio 60.7 H, Glucose 173 H, Calcium 7.1 L, Magnesium 2.0, Total Bilirubin 0.90, AST 56 H, ALT 168 H, Alkaline Phosphatase 140 H, Total Protein 5.5 L, Albumin 1.4 L, Globulin 4.1, Albumin/Globulin Ratio 0.3 L 05/23/21 04:40: Phosphorus 2.0 L Micro: Microbiology 05/17/21 08:30 Sputum, Expectorated/Coughed Gram Stain - Final 05/17/21 08:30 Sputum, Expectorated/Coughed Respiratory Culture - Final Culture exhibits no growth. 05/16/21 06:20 Sputum, Expectorated/Coughed Gram Stain - Final 05/16/21 06:20 Sputum, Expectorated/Coughed Respiratory Culture - Final 05/09/21 13:40 Urine, Catheterized Urine Culture - Final Enterococcus faecalis 05/06/21 01:48 Urine Catheter - Murphy Legionella Antigen - Final 05/06/21 01:48 Urine Catheter - Murphy Streptococcus pneumoniae Antigen (M - Final 04/20/21 15:10 Blood Culture (Wb) - Left Hand Blood Culture - Final No growth in 5 days. 04/20/21 13:10 Blood Culture (Wb) - Anticubital Right Blood Culture - Final No growth in 5 days. 04/21/21 17:07 Urine, Clean Catch Legionella Antigen - Final 04/21/21 17:07 Urine, Clean Catch Streptococcus pneumoniae Antigen (M - Final 04/20/21 12:10 Nasal Secretion SARS-CoV-2 Antigen (Rapid) - Final SARS-CoV-2 (COVID 19) Radiography Diagnostic Testing: Radiology Impression Chest X-Ray 05/22/21 12:40 IMPRESSION: The tip of the endotracheal tube is at the level of the tawanda. It should be withdrawn approximately 2.6 cm. Bilateral chest tubes are seen. No evidence of pneumothorax. Interval improvement of the subcutaneous emphysema. Electronically Signed: Matt Rodriguez MD at 13:05 EST , Service support , Physical Exam Narrative Physical exam: General: Sedated, intubated HEENT: Atraumatic, subcutaneous emphysema around the neck, chest and face, improving Oral: Moist Mucosa Neck: Supple Lungs: Diminished to auscultation, bilateral chest tubes in situ Cardiovascular: HS I+II, regular, no murmurs Abdomen: Bowel Sounds Present, Soft, Non Tender Extremities: No edema Assessment & Plan Assessment/Plan (1) COVID-19: (2) Acute respiratory failure with hypoxia: PLAN: 1. Acute hypoxic respiratory failure secondary to acute COVID-19 pneumonia complicated by bilateral pneumothorax and pneumomediastinum, remains on minimal oxygen requirements, subcutaneous emphysema appears to be improving Patient is intubated, sedated. Intubated on 05/17/21 Completed Remdesivir, Decadron, baricitinib Author'S Agent and ID following Continue on dexamethasone(2nd round - day 6) 2. Shock, unclear etiology, probably septic secondary to #3 Blood cultures have been negative Patient continues to have fevers Repeat blood cultures are pending Off IV cefepime 3. Acute Enterococcus faecalis UTI, pansensitive, off IV cefepime 4. Acute urinary retention, status post Murphy catheter, placed on 05/11/21 5. Severe protein calorie malnutrition, refrigeration service inspector consulted, patient is on enteral feeds 6. DVT PPx- Lovenox SC BID Charges/Coding Visit Charges Inpatient E&M: 51942 Subs Hosp L3
[2021-05-23] MEDS: QUEtiapine 25 MG Tablet 50 MG PO ×2 (13:20→21:38)
[2021-05-23] MEDS: Vital AF 1.2 Cal Liquid 1,000 ML 50 ML GT (13:25)
[2021-05-24] VITALS (36 sets, daily range): BP systolic 83–138; BP diastolic 46–78; PULSE 87–144; RESP 18–35; TEMP 38.1–38.8; O2SAT 88–100
[2021-05-24] MEDS: Ipratropium/Albuterol Sulfate 3 ML AMPUL.NEB INHALATION ×4 (01:37→19:22)
[2021-05-24] MEDS: Propofol 10MG/Ml 1,000 MG/100 ML Bottle 15.8 MG CONT INF ×5 (02:35→23:08)
[2021-05-24] MEDS: 0.9% Saline Lock 10 ML Syringe IV (03:33)
[2021-05-24 03:43] LABS: Hematocrit 36.7 % (40-54); Hemoglobin 11.5 g/dL (13.0-16.5); Mean Corp Hgb Conc 31.3 g/dL (32-36); Mean Corpuscular Hgb 30.4 pg (27.0-32.0); Mean Corpuscular Volume 97.1 fL (80-94); Mean Platelet Vol. 9.8 fl (6.2-12.0); POSITIVE COUNT YES; POSITIVE MORPHOLOGY YES; Platelet Count 283 K/mm3 (150-450); RBC Distribution Width CV 14.6 % (11.6-14.6); RBC Distribution Width SD 52.6 fl (35.1-43.9); Red Blood Count 3.78 M/mm3 (4.6-6.2); White Blood Count 10.9 K/mm3 (4.4-11.0)
[2021-05-24 04:09] LABS: ALB/GLOB Ratio 0.4 RATIO (0.9-2.4); AST(SGOT) 35 U/L (15-37); Alanine Aminotransfer ALT/SGPT 162 U/L (16-61); Albumin, Serum 1.5 g/dL (3.2-5.0); Alkaline Phosphatase 137 U/L (45-117); Anion Gap 5 (5-15); BUN 42 mg/dL (7-18); BUN/Creat Ratio 56.9 RATIO (10-20); Calcium,Total 7.8 mg/dL (8.5-10.1); Chloride 117 mmol/L (98-107); Creatinine, Serum 0.74 mg/dL (0.70-1.30); EST Glomerular Filtration Rate 113 mL/min (>60); Est Glom Filt Rate - Afr Amer 137 mL/min (>60); Estimated Creatinine Clearance 96.28 ml/min; Globulin 4.1 g/dL (2.2-4.2); Glucose 159 mg/dL (74-106); Magnesium 2.2 mg/dL (1.6-2.6); Potassium 3.9 mmol/L (3.5-5.1); Protein, Total 5.6 g/dL (6.4-8.2); Sodium Level 147 mmol/L (136-145)
[2021-05-24 04:15] LABS: Phosphorus 2.7 mg/dL (2.5-4.9)
[2021-05-24 04:28] LABS: Differential Indicated MANUAL DIFF
[2021-05-24 05:47] LABS: Absolute Lymphocyte Count 1.52 X10^3/uL (0.83-4.51); Absolute Neutrophil Count 7.8 X10^3/uL (2.0-7.7); Atypical Lymphocyte 2+ %
[2021-05-24 05:48] LABS: Platelet Estimate ADEQUATE (ADEQ)
[2021-05-24 05:49] LABS: Red Cell Morphology NORM C+C NORMAL (NORM C&C)
--- NOTE | 2021-05-24 06:30 | RAD_ITS ---
STUDY: X-RAY CHEST REASON FOR EXAM: Male, 66 years old. ETT placement TECHNIQUE: Single AP portable view of the chest. COMPARISON: 05/22/2021 FINDINGS: Endotracheal tube, right upper extremity PICC, and bilateral thoracostomy tubes all of which are unchanged. No pneumothorax. Extensive subcutaneous emphysema. No change in alveolar opacities in both lungs consistent with bilateral pneumonia, pulmonary edema, or ARDS. There is no demonstrated pleural abnormality. Normal size heart. Normal mediastinum and rah. Normal visualized pulmonary arteries. Normal visualized aortic arch and descending thoracic aorta. Normal visualized thoracic spine. Normal visualized ribs, clavicles, and shoulders. There is no demonstrated abnormality of the visualized soft tissue structures of the upper abdomen. RAD/Chest 1 View (Portable) IMPRESSION: No change from 05/22/2021. Electronically Signed: Monster Dean MD at 6:59 EST Tel , Service support ,
[2021-05-24] MEDS: Polyethylene Glycol 3350 17 GM PACKET PO (06:48)
[2021-05-24 06:55] LABS: CPK Total, Creatine Kinase 31 U/L (39-308); Triglycerides 431 mg/dL
--- NOTE | 2021-05-24 07:14 | PN.CC_ITS ---
Assessment & Plan Assessment/Plan (1) Acute respiratory failure with hypoxia: (2) Pneumonia due to COVID-19 virus: PLAN: RECOMMENDATIONS: 1. Continue patient on assist control mode mechanical ventilation. Wean FiO2/PEEP for saturations greater than 90%. 2. Monitor off antimicrobials. Some concern for drug fever related to Precedex 3. Increase Seroquel therapy 4. May need to discuss with family about holding sedation with expectant extubation 5. Continue Lovenox as ordered. 6. Continue tube feeds. Increase free water and add MiraLAX 7. Complete second round of Decadron (05/25/2021) IMPRESSIONS: 1. Acute hypoxic respiratory failure secondary to COVID-19 The patient was initially admitted to the hospital with COVID-19 pneumonia in the setting of progressive dyspnea on April 20. The patient completed treatment courses of remdesivir, Decadron and baricitinib. Despite the aforementioned, the patient's respiratory status remained quite tenuous. Repeat CTA chest was completed on May 14 and again failed to demonstrate evidence of pulmonary embolism. There continues to be extensive bilateral airspace disease with a background of chronic lung disease. The patient has been diuresed extensively over the course of his hospitalization. He remains on prophylactic Lovenox. Given the aforementioned, he was placed empirically on broad-spectrum antimicrobials and a second round of Decadron. He ultimately required transfer back to the ICU and intubation on May 17. Overall prognosis is quite poor. Family has elected to proceed with PEG. Continues to have difficulty tolerating spontaneous awakening trial. Will increase Seroquel. Chest x-ray is unchanged. Unclear if patient is having difficulty with chest tubes, but is on fentanyl at 200. Patient remains on minimal vent settings. 2. Pneumomediastinum/bilateral pneumothoraces Improving. Plan to continue with bilateral chest tube placement. Continue chest tubes to wall suction. Patient on minimal vent settings at this time. Patient does appear to be improving from a subcutaneous emphysematous standpoint. Off of pressor agents. Anticipate removal of chest tubes once patient is off of positive pressure ventilation 3. Advanced age/nonvaccinated status/history of smoking Complicates care, management, recovery and prognosis. Continue supportive measures as noted above. PEG placement for nutrition. Tube feeds can start today per surgery recommendations yesterday TIME: 34 minutes of critical care time, inclusive of procedures, was spent addressing the patient's acute hypoxemic respiratory failure secondary to COVID- 19 pneumonia, pneumomediastinum/pneumothoraces, review of all data and collaboration with the care team. Subjective Subjective Patient did okay overnight. No acute issues were reported. Patient remains on minimal vent settings, but any attempts at decreasing propofol leads to significant ventilator dyssynchrony. Patient has had fever overnight that is not responding to Tylenol. Patient is not following commands. No bowel movements have been reported. Objective Data Objective Data Vital Signs: Vital Signs Temp Pulse Resp BP Pulse Ox 38.5 C H 112 H 29 H 123/72 H 92 05/24/21 04:00 05/24/21 05:36 05/24/21 05:36 05/24/21 04:00 05/24/21 05:36 Oxygen Flow Rate (L/min) 45 Oxygen Delivery Method Mechanical Ventilator Weight: 79.5 kg Body Mass Index (BMI) 28.3 Intake & Output: Intake and Output for Last 24 Hours 05/22/21 05/23/21 05/24/21 23:59 23:59 23:59 Intake Total 1746.07 / 1810.07 3030.40 / 3094.40 848.00 / 848.00 Output Total 2300 / 2300 1470 / 1470 420 / 420 Balance -553.93 / -489.93 1560.40 / 1624.40 428.00 / 428.00 Medical Nutrition Assessment Dietitian: Malnutrition Criteria Met Start: 04/21/21 1 2:38 Freq: Status: Active Protocol: Document 05/22/21 10:49 AG (Rec: 05/22/21 10:49 AG [id number]) Nutrition Malnutrition Evidence of Malnutrition Exists Yes Malnutrition (severe): Acute Illness/Injury Evidenced By Suboptimal Energy Intake ( Moderate),Weight Loss (Severe) Clinical Problem Acute Disease or Injury Related Malnutrition Etiology severe, acute malnutrition r/t inadequate energy intake w/ COVID illness Signs/Symptoms as evidenced by reported decreased appetite, estimated PO intake meeting <50% of estimated nutritional needs >1 week, unintentional 9.4kg/11% wt loss since 04/20/21 admission Status Active Problem Recommendation Dietitian Recommendations/Changes NPO while intubated; Vital AF 1.2 via PEG at goal rate of 65mL/hour w/ 100mL H2O flush every 4 hours to provide 1872 calories, 117 g protein, and 1865mL total fluid/day. Would start at 20mL/hour and increase by 15mL/hour every 8- 12 hours as tolerated until goal rate is achieved. Close monitoring of electrolytes when enteral nutrition initiated given malnutrition. Lab / Micro Data Result Diagrams: 05/24/21 03:30 05/24/21 03:30 Labs: Laboratory Results - last 24 hr 05/22/21 04:10: Diff Path Review Reviewed 05/23/21 04:40: Diff Path Review Reviewed 05/24/21 03:30: WBC 10.9, RBC 3.78 L, Hgb 11.5 L, Hct 36.7 L, MCV 97.1 H, MCH 30.4, MCHC 31.3 L D, RDW Std Deviation 52.6 H, RDW Coeff of Alyson 14.6, Plt Count 283, MPV 9.8, Neut % (Auto) Not Reportable, Absolute Neuts (auto) 7.8 H, Absolute Lymphs (auto) 1.52, Diff Path Review May foll, Atypical Lymphocytes 2+, Platelet Estimate ADEQUATE, RBC Morphology NORM C+C 05/24/21 03:30: Sodium 147 H, Potassium 3.9, Chloride 117 H, Carbon Dioxide 25.0, Anion Gap 5, BUN 42 H, Creatinine 0.74, Estim Creat Clear Calc 96.28, Est GFR (MDRD) Af Amer 137, Est GFR (MDRD) Non-Af 113, BUN/Creatinine Ratio 56.9 H, Glucose 159 H, Calcium 7.8 L, Magnesium 2.2, Total Bilirubin 0.50, AST 35, ALT 162 H, Alkaline Phosphatase 137 H, Total Protein 5.6 L, Albumin 1.5 L, Globulin 4.1, Albumin/Globulin Ratio 0.4 L 05/24/21 03:30: Phosphorus 2.7 05/24/21 03:30: Total Creatine Kinase 31 L, Triglycerides 431 H Micro: Microbiology 05/17/21 08:30 Sputum, Expectorated/Coughed Gram Stain - Final 05/17/21 08:30 Sputum, Expectorated/Coughed Respiratory Culture - Final Culture exhibits no growth. 05/16/21 06:20 Sputum, Expectorated/Coughed Gram Stain - Final 05/16/21 06:20 Sputum, Expectorated/Coughed Respiratory Culture - Final 05/09/21 13:40 Urine, Catheterized Urine Culture - Final Enterococcus faecalis 05/06/21 01:48 Urine Catheter - Murphy Legionella Antigen - Final 05/06/21 01:48 Urine Catheter - Murphy Streptococcus pneumoniae Antigen (M - Final 04/20/21 15:10 Blood Culture (Wb) - Left Hand Blood Culture - Final No growth in 5 days. 04/20/21 13:10 Blood Culture (Wb) - Anticubital Right Blood Culture - Final No growth in 5 days. 04/21/21 17:07 Urine, Clean Catch Legionella Antigen - Final 04/21/21 17:07 Urine, Clean Catch Streptococcus pneumoniae Antigen (M - Fi nal 04/20/21 12:10 Nasal Secretion SARS-CoV-2 Antigen (Rapid) - Final SARS-CoV-2 (COVID 19) Radiography Diagnostic Testing: Radiology Impression Chest X-Ray 05/24/21 06:30 IMPRESSION: No change from 05/22/2021. Electronically Signed: Monster Dean MD at 6:59 EST Tel , Service support , Physical Exam Const Constitutional Narrative: Subcutaneous emphysema appears improved compared to previous General Appearance: intubated and patient mechanically ventilated HEENT normocephalic and head/scalp atraumatic Mouth: dry mucous membranes, endotracheal tube in place and OG tube in place Eyes PERRL and conjunctivae normal Neck supple General: trachea midline Chest Chest Narrative: Significantly improved extensive subcutaneous emphysema with crepitus throughout the chest and arms. Face resolved. No leak noted on chest tubes -serous drainage noted Chest: symmetrical chest wall rise, crepitus and chest tube Resp Auscultation: diminished lung sounds; Negative for rales, rhonchi or wheezes Cardio regular rate, S1 normal heart sound, S2 normal heart sound, no murmurs and no rub GI normal to inspection, nondistended, normoactive bowel sounds Extremity no clubbing, cyanosis or edema Skin no rashes or lesions noted Neuro Sensorium / Orientation: sedated on vent Charges/Coding Procedures Hospitalists Procedures: 62102 Critial Care 1st Hr
[2021-05-24] MEDS: Vital AF 1.2 Cal Liquid 1,000 ML 65 ML GT ×2 (08:42→21:55)
[2021-05-24] MEDS: Chlorhexidine 15 ML PO ×2 (09:00→21:47)
[2021-05-24] MEDS: Senna/Docusate Sodium 1 Tablet 2 TABLET GT ×2 (09:13→22:46)
[2021-05-24] MEDS: QUEtiapine 100 MG Tablet PO ×2 (09:14→22:46)
[2021-05-24] MEDS: Enoxaparin 40 MG/0.4 ML Syringe SC ×2 (09:14→22:46)
[2021-05-24] MEDS: CHLORHEXIDINE GLUC 2% CLOTH 1 EACH TOWELETTE TOPICAL ×2 (09:14→23:08)
[2021-05-24] MEDS: dexAMETHasone 4 MG/ML Vial 6 MG IV (09:55)
--- NOTE | 2021-05-24 11:17 | PN.HOSP_ITS ---
Subjective Subjective Follow-up on acute hypoxic respiratory failure/acute COVID-19 pneumonia/bilateral pneumothorax/pneumomediastinum: Patient was seen and examined. Patient remains intubated. He gets very agitated with increased respiratory rate when his propofol weaned off. Objective Data Objective Data Vital Signs: Vital Signs Temp Pulse Resp BP Pulse Ox 101.1 F H 111 H 34 H 113/70 91 05/24/21 07:00 05/24/21 07:44 05/24/21 07:13 05/24/21 07:00 05/24/21 07:13 Oxygen Flow Rate (L/min) 45 Oxygen Delivery Method Mechanical Ventilator Weight: 79.5 kg Body Mass Index (BMI) 28.3 Intake & Output: Intake and Output for Last 24 Hours 05/22/21 05/23/21 05/24/21 23:59 23:59 23:59 Intake Total 1746.07 / 1810.07 3030.40 / 3194.40 1279.24 / 1279.24 Output Total 2300 / 2300 1470 / 1470 420 / 420 Balance -553.93 / -489.93 1560.40 / 1724.40 859.24 / 859.24 Medical Nutrition Assessment Dietitian: Malnutrition Criteria Met Start: 04/21/21 12:38 Freq: Status: Active Protocol: Document 05/24/21 11:10 RMA (Rec: 05/24/21 11:10 RMA [id number]) Nutrition Malnutrition Evidence of Malnutrition Exists Yes Malnutrition (severe): Acute Illness/Injury Evidenced By Suboptimal Energy Intake ( Moderate),Weight Loss (Severe) Clinical Problem Acute Disease or Injury Related Malnutrition Etiology severe, acute malnutrition r/t inadequate energy intake w/ COVID illness Signs/Symptoms as evidenced by reported decreased appetite, estimated PO intake meeting <50% of estimated nutritional needs >1 week, unintentional 9.4kg/11% wt loss since 04/20/21 admission Status Active Problem Recommendation Dietitian Recommendations/Changes NPO while intubated; Continue Vital AF 1.2 via PEG at goal rate of 65mL/hour as tolerated w/ 100mL H2O flush every 4 hours to provide 1872 calories , 117 g protein, and 1865mL total fluid/day. Close monitoring of electrolytes when enteral nutrition initiated given malnutrition. Lab / Micro Data Result Diagrams: 05/24/21 03:30 05/24/21 03:30 Labs: Laboratory Results - last 24 hr 05/24/21 03:30: WBC 10.9, RBC 3.78 L, Hgb 11.5 L, Hct 36.7 L, MCV 97.1 H, MCH 30.4, MCHC 31.3 L D, RDW Std Deviation 52.6 H, RDW Coeff of Alyson 14.6, Plt Count 283, MPV 9.8, Neut % (Auto) Not Reportable, Absolute Neuts (auto) 7.8 H, Absolute Lymphs (auto) 1.52, Diff Path Review September, Atypical Lymphocytes 2+, Platelet Estimate ADEQUATE, RBC Morphology NORM C+C 05/24/21 03:30: Sodium 147 H, Potassium 3.9, Chloride 117 H, Carbon Dioxide 25.0, Anion Gap 5, BUN 42 H, Creatinine 0.74, Estim Creat Clear Calc 96.28, Est GFR (MDRD) Af Amer 137, Est GFR (MDRD) Non-Af 113, BUN/Creatinine Ratio 56.9 H, Glucose 159 H, Calcium 7.8 L, Magnesium 2.2, Total Bilirubin 0.50, AST 35, ALT 162 H, Alkaline Phosphatase 137 H, Total Protein 5.6 L, Albumin 1.5 L, Globulin 4.1, Albumin/Globulin Ratio 0.4 L 05/24/21 03:30: Phosphorus 2.7 05/24/21 03:30: Total Creatine Kinase 31 L, Triglycerides 431 H Micro: Microbiology 05/17/21 08:30 Sputum, Expectorated/Coughed Gram Stain - Final 05/17/21 08:30 Sputum, Expectorated/Coughed Respiratory Culture - Final Culture exhibits no growth. 05/16/21 06:20 Sputum, Expectorated/Coughed Gram Stain - Final 05/16/21 06:20 Sputum, Expectorated/Coughed Respiratory Culture - Final 05/09/21 13:40 Urine, Catheterized Urine Culture - Final Enterococcus faecalis 05/06/21 01:48 Urine Catheter - Murphy Legionella Antigen - Final 05/06/21 01:48 Urine Catheter - Murphy Streptococcus pneumoniae Antigen (M - Final 04/20/21 15:10 Blood Culture (Wb) - Left Hand Blood Culture - Final No growth in 5 days. 04/20/21 13:10 Blood Culture (Wb) - Anticubital Right Blood Culture - Final No growth in 5 days. 04/21/21 17:07 Urine, Clean Catch Legionella Antigen - Final 04/21/21 17:07 Urine, Clean Catch Streptococcus pneumoniae Antigen (M - Final 04/20/21 12:10 Nasal Secretion SARS-CoV-2 Antigen (Rapid) - Final SARS-CoV-2 (COVID 19) Radiography Diagnostic Testing: Radiology Impression Chest X-Ray 05/24/21 06:30 IMPRESSION: No change from 05/22/2021. Electronically Signed: Monster Dean MD at 6:59 EST Tel , Service support , Physical Exam Narrative Physical exam: General: Sedated, intubated HEENT: Atraumatic, subcutaneous emphysema around the neck, chest and face, impro manuelito Oral: Moist Mucosa Neck: Supple Lungs: Diminished to auscultation, bilateral chest tubes in situ Cardiovascular: HS I+II, regular, no murmurs Abdomen: Bowel Sounds Present, Soft, Non Tender Extremities: No edema Assessment & Plan Assessment/Plan (1) COVID-19: (2) Acute respiratory failure with hypoxia: PLAN: 1. Acute hypoxic respiratory failure secondary to acute COVID-19 pneumonia complicated by bilateral pneumothorax and pneumomediastinum, remains on minimal oxygen requirements, subcutaneous emphysema appears to be improving Unable to wean off propofol Patient is intubated, sedated. Intubated on 05/17/21 Completed Remdesivir, Decadron, baricitinib [employer] Drier Tender and ID following Continue on dexamethasone(stop date is 05/25/21) 2. Shock, unclear etiology, probably septic secondary to #3 Blood cultures have been negative Patient continues to have fevers Repeat blood cultures are pending Off IV cefepime 3. Acute Enterococcus faecalis UTI, pansensitive, off IV cefepime 4. Acute urinary retention, status post Murphy catheter, placed on 05/11/21 5. Severe protein calorie malnutrition, investigative assistant consulted, patient is on enteral feeds 6. DVT PPx- Lovenox SC BID Charges/Coding Visit Charges Inpatient E&M: 70547 Subs Hosp L3
[2021-05-24] MEDS: LORazepam 0.5 MG Tablet GT (11:43)
[2021-05-24] MEDS: Acetaminophen 650 MG/20 ML UDC GT ×2 (11:43→21:55)
--- NOTE | 2021-05-24 20:33 | PCM.PN.SRG ---
Subjective Subjective patient unchanged Objective Data Objective Data Vital Signs: Vital Signs Temp Pulse Resp BP Pulse Ox 100.6 F H 100 22 H 96/46 L 92 05/24/21 20:00 05/24/21 20:00 05/24/21 20:00 05/24/21 20:00 05/24/21 20:00 Oxygen Flow Rate (L/min) 45 Oxygen Delivery Method Mechanical Ventilator Weight: 79.5 kg Body Mass Index (BMI) 28.3 Intake & Output: Intake and Output for Last 24 Hours 05/22/21 05/23/21 05/24/21 23:59 23:59 23:59 Intake Total 1746.07 / 1810.07 3030.40 / 3194.40 3787.43 / 3787.43 Output Total 2300 / 2300 1470 / 1470 1090 / 1090 Balance -553.93 / -489.93 1560.40 / 1724.40 2697.43 / 2697.43 Medical Nutrition Assessment Dietitian: Malnutrition Criteria Met Start: 04/21/21 12:38 Freq: Status: Active Protocol: Document 05/24/21 11:10 RMA (Rec: 05/24/21 11:10 RMA [id number]) Nutrition Malnutrition Evidence of Malnutrition Exists Yes Malnutrition (severe): Acute Illness/Injury Evidenced By Suboptimal Energy Intake ( Moderate),Weight Loss (Severe) Clinical Problem Acute Disease or Injury Related Malnutrition Etiology severe, acute malnutrition r/t inadequate energy intake w/ COVID illness Signs/Symptoms as evidenced by reported decreased appetite, estimated PO intake meeting <50% of estimated nutritional needs >1 week, unintentional 9.4kg/11% wt loss since 04/20/21 admission Status Active Problem Recommendation Dietitian Recommendations/Changes NPO while intubated; Continue Vital AF 1.2 via PEG at goal rate of 65mL/hour as tolerated w/ 100mL H2O flush every 4 hours to provide 1872 calories , 117 g protein, and 1865mL total fluid/day. Close monitoring of electrolytes when enteral nutrition initiated given malnutrition. Lab / Micro Data Result Diagrams: 05/24/21 03:30 05/24/21 03:30 Labs: Laboratory Results - last 24 hr 05/24/21 03:30: WBC 10.9, RBC 3.78 L, Hgb 11.5 L, Hct 36.7 L, MCV 97.1 H, MCH 30.4, MCHC 31.3 L D, RDW Std Deviation 52.6 H, RDW Coeff of Alyson 14.6, Plt Count 283, MPV 9.8, Neut % (Auto) Not Reportable, Absolute Neuts (auto) 7.8 H, Absolute Lymphs (auto) 1.52, Diff Path Review May foll, Atypical Lymphocytes 2+, Platelet Estimate ADEQUATE, RBC Morphology NORM C+C 05/24/21 03:30: Sodium 147 H, Potassium 3.9, Chloride 117 H, Carbon Dioxide 25.0, Anion Gap 5, BUN 42 H, Creatinine 0.74, Estim Creat Clear Calc 96.28, Est GFR (MDRD) Af Amer 137, Est GFR (MDRD) Non-Af 113, BUN/Creatinine Ratio 56.9 H, Glucose 159 H, Calcium 7.8 L, Magnesium 2.2, Total Bilirubin 0.50, AST 35, ALT 162 H, Alkaline Phosphatase 137 H, Total Protein 5.6 L, Albumin 1.5 L, Globulin 4.1, Albumin/Globulin Ratio 0.4 L 05/24/21 03:30: Phosphorus 2.7 05/24/21 03:30: Total Creatine Kinase 31 L, Triglycerides 431 H Micro: Microbiology 05/22/21 11:30 Blood Culture (Wb) - Arm Right Blood Culture - Preliminary No growth in 48 hours. 05/17/21 08:30 Sputum, Expectorated/Coughed Gram Stain - Final 05/17/21 08:30 Sputum, Expectorated/Coughed Respiratory Culture - Final Culture exhibits no growth. 05/16/21 06:20 Sputum, Expectorated/Coughed Gram Stain - Final 05/16/21 06:20 Sputum, Expectorated/Coughed Respiratory Culture - Final 05/09/21 13:40 Urine, Catheterized Urine Culture - Final Enterococcus faecalis 05/06/21 01:48 Urine Catheter - Murphy Legionella Antigen - Final 05/06/21 01:48 Urine Catheter - Murphy Streptococcus pneumoniae Antigen (M - Final 04/20/21 15:10 Blood Culture (Wb) - Left Hand Blood Culture - Final No growth in 5 days. 04/20/21 13:10 Blood Culture (Wb) - Anticubital Right Blood Culture - Final No growth in 5 days. 04/21/21 17:07 Urine, Clean Catch Legionella Antigen - Final 04/21/21 17:07 Urine, Clean Catch Streptococcus pneumoniae Antigen (M - Final 04/20/21 12:10 Nasal Secretion SARS-CoV-2 Antigen (Rapid) - Final SARS-CoV-2 (COVID 19) Radiography Diagnostic Testing: Radiology Impression Chest X-Ray 05/24/21 06:30 IMPRESSION: No change from 05/22/2021. Electronically Signed: Monster Dean MD at 6:59 EST Tel , Service support , Physical Exam Chest Chest Narrative: chest tubes in place no air leak noted Assessment & Plan Assessment/Plan (1) Pneumothorax: PLAN: no surgical changes to be made at this point
[2021-05-25] VITALS (32 sets, daily range): BP systolic 76–169; BP diastolic 54–94; PULSE 62–147; RESP 17–42; TEMP 37.4–38.2; O2SAT 64–98
[2021-05-25] MEDS: Ipratropium/Albuterol Sulfate 3 ML AMPUL.NEB INHALATION ×3 (01:51→13:36)
[2021-05-25] MEDS: Propofol 10MG/Ml 1,000 MG/100 ML Bottle 15.8 MG CONT INF ×4 (02:24→16:35)
[2021-05-25] MEDS: Acetaminophen 650 MG/20 ML UDC GT ×2 (04:05→16:43)
[2021-05-25] MEDS: LORazepam 0.5 MG Tablet GT ×2 (04:05→11:26)
[2021-05-25 04:35] LABS: Hematocrit 33.3 % (40-54); Hemoglobin 10.6 g/dL (13.0-16.5); Mean Corp Hgb Conc 31.8 g/dL (32-36); Mean Corpuscular Volume 97.4 fL (80-94); Mean Platelet Vol. 10.3 fl (6.2-12.0); POSITIVE COUNT YES; POSITIVE MORPHOLOGY YES; Platelet Count 245 K/mm3 (150-450); RBC Distribution Width CV 14.6 % (11.6-14.6); RBC Distribution Width SD 52.4 fl (35.1-43.9); Red Blood Count 3.42 M/mm3 (4.6-6.2); White Blood Count 10.5 K/mm3 (4.4-11.0)
[2021-05-25 04:36] LABS: Differential Indicated MANUAL DIFF
[2021-05-25 05:00] LABS: ALB/GLOB Ratio 0.4 RATIO (0.9-2.4); AST(SGOT) 23 U/L (15-37); Alanine Aminotransfer ALT/SGPT 128 U/L (16-61); Albumin, Serum 1.3 g/dL (3.2-5.0); Alkaline Phosphatase 112 U/L (45-117); Anion Gap 6 (5-15); BUN 42 mg/dL (7-18); BUN/Creat Ratio 63.4 RATIO (10-20); Calcium,Total 7.5 mg/dL (8.5-10.1); Chloride 118 mmol/L (98-107); Creatinine, Serum 0.66 mg/dL (0.70-1.30); EST Glomerular Filtration Rate 128 mL/min (>60); Est Glom Filt Rate - Afr Amer 155 mL/min (>60); Estimated Creatinine Clearance 107.95 ml/min; Globulin 3.7 g/dL (2.2-4.2); Glucose 152 mg/dL (74-106); Magnesium 2.1 mg/dL (1.6-2.6); Sodium Level 148 mmol/L (136-145)
[2021-05-25 05:04] LABS: Phosphorus 2.6 mg/dL (2.5-4.9)
[2021-05-25 05:41] LABS: Neutrophil-Band 4 % (0-5); Neutrophil-Segmented 68 % (47-70); Total Cells Counted 100 (MANUAL DIFF)
[2021-05-25 05:42] LABS: Eosinophil 1 % (0-5); Lymphocyte 20 % (19-41); Metamyelocyte 2 % (0-1); Monocyte 3 % (0-10); Myelocyte 2 % (0-0); Platelet Estimate ADEQUATE (ADEQ); Red Cell Morphology NORM C+C NORMAL (NORM C&C)
--- NOTE | 2021-05-25 07:49 | PN.CC_ITS ---
Assessment & Plan Assessment/Plan (1) Acute respiratory failure with hypoxia: (2) Pneumonia due to COVID-19 virus: PLAN: RECOMMENDATIONS: 1. Continue patient on assist control mode mechanical ventilation. Wean FiO2/PEEP for saturations greater than 90%. 2. Monitor off antimicrobials. Some concern for drug fever related to Precedex 3. Obtain spontaneous breathing trial today on current sedation/pain regimen 4. Likely close to trial of extubation 5. Continue Lovenox as ordered. 6. Continue tube feeds. Continue free water and add MiraLAX 7. Complete second round of Decadron (05/25/2021) IMPRESSIONS: 1. Acute hypoxic respiratory failure secondary to COVID-19 The patient was initially admitted to the hospital with COVID-19 pneumonia in the setting of progressive dyspnea on April 20. The patient completed dereck tment courses of remdesivir, Decadron and baricitinib. Despite the aforementioned, the patient's respiratory status remained quite tenuous. Repeat CTA chest was completed on May 14 and again failed to demonstrate evidence of pulmonary embolism. There continues to be extensive bilateral airspace disease with a background of chronic lung disease. The patient has been diuresed extensively over the course of his hospitalization. He remains on prophylactic Lovenox. Given the aforementioned, he was placed empirically on broad-spectrum antimicrobials and a second round of Decadron. He ultimately required transfer back to the ICU and intubation on May 17. Overall prognosis is quite poor. Family has elected to proceed with PEG to provide some nutrition. Continues to have difficulty tolerating spontaneous awakening trial despite increased Seroquel. Chest x-ray is unchanged. Unclear if patient is having difficulty with chest tubes, but is on fentanyl at 200. Patient remains on minimal vent settings. Will attempt a spontaneous breathing trial on current regimen. Patient is breathing over the ventilator. This is in an effort to provide family with some guidance as to tolerance of extubation. Patient likely getting close to full optimization from a pulmonary standpoint. Anticipate extubation with no reintubation early next week. 2. Pneumomediastinum/bilateral pneumothoraces Improving. Plan to continue with bilateral chest tube placement. Continue chest tubes to wall suction. Patient on minimal vent settings at this time. Patient does appear to be improving from a subcutaneous emphysematous standpoint. Off of pressor agents. Anticipate removal of chest tubes once patient is off of positive pressure ventilation 3. Advanced age/nonvaccinated status/history of smoking Complicates care, management, recovery and prognosis. Continue supportive measures as noted above. PEG placement for nutrition. Tube feeds can start today per surgery recommendations yesterday TIME: 32 minutes of critical care time, inclusive of procedures, was spent addressing the patient's acute hypoxemic respiratory failure secondary to COVID- 19 pneumonia, pneumomediastinum/pneumothoraces, review of all data and collaboration with the care team. Subjective Subjective Patient did okay overnight. Patient has tolerated tube feeds and had a bowel movement overnight. Patient failed his awakening trial after 15 minutes secondary to tachycardia and tachypnea despite being on minimal vent settings. Objective Data Objective Data Vital Signs: Vital Signs Temp Pulse Resp BP Pulse Ox 38.1 C H 115 H 29 H 93/62 94 05/25/21 04:00 05/25/21 07:43 05/25/21 07:19 05/25/21 07:00 05/25/21 07:19 Oxygen Flow Rate (L/min) 45 Oxygen Delivery Method Mechanical Ventilator Weight: 81.6 kg Body Mass Index (BMI) 28.3 Intake & Output: Intake and Output for Last 24 Hours 05/23/21 05/24/21 05/25/21 23:59 23:59 23:59 Intake Total 3030.40 / 3194.40 4080.30 / 4438.43 1083.46 / 1083.46 Output Total 1470 / 1470 1090 / 1290 750 / 750 Balance 1560.40 / 1724.40 2990.30 / 3148.43 333.46 / 333.46 Medical Nutrition Assessment Dietitian: Malnutrition Criteria Met Start: 04/21/21 12:38 Freq: Status: Active Protocol: Document 05/24/21 11:10 RMA (Rec: 05/24/21 11:10 RMA [id number]) Nutrition Malnutrition Evidence of Malnutrition Exists Yes Malnutrition (severe): Acute Illness/Injury Evidenced By Suboptimal Energy Intake ( Moderate),Weight Loss (Severe) Clinical Problem Acute Disease or Injury Related Malnutrition Etiology severe, acute malnutrition r/t inadequate energy intake w/ COVID illness Signs/Symptoms as evidenced by reported decreased appetite, estimated PO intake meeting <50% of estimated nutritional needs >1 week, unintentional 9.4kg/11% wt loss since 04/20/21 admission Status Active Problem Recommendation Dietitian Recommendations/Changes NPO while intubated; Continue Vital AF 1.2 via PEG at goal rate of 65mL/hour as tolerated w/ 100mL H2O flush every 4 hours to provide 1872 calories , 117 g protein, and 1865mL total fluid/day. Close monitoring of electrolytes when enteral nutrition initiated given malnutrition. Lab / Micro Data Result Diagrams: 05/25/21 04:15 05/25/21 04:15 Labs: Laboratory Results - last 24 hr 05/25/21 04:15: WBC 10.5, RBC 3.42 L, Hgb 10.6 L, Hct 33.3 L, MCV 97.4 H, MCH 31.0, MCHC 31.8 L, RDW Std Deviation 52.4 H, RDW Coeff of Alyson 14.6, Plt Count 245, MPV 10.3, Neut % (Auto) Not Reportable, Total Counted 100, Neutrophils % (Manual) 68, Band Neutrophils % 4, Lymphocytes % (Manual) 20, Monocytes % (Manual) 3, Eosinophils % (Manual) 1, Metamyelocytes % 2 H, Myelocytes % 2 H, Diff Path Review September foll, Platelet Estimate ADEQUATE, RBC Morphology NORM C+C 05/25/21 04:15: Sodium 148 H, Potassium 4.0, Chloride 118 H, Carbon Dioxide 24.0, Anion Gap 6, BUN 42 H, Creatinine 0.66 L, Estim Creat Clear Calc 107.95, Est GFR (MDRD) Af Amer 155, Est GFR (MDRD) Non-Af 128, BUN/Creatinine Ratio 63.4 H, Glucose 152 H, Calcium 7.5 L, Magnesium 2.1, Total Bilirubin 0.30, AST 23, ALT 128 H, Alkaline Phosphatase 112, Total Protein 5.0 L, Albumin 1.3 L, Globulin 3.7, Albumin/Globulin Ratio 0.4 L 05/25/21 04:15: Phosphorus 2.6 Micro: Microbiology 05/22/21 11:30 Blood Culture (Wb) - Arm Right Blood Culture - Preliminary No growth in 48 hours. 05/17/21 08:30 Sputum, Expectorated/Coughed Gram Stain - Final 05/17/21 08:30 Sputum, Expectorated/Coughed Respiratory Culture - Final Culture exhibits no growth. 05/16/21 06:20 Sputum, Expectorated/Coughed Gram Stain - Final 05/16/21 06:20 Sputum, Expectorated/Coughed Respiratory Culture - Final 05/09/21 13:40 Urine, Catheterized Urine Culture - Final Enterococcus faecalis 05/06/21 01:48 Urine Catheter - Murphy Legionella Antigen - Final 05/06/21 01:48 Urine Catheter - Murphy Streptococcus pneumoniae Antigen (M - Final 04/20/21 15:10 Blood Culture (Wb) - Left Hand Blood Culture - Final No growth in 5 days. 04/20/21 13:10 Blood Culture (Wb) - Anticubital Right Blood Culture - Final No growth in 5 days. 04/21/21 17:07 Urine, Clean Catch Legionella Antigen - Final 04/21/21 17:07 Urine, Clean Catch Streptococcus pneumoniae Antigen (M - Final 04/20/21 12:10 Nasal Secretion SARS-CoV-2 Antigen (Rapid) - Final SARS-CoV-2 (COVID 19) Physical Exam Const Constitutional Narrative: Subcutaneous emphysema appears improved compared to previous General Appearance: intubated and patient mechanically ventilated HEENT normocephalic and head/scalp atraumatic Mouth: dry mucous membranes, endotracheal tube in place and OG tube in place Eyes PERRL and conjunctivae normal Neck supple General: trachea midline Chest Chest Narrative: Significantly improved extensive subcutaneous emphysema with crepitus throughout the chest and arms. Face resolved. No leak noted on chest tubes -serous drainage noted Chest: symmetrical chest wall rise, crepitus and chest tube Resp Auscultation: diminished lung sounds; Negative for rales, rhonchi or wheezes Cardio regular rate, S1 normal heart sound, S2 normal heart sound, no murmurs and no rub GI normal to inspection, nondistended, normoactive bowel sounds Extremity no clubbing, cyanosis or edema Skin no rashes or lesions noted Neuro Sensorium / Orientation: sedated on vent Charges/Coding Procedures Hospitalists Procedures: 27890 Critial Care 1st Hr
[2021-05-25] MEDS: dexAMETHasone 4 MG/ML Vial 6 MG IV (08:21)
[2021-05-25] MEDS: Enoxaparin 40 MG/0.4 ML Syringe SC (08:22)
[2021-05-25] MEDS: Chlorhexidine 15 ML PO (08:26)
[2021-05-25] MEDS: Senna/Docusate Sodium 1 Tablet 2 TABLET GT (08:29)
[2021-05-25] MEDS: QUEtiapine 100 MG Tablet 150 MG PO (08:31)
--- NOTE | 2021-05-25 08:50 | PN.HOSP_ITS ---
Subjective Subjective Follow-up on acute hypoxic respiratory failure/acute COVID-19 pneumonia/bilateral pneumothorax/pneumomediastinum: Patient was seen and examined. Patient still has continuous awakening trial. He remains on sedatives. Objective Data Objective Data Vital Signs: Vital Signs Temp Pulse Resp BP Pulse Ox 100.6 F H 115 H 29 H 93/62 94 05/25/21 04:00 05/25/21 07:43 05/25/21 07:19 05/25/21 07:00 05/25/21 07:19 Oxygen Flow Rate (L/min) 45 Oxygen Delivery Method Mechanical Ventilator Weight: 81.6 kg Body Mass Index (BMI) 28.3 Intake & Output: Intake and Output for Last 24 Hours 05/23/21 05/24/21 05/25/21 23:59 23:59 23:59 Intake Total 3030.40 / 3194.40 4080.30 / 4438.43 1119.29 / 1119.29 Output Total 1470 / 1470 1090 / 1290 750 / 750 Balance 1560.40 / 1724.40 2990.30 / 3148.43 369.29 / 369.29 Medical Nutrition Assessment Dietitian: Malnutrition Criteria Met Start: 04/21/21 12:38 Freq: Status: Active Protocol: Document 05/24/21 11:10 RMA (Rec: 05/24/21 11:10 RMA [id number]) Nutrition Malnutrition Evidence of Malnutrition Exists Yes Malnutrition (severe): Acute Illness/Injury Evidenced By Suboptimal Energy Intake ( Moderate),Weight Loss (Severe) Clinical Problem Acute Disease or Injury Related Malnutrition Etiology severe, acute malnutrition r/t inadequate energy intake w/ COVID illness Signs/Symptoms as evidenced by reported decreased appetite, estimated PO intake meeting <50% of estimated nutritional needs >1 week, unintentional 9.4kg/11% wt loss since 04/20/21 admission Status Active Problem Recommendation Dietitian Recommendations/Changes NPO while intubated; Continue Vital AF 1.2 via PEG at goal rate of 65mL/hour as tolerated w/ 100mL H2O flush every 4 hours to provide 1872 calories , 117 g protein, and 1865mL total fluid/day. Close monitoring of electrolytes when enteral nutrition initiated given malnutrition. Lab / Micro Data Result Diagrams: 05/25/21 04:15 05/25/21 04:15 Labs: Laboratory Results - last 24 hr 05/25/21 04:15: WBC 10.5, RBC 3.42 L, Hgb 10.6 L, Hct 33.3 L, MCV 97.4 H, MCH 31.0, MCHC 31.8 L, RDW Std Deviation 52.4 H, RDW Coeff of Alyson 14.6, Plt Count 245, MPV 10.3, Neut % (Auto) Not Reportable, Total Counted 100, Neutrophils % (Manual) 68, Band Neutrophils % 4, Lymphocytes % (Manual) 20, Monocytes % (Man ual) 3, Eosinophils % (Manual) 1, Metamyelocytes % 2 H, Myelocytes % 2 H, Diff Path Review September, Platelet Estimate ADEQUATE, RBC Morphology NORM C+C 05/25/21 04:15: Sodium 148 H, Potassium 4.0, Chloride 118 H, Carbon Dioxide 24.0, Anion Gap 6, BUN 42 H, Creatinine 0.66 L, Estim Creat Clear Calc 107.95, Est GFR (MDRD) Af Amer 155, Est GFR (MDRD) Non-Af 128, BUN/Creatinine Ratio 63.4 H, Glucose 152 H, Calcium 7.5 L, Magnesium 2.1, Total Bilirubin 0.30, AST 23, ALT 128 H, Alkaline Phosphatase 112, Total Protein 5.0 L, Albumin 1.3 L, Globulin 3.7, Albumin/Globulin Ratio 0.4 L 05/25/21 04:15: Phosphorus 2.6 Micro: Microbiology 05/22/21 11:30 Blood Culture (Wb) - Arm Right Blood Culture - Preliminary No growth in 48 hours. 05/17/21 08:30 Sputum, Expectorated/Coughed Gram Stain - Final 05/17/21 08:30 Sputum, Expectorated/Coughed Respiratory Culture - Final Culture exhibits no growth. 05/16/21 06:20 Sputum, Expectorated/Coughed Gram Stain - Final 05/16/21 06:20 Sputum, Expectorated/Coughed Respiratory Culture - Final 05/09/21 13:40 Urine, Catheterized Urine Culture - Final Enterococcus faecalis 05/06/21 01:48 Urine Catheter - Murphy Legionella Antigen - Final 05/06/21 01:48 Urine Catheter - Murphy Streptococcus pneumoniae Antigen (M - Final 04/20/21 15:10 Blood Culture (Wb) - Left Hand Blood Culture - Final No growth in 5 days. 04/20/21 13:10 Blood Culture (Wb) - Anticubital Right Blood Culture - Final No growth in 5 days. 04/21/21 17:07 Urine, Clean Catch Legionella Antigen - Final 04/21/21 17:07 Urine, Clean Catch Streptococcus pneumoniae Antigen (M - Final 04/20/21 12:10 Nasal Secretion SARS-CoV-2 Antigen (Rapid) - Final SARS-CoV-2 (COVID 19) Physical Exam Narrative Physical exam: General: Sedated, intubated HEENT: Atraumatic, subcutaneous emphysema around the neck, chest and face, improved Oral: Moist Mucosa Neck: Supple Lungs: Diminished to auscultation, bilateral chest tubes in situ Cardiovascular: HS I+II, regular, no murmurs Abdomen: Bowel Sounds Present, Soft, Non Tender Extremities: No edema Assessment & Plan Assessment/Plan (1) COVID-19: (2) Acute respiratory failure with hypoxia: PLAN: Summary: 66-year-old unvaccinated male was admitted with acute COVID-19 pneumonia on 04/20/21 1. Acute hypoxic respiratory failure secondary to acute COVID-19 pneumonia complicated by bilateral pneumothorax and pneumomediastinum, remains on minimal oxygen requirements, subcutaneous emphysema appears to be improving Patient has failed multiple spontaneous awakening trials; unable to wean off propofol Patient remains intubated, sedated. Intubated on 05/17/21 Completed Remdesivir, Decadron, baricitinib [employer] and ID following Continue on dexamethasone(stop date is today) 2. Shock, unclear etiology, probably septic secondary to #3, appears resolved Blood cultures have been negative Patient continues to have fevers Repeat blood cultures are pending Off IV cefepime 3. Acute Enterococcus faecalis UTI, pansensitive, off IV cefepime 4. Acute urinary retention, status post Murphy catheter, placed on 05/11/21 5. Severe protein calorie malnutrition, cyanide case hardener consulted, patient is on enteral feeds 6. DVT PPx- Lovenox SC BID Charges/Coding Visit Charges Inpatient E&M: 17278 [facility] Hosp L3
[2021-05-25] MEDS: Vital AF 1.2 Cal Liquid 1,000 ML 65 ML GT (12:54)
[2021-05-25 13:56] LABS: Absolute Neutrophil Count 7.6 X10^3/uL (2.0-7.7); Neutrophil # 7.56 X10^3/uL (2.7-7.7)
--- NOTE | 2021-05-25 18:40 | NURSING ---
Dr Sharma meet with family they have decided to withdraw care
[2021-05-25] MEDS: Morphine 2 MG/ML Syringe IV ×2 (19:00→20:11)
--- NOTE | 2021-05-25 19:00 | NURSING ---
extubated , family @ bedside
[2021-05-25] MEDS: morphine (oral solution) 10MG/0.5ML Syringe 5 MG SL/PO (19:10)
[2021-05-25] MEDS: Haloperidol Lactate 10 MG/5 ML UDC SL/PO (19:10)
[2021-05-25] MEDS: Atropine Sulfate 1% 2 ml Bottle 4 DRP SL ×3 (19:11→22:06)
[2021-05-25] MEDS: LORazepam 2 MG/ML Syringe IV ×3 (19:49→23:12)
[2021-05-25] MEDS: 0.9% Saline Lock 10 ML Syringe IV ×5 (19:49→23:12)
[2021-05-25] MEDS: morphine 10 MG/ML Syringe IV ×2 (22:04→23:05)
[2021-05-26] VITALS: BP 110/61; PULSE 143; RESP 21; TEMP 38.1; O2SAT 65
[2021-05-26] MEDS: LORazepam 2 MG/ML Syringe IV ×2 (01:09→02:56)
[2021-05-26] MEDS: Atropine Sulfate 1% 2 ml Bottle 4 DRP SL (01:10)
[2021-05-26] MEDS: Morphine 2 MG/ML Syringe IV ×2 (01:15→03:21)
[2021-05-26] MEDS: 0.9% Saline Lock 10 ML Syringe IV ×3 (01:25→03:20)
[2021-05-26 02:00] VITALS: BP 92/64; PULSE 160; RESP 26; TEMP 38.8; O2SAT 11
[2021-05-26 04:00] VITALS: BP 70/50; PULSE 146; RESP 25; TEMP 38.8; O2SAT 19
--- NOTE | 2021-05-26 04:45 | NURSING ---
0432- Patient is asystole on the monitor and no BP. No heart or lung sounds heard. Double verified with Willie Espinoza RN. Family is at bedside. Dr. Paiz notified.
--- NOTE | 2021-05-26 05:45 | PCM.PN.INT ---
Objective Data Objective Data Vital Signs: Vital Signs Temp Pulse Resp BP Pulse Ox 102 F H 146 H 25 H 70/50 L 19 05/26/21 04:00 05/26/21 04:00 05/26/21 04:00 05/26/21 04:00 05/26/21 04:00 Oxygen Flow Rate (L/min) 2 Oxygen Delivery Method Nasal Cannula Weight: 81.6 kg Body Mass Index (BMI) 28.3 Intake & Output: Intake and Output for Last 24 Hours 05/24/21 05/25/21 05/26/21 23:59 23:59 23:59 Intake Total 4080.30 / 4438.43 2225.33 / 2225.33 Output Total 1090 / 1290 1620 / 1970 350 / 350 Balance 2990.30 / 3148.43 605.33 / 255.33 -350 / -350 Medical Nutrition Assessment Dietitian: Malnutrition Criteria Met Start: 04/21/21 12:38 Freq: Status: Active Protocol: Document 05/24/21 11:10 RMA (Rec: 05/24/21 11:10 RMA [id number]) Nutrition Malnutrition Evidence of Malnutrition Exists Yes Malnutrition (severe): Acute Illness/Injury Evidenced By Suboptimal Energy Intake ( Moderate),Weight Loss (Severe) Clinical Problem Acute Disease or Injury Related Malnutrition Etiology severe, acute malnutrition r/t inadequate energy intake w/ COVID illness Signs/Symptoms as evidenced by reported decreased appetite, estimated PO intake meeting <50% of estimated nutritional needs >1 week, unintentional 9.4kg/11% wt loss since 04/20/21 admission Status Active Problem Recommendation Dietitian Recommendations/Changes NPO while intubated; Continue Vital AF 1.2 via PEG at goal rate of 65mL/hour as tolerated w/ 100mL H2O flush every 4 hours to provide 1872 calories , 117 g protein, and 1865mL total fluid/day. Close monitoring of electrolytes when enteral nutrition initiated given malnutrition. Lab / Micro Data Result Diagrams: 05/25/21 04:15 05/25/21 04:15 Labs: Laboratory Results - last 24 hr 05/25/21 04:15: Absolute Neuts (auto) 7.6, Absolute Lymphs (auto) 2.10 Micro: Microbiology 05/22/21 11:30 Blood Culture (Wb) - Arm Right Blood Culture - Preliminary No growth in 48 hours. 05/17/21 08:30 Sputum, Expectorated/Coughed Gram Stain - Final 05/17/21 08:30 Sputum, Expectorated/Coughed Respiratory Culture - Final Culture exhibits no growth. 05/16/21 06:20 Sputum, Expectorated/Coughed Gram Stain - Final 05/16/21 06:20 Sputum, Expectorated/Coughed Respiratory Culture - Final 05/09/21 13:40 Urine, Catheterized Urine Culture - Final Enterococcus faecalis 05/06/21 01:48 Urine Catheter - Murphy Legionella Antigen - Final 05/06/21 01:48 Urine Catheter - Murphy Streptococcus pneumoniae Antigen (M - Final 04/20/21 15:10 Blood Culture (Wb) - Left Hand Blood Culture - Final No growth in 5 days. 04/20/21 13:10 Blood Culture (Wb) - Anticubital Right Blood Culture - Final No growth in 5 days. 04/21/21 17:07 Urine, Clean Catch Legionella Antigen - Final 04/21/21 17:07 Urine, Clean Catch Streptococcus pneumoniae Antigen (M - Final 04/20/21 12:10 Nasal Secretion SARS-CoV-2 Antigen (Rapid) - Final SARS-CoV-2 (COVID 19)
--- NOTE | 2021-05-26 07:45 | PCM.DEATH ---
Preliminary Cause of Preliminary Cause of Preliminary Cause of : Acute hypoxic respiratory failure secondary to Acute COVID-19 pneumonia/bilateral pneumothoraces/pneumomediastinum Septic shock Date of Admission: 04/20/21 Date of : 05/26/21 Principle Diagnosis 1. Acute hypoxic respiratory failure secondary to acute COVID-19 pneumonia complicated by bilateral pneumothorax and pneumomediastinum 2. Septic shock 3. Acute Enterococcus faecalis UTI 4. Acute urinary retention 5. Severe protein calorie malnutrition Problem List: Active and Suspected Problems (Updated 05/21/21 @ 10:[address] Tiara Buck MD) Malnutrition (Acute) Pneumomediastinum (Acute) Pneumothorax (Acute) Urinary retention (Acute) COVID-19 (Acute) Acute respiratory failure with hypoxia (Acute) Pneumonia due to COVID-19 virus (Acute) Hospital Course 66 year old man, who was unvaccinated against Acute COVID-19 infection comes in with a 4 day history of fever, chills, progressive SOB. Patient was diagnosed with acute COVID-19 pneumonia. His CTA chest was negative for acute PE; showed extensive bilateral infiltrates. Patient completed dexamethasone, Remdesivir and Baracitinib in this hospital stay. He however was progressively worse and was intubated on 05/17/20. He subsequently developed bilateral pneumothoraces with pneumomediastinum. He had chest tubes placed. Patient had septic shock and urine cultures were positive for Acute enterococcus fecalis. He was treated with IV cefepime and completed 7 days. Patient progressively was worse and attempts at weaning off sedatives failed multiple times. Family were updated all the time. Family elected to withdraw care on 05/25/21. Terminal wean protocol was started. Time of : 0432HRS Visit Charges Inpatient E&M: 72122 [facility]
[2021-05-26 13:39] LABS: Pathologist Review Reviewed
[2021-05-26 13:48] LABS: Pathologist Review Reviewed
== END 2021-05-26 06:19 | DRG 870 ==
LOC: ED 13:42 → PCU 22:14 → ICU 04-29 12:32 → PCU 04-30 18:05 → ICU 05-16 14:52
PROVIDERS: Internal Medicine; Internal Medicine Critical Care Medicine; Internal Medicine Infectious Disease; Surgery; Admitting Provider Internal Medicine; Emergency Provider Emergency Medicine; Visit Provider Internal Medicine
PROC: 0DJ08ZZ Inspection of Upper Intestinal Tract, Via Natural or Artificial Opening Endoscopic (ICD-10-PCS; CPT 43235; principal; 2021-05-21 12:55)
DX: A41.89 Other specified sepsis (principal); J96.01 Acute respiratory failure with hypoxia; R65.21 Severe sepsis with septic shock; J12.82 Pneumonia due to coronavirus disease 2019; E43 Unspecified severe protein-calorie malnutrition; U07.1 COVID-19; J98.59 Other diseases of mediastinum, not elsewhere classified; J44.0 Chronic obstructive pulmonary disease with (acute) lower respiratory infection; J93.9 Pneumothorax, unspecified; J98.2 Interstitial emphysema; T83.511A Infection and inflammatory reaction due to indwelling urethral catheter, initial encounter; N30.00 Acute cystitis without hematuria; F41.9 Anxiety disorder, unspecified; B95.2 Enterococcus as the cause of diseases classified elsewhere; K31.89 Other diseases of stomach and duodenum; Z87.891 Personal history of nicotine dependence; R33.9 Retention of urine, unspecified; Z68.27 Body mass index [BMI] 27.0-27.9, adult; Y73.8 Miscellaneous gastroenterology and urology devices associated with adverse incidents, not elsewhere classified
CPT/HCPCS: 31500; 31720; 36415; 36569; 36600; 71045; 71275; 74018; 80048; 80053; 80202; 81001; 82248; 82550; 82803; 83605; 83615; 83735; 83880; 84100; 84145; 84478; 84484; 85025; 85379; 85384; 86140; 87040; 87070; 87077; 87086; 87088; 87186; 87205; 87426; 87449; 87641; 94002; 94003; 94640; 94660; 94667; 94668; 94762; 97110; 97163; 97166; 97530; 97535; 97802; 99251; 99285; J7040; J7050; Q9967; A4216; G0463; J1940; J3010